=== PATIENT | female | born 1950 | race Caucasian/White ===

== ENCOUNTER 2016-12-18 14:10 | Observation (INO) | payer OTHER ==
[~2016-12-18] VITALS: Ht 157.5 cm; Wt 81.7 kg
[~2016-12-18 14:10] MED LIST: ASPI81TA28 PO; FURO-85 PO; LISI-789 PO; LORA-741 PO; NTRSL3 UT
--- NOTE | 2016-12-18 14:53 | DIAGNOSTIC IMAGING REPORT ---
CHEST ONE VIEW PORTABLE CLINICAL HISTORY: Atypical chest pain COMPARISON STUDY: 04/25/2015 FINDINGS: The heart is mildly enlarged. There is a left subclavian pacer/defibrillator present. There is no failure. There is no focal pulmonary consolidation. There are no pleural effusions.[ IMPRESSION: Stable mild cardiomegaly. No acute findings. Electronically signed by: Doc Sams M.D. 12/18/2016 2:51 PM Dictated Date/Time: 12/18/2016 2:51 PM
[2016-12-18 15:11] LABS: BASO % 0.4 %; BASO ABS # 0.04 K/uL (0-0.2); COMPLETE YES; EOS % 0.8 %; HEMATOCRIT 39.7 % (37-47); IG% 0.3 %; LYMPH % 17.7 %; LYMPH ABS # 1.92 K/uL (1.2-3.4); MEAN CORPUSCULAR HEMOGLOBIN 29.8 pg (25-34); MEAN CORPUSCULAR HGB CONC 33.5 g/dl (32-36); MONO % 6.2 %; NEUT % 74.6 %; PLATELET COUNT 157 K/uL (130-400); RED BLOOD COUNT 4.46 M/uL (4.2-5.4); WHITE BLOOD COUNT 10.87 K/uL (4.8-10.8)
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
[2016-12-18 15:47] LABS: BLOOD UREA NITROGEN 27 mg/dl (7-18); BUN/CREATININE RATIO 24.6 (10-20); CALCIUM 9.2 mg/dl (8.5-10.1); CARBON DIOXIDE 21 mmol/L (21-32); CHLORIDE 104 mmol/L (98-107); GLUCOSE 196 mg/dl (70-99); SODIUM 134 mmol/L (136-145)
[2016-12-18] MEDS ORDERED: NITROGLYCERIN 0.4 MG SL PER TAB CHARGE SL PRN (16:45)
[2016-12-18] MEDS ORDERED: ACETAMINOPHEN 325 MG TAB PO PRN (16:45)
[2016-12-18] MEDS ORDERED: ONDANSETRON INJ 2 MG/ML 2 ML VIAL IV PRN (16:45)
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
[2016-12-18] MEDS ORDERED: PROMETHAZINE HCL INJ 12.5 MG in SODIUM CHLORIDE 0.9% 50ML 50 ML IV PRN (17:00)
[2016-12-18 17:55] VITALS: BP 138/85; PULSE 65; TEMP 36.3; O2SAT 97; Ht 157.5 cm; Wt 81.7 kg
--- NOTE | 2016-12-18 17:56 | DIAGNOSTIC IMAGING REPORT ---
CT OF THE HEAD WITHOUT CONTRAST CLINICAL HISTORY: History of subarachnoid hemorrhage. COMPARISON STUDY: Head CT July 15, 2014. CT DOSE: 679.75 mGycm TECHNIQUE: Helical axial images of the head were obtained without IV contrast. Automated exposure control was utilized for the study. FINDINGS: No acute intracranial hemorrhage, midline shift or mass effect is present. Ventricular system is unremarkable. Basilar cisterns are patent. There are no extra-axial collections. There are no findings to suggest acute dural sinus thrombosis or acute territorial infarct. There is a prominent perivascular space within left basal ganglia. There is no calvarial fracture. There is mild mucosal thickening of the left maxillary sinus. IMPRESSION: No acute intracranial findings. Electronically signed by: Parveen Villanueva M.D. 12/18/2016 5:54 PM Dictated Date/Time: 12/18/2016 5:52 PM
[2016-12-18] MEDS ORDERED: IV FLUIDS COMPLETED PRN (18:15)
[2016-12-18] MEDS ORDERED: GLUCAGON FOR INJ 1 MG VIAL SQ PRN (18:45)
[2016-12-18] MEDS ORDERED: GLUCOSE 10 TABS/TUBE PO PRN (18:45)
[2016-12-18] MEDS ORDERED: GLUCOSE 40% GEL 15 GM TUBE PO PRN (18:45)
[2016-12-18] MEDS ORDERED: DEXTROSE 50% 50 ML SYR IV PRN (18:45)
[2016-12-18 19:57] VITALS: BP 137/85; PULSE 66; TEMP 36.6; O2SAT 95
[2016-12-18] MEDS: INSULIN ASPART 100 UNITS/ML 3 ML PEN SC SCH (20:40)
[2016-12-18] MEDS: ATORVASTATIN 40 MG TAB PO SCH (20:50)
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
[2016-12-19] VITALS (7 sets, daily range): BP systolic 111–143; BP diastolic 69–91; PULSE 58–76; TEMP 36.4–36.9; O2SAT 93–97
[2016-12-19] MEDS: INSULIN ASPART 100 UNITS/ML 3 ML PEN SC SCH ×4 (07:00→21:00)
[2016-12-19 07:26] LABS: HEMATOCRIT 39.3 % (37-47); MEAN CELL VOLUME 89.5 fL (80-100); MEAN CORPUSCULAR HEMOGLOBIN 28.7 pg (25-34); MEAN CORPUSCULAR HGB CONC 32.1 g/dl (32-36); PLATELET COUNT 263 K/uL (130-400); RED BLOOD COUNT 4.39 M/uL (4.2-5.4); WHITE BLOOD COUNT 6.07 K/uL (4.8-10.8)
[2016-12-19 07:45] LABS: BUN/CREATININE RATIO 27.2 (10-20); CALCIUM 8.8 mg/dl (8.5-10.1)
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
[2016-12-19] MEDS: FUROSEMIDE 20 MG TAB PO SCH (13:07)
[2016-12-19] MEDS: CLOPIDOGREL BISULFATE 75 MG TAB PO SCH (13:07)
[2016-12-19] MEDS: ISOSORBIDE MONONITRATE 30 MG TABCR PO SCH (13:07)
[2016-12-19] MEDS: LOSARTAN POTASSIUM 25 MG TAB PO SCH (13:07)
[2016-12-19] MEDS: ASPIRIN 81 MG ECTAB PO SCH (13:07)
[2016-12-19] MEDS: METOPROLOL SUCC 50MG EXT REL TAB PO SCH (13:08)
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
--- NOTE | 2016-12-19 16:31 | ECHOCARDIOGRAM REPORT ---
*NOTICE TO RECEIVING LIBERTARIAN AGENCY This information is strictly Confidential and protected under [place] law. [place] law prohibits you from making any further disclosure of this information unless further disclosure is expressly permitted by the written consent of the person to whom it pertains or is authorized by law. A general authorization for the release of medical or other information is not sufficient for this purpose. Hospital accepts no responsibility if the information is made available to any other person, INCLUDING THE PATIENT. Interpretation Summary * Name: DEBORAH ZAVALA Study Date: 12/19/2016 01:59 PM BP: 138/85 mmHg * Patient Location: C.2T\S\S240\S\1 HR: 70 * : 1950 (M/d/yyyy) Gender: Female Height: 62 in * Age: 66 yrs Ethnicity: [place] Weight: 185 lb * Ordering Physician: Yenni Wagner * Referring Physician: Self, Referred * Performed By: Mabel Talbert RCS * * Reason For Study: CHEST PAIN * BSA: 1.8 m2 * -- Conclusions -- * The left ventricle is moderately dilated. * There is global thinning of the left ventricular owen. * Left ventricular systolic function is severely reduced. * Ejection Fraction = 20-25%. * The right ventricular systolic function is moderately reduced. * The left atrium is moderately dilated. * The right atrium is moderately dilated. * There is moderate mitral regurgitation. * There is moderate to severe tricuspid regurgitation. * Pulmonary Hypertension is present with the estimated PA pressure being 65mm Hg. Procedure Details * A complete two-dimensional transthoracic echocardiogram was performed (2D, M-mode, Doppler and color flow Doppler). Left Ventricle * The left ventricle is moderately dilated. * There is global thinning of the left ventricular owen. * Ejection Fraction = 20-25%. * Left ventricular systolic function is severely reduced. Right Ventricle * The right ventricle is moderately dilated. * There is a pacemaker lead in the right ventricle. * The right ventricular systolic function is moderately reduced. Atria * The left atrium is moderately dilated. * The right atrium is moderately dilated. * The interatrial septum is intact with no evidence for an atrial septal defect. Mitral Valve * The mitral valve leaflets appear thickened, but open well. * There is moderate mitral regurgitation. Tricuspid Valve * The tricuspid valve is not well visualized, but is grossly normal. * There is moderate to severe tricuspid regurgitation. Aortic Valve * Aortic valve sclerosis mild, without significant aortic valvular stenosis. * The aortic valve is tricuspid. The leaflet thickness if normal. There is no aortic stenosis, and no significant insufficiency. * There is no significant aortic regurgitation. Pulmonic Valve * The pulmonic valve is not well visualized. * There is no significant pulmonary regurgitation. Great Vessels * The aortic root and proximal ascending aorta are normal sized. * Pulmonary Hypertension is present with the estimated PA pressure being 65mm Hg. Pericardium/Pleural * There is no pericardial effusion. MMode 2D Measurements and Calculations IVSd 1.1 cm IVSs 1.5 cm LVIDd 5.6 cm LVIDs 5.0 cm LVPWd 1.2 cm LVPWs 1.1 cm IVS/LVPW 0.93 FS 11.1 % EDV(Teich) 153.9 ml ESV(Teich) 117.3 ml EF(Teich) 23.8 % EDV(cubed) 175.9 ml ESV(cubed) 123.7 ml EF(cubed) 29.7 % % IVS thick 34.5 % % LVPW thick -8.17 % LV mass(C)d 277.2 grams LV mass(C)dI 149.9 grams/m\S\2 LV mass(C)s 271.1 grams LV mass(C)sI 146.6 grams/m\S\2 SV(Teich) 36.6 ml SI(Teich) 19.8 ml/m\S\2 SV(cubed) 52.3 ml SI(cubed) 28.3 ml/m\S\2 Ao root diam 3.5 cm Ao root area 9.9 cm\S\2 ACS 1.5 cm LA dimension 4.5 cm LA/Ao 1.3 LVOT diam 2.1 cm LVOT area 3.3 cm\S\2 LVAd ap4 40.3 cm\S\2 LVLd ap4 8.3 cm EDV(MOD-sp4) 155.3 ml EDV(sp4-el) 165.8 ml LVAs ap4 33.9 cm\S\2 LVLs ap4 7.6 cm ESV(MOD-sp4) 122.8 ml ESV(sp4-el) 128.4 ml EF(MOD-sp4) 20.9 % EF(sp4-el) 22.6 % SV(MOD-sp4) 32.5 ml SI(MOD-sp4) 17.6 ml/m\S\2 SV(sp4-el) 37.4 ml SI(sp4-el) 20.2 ml/m\S\2 Doppler Measurements and Calculations MV E max eliel 119.2 cm/sec MV A max eliel 66.9 cm/sec MV E/A 1.8 MV P1/2t max eliel 108.0 cm/sec MV P1/2t 39.9 msec MVA(P1/2t) 5.5 cm\S\2 MV dec slope 792.8 cm/sec\S\2 MV dec time 0.19 sec Ao V2 max 135.9 cm/sec Ao max PG 7.4 mmHg Ao max PG (full) 6.3 mmHg LEXI(V,A) 1.3 cm\S\2 LEXI(V,D) 1.3 cm\S\2 LV V1 max PG 1.1 mmHg LV V1 max 51.8 cm/sec MR max eliel 430.6 cm/sec MR max PG 74.4 mmHg TR max eliel 369.6 cm/sec
[2016-12-19] MEDS: ATORVASTATIN 40 MG TAB PO SCH (21:05)
[2016-12-20] MEDS ORDERED: NURSING DECISION MEDICATION ORDER SCH (01:00)
[2016-12-20 04:04] VITALS: BP 111/62; PULSE 62; TEMP 36.8; O2SAT 94
[2016-12-20] MEDS: INSULIN ASPART 100 UNITS/ML 3 ML PEN SC SCH ×2 (06:31→11:55)
[2016-12-20 07:21] VITALS: BP 129/84; PULSE 65; TEMP 36.9; O2SAT 97
[2016-12-20] MEDS ORDERED: REGADENOSON 0.4 MG/5 ML SYR ONE (07:55)
[2016-12-20 11:40] VITALS: BP_SYST 115; BP_SYST 117; BP_DIAS 59; BP_DIAS 69; PULSE 59; PULSE 60; TEMP 36.5; O2SAT 97
[2016-12-20 11:41] VITALS: BP_SYST 105; BP_SYST 113; BP_DIAS 57; BP_DIAS 67; PULSE 62; PULSE 87; TEMP 36.9; O2SAT 94
--- NOTE | 2016-12-20 11:41 | MYOCARDIAL PERFUSION SCAN ---
LEXISCAN CARDIOLITE STUDY The patient received 11.2 mci of technetium-99m sestamibi following by resting SPECT study. The patient then received Lexiscan according to protocol. Her baseline EKG revealed a sinus rhythm with ventricular pacing. There was no significant changes with EKG following the Lexiscan infusion. The patient immediately following the Lexiscan bolus received 32.9 mci of intravenous technetium-99m sestamibi following by gated SPECT study. When comparing the rest to stress sestamibi scans the left ventricle was dilated both at rest and post stress. There is severe decreased uptake of the sestamibi in the inferolateral myocardium with moderate decreased perfusion in the inferior myocardium. When comparing the rest to stress sestamibi scans these defects are fixed. There were no reversible defects that would suggest ischemia. Gated analysis reveals global hypokinesis of the left ventricle with an estimated left ventricular ejection fraction 28%. SUMMARY: The patient has a dilated cardiomyopathy with severe LV dysfunction and estimated left ventricular ejection fraction 28%. There is evidence of a previous transmural infarct of the inferolateral myocardium as well as a nontransmural infarct of the inferior myocardium. There is no evidence for active ischemia. These findings are most consistent with the distribution of the left circumflex or right coronary arteries.
[2016-12-20] MEDS: ASPIRIN 81 MG ECTAB PO SCH (11:51)
[2016-12-20] MEDS: CLOPIDOGREL BISULFATE 75 MG TAB PO SCH (11:51)
[2016-12-20] MEDS: ISOSORBIDE MONONITRATE 30 MG TABCR PO SCH (11:51)
[2016-12-20] MEDS: FUROSEMIDE 20 MG TAB PO SCH (11:52)
[2016-12-20] MEDS: LOSARTAN POTASSIUM 25 MG TAB PO SCH (11:52)
[2016-12-20] MEDS: METOPROLOL SUCC 50MG EXT REL TAB PO SCH (11:52)
--- NOTE | 2016-12-20 12:39 | PROGRESS NOTE ---
DATE: 12/20/2016 FOLLOWUP VISIT SUBJECTIVE: The patient is a 66-year-old female with a known ischemic cardiomyopathy. She was admitted with increased dyspnea. This morning she underwent a pharmacologic nuclear stress test that shows no active ischemia. It shows an old infarct of the inferolateral and inferior myocardium with reduced left ventricular systolic function, estimated left ventricular ejection fraction 28%. These are consistent with previous findings. I shared the results with the patient. I believe at this point she may be discharged to outpatient care and followup. No further cardiac testing is indicated. OBJECTIVE: GENERAL: She is alert and oriented, in no acute distress. VITAL SIGNS: Blood pressure is 115/60, pulse is regular at 80 beats per minute, respiratory rate is 16, she is afebrile. HEENT: She is normocephalic. Pupils are equal and reactive to light. Extraocular muscles are intact bilaterally. NECK: The neck veins are flat. Carotids have good upstrokes bilaterally with no bruits. Thyroid is nonpalpable. RESPIRATORY: Breath sounds equal bilaterally and clear to auscultation. CARDIOVASCULAR: Heart has a regular rhythm. Normal S1, S2. There is a systolic murmur at the apex of the heart. No S3, S4. GASTROINTESTINAL: Abdomen is soft, nontender, without organomegaly. EXTREMITIES: Free of edema, digit clubbing, or cyanosis. NEUROLOGIC: Grossly intact. SKIN: Warm to touch. LYMPH NODES: Negative to palpation. IMPRESSION: 1. Ischemic cardiomyopathy with chronic systolic heart failure. 2. Implantable cardioverter defibrillator for primary prevention. 3. Previous intracoronary stent left circumflex artery. RECOMMENDATIONS: At this point as outlined above, the patient can be discharged to outpatient followup and care. We will arrange for her followup with her office.
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
--- NOTE | 2016-12-20 14:07 | Discharge Instructions ---
Discharge Instructions Date of Service Dec 20, 2016. Admission Reason for Admission: Chest Pain Discharge Discharge Diagnosis / Problem: CHEST PAIN Discharge Goals Goal(s): Diagnostic testing, Therapeutic intervention Activity Recommendations Activity Limitations: as noted below (NO HEAVY EXERTION UNTIL RE-EVALUATED BY PRIMARY CARE PHYSICIAN) . Instructions / Follow-Up Instructions / Follow-Up PLEASE CALL PRIMARY CARE PHYSICIAN OR RETURN TO ER IMMEDIATELY IF WITH RECURRENCE OF SYMPTOMS. FOLLOW UP WITH DR. KLEIN ON SATURDAY, DECEMBER 24, 2016 AT 10:45AM. Current Hospital Diet Patient's current hospital diet: AHA Diet (Heart Healthy), Diabetes Type 2 Diet Discharge Diet Recommended Diet: AHA Diet (Heart Healthy), Diabetes Type 2 Diet Procedures Procedures Performed: STRESS TEST Pending Studies Studies pending at discharge: no Medical Emergencies . Who to Call and When: Medical Emergencies: If at any time you feel your situation is an emergency, please call 911 immediately. . Non-Emergent Contact Non-Emergency issues call your: Primary Care Provider Call Non-Emergent contact if: your pain is not controlled, you have any medication questions . Past History Medical & Surgical History: (1) Dyslipidemia (2) HTN (hypertension) (3) CAD (coronary artery disease) (4) Ischemic cardiomyopathy (5) COPD (chronic obstructive pulmonary disease) (6) Presence of combination internal cardiac defibrillator (ICD) and pacemaker (7) DM type 2 (diabetes mellitus, type 2) (8) SAH (subarachnoid hemorrhage) (9) H/O dilation and curettage (10) H/O tubal ligation (11) Hx of appendectomy (12) Hx of tonsillectomy . "Provider Documentation" section prepared by Kishore Rivers. . VTE Core Measure Inpt VTE Proph given/why not?: SCD's
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
[2016-12-20 14:19] VITALS: BP 113/57; PULSE 87; TEMP 36.9; O2SAT 94
[2017-02-21] MEDS ORDERED: LSX20 PO (14:48)
[2017-03-04] MEDS ORDERED: XRL15 PO (15:48)
[2017-03-04] MEDS ORDERED: MAGN1TAB19 PO (16:01)
[2017-03-14] MEDS ORDERED: CLOP1TAB15 PO (06:36)
[2017-03-14] MEDS ORDERED: METO-217 PO (06:45)
[2017-03-14] MEDS ORDERED: GLIP2.5T11 PO (06:45)
[2017-03-14] MEDS ORDERED: ISOS30TA35 PO (11:47)
[2017-03-14] MEDS ORDERED: ATOR-26 PO (13:44)
[2017-03-14] MEDS ORDERED: CZR25 PO (14:57)
[2017-03-14] MEDS ORDERED: ZINC40OI13 TOP (21:26)
[2017-05-03] MEDS ORDERED: CIPR250T5 PO (09:56)
== END 2016-12-20 14:35 | disposition home or self-care (01) ==
LOC: ENRESERVDT → ENRESERVTM → EDBD 14:10 → C.EDB 14:12 → C.2T 16:48
PROVIDERS: ADMIT Internal Medicine; ATTEND Internal Medicine
DX: R07.9 Chest pain, unspecified (principal); I25.10 Atherosclerotic heart disease of native coronary artery without angina pectoris; I25.5 Ischemic cardiomyopathy; E78.5 Hyperlipidemia, unspecified; J44.9 Chronic obstructive pulmonary disease, unspecified; E11.9 Type 2 diabetes mellitus without complications; I10 Essential (primary) hypertension; Z90.49 Acquired absence of other specified parts of digestive tract; Z95.810 Presence of automatic (implantable) cardiac defibrillator; Z79.82 Long term (current) use of aspirin; Z87.440 Personal history of urinary (tract) infections

== ENCOUNTER 2017-01-20 20:58 | Emergency (ER) | payer OTHER ==
[~2017-01-20] VITALS: Ht 157.5 cm; Wt 84.1 kg
[~2017-01-20 20:58] MED LIST changes: -LISI-789 PO; -LORA-741 PO
[2017-01-20 21:00] VITALS: TEMP 36.7; Ht 157.5 cm; Wt 84.1 kg
[2017-01-20 21:46] VITALS: O2SAT 98
[2017-01-20 22:09] LABS: BASO % 0.4 %; BASO ABS # 0.03 K/uL (0-0.2); COMPLETE YES; EOS % 1.1 %; HEMATOCRIT 41.3 % (37-47); IG% 0.1 %; LYMPH % 30.4 %; LYMPH ABS # 2.31 K/uL (1.2-3.4); MEAN CORPUSCULAR HGB CONC 32.2 g/dl (32-36); MONO % 11.2 %; NEUT % 56.8 %; PLATELET COUNT 237 K/uL (130-400); RED BLOOD COUNT 4.59 M/uL (4.2-5.4); WHITE BLOOD COUNT 7.59 K/uL (4.8-10.8)
--- NOTE | 2017-01-20 22:19 | DIAGNOSTIC IMAGING REPORT ---
CHEST 2 VIEWS ROUTINE HISTORY: cough/cp eval for pna COMPARISON: Chest 12/18/2016. FINDINGS: The heart remains enlarged. Stable bilateral hilar prominence. The lungs are clear. Left-sided pacemaker/defibrillator. No pleural effusions. No pneumothorax. IMPRESSION: No significant change compared to the prior study. No acute process. Stable mild cardiomegaly. Electronically signed by: Fabien Hernández M.D. 01/20/2017 10:18 PM Dictated Date/Time: 01/20/2017 10:17 PM
[2017-01-20 22:26] LABS: BUN/CREATININE RATIO 23.7 (10-20); CREATININE 1.6 mg/dl (0.60-1.20); POTASSIUM 4.1 mmol/L (3.5-5.1)
[2017-01-20] MEDS ORDERED: BENZONATATE 100MG CAP PO ONE (22:30)
[2017-01-20 22:31] LABS: CALCIUM 8.4 mg/dl (8.5-10.1)
[2017-01-20] MEDS ORDERED: SODIUM CHLORIDE 0.9% 250ML 250 ML IV STA (22:31)
[2017-01-20] MEDS ORDERED: DOXY100C2 PO (22:48)
[2017-01-20] MEDS ORDERED: BENZ100C84 PO (22:48)
[2017-01-20 22:55] LABS: INR 1.3 (0.9-1.1)
[2017-01-20] MEDS ORDERED: DOXYCYCLINE HYCLATE 100 MG CAP PO ONE (23:00)
[2017-01-20 23:38] VITALS: BP 140/92; PULSE 74; O2SAT 97
--- NOTE | 2017-01-21 00:42 | EMERGENCY ROOM VISIT NOTE ---
History Report prepared by Maribell: Aura Arriaga Under the Supervision of: Dr. Juventino Castro M.D. First contact with patient: 21:06 Chief Complaint: RESPIRATORY PROBLEMS Stated Complaint: COUGHING,BRONCHITIS,HEART CONDITION History of Present Illness The patient is a 66 year old female who presents to the Emergency Room with complaints of worsening chest pain beginning yesterday. The patient describes the pain as an ache and sharp at times. She notes that the pain began yesterday afternoon but has worsened today. The pain does not move in location. She notes that coughing worsens the pain. She denies sputum with the cough. The patient is also experiencing congestion. She has a history of bronchitis and states that her symptoms are similar to previous bronchitis diagnoses. The patient currently has a pace maker. She has a history of heart disease and COPD. The patient states that this chest pain is very different from the chest pain she experienced with her heart attack. She does have a fever. The patient denies wheezing, shortness of breath, or swelling to her lower extremities. Source of History: patient Onset: yesterday Position: chest Quality: ache, sharp Timing: worsening Modifying Factors (Worsening): other (cough) Associated Symptoms: + cough, + fevers, No SOB Note: The patient denies wheezing, sputum or swelling to her lower extremities. Review of Systems See HPI for pertinent positives & negatives. A total of 10 systems reviewed and were otherwise negative. Past Medical & Surgical Medical Problems: (1) CAD (coronary artery disease) (2) COPD (chronic obstructive pulmonary disease) (3) DM type 2 (diabetes mellitus, type 2) (4) Dyslipidemia (5) HTN (hypertension) (6) Ischemic cardiomyopathy (7) Presence of combination internal cardiac defibrillator (ICD) and pacemaker (8) SAH (subarachnoid hemorrhage) Surgical Problems: (1) H/O dilation and curettage (2) H/O tubal ligation (3) Hx of appendectomy (4) Hx of tonsillectomy Family History FH: Alzheimers disease FATHER Social History Smoking Status: Never Smoker Alcohol Use: occasionally Marital Status: single Housing Status: lives alone Occupation Status: retired Current/Historical Medications Scheduled Aspirin (Aspirin Ec), 81 MG PO QAM Atorvastatin (Lipitor), 80 MG PO HS Clopidogrel (Plavix), 75 MG PO QAM Doxycycline Hyclate (Vibramycin), 100 MG PO BID Furosemide (Lasix), 20 MG PO 5XWK Glipizide (Glipizide Er), 2.5 MG PO DAILY Isosorbide Mononitrate Ext Rel (Imdur Ext Rel), 60 MG PO QAM Losartan Potassium (Losartan Potassium), 25 MG PO QAM Metoprolol Succinate (Toprol Xl), 50 MG PO QAM Nitroglycerin (Nitrostat), 0.3 MG UT PRN Scheduled PRN Benzonatate (Tessalon Perles), 100 MG PO Q6 PRN for Cough Allergies Coded Allergies: Sulfamethoxazole (Verified Allergy, Unknown, 12/18/16) Prednisone (Verified Adverse Reaction, Unknown, "makes me weird", 12/18/16) pt Physical Exam Vital Signs Date Time Temp Pulse Resp B/P Pulse Ox O2 Delivery O2 Flow Rate FiO2 01/20/17 23:38 74 16 140/92 97 Room Air 01/20/17 22:32 76 20 135/76 99 Room Air 01/20/17 22:00 76 01/20/17 21:46 98 Room Air 01/20/17 21:16 Room Air 97 01/20/17 21:00 36.7 82 20 136/86 97 Room Air Physical Exam Constitutional: Vital signs reviewed. Eyes: Pupils are equal round reactive to light. Conjunctiva are noninjected. ENT: Pharynx is clear without erythema or exudate. Mucous membranes are moist. Neck supple without meningeal signs. Respiratory: Clear to auscultation bilaterally. Breath sounds are equal bilaterally. Cardiovascular: Regular rate and rhythm. No rubs or gallops. GI: Soft, nondistended and nontender. Bowel sounds are present. Musculoskeletal: Reproducible chest wall tenderness. No peripheral edema. No lower extremity tenderness. Integumentary: No cyanosis. Neurological: The patient is awake and alert. No focal deficits. Psychiatric: Normal affect. Medical Decision & Procedures ER Provider Diagnostic Interpretation: X-ray results as stated below per interpretation by me and the radiologist: CHEST 2 VIEWS ROUTINE HISTORY: cough/cp eval for pna COMPARISON: Chest 12/18/2016. FINDINGS: The heart remains enlarged. Stable bilateral hilar prominence. The lungs are clear. Left-sided pacemaker/defibrillator. No pleural effusions. No pneumothorax. IMPRESSION: No significant change compared to the prior study. No acute process. Stable mild cardiomegaly. Electronically signed by: Fabien Hernández M.D. 01/20/2017 10:18 PM Dictated Date/Time: 01/20/2017 10:17 PM Laboratory Results 01/20/17 21:55 Red Blood Count 4.59, Mean Corpuscular Volume 90.0, Mean Corpuscular Hemoglobin 29.0, Mean Corpuscular Hemoglobin Concent 32.2, Mean Platelet Volume 10.0, Neutrophils (%) (Auto) 56.8, Lymphocytes (%) (Auto) 30.4, Monocytes (%) (Auto) 11.2, Eosinophils (%) (Auto) 1.1, Basophils (%) (Auto) 0.4, Neutrophils # (Auto ) 4.31, Lymphocytes # (Auto) 2.31, Monocytes # (Auto) 0.85, Eosinophils # (Auto ) 0.08, Basophils # (Auto) 0.03 01/20/17 21:55 Test 01/20/17 21:55 01/20/17 22:05 01/20/17 22:37 White Blood Count 7.59 K/uL (4.8-10.8) Red Blood Count 4.59 M/uL (4.2-5.4) Hemoglobin 13.3 g/dL (12.0-16.0) Hematocrit 41.3 % (37-47) Mean Corpuscular Volume 90.0 fL (80-100) Mean Corpuscular Hemoglobin 29.0 pg (25-34) Mean Corpuscular Hemoglobin Concent 32.2 g/dl (32-36) Platelet Count 237 K/uL (130-400) Mean Platelet Volume 10.0 fL (7.4-10.4) Neutrophils (%) (Auto) 56.8 % Lymphocytes (%) (Auto) 30.4 % Monocytes (%) (Auto) 11.2 % Eosinophils (%) (Auto) 1.1 % Basophils (%) (Auto) 0.4 % Neutrophils # (Auto) 4.31 K/uL (1.4-6.5) Lymphocytes # (Auto) 2.31 K/uL (1.2-3.4) Monocytes # (Auto) 0.85 K/uL (0.11-0.59) Eosinophils # (Auto) 0.08 K/uL (0-0.5) Basophils # (Auto) 0.03 K/uL (0-0.2) RDW Standard Deviation 49.9 fL (36.4-46.3) RDW Coefficient of Variation 15.2 % (11.5-14.5) Immature Granulocyte % (Auto) 0.1 % Immature Granulocyte # (Auto) 0.01 K/uL (0.00-0.02) Anion Gap 12.0 mmol/L (3-11) Est Creatinine Clear Calc Drug Dose 34.8 ml/min Estimated GFR () 38.5 Estimated GFR (Non- 33.2 BUN/Creatinine Ratio 23.7 (10-20) Calcium Level 8.4 mg/dl (8.5-10.1) Bedside Troponin I 0.000 ng/ml (0-0.045) Prothrombin Time 14.0 SECONDS (9.0-12.0) Prothromb Time International Ratio 1.3 (0.9-1.1) Activated Partial Thromboplast Time 26.7 SECONDS (21.0-31.0) Partial Thromboplastin Ratio 1.0 Laboratory results as reviewed by me. Medications Administered Medications (Trade) Dose Ordered Sig/[facility] Route Start Time Stop Time Status Last Admin Dose Admin Benzonatate 100 mg 100 mg NOW ONCE PO 01/20/17 22:30 01/20/17 22:31 DC 01/20/17 22:30 100 MG Sodium Chloride (Nss 250ml) 250 ml @ 999 mls/hr Q16M STAT IV 01/20/17 22:31 01/20/17 22:46 DC 01/20/17 22:49 999 MLS/HR Doxycycline Hyclate (Vibramycin Cap) 100 mg ONE ONCE PO 01/20/17 23:00 01/20/17 23:01 DC 01/20/17 23:26 100 MG ECG Indication: chest pain Rate (beats per minute): 76 Rhythm: other (paced rhythm) Findings: no ectopy, other (QRS is 122 ms) ED Course 2110: The patient was evaluated in room A4. A complete history and physical exam was performed. 0: Tessalon Perles Cap 100 mg PO, Sodium Chloride 250 ml @ 999 mls/hr IV. 2246: I discussed the test results with the patient. 2250: Upon reevaluation, the patient appeared to have improvement of her symptoms. I discussed natan's findings with her. She verbalized agreement of the treatment plan. She was discharged home. Medical Decision This is a 66-year-old female who presents with cough and chest discomfort. Differential diagnosis includes bronchitis, pneumonia, pleurisy, pericarditis, acute AR. I did perform a limited focused review of portions of the patient's old chart on the electronic medical record. The patient was hospitalized on December 18 for chest pain. Chemical stress test was done which showed severe LV dysfunction, EF of 28, dilated cardiomyopathy, and no evidence of acute ischemia. Medication Reconciliation: I attest that I have personally reviewed the patient' s current medication list. Blood Pressure Screening: Patient was found to have normal blood pressure on screening and does not require follow-up. I did evaluate the patient as noted above. The patient is presenting with chest discomfort which is reproducible on examination. It is pleuritic in nature and she states that it feels nothing like when she had her cardiac issues. She was mostly concerned about bronchitis. IV access was established. The patient was placed on a continuous director of cardiac cath lab. I did order and personally review the patient's 12-lead EKG and chest x-ray as described above. Her chest x-ray does not demonstrate pneumonia. I did order and review the patient's blood work as noted in the electronic medical record. Troponin is negative. Her creatinine is slightly elevated. She was given normal saline IV. She was given Tessalon Perles for her cough. I did discuss the test results with the patient. At this time I did not see any acute indication for hospitalization. I did recommend close follow up with her doctor. She will be treated with antibiotics given her multiple comorbidities. She was given doxycycline here and discharged with a prescription for doxycycline and Tessalon Perles. Impression Primary Impression: Bronchitis Additional Impressions: Chest wall pain Elevated serum creatinine Scribe Attestation The scribe's documentation has been prepared under my direct and personally reviewed by me in its entirety. I confirm that the note above accurately reflects all work, treatment, procedures, and medical decision making performed by me. Departure Information Dispostion Home / Self-Care Prescriptions Benzonatate (Tessalon Perles) 100 Mg Cap 100 MG PO Q6 Y for Cough, #14 CAP Prov: Juventino Castro M.D. 01/20/17 Doxycycline Hyclate (VIBRAMYCIN) 100 Mg Cap 100 MG PO BID for 10 Days, #20 CAP Prov: Juventino Castro M.D. 01/20/17 Referrals Diamante Howard D.O. (PCP) Forms HOME CARE DOCUMENTATION FORM, IMPORTANT VISIT INFORMATION, WORK / SCHOOL INSTRUCTIONS Patient Instructions ED Bronchitis Abx Tx, ED Chest Pain Atypical Unkn Cause, My [facility] Additional Instructions You have been examined and treated today on an emergency basis only. This is not a substitute for, or an effort to provide, complete comprehensive medical care. It is impossible to recognize and treat all injuries or illnesses in a single emergency department visit. It is therefore important that you follow up closely with your physician. Call as soon as possible for an appointment. Have your doctor repeat your creatinine which was elevated today at 1.6. Return for worsening symptoms or if you develop fever, vomiting, difficulty breathing or any other concerning symptoms. Problem Qualifiers
[2017-02-21] MEDS ORDERED: LSX20 PO (14:48)
[2017-03-04] MEDS ORDERED: XRL15 PO (15:48)
[2017-03-04] MEDS ORDERED: MAGN1TAB19 PO (16:01)
[2017-03-14] MEDS ORDERED: CLOP1TAB15 PO (06:36)
[2017-03-14] MEDS ORDERED: METO-217 PO (06:45)
[2017-03-14] MEDS ORDERED: GLIP2.5T11 PO (06:45)
[2017-03-14] MEDS ORDERED: ISOS30TA35 PO (11:47)
[2017-03-14] MEDS ORDERED: ATOR-26 PO (13:44)
[2017-03-14] MEDS ORDERED: CZR25 PO (14:57)
[2017-03-14] MEDS ORDERED: ZINC40OI13 TOP (21:26)
[2017-03-20] MEDS ORDERED: MGNO400 PO (12:06)
[2017-03-20] MEDS ORDERED: TPRSR25 PO (12:06)
[2017-03-20] MEDS ORDERED: ASPEC81 PO (12:06)
[2017-03-20] MEDS ORDERED: LSX40 PO (12:06)
[2017-03-20] MEDS ORDERED: PANT1TAB48 PO (12:06)
[2017-05-03] MEDS ORDERED: CIPR250T5 PO (09:56)
== END 2017-01-20 23:39 | disposition home or self-care (01) ==
LOC: C.EDB 20:59 → C.EDA 23:39
DX: J40 Bronchitis, not specified as acute or chronic (principal); R07.89 Other chest pain; R79.89 Other specified abnormal findings of blood chemistry; J44.9 Chronic obstructive pulmonary disease, unspecified; I25.5 Ischemic cardiomyopathy; I25.10 Atherosclerotic heart disease of native coronary artery without angina pectoris; E11.9 Type 2 diabetes mellitus without complications; E78.5 Hyperlipidemia, unspecified; I10 Essential (primary) hypertension; I25.2 Old myocardial infarction; Z95.810 Presence of automatic (implantable) cardiac defibrillator; Z98.51 Tubal ligation status; Z90.89 Acquired absence of other organs; Z98.890 Other specified postprocedural states; Z79.02 Long term (current) use of antithrombotics/antiplatelets; Z79.82 Long term (current) use of aspirin; Z79.84 Long term (current) use of oral hypoglycemic drugs; Z79.899 Other long term (current) drug therapy

== ENCOUNTER 2017-02-03 18:08 | Emergency (ER) | payer OTHER ==
[~2017-02-03] VITALS: Ht 157.5 cm; Wt 85.7 kg
[~2017-02-03 18:08] MED LIST changes: +BENZ100C84 PO; +DOXY100C2 PO
[2017-02-03 18:14] VITALS: TEMP 36.7; Ht 157.5 cm; Wt 85.7 kg
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
[2017-02-03 19:49] VITALS: BP 116/90; PULSE 85; O2SAT 97
[2017-02-21] MEDS ORDERED: LSX20 PO (14:48)
[2017-03-04] MEDS ORDERED: XRL15 PO (15:48)
[2017-03-04] MEDS ORDERED: MAGN1TAB19 PO (16:01)
[2017-03-14] MEDS ORDERED: CLOP1TAB15 PO (06:36)
[2017-03-14] MEDS ORDERED: GLIP2.5T11 PO (06:45)
[2017-03-14] MEDS ORDERED: METO-217 PO (06:45)
[2017-03-14] MEDS ORDERED: ISOS30TA35 PO (11:47)
[2017-03-14] MEDS ORDERED: ATOR-26 PO (13:44)
[2017-03-14] MEDS ORDERED: CZR25 PO (14:57)
[2017-03-14] MEDS ORDERED: ZINC40OI13 TOP (21:26)
[2017-03-20] MEDS ORDERED: LSX40 PO (12:06)
[2017-03-20] MEDS ORDERED: MGNO400 PO (12:06)
[2017-03-20] MEDS ORDERED: PANT1TAB48 PO (12:06)
[2017-03-20] MEDS ORDERED: TPRSR25 PO (12:06)
[2017-03-20] MEDS ORDERED: ASPEC81 PO (12:06)
[2017-05-03] MEDS ORDERED: CIPR250T5 PO (09:56)
== END 2017-02-03 19:49 | disposition home or self-care (01) ==
LOC: C.EDB 18:09 → C.EDD 19:49
DX: R60.0 Localized edema (principal); L29.9 Pruritus, unspecified; I25.10 Atherosclerotic heart disease of native coronary artery without angina pectoris; J44.9 Chronic obstructive pulmonary disease, unspecified; E11.9 Type 2 diabetes mellitus without complications; I10 Essential (primary) hypertension; E78.5 Hyperlipidemia, unspecified; I25.5 Ischemic cardiomyopathy; Z87.820 Personal history of traumatic brain injury; Z95.810 Presence of automatic (implantable) cardiac defibrillator; Z98.51 Tubal ligation status; Z90.89 Acquired absence of other organs; Z98.890 Other specified postprocedural states; Z79.02 Long term (current) use of antithrombotics/antiplatelets; Z79.82 Long term (current) use of aspirin; Z79.84 Long term (current) use of oral hypoglycemic drugs; Z79.899 Other long term (current) drug therapy

== ENCOUNTER 2017-02-07 09:33 | Emergency (ER) | payer OTHER ==
[~2017-02-07] VITALS: Ht 157.5 cm; Wt 85.0 kg
[2017-02-07 09:41] VITALS: TEMP 36.5; Ht 157.5 cm; Wt 85.0 kg
[2017-02-07 10:33] VITALS: O2SAT 98
[2017-02-07 11:22] LABS: URINE APPEARANCE CLOUDY (CLEAR); URINE COLOR DK YELLOW; URINE EPITHELIAL CELL AUTO >30 /lpf (0-5); URINE NITRITE NEG (NEG); URINE SPECIFIC GRAVITY 1.024 (1.000-1.030); UROBILINOGEN NEG (NEG)
[2017-02-07 11:42] LABS: MANUAL MICROSCOPIC REQUIRED? NO; REVIEW REQ? NO; URINE BILIRUBIN 1+ (NEG)
--- NOTE | 2017-02-07 12:21 | EMERGENCY ROOM VISIT NOTE ---
History Report prepared by Maribell: Kallie Powell Under the Supervision of: Dr. Keanu Henry M.D. First contact with patient: 10:13 Chief Complaint: SHORTNESS OF BREATH Stated Complaint: SHORT OF BREATH Nursing Triage Summary: pt from home deveolped sob during night, pt was awake and active in the house at that time. denies cough. this am friend checked pox it was 88%, bls put pt on 4l o2 sat then 100% History of Present Illness The patient is a 66 year old female who presents to the Emergency Room with complaints of improved shortness of breath that started last night. The patient came to the ED via ambulance. The shortness of breath is worse with exertion. The patient is also experiencing lightheadedness while walking. She states that the room is not spinning. The lightheadedness does not seem to be associated with specific movements or changes in position. She is also experiencing generalized weakness. The patient denies cough, numbness or tingling in her face , hands, or feet. The patient discussed her symptoms with her friend who told her that she should call 911. The patient states that she is feeling better now. The patient adds that she has not eaten anything since yesterday. The patient did not take her morning medications. Source of History: patient Onset: last night Position: chest Quality: other (shortness of breath) Timing: other (improved) Modifying Factors (Worsening): exertion Associated Symptoms: No cough, No numbness Note: lightheadedness Review of Systems See HPI for pertinent positives & negatives. A total of 10 systems reviewed and were otherwise negative. Past Medical & Surgical Medical Problems: (1) CAD (coronary artery disease) (2) COPD (chronic obstructive pulmonary disease) (3) DM type 2 (diabetes mellitus, type 2) (4) Dyslipidemia (5) HTN (hypertension) (6) Ischemic cardiomyopathy (7) Presence of combination internal cardiac defibrillator (ICD) and pacemaker (8) SAH (subarachnoid hemorrhage) Surgical Problems: (1) H/O dilation and curettage (2) H/O tubal ligation (3) Hx of appendectomy (4) Hx of tonsillectomy Family History FH: Alzheimers disease FATHER Social History Smoking Status: Never Smoker Alcohol Use: occasionally Marital Status: single Housing Status: lives alone Occupation Status: retired Current/Historical Medications Scheduled Aspirin (Aspirin Ec), 81 MG PO QAM Atorvastatin (Lipitor), 80 MG PO HS Clopidogrel (Plavix), 75 MG PO QAM Furosemide (Lasix), 20 MG PO 5XWK Glipizide (Glipizide Er), 2.5 MG PO DAILY Isosorbide Mononitrate Ext Rel (Imdur Ext Rel), 60 MG PO QAM Losartan Potassium (Losartan Potassium), 25 MG PO QAM Metoprolol Succinate (Toprol Xl), 50 MG PO QAM Nitroglycerin (Nitrostat), 0.3 MG UT PRN Allergies Coded Allergies: Sulfamethoxazole (Verified Allergy, Unknown, 02/07/17) Prednisone (Verified Adverse Reaction, Unknown, "makes me weird", 02/07/17) pt Physical Exam Vital Signs Date Time Temp Pulse Resp B/P (MAP) Pulse Ox O2 Delivery O2 Flow Rate FiO2 02/07/17 12:25 76 19 121/69 98 02/07/17 10:48 76 21 02/07/17 10:43 118/72 02/07/17 10:33 98 Room Air 02/07/17 10:18 71 25 94 02/07/17 10:03 71 14 97 02/07/17 09:48 69 21 97 02/07/17 09:47 138/99 02/07/17 09:47 70 22 138/99 98 Room Air 02/07/17 09:45 71 02/07/17 09:41 36.5 75 23 137/100 98 Room Air 02/07/17 09:35 97 Room Air Physical Exam GENERAL: Patient is a healthy-appearing well-nourished female. HEAD: Normocephalic atraumatic EYES: Ocular movements intact pupils equal and react to light OROPHARYNX mucous membranes are moist no exudates present no erythema or edema present NECK: Supple no nuchal rigidity CHEST: Good equal expansion LUNGS: Clear and equal to auscultation CARDIAC: Normal S1 and S2 ABDOMEN: Soft nontender no guarding BACK: No CVA tenderness EXTREMITIES: No pain upon palpation normal muscle strength in all groups no clubbing cyanosis or edema NEURO: Patient is following commands and answering questions appropriately. Alert and oriented x3 Cranial Nerves 2-12 grossly intact Medical Decision & Procedures Laboratory Results Test 02/07/17 10:45 Urine Color DK YELLOW Urine Appearance CLOUDY (CLEAR) Urine pH 5.0 (4.5-7.5) Urine Specific [place] 1.024 (1.000-1.030) Urine Protein 2+ (NEG) Urine Glucose (UA) NEG (NEG) Urine Ketones TRACE (NEG) Urine Occult Blood TRACE (NEG) Urine Nitrite NEG (NEG) Urine Bilirubin 1+ (NEG) Urine Urobilinogen NEG (NEG) Urine Leukocyte Esterase TRACE (NEG) Urine WBC (Auto) 1-5 /hpf (0-5) Urine RBC (Auto) 0-4 /hpf (0-4) Urine Hyaline Casts (Auto) 10-30 /lpf (0-5) Urine Epithelial Cells (Auto) >30 /lpf (0-5) Urine Bacteria (Auto) NEG (NEG) Labs reviewed by ED physician. ECG Indication: SOB/dyspnea Rate (beats per minute): 72 Rhythm: other Findings: no acute ischemic change, paced rhythm, no ectopy ED Course 1016: The medical student evaluated the patient at this time. We discussed his findings and potential treatment plans. 1043: Past medical records reviewed. The patient was evaluated in room A12. A complete history and physical examination was performed. 1150: Upon the medical student's reexamination the patient is doing better. The medical student discussed results and treatment plan with the patient. The patient verbalized agreement and understanding. The patient is ready for discharge. Medical Decision Differential diagnosis: Etiologies such as infections, reactive airway disease, pneumonia, pneumothorax , COPD, CHF, cardiac ischemia, pulmonary embolism, musculoskeletal, gastrointestinal, as well as others were entertained. Medication Reconciliation: I attest that I have personally reviewed the patient' s current medication list Blood pressure Screening: Patient was found to have a slightly elevated blood pressure due to circumstances. I do not believe that the patient requires hypertension monitoring. This is a 66-year-old female who presents emergency department complaining of anxiety. Upon arrival to emergency department the patient has no complaints and her symptoms are largely resolved. The patient is only requesting food upon arrival to emergency department. Therefore she was fed. I do believe that she is well enough to be discharged home for follow-up with her primary care physician. Patient was in agreement with the treatment plan. Impression Primary Impression: Dehydration Scribe Attestation The scribe's documentation has been prepared under my direction and personally reviewed by me in its entirety. I confirm that the note above accurately reflects all work, treatment, procedures, and medical decision making performed by me. Departure Information Dispostion Home / Self-Care Referrals Diamante Howard D.O. (PCP) Forms HOME CARE DOCUMENTATION FORM, IMPORTANT VISIT INFORMATION Patient Instructions My [facility] Additional Instructions Increase fluid intake over the next 48 hours You have been examined and treated today on an emergency basis only. This is not a substitute for, or an effort to provide, complete comprehensive medical care. It is impossible to recognize and treat all injuries or illnesses in a single emergency department visit. It is therefore important that you follow up closely with dr Howard. Call as soon as possible for an appointment. Thank you for your time and consideration. I look forward to speaking with you again soon. Please don't hesitate to call us if you have any questions.
[2017-02-07 12:25] VITALS: BP 121/69; PULSE 76; O2SAT 98
[2017-02-21] MEDS ORDERED: LSX20 PO (14:48)
[2017-03-04] MEDS ORDERED: XRL15 PO (15:48)
[2017-03-04] MEDS ORDERED: MAGN1TAB19 PO (16:01)
[2017-03-14] MEDS ORDERED: CLOP1TAB15 PO (06:36)
[2017-03-14] MEDS ORDERED: GLIP2.5T11 PO (06:45)
[2017-03-14] MEDS ORDERED: METO-217 PO (06:45)
[2017-03-14] MEDS ORDERED: ISOS30TA35 PO (11:47)
[2017-03-14] MEDS ORDERED: ATOR-26 PO (13:44)
[2017-03-14] MEDS ORDERED: CZR25 PO (14:57)
[2017-03-14] MEDS ORDERED: ZINC40OI13 TOP (21:26)
[2017-03-20] MEDS ORDERED: LSX40 PO (12:06)
[2017-03-20] MEDS ORDERED: ASPEC81 PO (12:06)
[2017-03-20] MEDS ORDERED: TPRSR25 PO (12:06)
[2017-03-20] MEDS ORDERED: MGNO400 PO (12:06)
[2017-03-20] MEDS ORDERED: PANT1TAB48 PO (12:06)
[2017-05-03] MEDS ORDERED: CIPR250T5 PO (09:56)
== END 2017-02-07 12:25 | disposition home or self-care (01) ==
LOC: EDBD 09:33 → C.EDA 09:34
DX: E86.0 Dehydration (principal); I25.10 Atherosclerotic heart disease of native coronary artery without angina pectoris; J44.9 Chronic obstructive pulmonary disease, unspecified; E11.9 Type 2 diabetes mellitus without complications; I10 Essential (primary) hypertension; E78.5 Hyperlipidemia, unspecified; I25.5 Ischemic cardiomyopathy; Z95.810 Presence of automatic (implantable) cardiac defibrillator; Z86.79 Personal history of other diseases of the circulatory system; Z79.82 Long term (current) use of aspirin; Z82.0 Family history of epilepsy and other diseases of the nervous system

== ENCOUNTER 2017-02-17 19:56 | Inpatient (IN) | payer OTHER ==
[~2017-02-17] VITALS: Ht 157.5 cm; Wt 85.1 kg
[~2017-02-17 19:56] MED LIST changes: -BENZ100C84 PO; -DOXY100C2 PO
[2017-02-17] MEDS ORDERED: ALBUT/IPRATROP 3MG/0.5MG NEB 3 ML VIAL INH STA (20:24)
[2017-02-17] MEDS ORDERED: TRAZ50TA35 PO (20:47)
[2017-02-17] MEDS ORDERED: CLR10 PO (20:47)
[2017-02-17] MEDS ORDERED: BENZ100C84 PO (20:47)
[2017-02-17] MEDS ORDERED: TRIA0.1C2 TOP (20:50)
[2017-02-17 20:56] LABS: BASO % 0.4 %; BASO ABS # 0.02 K/uL (0-0.2); COMPLETE YES; EOS % 2.6 %; HEMATOCRIT 42.8 % (37-47); IG% 0.2 %; LYMPH % 18.1 %; LYMPH ABS # 0.92 K/uL (1.2-3.4); MEAN CELL VOLUME 86.3 fL (80-100); MEAN CORPUSCULAR HGB CONC 32.5 g/dl (32-36); MEAN PLATELET VOLUME 11.1 fL (7.4-10.4); MONO % 10.8 %; NEUT % 67.9 %; PLATELET COUNT 130 K/uL (130-400); RED BLOOD COUNT 4.96 M/uL (4.2-5.4); WHITE BLOOD COUNT 5.09 K/uL (4.8-10.8)
[2017-02-17 21:10] LABS: INR 1.3 (0.9-1.1); PROTHROMBIN TIME (PATIENT) 13.6 SECONDS (9.0-12.0)
[2017-02-17 21:13] LABS: BUN/CREATININE RATIO 28.2 (10-20); CALCIUM 8.3 mg/dl (8.5-10.1); CREATININE 1.4 mg/dl (0.60-1.20)
--- NOTE | 2017-02-17 21:16 | DIAGNOSTIC IMAGING REPORT ---
CHEST 2 VIEWS ROUTINE CLINICAL HISTORY: sob dyspnea COMPARISON STUDY: 01/20/2017 FINDINGS: Interval development of right basilar effusion and or consolidative process. Left lung remains generally clear. There is minimal interstitial change left base. No significant cardiac enlargement. IMPRESSION: Interval development of right basilar infiltrate and/or effusion. Electronically signed by: Joesph Gonzalez M.D. 02/17/2017 9:15 PM Dictated Date/Time: 02/17/2017 9:15 PM
[2017-02-17 21:19] LABS: ALB/GLOB RATIO 0.9 (0.9-2)
[2017-02-17] MEDS ORDERED: FUROSEMIDE 40 MG/4 ML VIAL IV STA (21:25)
[2017-02-17] MEDS ORDERED: ASPIRIN/ALUM/MAGNES/CAL CARB 325 MG TAB PO STA (21:27)
--- NOTE | 2017-02-17 21:42 | EMERGENCY ROOM VISIT NOTE ---
History Report prepared by Maribell: Jazzy Mckay Under the Supervision of: Dr. Jacquelin Phillip D.O. First contact with patient: 20:04 Chief Complaint: SHORTNESS OF BREATH Stated Complaint: SOB,AMS,SWOLLEN FEET,ITCHY SKIN,TINGLING,PACEMAKER History of Present Illness The patient is a 66 year old female who presents to the Emergency Room with complaints of worsening SOB for the past couple of months. She has a history of COPD. She is having increased difficulty getting up and down the stairs in her home. Over the past couple of weeks, she has also developed swelling in her legs and feet. She has never had leg swelling before. She also has tingling in her legs and feet. The swelling in her legs does not decrease if she elevates them. Her daughter reports that she has been coughing at night. Several nights ago she had 2-3 episodes of vomiting. The patient has been getting cold easily. She denies any changes in bowel movement, urinary symptoms, or cold symptoms. She denies any history of smoking. She takes Lasix, aspirin, and Plavix. She has an inhaler at home that she has not been using. She is not on oxygen at home. She had an OH in 2013. She has a pacemaker defibrillator in place. It was recently checked. The defibrillator has not gone off. She has an appointment with cardiology tomorrow. She denies any medication changes. The patient lives alone. Pt with difficulty recalling recent chronology of events and her meds. Family having to help pt with information. Source of History: patient, family Onset: couple months ago Position: other (global) Quality: other (SOB) Timing: worsening Associated Symptoms: + chills, + cough, + vomiting, No melena, No hematochezia, No diarrhea, No urinary symptoms Note: Pt reports leg swelling and tingling. Pt denies cold symptoms. Review of Systems See HPI for pertinent positives & negatives. A total of 10 systems reviewed and were otherwise negative. Past Medical & Surgical Medical Problems: (1) CAD (coronary artery disease) (2) COPD (chronic obstructive pulmonary disease) (3) DM type 2 (diabetes mellitus, type 2) (4) Dyslipidemia (5) HTN (hypertension) (6) Ischemic cardiomyopathy (7) Presence of combination internal cardiac defibrillator (ICD) and pacemaker (8) SAH (subarachnoid hemorrhage) (9) SOB (shortness of breath) Surgical Problems: (1) H/O dilation and curettage (2) H/O tubal ligation (3) Hx of appendectomy (4) Hx of tonsillectomy Family History FH: Alzheimers disease FATHER Social History Smoking Status: Never Smoker Alcohol Use: occasionally Marital Status: single Housing Status: lives alone Occupation Status: retired Current/Historical Medications Scheduled Aspirin (Aspirin Ec), 81 MG PO QAM Atorvastatin (Lipitor), 80 MG PO HS Clopidogrel (Plavix), 75 MG PO QAM Furosemide (Lasix), 20 MG PO 5XWK Glipizide (Glipizide Er), 2.5 MG PO DAILY Isosorbide Mononitrate Ext Rel (Imdur Ext Rel), 60 MG PO QAM Losartan Potassium (Losartan Potassium), 25 MG PO QAM Metoprolol Succinate (Toprol Xl), 50 MG PO QAM Nitroglycerin (Nitrostat), 0.3 MG UT PRN Triamcinolone Acetonide (Topic (Triderm), 1 APPLN TOP BID Scheduled PRN Albuterol Hfa (Ventolin Hfa), 2 PUFFS INH Q4H PRN for Wheezing Hydroxyzine Hcl (Atarax), 12.5 MG PO Q8H PRN for Itching Allergies Coded Allergies: Sulfamethoxazole (Verified Allergy, Unknown, 02/17/17) Prednisone (Verified Adverse Reaction, Unknown, "makes me weird", 02/17/17) pt Physical Exam Vital Signs Date Time Temp Pulse Resp B/P (MAP) Pulse Ox O2 Delivery O2 Flow Rate FiO2 02/17/17 22:30 78 18 119/84 97 Room Air 02/17/17 21:25 92 20 127/80 99 Room Air 02/17/17 20:11 86 02/17/17 19:58 36.5 86 18 121/83 100 Room Air Physical Exam GENERAL: alert, well appearing, well nourished, no distress, non-toxic, some conversational dyspnea EYE EXAM: normal conjunctiva, PERRL and EOM's grossly intact OROPHARYNX: no exudate, no erythema, lips, buccal mucosa, and tongue normal and mucous membranes are moist NECK: supple, no nuchal rigidity, no adenopathy, non-tender LUNGS: Clear to auscultation. Normal chest wall mechanics HEART: no murmurs, S1 normal and S2 normal ABDOMEN: abdomen soft, non-tender, normo-active bowel sounds, no masses, no rebound or guarding. BACK: Back is symmetrical on inspection and there is no deformity, no midline tenderness, no CVA tenderness. SKIN: no rashes and no bruising UPPER EXTREMITIES: upper extremities are grossly normal. LOWER EXTREMITIES: 2+ lower extremity pitting edema, normal pulses NEURO EXAM: Normal sensorium, cranial nerves II-XII grossly intact, normal speech, no gross weakness of arms, no gross weakness of legs. Medical Decision & Procedures ER Provider Diagnostic Interpretation: Xray results have been interpreted by the radiologist and me. CHEST 2 VIEWS ROUTINE CLINICAL HISTORY: sob dyspnea COMPARISON STUDY: 01/20/2017 FINDINGS: Interval development of right basilar effusion and or consolidative process. Left lung remains generally clear. There is minimal interstitial change left base. No significant cardiac enlargement. IMPRESSION: Interval development of right basilar infiltrate and/or effusion. Electronically signed by: Joesph Gonzalez M.D. 02/17/2017 9:15 PM Dictated Date/Time: 02/17/2017 9:15 PM Laboratory Results Test 02/17/17 20:45 02/17/17 21:55 Immature Granulocyte % (Auto) 0.2 % White Blood Count 5.09 K/uL (4.8-10.8) Red Blood Count 4.96 M/uL (4.2-5.4) Hemoglobin 13.9 g/dL (12.0-16.0) Hematocrit 42.8 % (37-47) Mean Corpuscular Volume 86.3 fL (80-100) Mean Corpuscular Hemoglobin 28.0 pg (25-34) Mean Corpuscular Hemoglobin Concent 32.5 g/dl (32-36) Platelet Count 130 K/uL (130-400) Mean Platelet Volume 11.1 fL (7.4-10.4) Neutrophils (%) (Auto) 67.9 % Lymphocytes (%) (Auto) 18.1 % Monocytes (%) (Auto) 10.8 % Eosinophils (%) (Auto) 2.6 % Basophils (%) (Auto) 0.4 % Neutrophils # (Auto) 3.46 K/uL (1.4-6.5) Lymphocytes # (Auto) 0.92 K/uL (1.2-3.4) Monocytes # (Auto) 0.55 K/uL (0.11-0.59) Eosinophils # (Auto) 0.13 K/uL (0-0.5) Basophils # (Auto) 0.02 K/uL (0-0.2) Immature Granulocyte # (Auto) 0.01 K/uL (0.00-0.02) Prothrombin Time 13.6 SECONDS (9.0-12.0) Prothromb Time International Ratio 1.3 (0.9-1.1) Total Bilirubin 1.2 mg/dl (0.2-1) Aspartate Amino Transf (AST/SGOT) 40 U/L (15-37) Alanine Aminotransferase (ALT/SGPT) 73 U/L (12-78) Alkaline Phosphatase 96 U/L (45-117) Pro-B-Type Natriuretic Peptide 28718 pg/ml (0-900) Total Protein 6.6 gm/dl (6.4-8.2) Albumin 3.1 gm/dl (3.4-5.0) Globulin 3.5 gm/dl (2.5-4.0) Albumin/Globulin Ratio 0.9 (0.9-2) Urine Color YELLOW Urine Appearance CLEAR (CLEAR) Urine pH 5.0 (4.5-7.5) Urine Specific [place] 1.013 (1.000-1.030) Urine Protein NEG (NEG) Urine Glucose (UA) NEG (NEG) Urine Ketones NEG (NEG) Urine Occult Blood NEG (NEG) Urine Nitrite NEG (NEG) Urine Bilirubin NEG (NEG) Urine Urobilinogen NEG (NEG) Urine Leukocyte Esterase TRACE (NEG) Urine WBC (Auto) 1-5 /hpf (0-5) Urine RBC (Auto) 0-4 /hpf (0-4) Urine Hyaline Casts (Auto) 1-5 /lpf (0-5) Urine Epithelial Cells (Auto) >30 /lpf (0-5) Urine Bacteria (Auto) NEG (NEG) Laboratory results per my review. Medications Administered Medications (Trade) Dose Ordered Sig/[place] Route Start Time Stop Time Status Last Admin Dose Admin Albuterol/ Ipratropium (Duoneb) 3 ml NOW STAT INH 02/17/17 20:24 02/17/17 20:26 DC 02/17/17 20:44 3 ML Furosemide (Lasix Inj) 40 mg NOW STAT IV 02/17/17 21:25 02/17/17 21:26 DC 02/17/17 21:43 40 MG Aspirin/Aluminum/ Magnesium/Ca Carb (Ascriptin Tab) 325 mg NOW STAT PO 02/17/17 21:27 02/17/17 21:29 DC 02/17/17 21:43 325 MG ECG Indication: SOB/dyspnea Rate (beats per minute): 81 Rhythm: other (paced) Findings: no acute ischemic change, other (normal axis, prolonged QRS and QTC consistent with pacing) ED Course 2007: The patient was evaluated in room A12B. A complete history and physical exam was performed. 2023: Duoneb 3 ml INH. 2124: Lasix Inj 40 mg IV. 2126: Ascriptin Tab 325 mg PO. 2129: I reviewed the patient's case with Dr. Lebron, [facility]. He will evaluate the patient for further management. 2144: Upon reevaluation, the patient is resting comfortably. I discussed the findings and the treatment plan with the patient. She expresses agreement and understanding. She will be evaluated for further management. I had extensive bedside conversation with the patient's family regarding dementia and her ability to care for herself. They believe the patient might have not been taking her medications for the past month. They think that she might need to be placed in a facility. Medical Decision Differential diagnosis: Etiologies such as infections, reactive airway disease, pneumonia, pneumothorax , COPD, CHF, cardiac ischemia, pulmonary embolism, musculoskeletal, gastrointestinal, as well as others were entertained. Medication Reconciliation: I attest that I have personally reviewed the patient' s current medication list. Blood pressure screening: Patient was found to have normal blood pressure on screening and does not require follow-up. Patient with clinical evidence of congestive heart failure, and likely noncompliant with outpatient medications which included furosemide daily. Patient given IV furosemide 40 mg here after BNP found to be markedly elevated, twice which she has been admitted with previously. Patient with an elevated troponin, likely secondary to the congestive heart failure, doubt primary event or ACS. Patient with no chest pain or shortness of breath or resting in bed, vital signs otherwise stable. Concern for patient's bili to care for herself and management medications. After looking at her medication bottles at bedside most of which do not appear to have been used recently, it appears patient is not able to manage her medications. Additional extensive bedside conversation with the family on the hallway revealed that patient does live alone, and they' re concerned about her blade to care for self after viewing her living quarters. If the patient had not changed her clothes in several days and was unable to bathe herself. Patient states she does not member calling family members in the middle of night complaining about various topics. Family asking for assistance in trying to get patient placed into either facility or to make arrangements for her to potentially live with family. Doubt additional infectious etiology. Likely small effusion instead of infiltrate on the chest x -ray given no fever or leukocytosis. Patient admitted for continued treatment, likely cardiology evaluation, and need for additional days management/social services aide intervention. No evidence of bacteremia/sepsis, doubt additional vascular etiology. Consults Time Called: 2125 Consulting Physician: Dr. Lebron [facility] hospitalist Returned Call: 2129 I reviewed the patient's case with him. He will evaluate the patient for further management. Impression Primary Impression: Congestive heart failure Additional Impressions: Elevated troponin Dyspnea Obesity Noncompliance with medications Scribe Attestation The scribe's documentation has been prepared under my direction and personally reviewed by me in its entirety. I confirm that the note above accurately reflects all work, treatment, procedures, and medical decision making performed by me. Departure Information Dispostion Being Evaluated By Hospitalist Referrals Diamante Howard D.O. (PCP) Patient Instructions My [facility] Problem Qualifiers Primary Impression: Congestive heart failure Congestive heart failure type: combined Congestive heart failure chronicity: acute on chronic Qualified Codes: I50.43 - Acute on chronic combined systolic (congestive) and diastolic (congestive) heart failure Additional Impressions: Dyspnea Dyspnea type: dyspnea on exertion Qualified Codes: R06.09 - Other forms of dyspnea Obesity Obesity type: due to excess calories Obesity severity: morbid Qualified Codes: E66.01 - Morbid (severe) obesity due to excess calories
[2017-02-17 22:06] LABS: URINE APPEARANCE CLEAR (CLEAR); URINE BILIRUBIN NEG (NEG); URINE COLOR YELLOW; URINE EPITHELIAL CELL AUTO >30 /lpf (0-5); URINE NITRITE NEG (NEG); URINE SPECIFIC GRAVITY 1.013 (1.000-1.030); UROBILINOGEN NEG (NEG); ZZUR CULT IF INDIC CLEAN CATCH NO
[2017-02-17 22:11] LABS: MANUAL MICROSCOPIC REQUIRED? NO; REVIEW REQ? NO
[2017-02-17] MEDS ORDERED: NITROGLYCERIN 0.4 MG SL PER TAB CHARGE SL PRN (22:30)
[2017-02-17 23:23] VITALS: BP 129/89; PULSE 81; TEMP 36.5; O2SAT 98; Ht 157.5 cm; Wt 85.1 kg
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
[2017-02-18] VITALS (7 sets, daily range): BP systolic 96–133; BP diastolic 64–87; PULSE 60–79; TEMP 36.2–37; O2SAT 93–98
[2017-02-18] MEDS ORDERED: GLUCOSE 10 TABS/TUBE PO PRN (02:15)
[2017-02-18] MEDS ORDERED: GLUCAGON FOR INJ 1 MG VIAL SQ PRN (02:15)
[2017-02-18] MEDS ORDERED: GLUCOSE 40% GEL 15 GM TUBE PO PRN (02:15)
[2017-02-18] MEDS ORDERED: DEXTROSE 50% 50 ML SYR IV PRN (02:15)
[2017-02-18] MEDS ORDERED: ALBUT/IPRATROP 3MG/0.5MG NEB 3 ML VIAL INH PRN (02:30)
[2017-02-18] MEDS: HEPARIN SOD 5000 UNIT/0.5 ML CARP SQ SCH ×4 (06:14→21:16)
[2017-02-18 06:57] LABS: MEAN CORPUSCULAR HEMOGLOBIN 28.6 pg (25-34); MEAN CORPUSCULAR HGB CONC 32.9 g/dl (32-36); MEAN PLATELET VOLUME 10.6 fL (7.4-10.4); PLATELET COUNT 114 K/uL (130-400); RED BLOOD COUNT 4.83 M/uL (4.2-5.4); WHITE BLOOD COUNT 5.64 K/uL (4.8-10.8)
[2017-02-18] MEDS: INSULIN ASPART 100 UNITS/ML 3 ML PEN SC SCH ×4 (07:00→21:00)
[2017-02-18 07:31] LABS: BLOOD UREA NITROGEN 38 mg/dl (7-18); BUN/CREATININE RATIO 27.3 (10-20); CALCIUM 8.7 mg/dl (8.5-10.1); CARBON DIOXIDE 25 mmol/L (21-32); CHLORIDE 103 mmol/L (98-107); GLUCOSE 92 mg/dl (70-99); POTASSIUM 3.7 mmol/L (3.5-5.1); SODIUM 137 mmol/L (136-145)
[2017-02-18] MEDS: ASPIRIN 81 MG ECTAB PO SCH (09:30)
[2017-02-18] MEDS: ISOSORBIDE MONONITRATE 60 MG TABCR PO SCH (09:30)
[2017-02-18] MEDS: TRIAMCINOLONE ACET 0.1% CR 15 GM TUBE EXT SCH ×2 (09:31→21:14)
[2017-02-18] MEDS: METOPROLOL SUCC 50MG EXT REL TAB PO SCH (09:31)
[2017-02-18] MEDS: CLOPIDOGREL BISULFATE 75 MG TAB PO SCH (09:31)
[2017-02-18] MEDS: NYSTATIN POWDER 15GM BTL EXT SCH ×2 (09:32→21:13)
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
[2017-02-18] MEDS ORDERED: POTASSIUM CHLORIDE 20 MEQ TABCR PO ONE (11:00)
--- NOTE | 2017-02-18 11:31 | DIAGNOSTIC IMAGING REPORT ---
CHEST ONE VIEW PORTABLE CLINICAL HISTORY: f/u pneumonia COMPARISON STUDY: 02/17/2017 FINDINGS: Right lower lobe atelectatic changes similar compared to the prior study. Atelectatic change of the right infrahilar region slightly improved. Left lung remains clear. IMPRESSION: Stable to minimally improved infiltrative and atelectatic change right base. Persistent right lower lobe atelectatic change and or volume loss. Electronically signed by: Joesph Gonzalez M.D. 02/18/2017 11:30 AM Dictated Date/Time: 02/18/2017 11:29 AM
[2017-02-18] MEDS: FUROSEMIDE INJ 40 MG in SYRINGE 0 ML IV SCH (12:28)
--- NOTE | 2017-02-18 14:19 | Progress Note ---
Internal Med Progress Note Date of Service: Feb 18, 2017. Provider Documentation: SUBJECTIVE: Seen and examined at bedside. Reports SOB on exertion. Denies chest pain, wheezing, dizziness, cough Itchiness is improving. No other complaints. OBJECTIVE: Vital Signs-as noted below Physical Exam: General Appearance:Moderately built and nourished, no apparent distress Head: normocephalic, Atraumatic Eyes: normal inspection, EOMI, PERRL Neck: supple, Trachea midline Respiratory/Chest: decreased breath sounds, CTA Cardiovascular: S1, S2, No murmur Abdomen/GI:Soft, Non tender, Bowel sounds present Extremities/Musculoskelatal:normal inspection, + b/l 2+ edema Neurologic/Psych:grossly no focal neurological deficits Skin: normal color, warm, Petechial rash on B/L LE Lab data as noted below. ASSESSMENT & PLAN: ACUTE DECOMPENSATED SYSTOLIC HEART FAILURE Elevated Pro-BNP on admission CXR showed interval development of right basilar infiltrate and/or effusion. continue diuresis per cardiology monitor I/Os, daily weight Monitor electrolytes while on diuretics Appreciate cardiology input Last ECHO: EF:20-25% Pulmonary hypertension Plan to resume losartan when Cr levels better Atypical Chest pain Reproducible Troponin elevation secondary to cardiac strain from CHF Continue aspirin, statin and metoprolol Cardiology following DM II HBA1C was 8.3 on 12/24/16 uncontrolled Hold glipizide for now ISS, Monitor BS Rash/Itchiness ? Likely secondary to bed bugs Patient denies bed bugs. Daughter found some bed bugs per staff Never started the topical steroid prescribed by PCP Will start on triamcinolone Benadryl prn B/L LE numbness/tingling Possible related to diabetic neuropathy Vit B12, folate:Adequate HTN stable Continue current meds monitor Losartan held secondary to elevated Cr levels, also on diuretics CAD s/p Stent Continue aspirin, plavix, BB and statin COPD Stable DVT Px Heparin SQ CODE STATUS FUL CODE Disposition Monitor in Tele Vital Signs: Date Time Temp Pulse Resp B/P (MAP) Pulse Ox O2 Delivery O2 Flow Rate FiO2 02/18/17 12:00 Room Air 02/18/17 12:00 37.0 79 16 114/84 (94) 97 Room Air 02/18/17 08:00 Room Air 02/18/17 07:08 36.6 73 20 133/87 (102) 98 Room Air 02/18/17 04:29 36.4 60 18 96/64 (75) 93 Room Air 02/18/17 04:06 98 Room Air 02/17/17 23:23 36.5 81 18 129/89 98 Room Air 02/17/17 22:30 78 18 119/84 97 Room Air 02/17/17 21:25 92 20 127/80 99 Room Air 02/17/17 20:11 86 02/17/17 19:58 36.5 86 18 121/83 100 Room Air Lab Results: Results Past 24 Hours Test 02/17/17 20:45 02/17/17 21:55 02/18/17 04:44 02/18/17 06:21 Range/Units White Blood Count 5.09 5.64 4.8-10.8 K/uL Red Blood Count 4.96 4.83 4.2-5.4 M/uL Hemoglobin 13.9 13.8 12.0-16.0 g/dL Hematocrit 42.8 42.0 37-47 % Mean Corpuscular Volume 86.3 87.0 80-100 fL Mean Corpuscular Hemoglobin 28.0 28.6 25-34 pg Mean Corpuscular Hemoglobin Concent 32.5 32.9 32-36 g/dl Platelet Count 130 114 130-400 K/uL Mean Platelet Volume 11.1 10.6 7.4-10.4 fL Neutrophils (%) (Auto) 67.9 % Lymphocytes (%) (Auto) 18.1 % Monocytes (%) (Auto) 10.8 % Eosinophils (%) (Auto) 2.6 % Basophils (%) (Auto) 0.4 % Neutrophils # (Auto) 3.46 1.4-6.5 K/uL Lymphocytes # (Auto) 0.92 1.2-3.4 K/uL Monocytes # (Auto) 0.55 0.11-0.59 K/uL Eosinophils # (Auto) 0.13 0-0.5 K/uL Basophils # (Auto) 0.02 0-0.2 K/uL RDW Standard Deviation 49.9 51.1 36.4-46.3 fL RDW Coefficient of Variation 15.9 16.1 11.5-14.5 % Immature Granulocyte % (Auto) 0.2 % Immature Granulocyte # (Auto) 0.01 0.00-0.02 K/uL Prothrombin Time 13.6 9.0-12.0 SECONDS Prothromb Time International Ratio 1.3 0.9-1.1 Sodium Level 135 137 136-145 mmol/L Potassium Level 4.0 3.7 3.5-5.1 mmol/L Chloride Level 102 103 98-107 mmol/L Carbon Dioxide Level 21 25 21-32 mmol/L Anion Gap 12.0 9.0 3-11 mmol/L Blood Urea Nitrogen 40 38 7-18 mg/dl Creatinine 1.40 1.40 0.60-1.20 mg/dl Est Creatinine Clear Calc Drug Dose 40.4 40.2 ml/min Estimated GFR () 45.3 45.3 Estimated GFR (Non- 39.1 39.1 BUN/Creatinine Ratio 28.2 27.3 10-20 Random Glucose 153 92 70-99 mg/dl Calcium Level 8.3 8.7 8.5-10.1 mg/dl Total Bilirubin 1.2 0.2-1 mg/dl Aspartate Amino Transf (AST/SGOT) 40 15-37 U/L Alanine Aminotransferase (ALT/SGPT) 73 12-78 U/L Alkaline Phosphatase 96 45-117 U/L Troponin I 0.064 0.055 0-0.045 ng/ml Pro-B-Type Natriuretic Peptide 14224 0-900 pg/ml Total Protein 6.6 6.4-8.2 gm/dl Albumin 3.1 3.4-5.0 gm/dl Globulin 3.5 2.5-4.0 gm/dl Albumin/Globulin Ratio 0.9 0.9-2 Urine Color YELLOW Urine Appearance CLEAR CLEAR Urine pH 5.0 4.5-7.5 Urine Specific [place] 1.013 1.000-1.030 Urine Protein NEG NEG Urine Glucose (UA) NEG NEG Urine Ketones NEG NEG Urine Occult Blood NEG NEG Urine Nitrite NEG NEG Urine Bilirubin NEG NEG Urine Urobilinogen NEG NEG Urine Leukocyte Esterase TRACE NEG Urine WBC (Auto) 1-5 0-5 /hpf Urine RBC (Auto) 0-4 0-4 /hpf Urine Hyaline Casts (Auto) 1-5 0-5 /lpf Urine Epithelial Cells (Auto) >30 0-5 /lpf Urine Bacteria (Auto) NEG NEG Creatine Kinase MB Ratio 0-3.0 Bedside Glucose 105 70-90 mg/dl Creatine Kinase MB 3.5 0.5-3.6 ng/ml Vitamin B12 Level 1001 211-911 pg/mL Folate 12.40 >5.38 ng/mL Thyroid Stimulating Hormone (TSH) 1.970 0.300-4.500 uIu/ml Test 02/18/17 11:41 02/18/17 11:59 Range/Units Troponin I 0.057 0-0.045 ng/ml Bedside Glucose 134 70-90 mg/dl
[2017-02-18] MEDS ORDERED: POTASSIUM CHLORIDE 10 MEQ TABCR PO SCH (16:00)
[2017-02-18] MEDS: ATORVASTATIN 40 MG TAB PO SCH (21:14)
[2017-02-19 02:59] VITALS: BP 112/78; PULSE 66; TEMP 36.3; O2SAT 96
[2017-02-19] MEDS: HEPARIN SOD 5000 UNIT/0.5 ML CARP SQ SCH ×3 (05:54→21:24)
[2017-02-19 06:40] LABS: BASO % 0.4 %; BASO ABS # 0.02 K/uL (0-0.2); COMPLETE YES; EOS % 4.4 %; LYMPH % 29.5 %; LYMPH ABS # 1.55 K/uL (1.2-3.4); MEAN CELL VOLUME 85.1 fL (80-100); MEAN CORPUSCULAR HEMOGLOBIN 26.5 pg (25-34); MEAN CORPUSCULAR HGB CONC 31.1 g/dl (32-36); MEAN PLATELET VOLUME 10.8 fL (7.4-10.4); NEUT % 53.7 %; PLATELET COUNT 137 K/uL (130-400); RED BLOOD COUNT 5.17 M/uL (4.2-5.4); WHITE BLOOD COUNT 5.25 K/uL (4.8-10.8)
[2017-02-19 07:17] LABS: BUN/CREATININE RATIO 26.7 (10-20); CREATININE 1.5 mg/dl (0.60-1.20)
[2017-02-19] MEDS: ISOSORBIDE MONONITRATE 60 MG TABCR PO SCH (07:52)
[2017-02-19] MEDS: CLOPIDOGREL BISULFATE 75 MG TAB PO SCH (07:52)
[2017-02-19] MEDS: ASPIRIN 81 MG ECTAB PO SCH (07:52)
[2017-02-19] MEDS: METOPROLOL SUCC 50MG EXT REL TAB PO SCH (07:53)
[2017-02-19] MEDS: TRIAMCINOLONE ACET 0.1% CR 15 GM TUBE EXT SCH ×2 (08:03→20:17)
[2017-02-19] MEDS: INSULIN ASPART 100 UNITS/ML 3 ML PEN SC SCH ×4 (08:03→20:15)
[2017-02-19] MEDS: NYSTATIN POWDER 15GM BTL EXT SCH ×2 (08:04→20:18)
[2017-02-19 08:11] VITALS: BP 130/79; PULSE 68; TEMP 36.8; O2SAT 98
[2017-02-19] MEDS: FUROSEMIDE INJ 40 MG in SYRINGE 0 ML IV SCH (09:00)
--- NOTE | 2017-02-19 10:52 | Cardiology Follow-Up ---
Subjective General Date of Service: Feb 19, 2017. Chief Complaint: Shortness of breath Pt evaluation today including: conversation w/ patient, physical exam, chart review, lab review, review of studies, review of inpatient medication list History of Present Illness Patient seen and examined. Less dyspnea. Persistent bilateral lower extremity edema Denies chest pain or palpitations. Intermittent confusion observed by staff Patient notes that her daughter and sister are visiting a personal usp today. Telemetry: Sinus at 80 bpm. Occasional PVC. Occasional atrial paced. Ventricular paced rhythm. Allergies Coded Allergies: Sulfamethoxazole (Verified Allergy, Unknown, 02/17/17) Prednisone (Verified Adverse Reaction, Unknown, "makes me weird", 02/17/17) pt Social History Smoking Status: Never Smoker Hx Tobacco Use In Past Year?: No Hx Alcohol Use - Type And Amou: Yes (OCCASIONALLY) Hx Substance Use - Type And Am: No Problem List Medical Problems: (1) Congestive heart failure Status: Acute (2) Dehydration Status: Acute (3) Dry skin dermatitis Status: Acute (4) Dyspnea Status: Acute (5) Elevated troponin Status: Acute (6) Noncompliance with medications Status: Acute (7) Obesity Status: Acute (8) Peripheral edema Status: Acute Physical Exam Vital Signs Last Vital Signs Documentation Date Time Temp Pulse Resp B/P (MAP) Pulse Ox O2 Delivery O2 Flow Rate FiO2 02/19/17 08:11 36.8 68 24 130/79 (96) 98 Room Air Physical Exam Constitutional: Level of Distress: NAD Ambulation: ambulating normally Psychiatric: Mental Status: active & alert Orientation: to time, to place, to person Memory: recent memory normal, remote memory normal Neck: pertinent finding (Normal JVP) Lungs: Respiratory effort: no dyspnea Auscultation: no wheezing, no rales/crackles, no rhonchi, deminished air movement, decreased breath sounds Cardiovascular: Heart Auscultation: RRR (80 bpm) Abdomen: Bowel Sounds: normal Extremities: edema (1+ edema. Lymphedematous changes) Neurologic: Cranial Nerves: grossly intact Assessment and Plan Assessment and Plan Acute decompensated systolic congestive heart failure signs and symptoms with associated right pleural effusion Continue IV furosemide another day. Supplement potassium orally Follow CXR, BMP, I/O's, and renal function daily Elevated troponin Suspect secondary to myocardial strain from the acute decompensated heart failure. Chest pain. Atypical. Reproducible with palpation. Hypertension Controlled. Follow Continue Toprol XL, losartan, Imdur, ASA, clopidogrel, and atorvastatin. Note: Patient unable to tolerate Entresto Agree with plans for personal usp placement. Cardiology attending: Pt seen and examined, agree with findings and assessment as per Joesph Chu. Diuresing well, will cont lasix IV for now. Reproducible chest pain: nonischemic. For placement. Laboratory Results Last 24 Hours Test 02/18/17 11:41 02/18/17 11:59 02/18/17 16:41 02/18/17 21:11 Troponin I 0.057 ng/ml Bedside Glucose 134 mg/dl 154 mg/dl 130 mg/dl Test 02/18/17 23:25 02/19/17 06:19 02/19/17 06:50 Bedside Glucose 113 mg/dl 118 mg/dl White Blood Count 5.25 K/uL Red Blood Count 5.17 M/uL Hemoglobin 13.7 g/dL Hematocrit 44.0 % Mean Corpuscular Volume 85.1 fL Mean Corpuscular Hemoglobin 26.5 pg Mean Corpuscular Hemoglobin Concent 31.1 g/dl Platelet Count 137 K/uL Mean Platelet Volume 10.8 fL Neutrophils (%) (Auto) 53.7 % Lymphocytes (%) (Auto) 29.5 % Monocytes (%) (Auto) 12.0 % Eosinophils (%) (Auto) 4.4 % Basophils (%) (Auto) 0.4 % Neutrophils # (Auto) 2.82 K/uL Lymphocytes # (Auto) 1.55 K/uL Monocytes # (Auto) 0.63 K/uL Eosinophils # (Auto) 0.23 K/uL Basophils # (Auto) 0.02 K/uL RDW Standard Deviation 49.5 fL RDW Coefficient of Variation 15.9 % Immature Granulocyte % (Auto) 0.0 % Immature Granulocyte # (Auto) 0.00 K/uL Sodium Level 139 mmol/L Potassium Level 4.0 mmol/L Chloride Level 104 mmol/L Carbon Dioxide Level 24 mmol/L Anion Gap 11.0 mmol/L Blood Urea Nitrogen 40 mg/dl Creatinine 1.50 mg/dl Est Creatinine Clear Calc Drug Dose 37.3 ml/min Estimated GFR () 41.6 Estimated GFR (Non- 35.9 BUN/Creatinine Ratio 26.7 Random Glucose 103 mg/dl Pro-B-Type Natriuretic Peptide 6694 pg/ml
[2017-02-19] MEDS ORDERED: POTASSIUM CHLORIDE 20 MEQ TABCR PO ONE (11:00)
--- NOTE | 2017-02-19 11:50 | Progress Note ---
Internal Med Progress Note Date of Service: Feb 19, 2017. Provider Documentation: SUBJECTIVE: The patient was seen and examined Pleasantly confused at times Feels better now OBJECTIVE: Vital Signs-as noted below Exam: General-no distress at rest Eyes-normal ENT-normal Neck-supple Lungs-clear to auscultate bilaterally Heart-Regular,no murmur Abdomen-Benign,no masses,bowel sound present Extremities-Trace edema bilaterally Neuro-AA Pleasantly confused Lab data as noted below. ASSESSMENT & PLAN: ACUTE DECOMPENSATED SYSTOLIC HEART FAILURE Complicated by right pleural effusion Presented with SOB and leg swelling Elevated Pro-BNP on admission CXR showed interval development of right basilar infiltrate and/or effusion. Continue diuresis per cardiology Appreciate cardiology input Last ECHO: EF:20-25% Pulmonary hypertension Plan to resume losartan when Cr levels better Will need a few days Atypical Chest pain Reproducible Troponin elevation secondary to cardiac strain from CHF Doubt any ACS Continue aspirin, statin and metoprolol DM II HBA1C was 8.3 on 12/24/16 uncontrolled Hold glipizide for now ISS, Monitor BS Rash/Itchiness Patient denies bed bugs. Daughter found some bed bugs per staff Never started the topical steroid prescribed by PCP Will start on triamcinolone Benadryl prn Doubt any scabies Clinically better B/L LE numbness/tingling Possible related to diabetic neuropathy Vit B12, folate:Adequate No complaints HTN Continue current meds Losartan held secondary to elevated Cr levels, also on diuretics Remains stable CAD s/p Stent Continue aspirin, plavix, BB and statin No acute issue COPD Stable No SOB and or cough/wheezing DVT Px Heparin SQ CODE STATUS FUL CODE Disposition Likely to go to a personal fdc on discharge Awaited Vital Signs: Date Time Temp Pulse Resp B/P (MAP) Pulse Ox O2 Delivery O2 Flow Rate FiO2 02/19/17 11:28 Room Air 02/19/17 08:11 36.8 68 24 130/79 (96) 98 Room Air 02/19/17 08:00 Room Air 02/19/17 04:00 Room Air 02/19/17 02:59 36.3 66 21 112/78 (89) 96 Room Air 02/19/17 00:00 Room Air 02/18/17 23:16 36.3 72 20 114/83 (93) 98 Room Air 02/18/17 20:00 Room Air 02/18/17 19:36 36.7 77 20 117/70 (86) 96 Room Air 02/18/17 16:00 Room Air 02/18/17 16:00 36.2 77 18 120/84 (96) 96 Room Air 02/18/17 12:00 Room Air 02/18/17 12:00 37.0 79 16 114/84 (94) 97 Room Air Lab Results: Results Past 24 Hours Test 02/18/17 11:41 02/18/17 11:59 02/18/17 16:41 02/18/17 21:11 Range/Units Troponin I 0.057 0-0.045 ng/ml Bedside Glucose 134 154 130 70-90 mg/dl Test 02/18/17 23:25 02/19/17 06:19 02/19/17 06:50 Range/Units Bedside Glucose 113 118 70-90 mg/dl White Blood Count 5.25 4.8-10.8 K/uL Red Blood Count 5.17 4.2-5.4 M/uL Hemoglobin 13.7 12.0-16.0 g/dL Hematocrit 44.0 37-47 % Mean Corpuscular Volume 85.1 80-100 fL Mean Corpuscular Hemoglobin 26.5 25-34 pg Mean Corpuscular Hemoglobin Concent 31.1 32-36 g/dl Platelet Count 137 130-400 K/uL Mean Platelet Volume 10.8 7.4-10.4 fL Neutrophils (%) (Auto) 53.7 % Lymphocytes (%) (Auto) 29.5 % Monocytes (%) (Auto) 12.0 % Eosinophils (%) (Auto) 4.4 % Basophils (%) (Auto) 0.4 % Neutrophils # (Auto) 2.82 1.4-6.5 K/uL Lymphocytes # (Auto) 1.55 1.2-3.4 K/uL Monocytes # (Auto) 0.63 0.11-0.59 K/uL Eosinophils # (Auto) 0.23 0-0.5 K/uL Basophils # (Auto) 0.02 0-0.2 K/uL RDW Standard Deviation 49.5 36.4-46.3 fL RDW Coefficient of Variation 15.9 11.5-14.5 % Immature Granulocyte % (Auto) 0.0 % Immature Granulocyte # (Auto) 0.00 0.00-0.02 K/uL Sodium Level 139 136-145 mmol/L Potassium Level 4.0 3.5-5.1 mmol/L Chloride Level 104 98-107 mmol/L Carbon Dioxide Level 24 21-32 mmol/L Anion Gap 11.0 3-11 mmol/L Blood Urea Nitrogen 40 7-18 mg/dl Creatinine 1.50 0.60-1.20 mg/dl Est Creatinine Clear Calc Drug Dose 37.3 ml/min Estimated GFR () 41.6 Estimated GFR (Non- 35.9 BUN/Creatinine Ratio 26.7 10-20 Random Glucose 103 70-99 mg/dl Pro-B-Type Natriuretic Peptide 6694 0-900 pg/ml
[2017-02-19 12:23] VITALS: BP 126/84; PULSE 79; TEMP 36.6; O2SAT 97
[2017-02-19 13:01] LABS: CALCIUM 8.4 mg/dl (8.5-10.1)
--- NOTE | 2017-02-19 13:22 | DIAGNOSTIC IMAGING REPORT ---
BILATERAL LOWER EXTREMITY VENOUS DOPPLER HISTORY: Bilateral leg pain, edema COMPARISON STUDY: None. FINDINGS: There is normal compressibility, flow, and augmentation within the bilateral lower extremity deep venous systems. The left calf vessels were suboptimally evaluated due to the subcutaneous edema but are likely patent. IMPRESSION: No DVT within the right or left lower extremity. Electronically signed by: Fabien Hernández M.D. 02/19/2017 1:21 PM Dictated Date/Time: 02/19/2017 1:20 PM
[2017-02-19 16:10] VITALS: BP 138/84; PULSE 85; TEMP 37; O2SAT 96
[2017-02-19 20:02] VITALS: BP 143/85; PULSE 90; TEMP 36.8; O2SAT 95
[2017-02-19] MEDS: ATORVASTATIN 40 MG TAB PO SCH (20:17)
[2017-02-19 23:53] VITALS: BP 123/81; PULSE 74; TEMP 36.6; O2SAT 96
[2017-02-20] VITALS (7 sets, daily range): BP systolic 110–136; BP diastolic 73–90; PULSE 69–83; TEMP 36.5–37.1; O2SAT 89–97
[2017-02-20] MEDS: HEPARIN SOD 5000 UNIT/0.5 ML CARP SQ SCH ×3 (05:56→21:24)
[2017-02-20 06:58] LABS: BUN/CREATININE RATIO 32.4 (10-20); CALCIUM 8.7 mg/dl (8.5-10.1); CREATININE 1.4 mg/dl (0.60-1.20); MAGNESIUM 1.9 mg/dl (1.8-2.4); POTASSIUM 4.3 mmol/L (3.5-5.1)
[2017-02-20] MEDS: CLOPIDOGREL BISULFATE 75 MG TAB PO SCH (08:02)
[2017-02-20] MEDS: FUROSEMIDE INJ 40 MG in SYRINGE 0 ML IV SCH (08:02)
[2017-02-20] MEDS: ISOSORBIDE MONONITRATE 60 MG TABCR PO SCH (08:02)
[2017-02-20] MEDS: METOPROLOL SUCC 50MG EXT REL TAB PO SCH (08:02)
[2017-02-20] MEDS: TRIAMCINOLONE ACET 0.1% CR 15 GM TUBE EXT SCH ×2 (08:03→19:50)
[2017-02-20] MEDS: ASPIRIN 81 MG ECTAB PO SCH (08:03)
[2017-02-20] MEDS: NYSTATIN POWDER 15GM BTL EXT SCH ×2 (08:03→19:50)
[2017-02-20] MEDS: INSULIN ASPART 100 UNITS/ML 3 ML PEN SC SCH ×4 (08:07→20:19)
--- NOTE | 2017-02-20 10:58 | Progress Note ---
Internal Med Progress Note Date of Service: Feb 20, 2017. Provider Documentation: SUBJECTIVE: The patient was seen and examined Pleasantly confused at times A little worse today Does not feel right OBJECTIVE: Vital Signs-as noted below Exam: General-no distress at rest Eyes-normal ENT-normal Neck-supple Lungs-clear to auscultate bilaterally Heart-Regular,no murmur Abdomen-Benign,no masses,bowel sound present Extremities-Trace edema bilaterally Maculo-papular rash seems a little better Neuro-AA Pleasantly confused Lab data as noted below. ASSESSMENT & PLAN: ACUTE DECOMPENSATED SYSTOLIC HEART FAILURE Complicated by right pleural effusion Presented with SOB and leg swelling Elevated Pro-BNP on admission CXR showed interval development of right basilar infiltrate and/or effusion. Continue diuresis per cardiology Appreciate cardiology input Last ECHO: EF:20-25% Pulmonary hypertension Plan to resume losartan when Cr levels better Feels a little worse today Continue to diuresis Atypical Chest pain Reproducible Troponin elevation secondary to cardiac strain from CHF Doubt any ACS Continue aspirin, statin and metoprolol NO more pain DM II HBA1C was 8.3 on 12/24/16 uncontrolled Hold glipizide for now ISS, Monitor BS Rash/Itchiness Patient denies bed bugs. Daughter found some bed bugs per staff Never started the topical steroid prescribed by PCP Will start on triamcinolone Benadryl prn Doubt any scabies Clinically better and improving B/L LE numbness/tingling Possible related to diabetic neuropathy Vit B12, folate:Adequate No complaints HTN Continue current meds Losartan held secondary to elevated Cr levels, also on diuretics Remains stable CAD s/p Stent Continue aspirin, plavix, BB and statin No acute issue COPD Stable No SOB and or cough/wheezing DVT Px Heparin SQ CODE STATUS FUL CODE Disposition Likely to go to a personal alf on discharge Transfer to [place] Likely to discharge in a day or two Vital Signs: Date Time Temp Pulse Resp B/P (MAP) Pulse Ox O2 Delivery O2 Flow Rate FiO2 02/20/17 08:00 Room Air 02/20/17 07:52 36.5 69 16 124/84 (97) 97 Room Air 02/20/17 04:38 36.6 77 18 110/73 (85) 95 Room Air 02/20/17 04:00 Room Air 02/20/17 00:01 Room Air 02/19/17 23:53 36.6 74 18 123/81 (95) 96 Room Air 02/19/17 20:02 36.8 90 22 143/85 (104) 95 Room Air 02/19/17 20:00 Room Air 02/19/17 16:10 37.0 85 22 138/84 (102) 96 Room Air 02/19/17 15:13 Room Air 02/19/17 12:23 36.6 79 18 126/84 (98) 97 Room Air 02/19/17 11:28 Room Air Lab Results: Results Past 24 Hours Test 02/19/17 16:24 02/19/17 20:05 02/20/17 05:43 02/20/17 06:58 Range/Units Bedside Glucose 189 160 161 70-90 mg/dl Sodium Level 136 136-145 mmol/L Potassium Level 4.3 3.5-5.1 mmol/L Chloride Level 103 98-107 mmol/L Carbon Dioxide Level 23 21-32 mmol/L Anion Gap 10.0 3-11 mmol/L Blood Urea Nitrogen 45 7-18 mg/dl Creatinine 1.40 0.60-1.20 mg/dl Est Creatinine Clear Calc Drug Dose 40.0 ml/min Estimated GFR () 45.3 Estimated GFR (Non- 39.1 BUN/Creatinine Ratio 32.4 10-20 Random Glucose 181 70-99 mg/dl Calcium Level 8.7 8.5-10.1 mg/dl Phosphorus Level 3.0 2.5-4.9 mg/dl Magnesium Level 1.9 1.8-2.4 mg/dl
--- NOTE | 2017-02-20 11:26 | Cardiology Follow-Up ---
Subjective General Date of Service: Feb 20, 2017. Chief Complaint: Shortness of breath Pt evaluation today including: conversation w/ patient, physical exam, chart review, lab review, review of studies, review of inpatient medication list History of Present Illness Patient seen and examined. Dyspneic with anxiety. Otherwise back to baseline in regards to her dyspnea Continue bilateral lower extremity edema. Denies chest pain or palpitations. Intermittent confusion observed Telemetry: Sinus in the 70's. Occasional PVC. Occasional atrial paced. Ventricular paced rhythm. Allergies Coded Allergies: Sulfamethoxazole (Verified Allergy, Unknown, 02/17/17) Prednisone (Verified Adverse Reaction, Unknown, "makes me weird", 02/17/17) pt Social History Smoking Status: Never Smoker Hx Tobacco Use In Past Year?: No Hx Alcohol Use - Type And Amou: Yes (OCCASIONALLY) Hx Substance Use - Type And Am: No Problem List Medical Problems: (1) Congestive heart failure Status: Acute (2) Dehydration Status: Acute (3) Dry skin dermatitis Status: Acute (4) Dyspnea Status: Acute (5) Elevated troponin Status: Acute (6) Noncompliance with medications Status: Acute (7) Obesity Status: Acute (8) Peripheral edema Status: Acute Physical Exam Vital Signs Last Vital Signs Documentation Date Time Temp Pulse Resp B/P (MAP) Pulse Ox O2 Delivery O2 Flow Rate FiO2 02/20/17 08:00 Room Air 02/20/17 07:52 36.5 69 16 124/84 (97) 97 Physical Exam Constitutional: Level of Distress: NAD Ambulation: ambulating normally Psychiatric: Mental Status: active & alert Orientation: to time, to place, to person Memory: recent memory normal, remote memory normal Neck: pertinent finding (Normal JVP) Lungs: Respiratory effort: no dyspnea Auscultation: no wheezing, no rales/crackles, no rhonchi, deminished air movement, decreased breath sounds Cardiovascular: Heart Auscultation: RRR (80 bpm) Abdomen: Bowel Sounds: normal Extremities: edema (1+ edema. Lymphedematous changes) Neurologic: Cranial Nerves: grossly intact Assessment and Plan Assessment and Plan Acute decompensated systolic congestive heart failure signs and symptoms with associated right pleural effusion Reassess CXR. Transition IV furosemide to oral furosemide in AM of 02/21/2017. Elevated troponin Suspect secondary to myocardial strain from the acute decompensated heart failure. Chest pain. Atypical. Reproducible with palpation. Hypertension Controlled. Follow Continue Toprol XL, losartan, Imdur, ASA, clopidogrel, and atorvastatin. Patient unable to tolerate Entresto Agree with plans for personal skilled nursing placement. Laboratory Results Last 24 Hours Test 02/19/17 16:24 02/19/17 20:05 02/20/17 05:43 02/20/17 06:58 Bedside Glucose 189 mg/dl 160 mg/dl 161 mg/dl Sodium Level 136 mmol/L Potassium Level 4.3 mmol/L Chloride Level 103 mmol/L Carbon Dioxide Level 23 mmol/L Anion Gap 10.0 mmol/L Blood Urea Nitrogen 45 mg/dl Creatinine 1.40 mg/dl Est Creatinine Clear Calc Drug Dose 40.0 ml/min Estimated GFR () 45.3 Estimated GFR (Non- 39.1 BUN/Creatinine Ratio 32.4 Random Glucose 181 mg/dl Calcium Level 8.7 mg/dl Phosphorus Level 3.0 mg/dl Magnesium Level 1.9 mg/dl
--- NOTE | 2017-02-20 13:31 | DIAGNOSTIC IMAGING REPORT ---
TWO VIEW CHEST CLINICAL HISTORY: CHF. FINDINGS: PA and lateral chest radiographs are compared to study dated 02/18/2017. A 3-lead cardiac AICD is unchanged in position and partially obscures the left lower chest. The heart is enlarged and there is atherosclerotic calcification of the thoracic aorta. The pulmonary vasculature is noncongested. There is a moderate right pleural effusion with right basilar consolidation. A trace pleural effusion is seen on the left. There is no pneumothorax. The skeletal structures are osteopenic. Degenerative change is noted throughout the thoracic spine. IMPRESSION: 1. Cardiomegaly and AICD. There is no radiographic evidence of congestive failure. 2. Moderate right pleural effusion with right basilar consolidation. This could represent atelectasis and/or pneumonia. Clinical correlation will be required. 3. A trace pleural effusion is seen on the left. Electronically signed by: Carlos Grullon M.D. 02/20/2017 1:30 PM Dictated Date/Time: 02/20/2017 1:28 PM
[2017-02-20] MEDS: ATORVASTATIN 40 MG TAB PO SCH (19:50)
[2017-02-20] MEDS ORDERED: OLANZAPINE 2.5 MG TAB PO ONE (21:15)
[2017-02-20 22:13] LABS: URINE APPEARANCE CLOUDY (CLEAR); URINE BILIRUBIN NEG (NEG); URINE COLOR DK YELLOW; URINE EPITHELIAL CELL AUTO >30 /lpf (0-5); URINE NITRITE NEG (NEG); URINE SPECIFIC GRAVITY 1.022 (1.000-1.030); UROBILINOGEN NEG (NEG); ZZUR CULT IF INDIC CLEAN CATCH YES
[2017-02-20 22:16] LABS: MANUAL MICROSCOPIC REQUIRED? NO; REVIEW REQ? YES
[2017-02-21] MEDS: HEPARIN SOD 5000 UNIT/0.5 ML CARP SQ SCH ×2 (05:16→14:00)
[2017-02-21] MEDS: INSULIN ASPART 100 UNITS/ML 3 ML PEN SC SCH ×3 (06:30→17:28)
[2017-02-21 06:44] LABS: HEMATOCRIT 42.3 % (37-47); MEAN CORPUSCULAR HEMOGLOBIN 28.3 pg (25-34); MEAN CORPUSCULAR HGB CONC 32.9 g/dl (32-36); MEAN PLATELET VOLUME 11.3 fL (7.4-10.4); PLATELET COUNT 141 K/uL (130-400); RED BLOOD COUNT 4.92 M/uL (4.2-5.4); WHITE BLOOD COUNT 5.18 K/uL (4.8-10.8)
[2017-02-21 07:19] LABS: BUN/CREATININE RATIO 32.1 (10-20); CALCIUM 8.8 mg/dl (8.5-10.1); CREATININE 1.4 mg/dl (0.60-1.20)
[2017-02-21 07:35] VITALS: BP 140/95; PULSE 94; TEMP 36.3; O2SAT 96
[2017-02-21] MEDS ORDERED: FUROSEMIDE 20 MG TAB PO SCH (08:00)
[2017-02-21] MEDS: TRIAMCINOLONE ACET 0.1% CR 15 GM TUBE EXT SCH (08:17)
[2017-02-21] MEDS: NYSTATIN POWDER 15GM BTL EXT SCH (08:17)
[2017-02-21] MEDS: ASPIRIN 81 MG ECTAB PO SCH (08:18)
[2017-02-21] MEDS: ISOSORBIDE MONONITRATE 60 MG TABCR PO SCH (08:18)
[2017-02-21] MEDS: CLOPIDOGREL BISULFATE 75 MG TAB PO SCH (08:18)
[2017-02-21] MEDS: METOPROLOL SUCC 50MG EXT REL TAB PO SCH (08:18)
--- NOTE | 2017-02-21 09:18 | Cardiology Follow-Up ---
Subjective General Date of Service: Feb 21, 2017. Chief Complaint: Shortness of breath Pt evaluation today including: conversation w/ patient, physical exam, chart review, lab review, review of studies, review of inpatient medication list History of Present Illness Patient seen and examined. Nonmonitored bed. No chest pain. No palpitations. Dyspnea back to baseline. Peripheral edema improving. ? [facility]. Allergies Coded Allergies: Sulfamethoxazole (Verified Allergy, Unknown, 02/17/17) Prednisone (Verified Adverse Reaction, Unknown, "makes me weird", 02/17/17) pt Social History Smoking Status: Never Smoker Hx Tobacco Use In Past Year?: No Hx Alcohol Use - Type And Amou: Yes (OCCASIONALLY) Hx Substance Use - Type And Am: No Problem List Medical Problems: (1) Congestive heart failure Status: Acute (2) Dehydration Status: Acute (3) Dry skin dermatitis Status: Acute (4) Dyspnea Status: Acute (5) Elevated troponin Status: Acute (6) Noncompliance with medications Status: Acute (7) Obesity Status: Acute (8) Peripheral edema Status: Acute Physical Exam Vital Signs Last Vital Signs Documentation Date Time Temp Pulse Resp B/P (MAP) Pulse Ox O2 Delivery O2 Flow Rate FiO2 02/21/17 07:35 36.3 94 20 140/95 (110) 96 Room Air Physical Exam Constitutional: Level of Distress: NAD Ambulation: ambulating normally Psychiatric: Mental Status: active & alert Orientation: to time, to place, to person Memory: recent memory normal, remote memory normal Neck: pertinent finding (Normal JVP) Lungs: Respiratory effort: no dyspnea Auscultation: no wheezing, no rales/crackles, no rhonchi, deminished air movement, decreased breath sounds Cardiovascular: Heart Auscultation: RRR (80 bpm) Abdomen: Bowel Sounds: normal Extremities: edema (1+ edema. Lymphedematous changes) Neurologic: Cranial Nerves: grossly intact Assessment and Plan Assessment and Plan Improved evidence of acute decompensated systolic congestive heart failure Elevated troponin. Suspect secondary to myocardial strain from the acute decompensated heart failure. Chest pain. Atypical. Reproducible with palpation. Hypertension. Controlled. Follow Continue current medications as prescribed. Agree with plans for personal jail placement. Please call with any questions or concerns. Cardiology follow-up 2 weeks post discharge; office aware. Cardiology attending: Pt seen and examined, agree with findings and assessment as per Joesph Phan current medications. For placement. Laboratory Results Last 24 Hours Test 02/20/17 11:07 02/20/17 17:17 02/20/17 20:18 02/20/17 21:55 Bedside Glucose 179 mg/dl 175 mg/dl 154 mg/dl Urine Color DK YELLOW Urine Appearance CLOUDY Urine pH 5.0 Urine Specific [place] 1.022 Urine Protein 2+ Urine Glucose (UA) NEG Urine Ketones TRACE Urine Occult Blood TRACE Urine Nitrite NEG Urine Bilirubin NEG Urine Urobilinogen NEG Urine Leukocyte Esterase MODERATE Urine WBC (Auto) >30 /hpf Urine RBC (Auto) 0-4 /hpf Urine Hyaline Casts (Auto) 10-30 /lpf Urine Epithelial Cells (Auto) >30 /lpf Urine Bacteria (Auto) 1+ Test 02/21/17 06:21 02/21/17 07:46 White Blood Count 5.18 K/uL Red Blood Count 4.92 M/uL Hemoglobin 13.9 g/dL Hematocrit 42.3 % Mean Corpuscular Volume 86.0 fL Mean Corpuscular Hemoglobin 28.3 pg Mean Corpuscular Hemoglobin Concent 32.9 g/dl RDW Standard Deviation 50.3 fL RDW Coefficient of Variation 16.2 % Platelet Count 141 K/uL Mean Platelet Volume 11.3 fL Sodium Level 138 mmol/L Potassium Level 4.0 mmol/L Chloride Level 104 mmol/L Carbon Dioxide Level 27 mmol/L Anion Gap 7.0 mmol/L Blood Urea Nitrogen 45 mg/dl Creatinine 1.40 mg/dl Est Creatinine Clear Calc Drug Dose 40.0 ml/min Estimated GFR () 45.3 Estimated GFR (Non- 39.1 BUN/Creatinine Ratio 32.1 Random Glucose 136 mg/dl Calcium Level 8.8 mg/dl Bedside Glucose 123 mg/dl
--- NOTE | 2017-02-21 13:06 | Progress Note ---
Internal Med Progress Note Date of Service: Feb 21, 2017. Provider Documentation: SUBJECTIVE: The patient was seen and examined Pleasantly confused at times Much better today Feels fine ,ambulating and ready to be discharged OBJECTIVE: Vital Signs-as noted below Exam: General-no distress at rest Eyes-normal ENT-normal Neck-supple Lungs-clear to auscultate bilaterally Heart-Regular,no murmur Abdomen-Benign,no masses,bowel sound present Extremities-Trace edema bilaterally Maculo-papular rash seems a little better Neuro-AA Pleasantly confused Lab data as noted below. ASSESSMENT & PLAN: ACUTE DECOMPENSATED SYSTOLIC HEART FAILURE Complicated by right pleural effusion Presented with SOB and leg swelling Elevated Pro-BNP on admission CXR showed interval development of right basilar infiltrate and/or effusion. Continue diuresis per cardiology Appreciate cardiology input Last ECHO: EF:20-25% Pulmonary hypertension Plan to resume losartan when Cr levels better Feels a little worse today Continue to diuresis Tolerating Lasix and creatinine stable Atypical Chest pain Reproducible Troponin elevation secondary to cardiac strain from CHF Doubt any ACS Continue aspirin, statin and metoprolol NO more pain DM II HBA1C was 8.3 on 12/24/16 uncontrolled Hold glipizide for now ISS, Monitor BS Rash/Itchiness Patient denies bed bugs. Daughter found some bed bugs per staff Never started the topical steroid prescribed by PCP Will start on triamcinolone Benadryl prn Doubt any scabies Clinically better and Improved B/L LE numbness/tingling Possible related to diabetic neuropathy Vit B12, folate:Adequate No complaints HTN Continue current meds Losartan held secondary to elevated Cr levels, also on diuretics Remains stable CAD s/p Stent Continue aspirin, plavix, BB and statin No acute issue COPD Stable No SOB and or cough/wheezing DVT Px Heparin SQ CODE STATUS FUL CODE Disposition Likely to go to a personal snf on discharge Transfer to [place] Discussed with the Daughter and sister in detailed Will discharge today Vital Signs: Date Time Temp Pulse Resp B/P (MAP) Pulse Ox O2 Delivery O2 Flow Rate FiO2 02/21/17 08:00 Room Air 02/21/17 07:35 36.3 94 20 140/95 (110) 96 Room Air 02/21/17 00:00 Room Air 02/20/17 21:10 96 Room Air 02/20/17 16:30 Room Air 02/20/17 16:18 37.1 83 18 128/87 (101) 89 Room Air 02/20/17 15:58 36.9 78 16 91 02/20/17 15:30 36.9 78 16 122/86 (98) 91 Room Air Lab Results: Results Past 24 Hours Test 02/20/17 17:17 02/20/17 20:18 02/20/17 21:55 02/21/17 06:21 Range/Units Bedside Glucose 175 154 70-90 mg/dl Urine Color DK YELLOW Urine Appearance CLOUDY CLEAR Urine pH 5.0 4.5-7.5 Urine Specific [place] 1.022 1.000-1.030 Urine Protein 2+ NEG Urine Glucose (UA) NEG NEG Urine Ketones TRACE NEG Urine Occult Blood TRACE NEG Urine Nitrite NEG NEG Urine Bilirubin NEG NEG Urine Urobilinogen NEG NEG Urine Leukocyte Esterase MODERATE NEG Urine WBC (Auto) >30 0-5 /hpf Urine RBC (Auto) 0-4 0-4 /hpf Urine Hyaline Casts (Auto) 10-30 0-5 /lpf Urine Epithelial Cells (Auto) >30 0-5 /lpf Urine Bacteria (Auto) 1+ NEG White Blood Count 5.18 4.8-10.8 K/uL Red Blood Count 4.92 4.2-5.4 M/uL Hemoglobin 13.9 12.0-16.0 g/dL Hematocrit 42.3 37-47 % Mean Corpuscular Volume 86.0 80-100 fL Mean Corpuscular Hemoglobin 28.3 25-34 pg Mean Corpuscular Hemoglobin Concent 32.9 32-36 g/dl RDW Standard Deviation 50.3 36.4-46.3 fL RDW Coefficient of Variation 16.2 11.5-14.5 % Platelet Count 141 130-400 K/uL Mean Platelet Volume 11.3 7.4-10.4 fL Sodium Level 138 136-145 mmol/L Potassium Level 4.0 3.5-5.1 mmol/L Chloride Level 104 98-107 mmol/L Carbon Dioxide Level 27 21-32 mmol/L Anion Gap 7.0 3-11 mmol/L Blood Urea Nitrogen 45 7-18 mg/dl Creatinine 1.40 0.60-1.20 mg/dl Est Creatinine Clear Calc Drug Dose 40.0 ml/min Estimated GFR () 45.3 Estimated GFR (Non- 39.1 BUN/Creatinine Ratio 32.1 10-20 Random Glucose 136 70-99 mg/dl Calcium Level 8.8 8.5-10.1 mg/dl Test 02/21/17 07:46 02/21/17 11:58 Range/Units Bedside Glucose 123 166 70-90 mg/dl Microbiology Results 02/20/17 Urine Culture, Received Pending
[2017-02-21 14:39] VITALS: BP 133/86; PULSE 91; TEMP 36.7; O2SAT 97
[2017-02-21] MEDS ORDERED: LSX20 PO (14:48)
--- NOTE | 2017-02-21 14:52 | Discharge Instructions ---
Discharge Instructions Date of Service Feb 21, 2017. Admission Reason for Admission: SOB Discharge Discharge Diagnosis / Problem: Acute Decompensated Systolic Heart Failure Discharge Goals Goal(s): Prevent Disease Progression Activity Recommendations Activity Limitations: resume your previous activity . Instructions / Follow-Up Instructions / Follow-Up Dr Arpit Howard on 03/01/17 at 10:45 AM,Cardiology will call for appointment Call your Primary Care doctor if any of the following symptoms or problems start or get worse: * Shortness of breath or difficulty breathing * Wake up at night short of breath * Chest pain * Cough * Swelling of your hands, feet, or legs * More fatigued or tired with your normal activity * Palpitations - sudden fast heart beats WEIGHT * Weigh yourself every morning after using the bathroom. * Use the same scale. * Wear the same amount of clothing. * Write your weight down on a chart. * Call your Primary Care doctor if you gain more than 2-3 pounds in 1-2 days. MEDICATIONS * Use this discharge instruction sheet for medication instructions. * Take your medications at the time your doctor ordered. * Do not skip a dose of your medicines. * If you miss a dose of medicine, take it as soon as possible, but DO NOT DOUBLE A DOSE. * Read your medicine information when you get home. * Know all of the side effects of your medicine. If in doubt, ask your pharmacist * Call your Primary Care doctor's office if you have any side effects. * Be sure all of your doctors know what medicine and herbs you take (including cold, flu, and herbal medicine). Take the following with you to your follow-up doctor appointments: * Weight Chart * Medication List * List of questions Do not drink excessive alcohol, beer or wine. Current Hospital Diet Patient's current hospital diet: AHA Diet (Heart Healthy), Diabetes Type 2 Diet Discharge Diet Recommended Diet: AHA Diet (Heart Healthy), Diabetes Type 2 Diet Fluid Restriction: 1500 ml (6 cups) Pending Studies Studies pending at discharge: no Medical Emergencies . Who to Call and When: Call 911 or go to the Emergency Room if: * If at any time you feel your situation is an emergency * You have tightness or pain in your chest that does not go away with rest or Nitroglycerin * You are very short of breath even with rest . Non-Emergent Contact Non-Emergency issues call your: Primary Care Provider . Past History Medical & Surgical History: (1) Chest wall pain (2) Congestive heart failure (3) Dyspnea (4) Elevated troponin (5) SOB (shortness of breath) (6) Dyslipidemia (7) HTN (hypertension) (8) CAD (coronary artery disease) (9) Ischemic cardiomyopathy (10) COPD (chronic obstructive pulmonary disease) (11) Presence of combination internal cardiac defibrillator (ICD) and pacemaker (12) DM type 2 (diabetes mellitus, type 2) (13) SAH (subarachnoid hemorrhage) (14) H/O dilation and curettage (15) H/O tubal ligation (16) Hx of appendectomy (17) Hx of tonsillectomy . "Provider Documentation" section prepared by Gretchen Cardenas. . VTE Core Measure Inpt VTE Proph given/why not?: Unfractionated heparin SQ
[2017-02-21 15:03] VITALS: BP 133/86; PULSE 91; TEMP 36.7; O2SAT 97
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
[2017-03-14] MEDS ORDERED: CLOP1TAB15 PO (06:36)
[2017-03-14] MEDS ORDERED: METO-217 PO (06:45)
[2017-03-14] MEDS ORDERED: GLIP2.5T11 PO (06:45)
[2017-03-14] MEDS ORDERED: ISOS30TA35 PO (11:47)
[2017-03-14] MEDS ORDERED: ATOR-26 PO (13:44)
[2017-03-14] MEDS ORDERED: CZR25 PO (14:57)
[2017-03-14] MEDS ORDERED: ZINC40OI13 TOP (21:26)
[2017-03-20] MEDS ORDERED: PANT1TAB48 PO (12:06)
[2017-03-20] MEDS ORDERED: LSX40 PO (12:06)
[2017-03-20] MEDS ORDERED: ASPEC81 PO (12:06)
[2017-03-20] MEDS ORDERED: TPRSR25 PO (12:06)
[2017-03-20] MEDS ORDERED: MGNO400 PO (12:06)
[2017-05-03] MEDS ORDERED: CIPR250T5 PO (09:56)
== END 2017-02-21 17:30 | disposition home or self-care (01) | DRG 293 ==
LOC: C.EDB 19:57 → C.2T 22:31 → ENRESERV 22:46 → C.2T 02-18 01:13 → ENRESERV 02-20 15:02 → C.4E 02-20 16:06
PROVIDERS: ADMIT Internal Medicine; ATTEND Internal Medicine
DX: I11.0 Hypertensive heart disease with heart failure (principal); I50.23 Acute on chronic systolic (congestive) heart failure; J44.9 Chronic obstructive pulmonary disease, unspecified; E11.9 Type 2 diabetes mellitus without complications; I25.10 Atherosclerotic heart disease of native coronary artery without angina pectoris; Z95.5 Presence of coronary angioplasty implant and graft; F41.9 Anxiety disorder, unspecified; E78.5 Hyperlipidemia, unspecified; E66.9 Obesity, unspecified; Z68.34 Body mass index [BMI] 34.0-34.9, adult; I49.3 Ventricular premature depolarization; I25.5 Ischemic cardiomyopathy; Z95.810 Presence of automatic (implantable) cardiac defibrillator; Z90.49 Acquired absence of other specified parts of digestive tract; Z98.51 Tubal ligation status; Z82.0 Family history of epilepsy and other diseases of the nervous system; Z88.2 Allergy status to sulfonamides; Z88.8 Allergy status to other drugs, medicaments and biological substances; Z98.41 Cataract extraction status, right eye; Z98.42 Cataract extraction status, left eye; Z79.52 Long term (current) use of systemic steroids; Z79.899 Other long term (current) drug therapy; Z79.82 Long term (current) use of aspirin

== ENCOUNTER 2017-03-01 12:35 | Inpatient (IN) | payer OTHER ==
[~2017-03-01] VITALS: Ht 154.9 cm; Wt 82.0 kg
[~2017-03-01 12:35] MED LIST changes: -FURO-85 PO; +LSX20 PO; +TRIA0.1C2 TOP
--- NOTE | 2017-03-01 13:08 | EMERGENCY ROOM VISIT NOTE ---
History Report prepared by Maribell: Aura Arriaga Under the Supervision of: Dr. Mono Isaac M.D. First contact with patient: 12:58 Chief Complaint: EDEMA TO EXTREMITY Stated Complaint: EDEMA, FLUID IN LUNGS-PER PCP History of Present Illness The patient is a 66 year old female who presents to the Emergency Room with complaints of worsening edema to the bilateral lower legs beginning a few days prior to arrival. The patient was seen by her PCP and sent to the ED for evaluation. She has been experiencing swelling to her legs. She also notes a rash on her legs and back. The patient states that the rash is itchy. She has been experiencing mild fevers. She denies chest pain or shortness of breath. 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 A total of 10 systems reviewed and were otherwise negative. Past Medical & Surgical Medical Problems: (1) CAD (coronary artery disease) (2) COPD (chronic obstructive pulmonary disease) (3) DM type 2 (diabetes mellitus, type 2) (4) Dyslipidemia (5) HTN (hypertension) (6) Ischemic cardiomyopathy (7) Leg swelling (8) Presence of combination internal cardiac defibrillator (ICD) and pacemaker (9) SAH (subarachnoid hemorrhage) (10) SOB (shortness of breath) Surgical Problems: (1) H/O dilation and curettage (2) H/O tubal ligation (3) Hx of appendectomy (4) Hx of tonsillectomy Old medical records were reviewed. Nurse's notes were reviewed and I agree with. Family History FH: Alzheimers disease FATHER Social History Smoking Status: Never Smoker Alcohol Use: occasionally Marital Status: single Housing Status: lives alone Occupation Status: retired Current/Historical Medications Scheduled Aspirin (Aspirin Ec), 81 MG PO QAM Atorvastatin (Lipitor), 80 MG PO HS Clopidogrel (Plavix), 75 MG PO QAM Furosemide (Furosemide), 40 MG PO QAM Glipizide (Glipizide Er), 2.5 MG PO DAILY Isosorbide Mononitrate Ext Rel (Imdur Ext Rel), 60 MG PO QAM Losartan Potassium (Losartan Potassium), 25 MG PO QAM Metoprolol Succinate (Toprol Xl), 50 MG PO QAM Nitroglycerin (Nitrostat), 0.3 MG UT PRN Triamcinolone Acetonide (Topic (Triderm), 1 APPLN TOP BID Scheduled PRN Albuterol Hfa (Ventolin Hfa), 2 PUFFS INH Q4H PRN for Wheezing Hydroxyzine Hcl (Atarax), 12.5 MG PO Q8H PRN for Itching Allergies Coded Allergies: Sulfamethoxazole (Verified Allergy, Unknown, 03/01/17) Prednisone (Verified Adverse Reaction, Unknown, "makes me weird", 03/01/17) pt Physical Exam Vital Signs Date Time Temp Pulse Resp B/P (MAP) Pulse Ox O2 Delivery O2 Flow Rate FiO2 03/01/17 14:45 66 16 108/60 97 03/01/17 12:44 36.2 73 20 126/87 95 Room Air Physical Exam General: Well developed well nourished non ill in no acute distress older female , breathing comfortably on room air. Normal speech HEENT: Normal cephalic atraumatic. Pupils are equal round and reactive to light. Extraocular movements are intact. Oropharynx is pink with moist mucous membranes. No swelling of the mouth lips or tongue. Neck: Supple with a midline trachea. No meningeal signs or stiffness, no JVD or bruits. No Stridor. Chest: Diminished breath sounds in right base compared to left. No wheezes or rhonchi. No increased work of breathing. Heart: regular rate and rhythm. Abdomen: Soft nontender, nondistended without rebound guarding or rigidity. Extremities: 2+ pitting edema to lower extremities. Several small red circular spots that are blanchable and non vascular. Spine/Back. Non tender to palpation. No CVA tenderness Skin: Good turgor. Neurologic exam: Cranial nerves two through 12 are intact. Motor and sensation are intact and symmetrical throughout. Medical Decision & Procedures ER Provider Diagnostic Interpretation: X-ray results as stated below per interpretation by me and the radiologist: CHEST ONE VIEW PORTABLE CLINICAL HISTORY: 66 years-old Female presenting with CHEST PAIN. TECHNIQUE: Portable upright AP view of the chest was obtained. COMPARISON: 02/20/2017. FINDINGS: Left-sided implanted cardiac defibrillator with leads to the coronary sinus, right atrium, right ventricular apex. Cardiac silhouette mildly prominent as on prior exam. Persistent right basilar opacity with moderate effusion and basilar consolidation. Left lung and pleural space clear. Osseous structures and upper abdomen normal. IMPRESSION: 1. Persistent moderate right pleural effusion and basilar consolidation. Underlying infection cannot be excluded. Electronically signed by: Alejandro Hernández 03/01/2017 1:30 PM Dictated Date/Time: 03/01/2017 1:25 PM Laboratory Results 03/01/17 13:38 Red Blood Count 4.85, Mean Corpuscular Volume 85.6, Mean Corpuscular Hemoglobin 26.6, Mean Corpuscular Hemoglobin Concent 31.1, Mean Platelet Volume 11.0, Neutrophils (%) (Auto) 62.9, Lymphocytes (%) (Auto) 26.1, Monocytes (%) (Auto) 8.6, Eosinophils (%) (Auto) 1.6, Basophils (%) (Auto) 0.4, Neutrophils # (Auto) 3.50, Lymphocytes # (Auto) 1.45, Monocytes # (Auto) 0.48, Eosinophils # (Auto) 0.09, Basophils # (Auto) 0.02 03/01/17 13:38 Test 03/01/17 13:38 03/01/17 13:39 03/01/17 13:50 White Blood Count 5.56 K/uL (4.8-10.8) Red Blood Count 4.85 M/uL (4.2-5.4) Hemoglobin 12.9 g/dL (12.0-16.0) Hematocrit 41.5 % (37-47) Mean Corpuscular Volume 85.6 fL (80-100) Mean Corpuscular Hemoglobin 26.6 pg (25-34) Mean Corpuscular Hemoglobin Concent 31.1 g/dl (32-36) Platelet Count 186 K/uL (130-400) Mean Platelet Volume 11.0 fL (7.4-10.4) Neutrophils (%) (Auto) 62.9 % Lymphocytes (%) (Auto) 26.1 % Monocytes (%) (Auto) 8.6 % Eosinophils (%) (Auto) 1.6 % Basophils (%) (Auto) 0.4 % Neutrophils # (Auto) 3.50 K/uL (1.4-6.5) Lymphocytes # (Auto) 1.45 K/uL (1.2-3.4) Monocytes # (Auto) 0.48 K/uL (0.11-0.59) Eosinophils # (Auto) 0.09 K/uL (0-0.5) Basophils # (Auto) 0.02 K/uL (0-0.2) RDW Standard Deviation 50.6 fL (36.4-46.3) RDW Coefficient of Variation 16.2 % (11.5-14.5) Immature Granulocyte % (Auto) 0.4 % Immature Granulocyte # (Auto) 0.02 K/uL (0.00-0.02) Anion Gap 8.0 mmol/L (3-11) Est Creatinine Clear Calc Drug Dose 49.6 ml/min Estimated GFR () 60.6 Estimated GFR (Non- 52.3 BUN/Creatinine Ratio 17.5 (10-20) Calcium Level 8.4 mg/dl (8.5-10.1) Total Bilirubin 1.3 mg/dl (0.2-1) Direct Bilirubin 0.5 mg/dl (0-0.2) Aspartate Amino Transf (AST/SGOT) 30 U/L (15-37) Alanine Aminotransferase (ALT/SGPT) 38 U/L (12-78) Alkaline Phosphatase 102 U/L (45-117) Creatine Kinase MB 2.1 ng/ml (0.5-3.6) Troponin I 0.054 ng/ml (0-0.045) Total Protein 6.7 gm/dl (6.4-8.2) Albumin 3.0 gm/dl (3.4-5.0) Lipase 121 U/L (73-393) Procalcitonin < 0.05 ng/ml (0-0.5) Bedside Troponin I 0.030 ng/ml (0-0.045) RI-[id number]-[id number]-Type Natriuretic Peptide 5546 pg/ml (0-900) Laboratory studies as stated above per my review. Medications Administered Medications (Trade) Dose Ordered Sig/Darby Route Start Time Stop Time Status Last Admin Dose Admin Furosemide (Lasix Inj) 40 mg NOW STAT IV 03/01/17 15:29 03/01/17 15:30 DC 03/01/17 15:50 40 MG ECG Indication: other (lower extremity edema) Rate (beats per minute): 70 Rhythm: other (ventricle paced) Findings: no acute ischemic change, no ectopy Change: no significant change (from February 17, 2017) ED Course 1301: Past medical records reviewed. The patient was evaluated in room C1, and a complete history and physical examination were performed. 1528: I reevaluated the patient. A nurse from the [facility] was concerned for her increased lower edema and was sent from her PCP to the ED. 1529: Lasix Inj 40 mg IV. 1531: I spoke with SAMMIE Bai about the patient. She will come evaluate the patient for further management. 154-: Upon reevaluation, the patient is hemodynamically stable. I discussed the results and treatment plan with the patient. She verbalized agreement of the treatment plan. The patient will be evaluated for further management. Medical Decision Differentials include, but are not limited to; CHF, peripheral edema, infection , electrolyte or metabolic abnormalities. Medication Reconciliation: I attest that I have personally reviewed the patient' s current medication list. Blood pressure Screening: Patient was found to have normal blood pressure on screening and does not require follow-up. This patient comes in as described above. She was placed in room C1. She was brought in from the [facility] after having increasing lower extremity edema and dyspnea on exertion. She looks well at present she has had pitting 1-2+ edema bilaterally she was relatively recently admitted here and they increased her Lasix from 20 mg 5 times a week to 40 mg a day. Chest x-ray shows an effusion on the right. Her BMP is elevated. Her EKG does not suggest acute coronary syndrome or arrhythmia. She's had no acute electrolyte or metabolic abnormality. She was given Lasix 40 mg IV. I talked to the nurse at length from her [facility] and she feels that she is taking a downhill decline. Apparently, the patient saw her regular doctor today who sent her to the ER for IV diuresis and further treatment. I do think she needs to stay in the hospital. I have consulted the [facility] hospitalist group to see her. Consults Time Called: 152 Consulting Physician: SAMMIE Bai Returned Call: 1531 I spoke with SAMMIE Bai about the patient. She will come evaluate the patient for further management. Impression Primary Impression: CHF (congestive heart failure) Additional Impression: Peripheral edema Scribe Attestation The scribe's documentation has been prepared under my direction and personally reviewed by me in its entirety. I confirm that the note above accurately reflects all work, treatment, procedures, and medical decision making performed by me. Departure Information Dispostion Being Evaluated By Hospitalist Referrals Diamante Howard D.O. (PCP) Problem Qualifiers
--- NOTE | 2017-03-01 13:31 | DIAGNOSTIC IMAGING REPORT ---
CHEST ONE VIEW PORTABLE CLINICAL HISTORY: 66 years-old Female presenting with CHEST PAIN. TECHNIQUE: Portable upright AP view of the chest was obtained. COMPARISON: 02/20/2017. FINDINGS: Left-sided implanted cardiac defibrillator with leads to the coronary sinus, right atrium, right ventricular apex. Cardiac silhouette mildly prominent as on prior exam. Persistent right basilar opacity with moderate effusion and basilar consolidation. Left lung and pleural space clear. Osseous structures and upper abdomen normal. IMPRESSION: 1. Persistent moderate right pleural effusion and basilar consolidation. Underlying infection cannot be excluded. Electronically signed by: Alejandro Hernández 03/01/2017 1:30 PM Dictated Date/Time: 03/01/2017 1:25 PM
[2017-03-01 14:05] LABS: BASO % 0.4 %; BASO ABS # 0.02 K/uL (0-0.2); COMPLETE YES; EOS % 1.6 %; HEMATOCRIT 41.5 % (37-47); IG% 0.4 %; LYMPH % 26.1 %; LYMPH ABS # 1.45 K/uL (1.2-3.4); MEAN CELL VOLUME 85.6 fL (80-100); MEAN CORPUSCULAR HEMOGLOBIN 26.6 pg (25-34); MEAN CORPUSCULAR HGB CONC 31.1 g/dl (32-36); MONO % 8.6 %; NEUT % 62.9 %; PLATELET COUNT 186 K/uL (130-400); RED BLOOD COUNT 4.85 M/uL (4.2-5.4); WHITE BLOOD COUNT 5.56 K/uL (4.8-10.8)
[2017-03-01 14:10] LABS: POINT OF CARE TROPONIN I 0.03 ng/ml (0-0.045)
[2017-03-01 14:23] LABS: CREATININE 1.1 mg/dl (0.60-1.20)
[2017-03-01 14:24] LABS: BUN/CREATININE RATIO 17.5 (10-20); CALCIUM 8.4 mg/dl (8.5-10.1)
[2017-03-01] MEDS ORDERED: FUROSEMIDE 40 MG/4 ML VIAL IV STA (15:29)
[2017-03-01] MEDS ORDERED: ONDANSETRON INJ 2 MG/ML 2 ML VIAL IV PRN (16:30)
[2017-03-01] MEDS ORDERED: ACETAMINOPHEN 325 MG TAB PO PRN (16:30)
[2017-03-01] MEDS ORDERED: GLUCAGON FOR INJ 1 MG VIAL SQ PRN (16:45)
[2017-03-01] MEDS ORDERED: GLUCOSE 40% GEL 15 GM TUBE PO PRN (16:45)
[2017-03-01] MEDS ORDERED: GLUCOSE 10 TABS/TUBE PO PRN (16:45)
[2017-03-01] MEDS ORDERED: DEXTROSE 50% 50 ML SYR IV PRN (16:45)
[2017-03-01] MEDS ORDERED: ALBUTEROL HFA 8 GM INHALER INH PRN (16:45)
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
[2017-03-01 17:25] VITALS: BP 149/98; PULSE 78; TEMP 36.7; O2SAT 98; Ht 154.9 cm; Wt 82.0 kg
[2017-03-01] MEDS: POTASSIUM CHLORIDE 10 MEQ TABCR PO SCH (18:51)
[2017-03-01] MEDS: INSULIN ASPART 100 UNITS/ML 3 ML PEN SC SCH (21:00)
--- NOTE | 2017-03-01 21:07 | DIAGNOSTIC IMAGING REPORT ---
ULTRASOUND BILATERAL LOWER EXTREMITY VENOUS CLINICAL HISTORY: Lower extremity edema. COMPARISON STUDY: Bilateral lower extremity venous ultrasound dated 02/19/2017. TECHNIQUE: Real-time, grayscale, and color Doppler sonography of the deep veins of the right and left lower extremity was performed from the inguinal crease to the calf. Compression and augmentation were utilized. FINDINGS: Right lower extremity: There is no sonographic evidence of deep venous thrombosis identified in the right lower extremity. The common femoral, superficial femoral, and popliteal veins are patent and normally compressible. The greater saphenous vein and the profunda femoris vein at the junction with the common femoral vein are clear. The visualized calf veins are patent. Subcutaneous soft tissue edema is noted. Left lower extremity: There is nearly occlusive deep venous thrombosis identified in the left popliteal vein. The remaining deep veins of the left lower extremity are patent. The common femoral and superficial femoral veins are patent and normally compressible. The greater saphenous vein and the profunda femoris vein at the junction with the common femoral vein are clear. The visualized calf veins are patent. Subcutaneous soft tissue edema is noted. IMPRESSION: 1. Nearly occlusive deep venous thrombosis is seen in the left popliteal vein. 2. The remaining deep veins of the left lower extremity are clear. 3. There is no sonographic evidence of deep venous thrombosis identified in the right lower extremity. Electronically signed by: Carlos Grullon M.D. 03/01/2017 9:05 PM Dictated Date/Time: 03/01/2017 9:03 PM
[2017-03-01] MEDS: TRIAMCINOLONE ACET 0.1% CR 15 GM TUBE EXT SCH (21:26)
[2017-03-01] MEDS: ATORVASTATIN 40 MG TAB PO SCH (21:26)
[2017-03-01] MEDS: FUROSEMIDE INJ 40 MG in SYRINGE 0 ML IV SCH (21:27)
[2017-03-01] MEDS: HEPARIN SOD 5000 UNIT/0.5 ML CARP SQ SCH (21:29)
--- NOTE | 2017-03-01 23:24 | Progress Note ---
Progress Note Date of Service Mar 01, 2017. Progress Note I was called about the patient's venous doppler results - she has a L popliteal , nearly occlusive DVT. I talked with the patient about starting IV heparin or an anticoagulation; she is adamantly refusing. She is agitated and anxious. She tells me she was feeling well and then took potassium pills and has been anxious since then. She does not want any treatments for her DVT at this time; I explained to her the risks of propagation of DVT and PE and risk of and she still refused. She would like to stay overnight and have doctors re- evaluate in the morning. If still agitated, combative, etc. may need mental health evaluation. She is agreeable to subq heparin injections for now.
[2017-03-02] VITALS (8 sets, daily range): BP systolic 121–145; BP diastolic 62–87; PULSE 75–85; TEMP 36.3–36.8; O2SAT 94–99
[2017-03-02] MEDS: POTASSIUM CHLORIDE 10 MEQ TABCR PO SCH (05:40)
[2017-03-02] MEDS: HEPARIN SOD 5000 UNIT/0.5 ML CARP SQ SCH (05:41)
[2017-03-02 05:51] LABS: BASO % 0.6 %; BASO ABS # 0.03 K/uL (0-0.2); COMPLETE YES; EOS % 2.3 %; HEMATOCRIT 38.9 % (37-47); LYMPH % 27.7 %; LYMPH ABS # 1.32 K/uL (1.2-3.4); MEAN CELL VOLUME 86.3 fL (80-100); MEAN CORPUSCULAR HEMOGLOBIN 27.3 pg (25-34); MEAN CORPUSCULAR HGB CONC 31.6 g/dl (32-36); MONO % 13.7 %; NEUT % 55.7 %; PLATELET COUNT 166 K/uL (130-400); RED BLOOD COUNT 4.51 M/uL (4.2-5.4); WHITE BLOOD COUNT 4.76 K/uL (4.8-10.8)
[2017-03-02 06:18] LABS: BLOOD UREA NITROGEN 21 mg/dl (7-18); BUN/CREATININE RATIO 17.8 (10-20); CALCIUM 8.5 mg/dl (8.5-10.1); CARBON DIOXIDE 32 mmol/L (21-32); CHLORIDE 102 mmol/L (98-107); GLUCOSE 124 mg/dl (70-99); MAGNESIUM 1.4 mg/dl (1.8-2.4); POTASSIUM 3.4 mmol/L (3.5-5.1); SODIUM 140 mmol/L (136-145)
[2017-03-02] MEDS: FUROSEMIDE INJ 40 MG in SYRINGE 0 ML IV SCH ×2 (08:37→20:50)
[2017-03-02] MEDS: ASPIRIN 81 MG ECTAB PO SCH (08:38)
[2017-03-02] MEDS: CLOPIDOGREL BISULFATE 75 MG TAB PO SCH (08:38)
[2017-03-02] MEDS: LOSARTAN POTASSIUM 25 MG TAB PO SCH (08:38)
[2017-03-02] MEDS: METOPROLOL SUCC 50MG EXT REL TAB PO SCH (08:39)
[2017-03-02] MEDS: ISOSORBIDE MONONITRATE 60 MG TABCR PO SCH (08:39)
[2017-03-02] MEDS: TRIAMCINOLONE ACET 0.1% CR 15 GM TUBE EXT SCH ×2 (08:40→20:49)
[2017-03-02] MEDS: INSULIN ASPART 100 UNITS/ML 3 ML PEN SC SCH ×4 (08:42→20:48)
[2017-03-02] MEDS ORDERED: POTASSIUM CHLORIDE 20 MEQ TABCR PO ONE (12:15)
[2017-03-02] MEDS: ENOXAPARIN 80 MG/0.8 ML SYR SQ SCH ×2 (13:11→22:05)
[2017-03-02] MEDS: MAGNESIUM SULFATE 1GM / D5W 1 GM in PREMIXED IN D5W 100 ML IV SCH ×2 (13:11→14:31)
--- NOTE | 2017-03-02 16:45 | Progress Note ---
Medicine Progress Note Date & Time of Visit: Mar 02, 2017 at 16:21. Subjective Pt was seen and examined sitting comfortable with 1 to 1 sitter Pt said that she feels fine her breathing feels better she said that on/off she feels the back of her left calf tender She is on RA, breathing comfortable Denies ay chest pain, palpitation, dizziness and SOB Objective Last 8 Hrs Date Time Temp Pulse Resp B/P (MAP) Pulse Ox O2 Delivery O2 Flow Rate FiO2 03/02/17 15:28 36.5 81 18 121/81 (94) 96 Room Air 03/02/17 15:23 75 96 03/02/17 11:16 36.4 77 18 125/84 (98) 94 Room Air Physical Exam: General- No acute distress Head- atraumatic Eyes- PERRL, EOMI ENT- oropharynx clear Neck- supple, no JVD Lungs- No crackles or rales Heart- regular rhythm; no murmur Abdomen- normal bowel sounds, soft Extremities- +B/L LE edema Neuro- alert, oriented, PERRL, EOMI; no facial palsy; no dysarthria Skin- warm & dry Laboratory Results: Last 24 Hours Test 03/01/17 16:54 03/01/17 19:30 03/01/17 22:54 03/02/17 04:44 Creatine Kinase MB Ratio Bedside Glucose 140 mg/dl Test 03/02/17 05:36 03/02/17 07:50 03/02/17 11:29 White Blood Count 4.76 K/uL Red Blood Count 4.51 M/uL Hemoglobin 12.3 g/dL Hematocrit 38.9 % Mean Corpuscular Volume 86.3 fL Mean Corpuscular Hemoglobin 27.3 pg Mean Corpuscular Hemoglobin Concent 31.6 g/dl Platelet Count 166 K/uL Mean Platelet Volume 11.0 fL Neutrophils (%) (Auto) 55.7 % Lymphocytes (%) (Auto) 27.7 % Monocytes (%) (Auto) 13.7 % Eosinophils (%) (Auto) 2.3 % Basophils (%) (Auto) 0.6 % Neutrophils # (Auto) 2.65 K/uL Lymphocytes # (Auto) 1.32 K/uL Monocytes # (Auto) 0.65 K/uL Eosinophils # (Auto) 0.11 K/uL Basophils # (Auto) 0.03 K/uL RDW Standard Deviation 50.9 fL RDW Coefficient of Variation 16.3 % Immature Granulocyte % (Auto) 0.0 % Immature Granulocyte # (Auto) 0.00 K/uL Sodium Level 140 mmol/L Potassium Level 3.4 mmol/L Chloride Level 102 mmol/L Carbon Dioxide Level 32 mmol/L Anion Gap 6.0 mmol/L Blood Urea Nitrogen 21 mg/dl Creatinine 1.20 mg/dl Est Creatinine Clear Calc Drug Dose 45.5 ml/min Estimated GFR () 54.5 Estimated GFR (Non- 47.1 BUN/Creatinine Ratio 17.8 Random Glucose 124 mg/dl Calcium Level 8.5 mg/dl Magnesium Level 1.4 mg/dl Creatine Kinase MB 1.0 ng/ml Troponin I 0.047 ng/ml Bedside Glucose 132 mg/dl 165 mg/dl Assessment & Plan ACUTE DECOMPENSATED SYSTOLIC HEART FAILURE Chronic right pleural effusion Presented with SOB on exertion and worsening B/L LE swelling. Elevated Pro-BNP on admission CXR showed Persistent moderate right pleural effusion and basilar consolidation Continue lasix 40mg BID I/Os, daily weight Echo on 12/10 showed: * The left ventricle is moderately dilated. * There is global thinning of the left ventricular owen. * Left ventricular systolic function is severely reduced. * Ejection Fraction = 20-25%. * The right ventricular systolic function is moderately reduced. * The left atrium is moderately dilated. * The right atrium is moderately dilated. * There is moderate mitral regurgitation. * There is moderate to severe tricuspid regurgitation. * Pulmonary Hypertension is present with the estimated PA pressure being 65mm Hg. Will repeat cxr in am Troponin trending down Denies any chest pain On statin and BB and aspirin Left LE DVT Doppler u/s showed nearly occlusive deep venous thrombosis is seen in the left popliteal vein. Pt agreed to start on anticoagulant after explained to her about the risks and benefits. Will start lovenox 1mg/kg BID Electrolytes imbalance Mg level 1.4, K3.4 today Replaced Monitor bmp and mg DM II HBA1C was 8.3 on 12/24/16 Hold glipizide for now ISS, Monitor BS Rash/Itchiness ? secondary to bed bugs. Continue triamcinolone Consider to treat for possible scabies if not improvement HTN Continue home meds Monitor CAD s/p Stent Continue aspirin, plavix, BB and statin No acute issue COPD Stable No SOB and or cough/wheezing DVT Px Heparin SQ CODE STATUS FULL CODE Current Inpatient Medications: Current Inpatient Medications Medications (Trade) Dose Ordered Sig/Darby Route Start Time Stop Time Status Last Admin Dose Admin Acetaminophen (Tylenol Tab) 650 mg Q4H PRN PO 03/01/17 16:30 03/31/17 16:29 Ondansetron HCl (Zofran Inj) 4 mg Q6H PRN IV 03/01/17 16:30 03/31/17 16:29 Furosemide 40 mg/ Syringe 4 ml @ 4 mls/min BID IV 03/01/17 21:00 03/31/17 20:59 03/02/17 08:37 4 MLS/MIN Albuterol (Ventolin Hfa Inhaler) 2 puffs Q4H PRN INH 03/01/17 16:45 03/31/17 16:44 Aspirin (Ecotrin Tab) 81 mg QAM PO 03/02/17 09:00 04/01/17 08:59 03/02/17 08:38 81 MG Atorvastatin Calcium (Lipitor Tab) 80 mg HS PO 03/01/17 21:00 03/31/17 20:59 03/01/17 21:26 80 MG Clopidogrel Bisulfate (plAVix TAB) 75 mg QAM PO 03/02/17 09:00 04/01/17 08:59 03/02/17 08:38 75 MG Hydroxyzine HCl (Vistaril Tab) 12.5 mg Q8H PRN PO 03/01/17 16:45 03/31/17 16:44 Isosorbide Mononitrate (Imdur Ext Rel Tab) 60 mg QAM PO 03/02/17 09:00 04/01/17 08:59 03/02/17 08:39 60 MG Losartan Potassium (coZAAR TAB) 25 mg QAM PO 03/02/17 09:00 04/01/17 08:59 03/02/17 08:38 25 MG Metoprolol Succinate (Toprol Xl Tab) 50 mg QAM PO 03/02/17 09:00 04/01/17 08:59 03/02/17 08:39 50 MG Triamcinolone Acetonide (Kenalog 0.1% Cream) 1 appln BID EXT 03/01/17 21:00 03/31/17 20:59 03/02/17 08:40 1 APPLN Insulin Aspart (novoLOG ASPART) SLIDING SCALE If C... ACHS SC 03/01/17 21:00 03/31/17 20:59 03/02/17 13:19 5 UNITS Glucose (Glucose 40% Gel) 15-30 GRAMS 15 GRAMS... UD PRN PO 03/01/17 16:45 03/31/17 16:44 Glucose (Glucose Chew Tab) 4-8 Tablets 4 Tabl... UD PRN PO 03/01/17 16:45 03/31/17 16:44 Dextrose (Dextrose 50% 50ML Syringe) 25-50ML OF 50% DW IV FOR... UD PRN IV 03/01/17 16:45 03/31/17 16:44 Glucagon (Glucagon Inj) 1 mg UD PRN SQ 03/01/17 16:45 03/31/17 16:44 Enoxaparin Sodium (Lovenox Inj) 80 mg Q12 SQ 03/02/17 13:00 04/01/17 12:59 03/02/17 13:11 80 MG
[2017-03-02] MEDS ORDERED: POTASSIUM CHLORIDE 10 MEQ TABCR PO ONE (17:00)
[2017-03-02] MEDS: ATORVASTATIN 40 MG TAB PO SCH (20:50)
[2017-03-03 07:02] LABS: HEMATOCRIT 39.5 % (37-47); MEAN CELL VOLUME 84.9 fL (80-100); MEAN CORPUSCULAR HEMOGLOBIN 26.9 pg (25-34); MEAN CORPUSCULAR HGB CONC 31.6 g/dl (32-36); MEAN PLATELET VOLUME 10.3 fL (7.4-10.4); PLATELET COUNT 185 K/uL (130-400); RED BLOOD COUNT 4.65 M/uL (4.2-5.4)
[2017-03-03 07:03] VITALS: BP 117/80; PULSE 82; TEMP 36.2; O2SAT 95
[2017-03-03 07:29] LABS: BUN/CREATININE RATIO 22.6 (10-20); CALCIUM 8.5 mg/dl (8.5-10.1); CREATININE 1.2 mg/dl (0.60-1.20); MAGNESIUM 1.8 mg/dl (1.8-2.4); POTASSIUM 3.5 mmol/L (3.5-5.1)
[2017-03-03] MEDS: CLOPIDOGREL BISULFATE 75 MG TAB PO SCH (08:35)
[2017-03-03] MEDS: LOSARTAN POTASSIUM 25 MG TAB PO SCH (08:35)
[2017-03-03] MEDS: ISOSORBIDE MONONITRATE 60 MG TABCR PO SCH (08:35)
[2017-03-03] MEDS: ASPIRIN 81 MG ECTAB PO SCH (08:35)
[2017-03-03] MEDS: ENOXAPARIN 80 MG/0.8 ML SYR SQ SCH ×2 (08:36→20:51)
[2017-03-03] MEDS: TRIAMCINOLONE ACET 0.1% CR 15 GM TUBE EXT SCH ×2 (08:36→20:50)
[2017-03-03] MEDS: METOPROLOL SUCC 50MG EXT REL TAB PO SCH (08:36)
[2017-03-03] MEDS: INSULIN ASPART 100 UNITS/ML 3 ML PEN SC SCH ×4 (08:46→20:50)
[2017-03-03] MEDS: FUROSEMIDE INJ 40 MG in SYRINGE 0 ML IV SCH ×2 (11:01→20:50)
[2017-03-03 11:34] VITALS: BP 137/93; PULSE 75; TEMP 36.6; O2SAT 94
[2017-03-03] MEDS: hydrOXYzine HCL 25 MG TAB PO PRN (12:46)
--- NOTE | 2017-03-03 13:31 | Progress Note ---
Medicine Progress Note Date & Time of Visit: Mar 03, 2017 at 13:23. Subjective Pt was seen and examined Sitting in chair with no distress Pt said that she feels much better denies any chest chest pain, palpitation and sob Objective Last 8 Hrs Date Time Temp Pulse Resp B/P (MAP) Pulse Ox O2 Delivery O2 Flow Rate FiO2 03/03/17 12:00 Room Air 03/03/17 11:34 36.6 75 18 137/93 (108) 94 Room Air 03/03/17 07:44 Room Air 03/03/17 07:03 36.2 82 20 117/80 (92) 95 Room Air Physical Exam: General- No acute distress Head- atraumatic Eyes- PERRL, EOMI ENT- oropharynx clear Neck- supple, no JVD Lungs- No crackles or rales Heart- regular rhythm; no murmur Abdomen- normal bowel sounds, soft Extremities- +B/L LE edema Neuro- alert, oriented, PERRL, EOMI; no facial palsy; no dysarthria Skin- warm & dry Laboratory Results: Last 24 Hours Test 03/02/17 16:47 03/02/17 20:24 03/03/17 06:22 03/03/17 07:37 Bedside Glucose 127 mg/dl 204 mg/dl 99 mg/dl White Blood Count 4.70 K/uL Red Blood Count 4.65 M/uL Hemoglobin 12.5 g/dL Hematocrit 39.5 % Mean Corpuscular Volume 84.9 fL Mean Corpuscular Hemoglobin 26.9 pg Mean Corpuscular Hemoglobin Concent 31.6 g/dl RDW Standard Deviation 50.2 fL RDW Coefficient of Variation 16.4 % Platelet Count 185 K/uL Mean Platelet Volume 10.3 fL Sodium Level 139 mmol/L Potassium Level 3.5 mmol/L Chloride Level 100 mmol/L Carbon Dioxide Level 33 mmol/L Anion Gap 6.0 mmol/L Blood Urea Nitrogen 27 mg/dl Creatinine 1.20 mg/dl Est Creatinine Clear Calc Drug Dose 45.6 ml/min Estimated GFR () 54.5 Estimated GFR (Non- 47.1 BUN/Creatinine Ratio 22.6 Random Glucose 108 mg/dl Calcium Level 8.5 mg/dl Magnesium Level 1.8 mg/dl Test 03/03/17 11:54 Bedside Glucose 180 mg/dl Assessment & Plan ACUTE DECOMPENSATED SYSTOLIC HEART FAILURE Chronic right pleural effusion Presented with SOB on exertion and worsening B/L LE swelling. Elevated Pro-BNP on admission CXR showed Persistent moderate right pleural effusion and basilar consolidation Continue lasix 40mg BID I/Os, daily weight Echo on 12/10 showed: * The left ventricle is moderately dilated. * There is global thinning of the left ventricular owen. * Left ventricular systolic function is severely reduced. * Ejection Fraction = 20-25%. * The right ventricular systolic function is moderately reduced. * The left atrium is moderately dilated. * The right atrium is moderately dilated. * There is moderate mitral regurgitation. * There is moderate to severe tricuspid regurgitation. * Pulmonary Hypertension is present with the estimated PA pressure being 65mm Hg. Troponin trending down Denies any chest pain On statin and BB and aspirin Clinically stable check cxr in tomorrow Left LE DVT Doppler u/s showed nearly occlusive deep venous thrombosis is seen in the left popliteal vein. Pt agreed to start on anticoagulant after explained to her about the risks and benefits. On Lovenox 1mg/kg BID Discussed with pt about Coumadin and the new anticoagulant agents Since pt is going to [facility] I think we can do the coumadin Will talk to case manage tomorrow to see if her insurance will cover the new agents center manager side effect discussed with pt about blood thinner such as GI bleed and hematuria Will give 1st dose of Coumadin today Electrolytes imbalance Stable Monitor bmp and mg DM II HBA1C was 8.3 on 12/24/16 Hold glipizide for now ISS, Monitor BS Rash/Itchiness ? secondary to bed bugs. Continue triamcinolone Consider to treat for possible scabies if not improvement HTN Continue home meds Monitor CAD s/p Stent Continue aspirin, plavix, BB and statin No acute issue COPD Stable No SOB and or cough/wheezing DVT Px On Lovenox CODE STATUS FULL CODE Current Inpatient Medications: Current Inpatient Medications Medications (Trade) Dose Ordered Sig/Dar[place] Route Start Time Stop Time Status Last Admin Dose Admin Acetaminophen (Tylenol Tab) 650 mg Q4H PRN PO 03/01/17 16:30 03/31/17 16:29 Ondansetron HCl (Zofran Inj) 4 mg Q6H PRN IV 03/01/17 16:30 03/31/17 16:29 Furosemide 40 mg/ Syringe 4 ml @ 4 mls/min BID IV 03/01/17 21:00 8/6/17 20:59 03/03/17 11:01 4 MLS/MIN Albuterol (Ventolin Hfa Inhaler) 2 puffs Q4H PRN INH 03/01/17 16:45 03/31/17 16:44 Aspirin (Ecotrin Tab) 81 mg QAM PO 03/02/17 09:00 04/01/17 08:59 03/03/17 08:35 81 MG Atorvastatin Calcium (Lipitor Tab) 80 mg HS PO 03/01/17 21:00 03/31/17 20:59 03/02/17 20:50 80 MG Clopidogrel Bisulfate (plAVix TAB) 75 mg QAM PO 03/02/17 09:00 04/01/17 08:59 03/03/17 08:35 75 MG Hydroxyzine HCl (Vistaril Tab) 12.5 mg Q8H PRN PO 03/01/17 16:45 03/31/17 16:44 03/03/17 12:46 12.5 MG Isosorbide Mononitrate (Imdur Ext Rel Tab) 60 mg QAM PO 03/02/17 09:00 04/01/17 08:59 03/03/17 08:35 60 MG Losartan Potassium (coZAAR TAB) 25 mg QAM PO 03/02/17 09:00 04/01/17 08:59 03/03/17 08:35 25 MG Metoprolol Succinate (Toprol Xl Tab) 50 mg QAM PO 03/02/17 09:00 04/01/17 08:59 03/03/17 08:36 50 MG Triamcinolone Acetonide (Kenalog 0.1% Cream) 1 appln BID EXT 03/01/17 21:00 03/31/17 20:59 03/03/17 08:36 1 APPLN Insulin Aspart (novoLOG ASPART) SLIDING SCALE If C... ACHS SC 03/01/17 21:00 03/31/17 20:59 03/03/17 12:49 1 UNITS Glucose (Glucose 40% Gel) 15-30 GRAMS 15 GRAMS... UD PRN PO 03/01/17 16:45 03/31/17 16:44 Glucose (Glucose Chew Tab) 4-8 Tablets 4 Tabl... UD PRN PO 03/01/17 16:45 03/31/17 16:44 Dextrose (Dextrose 50% 50ML Syringe) 25-50ML OF 50% DW IV FOR... UD PRN IV 03/01/17 16:45 03/31/17 16:44 Glucagon (Glucagon Inj) 1 mg UD PRN SQ 03/01/17 16:45 03/31/17 16:44 Enoxaparin Sodium (Lovenox Inj) 80 mg Q12 SQ 03/02/17 13:00 04/01/17 12:59 03/03/17 08:36 80 MG
[2017-03-03 15:34] LABS: INR 1.2 (0.9-1.1); PROTHROMBIN TIME (PATIENT) 13.4 SECONDS (9.0-12.0)
[2017-03-03 15:37] VITALS: BP 133/87; PULSE 74; TEMP 36.2; O2SAT 96
[2017-03-03] MEDS ORDERED: WARFARIN SOD 5 MG TAB PO SCH (16:00)
[2017-03-03 19:23] VITALS: BP 114/68; PULSE 68; TEMP 36.4; O2SAT 95
[2017-03-03] MEDS: ATORVASTATIN 40 MG TAB PO SCH (20:50)
[2017-03-03 23:17] VITALS: BP 125/82; PULSE 74; TEMP 36.5; O2SAT 95
[2017-03-04 04:00] VITALS: BP 123/87; PULSE 77; TEMP 36.2; O2SAT 93
[2017-03-04 06:46] LABS: MEAN CELL VOLUME 84.2 fL (80-100); MEAN CORPUSCULAR HEMOGLOBIN 25.7 pg (25-34); MEAN CORPUSCULAR HGB CONC 30.5 g/dl (32-36); MEAN PLATELET VOLUME 10.2 fL (7.4-10.4); PLATELET COUNT 232 K/uL (130-400); RED BLOOD COUNT 4.99 M/uL (4.2-5.4); WHITE BLOOD COUNT 5.41 K/uL (4.8-10.8)
[2017-03-04 07:07] LABS: INR 1.2 (0.9-1.1); PROTHROMBIN TIME (PATIENT) 12.7 SECONDS (9.0-12.0)
--- NOTE | 2017-03-04 07:18 | DIAGNOSTIC IMAGING REPORT ---
CHEST ONE VIEW PORTABLE HISTORY:66 yearsFemaleF/U COMPARISON: 03/01/2017. TECHNIQUE: Portable upright AP view of the chest. FINDINGS: Cardiac silhouette is again enlarged. Left pectoral implantable cardiac defibrillator is again noted with leads appearing to be intact. Left lung is again clear. There is no pneumothorax. Moderate-sized right basilar opacity is redemonstrated with blunting of the right costophrenic angle, no significant change from comparison. The bones appear to be grossly intact. IMPRESSION: Stable exam with persistent moderate sized right basilar opacity suggesting pleural effusion with atelectasis . Underlying pneumonia is also in the differential. The above report was generated using voice recognition software. It may contain grammatical, syntax or spelling errors. Electronically signed by: Alcon Gleason 03/04/2017 7:17 AM Dictated Date/Time: 03/04/2017 7:14 AM
[2017-03-04 07:20] LABS: BUN/CREATININE RATIO 21.6 (10-20); CALCIUM 8.8 mg/dl (8.5-10.1); CREATININE 1.3 mg/dl (0.60-1.20); MAGNESIUM 1.7 mg/dl (1.8-2.4); POTASSIUM 3.7 mmol/L (3.5-5.1)
[2017-03-04 07:24] VITALS: BP 142/85; PULSE 80; TEMP 36.8; O2SAT 94
[2017-03-04] MEDS: FUROSEMIDE INJ 40 MG in SYRINGE 0 ML IV SCH (07:44)
[2017-03-04] MEDS: TRIAMCINOLONE ACET 0.1% CR 15 GM TUBE EXT SCH (07:45)
[2017-03-04] MEDS: CLOPIDOGREL BISULFATE 75 MG TAB PO SCH (07:45)
[2017-03-04] MEDS: ISOSORBIDE MONONITRATE 60 MG TABCR PO SCH (07:45)
[2017-03-04] MEDS: LOSARTAN POTASSIUM 25 MG TAB PO SCH (07:45)
[2017-03-04] MEDS: METOPROLOL SUCC 50MG EXT REL TAB PO SCH (07:45)
[2017-03-04] MEDS: ASPIRIN 81 MG ECTAB PO SCH (07:45)
[2017-03-04] MEDS: hydrOXYzine HCL 25 MG TAB PO PRN (07:45)
[2017-03-04] MEDS: ENOXAPARIN 80 MG/0.8 ML SYR SQ SCH ×2 (07:46→10:14)
[2017-03-04] MEDS: INSULIN ASPART 100 UNITS/ML 3 ML PEN SC SCH ×3 (07:47→11:52)
[2017-03-04 12:25] VITALS: BP 138/84; PULSE 78; TEMP 36.6; O2SAT 95
[2017-03-04] MEDS ORDERED: ENOXAPARIN 120 MG/0.8 ML SYR SQ ONE (13:30)
[2017-03-04] MEDS ORDERED: RIVAROXABAN TAB 15 MG TAB PO ONE (14:15)
--- NOTE | 2017-03-04 14:43 | Progress Note ---
Medicine Progress Note Date & Time of Visit: Mar 04, 2017 at 14:12. Subjective Pt was seen an examined Sitting in chair very comfortable with no distress Pt said that her breathing is much better She is on RA saturated on 95% on RA Pt gave permission to talk to her Sister (Lani) in [place] and her daughter Pushpa in [place] unable to find the daughter, got her VM I updated her sister about her health Pt refused to take the lovenox for the DVT she said that the injection hurts I talked to her about the benefit by taking the lovenox to prevent further blood clot and PE She still refused to take it. She said that she feels lonely by being in the hospital Denies any chest pain, palpitation, dizziness and SOB Objective Last 8 Hrs Date Time Temp Pulse Resp B/P (MAP) Pulse Ox O2 Delivery O2 Flow Rate FiO2 03/04/17 12:25 36.6 78 18 138/84 (102) 95 Room Air 03/04/17 12:00 Room Air 03/04/17 08:15 Room Air 03/04/17 07:24 36.8 80 16 142/85 (104) 94 Room Air Physical Exam: General- No acute distress Head- atraumatic Eyes- PERRL, EOMI ENT- oropharynx clear Neck- supple, no JVD Lungs-Decrease BS, no wheezing Heart- regular rhythm; no murmur Abdomen- normal bowel sounds, soft Extremities- +B/L LE edema Neuro- alert, oriented, PERRL, EOMI; no facial palsy; no dysarthria Skin- warm & dry Laboratory Results: Last 24 Hours Test 03/03/17 15:14 03/03/17 16:47 03/03/17 20:06 03/04/17 06:21 Prothrombin Time 13.4 SECONDS 12.7 SECONDS Prothromb Time International Ratio 1.2 1.2 Bedside Glucose 168 mg/dl 169 mg/dl White Blood Count 5.41 K/uL Red Blood Count 4.99 M/uL Hemoglobin 12.8 g/dL Hematocrit 42.0 % Mean Corpuscular Volume 84.2 fL Mean Corpuscular Hemoglobin 25.7 pg Mean Corpuscular Hemoglobin Concent 30.5 g/dl RDW Standard Deviation 49.1 fL RDW Coefficient of Variation 16.3 % Platelet Count 232 K/uL Mean Platelet Volume 10.2 fL Sodium Level 137 mmol/L Potassium Level 3.7 mmol/L Chloride Level 99 mmol/L Carbon Dioxide Level 31 mmol/L Anion Gap 7.0 mmol/L Blood Urea Nitrogen 28 mg/dl Creatinine 1.30 mg/dl Est Creatinine Clear Calc Drug Dose 41.3 ml/min Estimated GFR () 49.5 Estimated GFR (Non- 42.7 BUN/Creatinine Ratio 21.6 Random Glucose 146 mg/dl Calcium Level 8.8 mg/dl Magnesium Level 1.7 mg/dl Test 03/04/17 07:45 03/04/17 11:29 Bedside Glucose 128 mg/dl 183 mg/dl Assessment & Plan ACUTE DECOMPENSATED SYSTOLIC HEART FAILURE Chronic right pleural effusion Presented with SOB on exertion and worsening B/L LE swelling. Elevated Pro-BNP on admission CXR showed Persistent moderate right pleural effusion and basilar consolidation Repeat CXR today persistent moderate sized right basilar opacity suggesting pleural effusion with atelectasis . Has been getting IV lasix 40 BID, creatine slightly increased to 1.3 Will change to PO lasix I/Os, daily weight Echo on 12/10 showed: * The left ventricle is moderately dilated. * There is global thinning of the left ventricular owen. * Left ventricular systolic function is severely reduced. * Ejection Fraction = 20-25%. * The right ventricular systolic function is moderately reduced. * The left atrium is moderately dilated. * The right atrium is moderately dilated. * There is moderate mitral regurgitation. * There is moderate to severe tricuspid regurgitation. * Pulmonary Hypertension is present with the estimated PA pressure being 65mm Hg. Troponin trending down Denies any chest pain On statin and BB and aspirin Clinically stable Left LE DVT Doppler u/s showed nearly occlusive deep venous thrombosis is seen in the left popliteal vein. Pt agreed to start on anticoagulant after explained to her about the risks and benefits. On Lovenox 1mg/kg BID Discussed with pt about Coumadin and the new anticoagulant agents Since pt is going to [facility] I think we can do the coumadin Will talk to case manage tomorrow to see if her insurance will cover the new agents software development project manager side effect discussed with pt about blood thinner such as GI bleed and hematuria Will give 1st dose of Coumadin today 03/04 Pt refused the Lovenox subQ today because it hurts Discussed with her about the benefit being on Coumadin to prevent further blot clot/PE and stroke She continues to refuse the Lovenox In that case I made immigration case manager to check how much it would cost for Eliquis or Xarelto [place] was very reasonable, about $4 for eliquis and $14 for xarelto I picked xarelto because her creatine clearance is above 30. The reason I did not do the Eliquis was because the fluctuation on creatine that sometimes increase to 1.5 Discussed the risks of anticoagulants with patient and sister, such as GI bleed , hematuria and abnormal bleeding. Pt and sister understood the risks and benefits Will monitor BMP Electrolytes imbalance Mg replaced Monitor bmp and mg DM II HBA1C was 8.3 on 12/24/16 Hold glipizide for now ISS, Monitor BS Rash/Itchiness ? secondary to bed bugs. Continue triamcinolone Consider to treat for possible scabies if not improvement HTN Continue home meds Monitor CAD s/p Stent Continue aspirin, plavix, BB and statin No acute issue COPD Stable No SOB and or cough/wheezing DVT Px D/C Lovenox Start on Xarelto CODE STATUS FULL CODE Disposition Follow up appt with Dr. Diamante Howard on March 08 @ 10:45 AM Current Inpatient Medications: Current Inpatient Medications Medications (Trade) Dose Ordered Sig/Darby Route Start Time Stop Time Status Last Admin Dose Admin Acetaminophen (Tylenol Tab) 650 mg Q4H PRN PO 03/01/17 16:30 03/31/17 16:29 Ondansetron HCl (Zofran Inj) 4 mg Q6H PRN IV 03/01/17 16:30 03/31/17 16:29 Furosemide 40 mg/ Syringe 4 ml @ 4 mls/min BID IV 03/01/17 21:00 03/31/17 20:59 Future Hold 03/04/17 07:44 4 MLS/MIN Albuterol (Ventolin Hfa Inhaler) 2 puffs Q4H PRN INH 03/01/17 16:45 03/31/17 16:44 Aspirin (Ecotrin Tab) 81 mg QAM PO 03/02/17 09:00 04/01/17 08:59 03/04/17 07:45 81 MG Atorvastatin Calcium (Lipitor Tab) 80 mg HS PO 03/01/17 21:00 03/31/17 20:59 03/03/17 20:50 80 MG Clopidogrel Bisulfate (plAVix TAB) 75 mg QAM PO 03/02/17 09:00 04/01/17 08:59 03/04/17 07:45 75 MG Hydroxyzine HCl (Vistaril Tab) 12.5 mg Q8H PRN PO 03/01/17 16:45 03/31/17 16:44 03/04/17 07:45 12.5 MG Isosorbide Mononitrate (Imdur Ext Rel Tab) 60 mg QAM PO 03/02/17 09:00 04/01/17 08:59 03/04/17 07:45 60 MG Losartan Potassium (coZAAR TAB) 25 mg QAM PO 03/02/17 09:00 04/01/17 08:59 03/04/17 07:45 25 MG Metoprolol Succinate (Toprol Xl Tab) 50 mg QAM PO 03/02/17 09:00 04/01/17 08:59 03/04/17 07:45 50 MG Triamcinolone Acetonide (Kenalog 0.1% Cream) 1 appln BID EXT 03/01/17 21:00 03/31/17 20:59 03/04/17 07:45 1 APPLN Insulin Aspart (novoLOG ASPART) SLIDING SCALE If C... ACHS SC 03/01/17 21:00 03/31/17 20:59 03/03/17 17:14 4 UNITS Glucose (Glucose 40% Gel) 15-30 GRAMS 15 GRAMS... UD PRN PO 03/01/17 16:45 03/31/17 16:44 Glucose (Glucose Chew Tab) 4-8 Tablets 4 Tabl... UD PRN PO 03/01/17 16:45 03/31/17 16:44 Dextrose (Dextrose 50% 50ML Syringe) 25-50ML OF 50% DW IV FOR... UD PRN IV 03/01/17 16:45 03/31/17 16:44 Glucagon (Glucagon Inj) 1 mg UD PRN SQ 03/01/17 16:45 03/31/17 16:44 Rivaroxaban (Xarelto Tab) 15 mg BIDM PO 03/04/17 17:00 04/03/17 16:59 Rivaroxaban (Xarelto Tab) 15 mg 1415 ONCE PO 03/04/17 14:15 03/04/17 14:16
[2017-03-04 15:40] VITALS: BP 122/73; PULSE 81; TEMP 36.3; O2SAT 95
[2017-03-04] MEDS ORDERED: XRL15 PO (15:48)
--- NOTE | 2017-03-04 15:59 | Discharge Instructions ---
Discharge Instructions Date of Service Mar 04, 2017. Admission Reason for Admission: Leg Swelling Discharge Discharge Diagnosis / Problem: Left LE ACUTE DVT, ACUTE DECOMPENSATED SYSTOLIC HEART FAILURE, LOW MG Discharge Goals Goal(s): Decrease discomfort, Improve function, Improve disease control Activity Recommendations Activity Limitations: resume your previous activity ( TOLERATED) . Instructions / Follow-Up Instructions / Follow-Up Follow up with your physician Dr. Howard on March 08 @ 10:45 AM Schedule a follow up appointment to see your cardiology Check BMP and magnesium within 1 week Continue lasix daily Follow a low salt diet Follow a healthy diabetes diet by limiting concentrated sugar intake Fall precaution Medication Instructions: XARELTO Your condition is typically treated with an anticoagulant. Anticoagulants will thin your blood to help prevent new clots. * You should take her medication exactly as directed. * Never skip a dose. * Never take a double dose. If you miss a dose, take it as soon as you remember. Call your Primary Care doctor if you experience any of the following: * Swelling or Pain in your leg * Sudden, continuous pain deep in a muscle * Pain that worsens when you are active or when you stand still for a long time * Chest Pain * Sudden Shortness of Breath * Rapid or pounding heart beat * Fainting * Dizziness * Cough with blood or bloody sputum * Sweating more than normal * Bruises * Heavy or uncontrolled bleeding * Blood in your urine, stool or vomit * Black or tarry stools Caring for Your Self at Home: * Avoid sitting, standing or lying down for long periods without moving your legs and feet * When traveling by car, stop to get out and move around at least once every 3 hours * On long airplane, train or bus rides, get up and move around when possible * If you can't get up, wiggle your toes and tighten your calves to keep your blood moving Follow Up: It is important for you to keep your follow up appointments with your medical provider. Current Hospital Diet Patient's current hospital diet: AHA Diet (Heart Healthy), Diabetes Type 2 Diet Discharge Diet Recommended Diet: AHA Diet (Heart Healthy), Low Sodium Diet (2gm Na), Diabetes Type 2 Diet Pending Studies Studies pending at discharge: no Medical Emergencies . Who to Call and When: Medical Emergencies: If at any time you feel your situation is an emergency, please call 911 immediately. . Non-Emergent Contact Non-Emergency issues call your: Primary Care Provider Call Non-Emergent contact if: you have any medication questions . . "Provider Documentation" section prepared by Bruce Lebron. . VTE Core Measure Inpt VTE Proph given/why not?: Enoxaparin (Lovenox)SQ, Other Anticoagulation
[2017-03-04] MEDS ORDERED: MAGN1TAB19 PO (16:01)
[2017-03-04] MEDS ORDERED: MAGNESIUM OXIDE 400 MG TAB PO ONE (16:30)
[2017-03-04] MEDS ORDERED: RIVAROXABAN TAB 15 MG TAB PO SCH (17:00)
[2017-03-05] MEDS ORDERED: ENOXAPARIN 120 MG/0.8 ML SYR SQ SCH (09:00)
--- NOTE | 2017-03-06 00:40 | Discharge Summary ---
Discharge Summary Date of Service Mar 06, 2017. Discharge Summary Admission Date: Mar 01, 2017 at 16:30 Discharge Date: Mar 04, 2017 Discharge Disposition: Personal care Principal Diagnosis: Acute LLE DVT Secondary Diagnoses/Problems: ACUTE DECOMPENSATED SYSTOLIC HEART FAILURE LOW MG DM HTN Electrolytes imbalance Procedures: ULTRASOUND BILATERAL LOWER EXTREMITY VENOUS CLINICAL HISTORY: Lower extremity edema. COMPARISON STUDY: Bilateral lower extremity venous ultrasound dated 02/19/2017. TECHNIQUE: Real-time, grayscale, and color Doppler sonography of the deep veins of the right and left lower extremity was performed from the inguinal crease to the calf. Compression and augmentation were utilized. FINDINGS: Right lower extremity: There is no sonographic evidence of deep venous thrombosis identified in the right lower extremity. The common femoral, superficial femoral, and popliteal veins are patent and normally compressible. The greater saphenous vein and the profunda femoris vein at the junction with the common femoral vein are clear. The visualized calf veins are patent. Subcutaneous soft tissue edema is noted. Left lower extremity: There is nearly occlusive deep venous thrombosis identified in the left popliteal vein. The remaining deep veins of the left lower extremity are patent. The common femoral and superficial femoral veins are patent and normally compressible. The greater saphenous vein and the profunda femoris vein at the junction with the common femoral vein are clear. The visualized calf veins are patent. Subcutaneous soft tissue edema is noted. IMPRESSION: 1. Nearly occlusive deep venous thrombosis is seen in the left popliteal vein. 2. The remaining deep veins of the left lower extremity are clear. 3. There is no sonographic evidence of deep venous thrombosis identified in the right lower extremity. Electronically signed by: Carlos Grullon M.D. 03/01/2017 9:05 PM Medication Reconciliation New Medications: Magnesium Oxide (Mg Supplement (Magnesium Oxide) 400 Mg Tab 400 MG PO BID for 7 Days, #14 TAB Rivaroxaban (Xarelto) 15 Mg Tab 15 MG PO BIDM for 21 Days, TAB Continued Medications: Albuterol Hfa (Ventolin Hfa) 200 Puffs/09899 Mcg Aers 2 PUFFS INH Q4H PRN for Wheezing, #1 INHALER Aspirin (Aspirin Ec) 81 Mg Tab 81 MG PO QAM Atorvastatin (Lipitor) 80 Mg Tab 80 MG PO HS, TAB Clopidogrel (Plavix) 75 Mg Tab 75 MG PO QAM, TAB Furosemide (Furosemide) 20 Mg Tab 40 MG PO QAM for 30 Days, #30 TAB Glipizide (Glipizide Er) 2.5 Mg Tab 2.5 MG PO DAILY TAKE 30 MINUTES BEFORE A MEAL Hydroxyzine Hcl (Atarax) 25 Mg Tab 12.5 MG PO Q8H PRN for Itching, TAB Isosorbide Mononitrate Ext Rel (Imdur Ext Rel) 30 Mg Tabcr 60 MG PO QAM, TAB Losartan Potassium (Losartan Potassium) 25 Mg Tab 25 MG PO QAM, #34 Metoprolol Succinate (Toprol Xl) 50 Mg Tabcr 50 MG PO QAM, TAB Nitroglycerin (Nitrostat) 0.3 Mg Tab 0.3 MG UT PRN, BTL Triamcinolone Acetonide (Topic (Triderm) 0.1 % Cre 1 APPLN TOP BID Admission Information HPI (per Admitting provider): Patient is a 66 yr old female with PMH of HTN, COPD, DM type2, Systolic heart failure, CAD s/p stent presents who was recently discharged after being treated for CHF exacerbation and R pleural effusion presents with history of worsening bilateral leg swelling since 1 week duration. Patient is a poor historian. Her lasix was increased to 40mg daily per records. She reports having SOB on exertion and itching on her back. She developed a rash prior to last admission and was thought o be secondary to bed bugs and was treated with keflex and topical steroid prior to last admission. She reports having some itchiness on back but not on legs. Also reports dry intermittent cough. She denies any weight gain, SOB at rest, chest pain, palpitations, nausea, vomiting, dizziness , ever, chills, orthopnea, leg pain. She is unsure about how much lasix she is taking and likely has poor insight of her condition. Currently saturating well on Room air. Physical Exam (per Admitting): General Appearance: WD/WN, no apparent distress Head: normocephalic, atraumatic Eyes: normal inspection, PERRL, EOMI ENT: normal ENT inspection, hearing grossly normal Neck: supple, trachea midline Respiratory/Chest: chest non-tender, lungs clear, no accessory muscle use, + pertinent finding (Decreased BS on R base) Cardiovascular: regular rate, rhythm, no murmur, + pertinent finding (2+ b/ l edema) Abdomen/GI: normal bowel sounds, non tender, soft Back: normal inspection Extremities/Musculoskelatal: normal inspection, + pedal edema, + pertinent finding (B/L excoriations on B/L LE) Neurologic/Psych: stick roller II-XII nml as tested, no motor/sensory deficits, alert , normal mood/affect, oriented x 3 Skin: normal color, + pertinent finding (Excoriations on B/L LE ) Hospital Course ACUTE DECOMPENSATED SYSTOLIC HEART FAILURE Chronic right pleural effusion Presented with SOB on exertion and worsening B/L LE swelling. Elevated Pro-BNP on admission CXR showed Persistent moderate right pleural effusion and basilar consolidation Repeat CXR today persistent moderate sized right basilar opacity suggesting pleural effusion with atelectasis . Has been getting IV lasix 40 BID, creatine slightly increased to 1.3 Will change to PO lasix I/Os, daily weight Echo on 12/10 showed: * The left ventricle is moderately dilated. * There is global thinning of the left ventricular owen. * Left ventricular systolic function is severely reduced. * Ejection Fraction = 20-25%. * The right ventricular systolic function is moderately reduced. * The left atrium is moderately dilated. * The right atrium is moderately dilated. * There is moderate mitral regurgitation. * There is moderate to severe tricuspid regurgitation. * Pulmonary Hypertension is present with the estimated PA pressure being 65mm Hg. Troponin trending down Denies any chest pain On statin and BB and aspirin Clinically stable Left LE DVT Doppler u/s showed nearly occlusive deep venous thrombosis is seen in the left popliteal vein. Pt agreed to start on anticoagulant after explained to her about the risks and benefits. On Lovenox 1mg/kg BID Discussed with pt about Coumadin and the new anticoagulant agents Since pt is going to [facility] I think we can do the coumadin Will talk to case manage tomorrow to see if her insurance will cover the new agents eligibility manager side effect discussed with pt about blood thinner such as GI bleed and hematuria Will give 1st dose of Coumadin today 03/04 Pt refused the Lovenox subQ today because it hurts Discussed with her about the benefit being on Coumadin to prevent further blot clot/PE and stroke She continues to refuse the Lovenox In that case I made caser up to check how much it would cost for Eliquis or Xarelto [place] was very reasonable, about $4 for eliquis and $14 for xarelto I picked xarelto because her creatine clearance is above 30. The reason I did not do the Eliquis was because the fluctuation on creatine that sometimes increase to 1.5 Discussed the risks of anticoagulants with patient and sister, such as GI bleed , hematuria and abnormal bleeding. Pt and sister understood the risks and benefits Will monitor BMP Electrolytes imbalance Mg replaced Monitor bmp and mg DM II HBA1C was 8.3 on 12/24/16 Hold glipizide for now ISS, Monitor BS Rash/Itchiness ? secondary to bed bugs. Continue triamcinolone Consider to treat for possible scabies if not improvement HTN Continue home meds Monitor CAD s/p Stent Continue aspirin, plavix, BB and statin No acute issue COPD Stable No SOB and or cough/wheezing DVT Px D/C Lovenox Start on Xarelto CODE STATUS FULL CODE Disposition Follow up appt with Dr. Diamante Howard on March 08 @ 10:45 AM Total time spent on discharge = 40 minutes This includes examination of the patient, discharge planning, medication reconciliation, and communication with other providers. Discharge Instructions DI: Medical v4 Discharge Instructions Date of Service Mar 04, 2017. Admission Reason for Admission: Leg Swelling Discharge Discharge Diagnosis / Problem: Left LE ACUTE DVT, ACUTE DECOMPENSATED SYSTOLIC HEART FAILURE, LOW MG Discharge Goals Goal(s): Decrease discomfort, Improve function, Improve disease control Activity Recommendations Activity Limitations: resume your previous activity ( TOLERATED) . Instructions / Follow-Up Instructions / Follow-Up Follow up with your physician Dr. Howard on March 08 @ 10:45 AM Schedule a follow up appointment to see your cardiology Check BMP and magnesium within 1 week Continue lasix daily Follow a low salt diet Follow a healthy diabetes diet by limiting concentrated sugar intake Fall precaution Medication Instructions: XARELTO Your condition is typically treated with an anticoagulant. Anticoagulants will thin your blood to help prevent new clots. * You should take her medication exactly as directed. * Never skip a dose. * Never take a double dose. If you miss a dose, take it as soon as you remember. Call your Primary Care doctor if you experience any of the following: * Swelling or Pain in your leg * Sudden, continuous pain deep in a muscle * Pain that worsens when you are active or when you stand still for a long time * Chest Pain * Sudden Shortness of Breath * Rapid or pounding heart beat * Fainting * Dizziness * Cough with blood or bloody sputum * Sweating more than normal * Bruises * Heavy or uncontrolled bleeding * Blood in your urine, stool or vomit * Black or tarry stools Caring for Your Self at Home: * Avoid sitting, standing or lying down for long periods without moving your legs and feet * When traveling by car, stop to get out and move around at least once every 3 hours * On long airplane, train or bus rides, get up and move around when possible * If you can't get up, wiggle your toes and tighten your calves to keep your blood moving Follow Up: It is important for you to keep your follow up appointments with your medical provider. Current Hospital Diet Patient's current hospital diet: AHA Diet (Heart Healthy), Diabetes Type 2 Diet Discharge Diet Recommended Diet: AHA Diet (Heart Healthy), Low Sodium Diet (2gm Na), Diabetes Type 2 Diet Pending Studies Studies pending at discharge: no Medical Emergencies . Who to Call and When: Medical Emergencies: If at any time you feel your situation is an emergency, please call 911 immediately. . Non-Emergent Contact Non-Emergency issues call your: Primary Care Provider Call Non-Emergent contact if: you have any medication questions . . "Provider Documentation" section prepared by Bruce Lebron. . VTE Core Measure Inpt VTE Proph given/why not?: Enoxaparin (Lovenox)SQ, Other Anticoagulation Additional Copies To Diamante Howard D.O.
[2017-03-14] MEDS ORDERED: CLOP1TAB15 PO (06:36)
[2017-03-14] MEDS ORDERED: GLIP2.5T11 PO (06:45)
[2017-03-14] MEDS ORDERED: METO-217 PO (06:45)
[2017-03-14] MEDS ORDERED: ISOS30TA35 PO (11:47)
[2017-03-14] MEDS ORDERED: ATOR-26 PO (13:44)
[2017-03-14] MEDS ORDERED: CZR25 PO (14:57)
[2017-03-20] MEDS ORDERED: TPRSR25 PO (12:06)
[2017-03-20] MEDS ORDERED: ASPEC81 PO (12:06)
[2017-03-20] MEDS ORDERED: MGNO400 PO (12:06)
[2017-03-20] MEDS ORDERED: PANT1TAB48 PO (12:06)
[2017-03-20] MEDS ORDERED: LSX40 PO (12:06)
[2017-05-03] MEDS ORDERED: CPR250 PO (09:56)
== END 2017-03-04 16:15 | disposition home or self-care (01) | DRG 299 ==
LOC: C.EDB 12:37 → C.MED 16:30 → ENRESERV 17:01
PROVIDERS: ADMIT Internal Medicine; ATTEND Internal Medicine
DX: I82.432 Acute embolism and thrombosis of left popliteal vein (principal); I50.21 Acute systolic (congestive) heart failure; E83.42 Hypomagnesemia; E87.6 Hypokalemia; T50.1X5A Adverse effect of loop [high-ceiling] diuretics, initial encounter; R21 Rash and other nonspecific skin eruption; L29.9 Pruritus, unspecified; S80.869A Insect bite (nonvenomous), unspecified lower leg, initial encounter; W57.XXXA Bitten or stung by nonvenomous insect and other nonvenomous arthropods, initial encounter; I11.0 Hypertensive heart disease with heart failure; E11.9 Type 2 diabetes mellitus without complications; I25.10 Atherosclerotic heart disease of native coronary artery without angina pectoris; J44.9 Chronic obstructive pulmonary disease, unspecified; Z53.29 Procedure and treatment not carried out because of patient's decision for other reasons; Z95.5 Presence of coronary angioplasty implant and graft; Z95.0 Presence of cardiac pacemaker; Z79.02 Long term (current) use of antithrombotics/antiplatelets; Z79.82 Long term (current) use of aspirin; Z79.84 Long term (current) use of oral hypoglycemic drugs; Z79.899 Other long term (current) drug therapy

== ENCOUNTER 2017-03-14 19:10 | Inpatient (IN) | payer OTHER ==
[~2017-03-14] VITALS: Ht 154.9 cm; Wt 77.1 kg
[~2017-03-14 19:10] MED LIST changes: +ATOR-26 PO; +CLOP1TAB15 PO; +CZR25 PO; +GLIP2.5T11 PO; +ISOS30TA35 PO; +METO-217 PO; +XRL15 PO
[2017-03-14 20:20] LABS: URINE APPEARANCE CLOUDY (CLEAR); URINE BILIRUBIN NEG (NEG); URINE COLOR YELLOW; URINE EPITHELIAL CELL AUTO >30 /lpf (0-5); URINE NITRITE NEG (NEG); URINE SPECIFIC GRAVITY 1.019 (1.000-1.030); UROBILINOGEN NEG (NEG)
--- NOTE | 2017-03-14 20:25 | DIAGNOSTIC IMAGING REPORT ---
CHEST ONE VIEW PORTABLE CLINICAL HISTORY: GI bleed. COMPARISON STUDY: Chest radiograph March 04, 2017. FINDINGS: A left subclavian biventricular pacer/AICD is in place. There is no pneumothorax or left pleural effusion. A moderate right pleural effusion has slightly increased since prior exam. There is associated right basilar opacity. There is no evidence of pulmonary edema. IMPRESSION: Slight increase in size of a moderate right pleural effusion with extensive right basilar opacity which could reflect atelectasis or pneumonia. Radiographic follow-up to ensure resolution is recommended. Electronically signed by: Parveen Villanueva M.D. 03/14/2017 8:23 PM Dictated Date/Time: 03/14/2017 8:21 PM
[2017-03-14 20:32] LABS: MANUAL MICROSCOPIC REQUIRED? NO; REVIEW REQ? YES
[2017-03-14 20:38] LABS: BASO % 0.2 %; BASO ABS # 0.01 K/uL (0-0.2); COMPLETE YES; EOS % 0.5 %; HEMATOCRIT 36.9 % (37-47); INR 2.1 (0.9-1.1); LYMPH % 27.9 %; MEAN CELL VOLUME 83.1 fL (80-100); MEAN CORPUSCULAR HEMOGLOBIN 27.5 pg (25-34); MEAN CORPUSCULAR HGB CONC 33.1 g/dl (32-36); MEAN PLATELET VOLUME 10.4 fL (7.4-10.4); MONO % 12.2 %; NEUT % 59.2 %; PARTIAL THROMBOPLASTIN RATIO 1.5; PLATELET COUNT 249 K/uL (130-400); PROTHROMBIN TIME (PATIENT) 23.1 SECONDS (9.0-12.0); RED BLOOD COUNT 4.44 M/uL (4.2-5.4); WHITE BLOOD COUNT 5.73 K/uL (4.8-10.8)
[2017-03-14 20:47] LABS: URINE PATH CASTS 0-3 GRANULAR CASTS /lpf (0)
[2017-03-14] MEDS ORDERED: HYDR-3124 PO (20:47)
[2017-03-14] MEDS ORDERED: VNTHFA/IN INH (20:50)
[2017-03-14 21:06] LABS: POTASSIUM 3.6 mmol/L (3.5-5.1)
[2017-03-14 21:11] LABS: BUN/CREATININE RATIO 21.5 (10-20); CALCIUM 8.8 mg/dl (8.5-10.1); CREATININE 1.3 mg/dl (0.60-1.20)
[2017-03-14] MEDS ORDERED: NYST100033 TOP (21:26)
[2017-03-14] MEDS ORDERED: NTRGSL/4 UT (21:26)
[2017-03-14] MEDS ORDERED: SERT1TAB88 PO (21:26)
[2017-03-14] MEDS ORDERED: RIVA1.5T PO (21:26)
[2017-03-14] MEDS ORDERED: LSX40 PO (21:26)
[2017-03-14] MEDS ORDERED: HYDRCRE28 TOP (21:26)
[2017-03-14] MEDS ORDERED: ZINC40OI11 TOP (21:26)
[2017-03-14] MEDS ORDERED: ACET325T96 PO (21:26)
[2017-03-14] MEDS ORDERED: TRMCR130WC TOP (21:26)
[2017-03-14] MEDS ORDERED: ALUMINUM/MAGNESIUM/SIMETH (MAALOX MAX) 30 ML UDC PO PRN (22:15)
[2017-03-14] MEDS ORDERED: NITROGLYCERIN 0.4 MG SL PER TAB CHARGE UT SCH (22:15)
[2017-03-14] MEDS ORDERED: MAGNESIUM HYDROXIDE SUSP 30 ML UDC PO PRN (22:15)
[2017-03-14] MEDS ORDERED: ACETAMINOPHEN 325 MG TAB PO PRN ×2 (22:15)
[2017-03-14] MEDS ORDERED: ALBUTEROL HFA 8 GM INHALER INH PRN (22:15)
[2017-03-14] MEDS ORDERED: hydrOXYzine HCL 25 MG TAB PO PRN (22:15)
[2017-03-14] MEDS ORDERED: ONDANSETRON INJ 2 MG/ML 2 ML VIAL IV PRN (22:15)
[2017-03-14] MEDS ORDERED: NYSTATIN POWDER 15GM BTL EXT PRN (22:15)
[2017-03-14] MEDS ORDERED: PHYTONADIONE 5 MG TAB PO STA (22:44)
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
--- NOTE | 2017-03-14 23:07 | DIAGNOSTIC IMAGING REPORT ---
BILATERAL CHEST ULTRASOUND TO EVALUATE PLEURAL EFFUSIONS CLINICAL HISTORY: Pleural effusion. COMPARISON STUDY: Chest radiograph March 14, 2017. FINDINGS: Sonography of the left hemithorax revealed no left pleural effusion. Note was made of a large right pleural effusion with estimated volume of 1307 cc. A suitable window for thoracentesis could not be identified given underlying lung. IMPRESSION: Large right pleural effusion with estimated volume of 1307 cc. A chest wall waldemar was not placed given insufficient window due to underlying lung. Electronically signed by: Parveen Villanueva M.D. 03/14/2017 11:05 PM Dictated Date/Time: 03/14/2017 11:04 PM
[2017-03-14 23:45] VITALS: BP 121/83; PULSE 69; TEMP 36.4; O2SAT 95; Ht 154.9 cm; Wt 77.1 kg
[2017-03-15] MEDS ORDERED: PANTOprazole INJ 40 MG in SYRINGE 0 ML IV ONE (01:00)
[2017-03-15] MEDS ORDERED: FUROSEMIDE INJ 40 MG in SYRINGE 0 ML IV ONE (01:00)
--- NOTE | 2017-03-15 01:13 | EMERGENCY ROOM VISIT NOTE ---
History Report prepared by Maribell: Farideh Emmanuel Under the Supervision of: Dr. Juventino Castro M.D. First contact with patient: 19:29 Chief Complaint: ABNORMAL LABS Stated Complaint: BLOOD IN STOOL, ELEVATED LEVELS History of Present Illness The patient is a 66 year old female who presents to the Emergency Room with complaints of an episode of abnormal labs from yesterday. The patient's daughter states that she lives at [facility] and that a nurse had found that she had bright, red blood in her stool. The daughter notes that the nurse said she had something elevated in her labs, but didn't know what it was. The patient complains of feeling weak. She reports that the weakness has been going on for a while. She states that she did notice blood near the end of her stool, but denies it being a lot. The patient complains of intermittent diarrhea and headaches, but denies having these symptoms today. She also notes a rash on her legs that is already being treated for. The daughter notes that her mother sounded wheezy today. The patient denies shortness of breath, lightheadedness, chest pain, urinary symptoms, nausea, and melena. Source of History: patient, family Onset: yesterday Position: other (global) Quality: other (global) Timing: other (episode) Associated Symptoms: + headache, + hematochezia, + diarrhea, + weakness, + rash, No chest pain, No SOB, No nausea, No melena, No urinary symptoms Note: The daughter states that the patient sounded wheezy today. The patient denies lightheadedness. Review of Systems See HPI for pertinent positives & negatives. A total of 10 systems reviewed and were otherwise negative. Past Medical & Surgical Medical Problems: (1) CAD (coronary artery disease) (2) COPD (chronic obstructive pulmonary disease) (3) DM type 2 (diabetes mellitus, type 2) (4) Dyslipidemia (5) GI bleed (6) HTN (hypertension) (7) Ischemic cardiomyopathy (8) Leg swelling (9) Presence of combination internal cardiac defibrillator (ICD) and pacemaker (10) SAH (subarachnoid hemorrhage) (11) SOB (shortness of breath) Surgical Problems: (1) H/O dilation and curettage (2) H/O tubal ligation (3) Hx of appendectomy (4) Hx of tonsillectomy Family History FH: Alzheimers disease FATHER Social History Smoking Status: Never Smoker Alcohol Use: occasionally Drug Use: none Marital Status: single Housing Status: custodial Occupation Status: retired Current/Historical Medications Scheduled Atorvastatin (Lipitor), 80 MG PO HS Clopidogrel (Plavix), 75 MG PO QAM Furosemide (Furosemide), 40 MG PO DAILY Glipizide (Glipizide Er), 2.5 MG PO DAILY Hydrocortisone (Rectal) (Proctozone-Hc), 1 APPLN TOP BID Isosorbide Mononitrate Ext Rel (Imdur Ext Rel), 60 MG PO QAM Losartan Potassium (Losartan Potassium), 25 MG PO QAM Metoprolol Succinate (Toprol Xl), 50 MG PO QAM Nitroglycerin (Nitrostat), 0.4 MG UT PRN Rivaroxaban (Xarelto), 15 MG PO BID Sertraline HCl (Sertraline HCl), 25 MG PO DAILY Triamcinolone Acet (Aristocort 0.1%), 1 APPLN TOP BID Zinc Oxide (Topical) (Desitin), 1 APPLN TOP BID Scheduled PRN Acetaminophen Tab (Tylenol), 325 MG PO Q4 PRN for Pain or Fever Albuterol Hfa (Ventolin Hfa), 2 PUFFS INH Q4H PRN for Wheezing Hydroxyzine Hcl (Atarax), 12.5 MG PO Q8H PRN for Itching Nystatin (Topical) (Nystatin), 1 APPLN TOP BID PRN for IRRITATION Allergies Coded Allergies: Sulfamethoxazole (Verified Allergy, Unknown, 03/01/17) Prednisone (Verified Adverse Reaction, Unknown, "makes me weird", 03/01/17) pt Physical Exam Vital Signs Date Time Temp Pulse Resp B/P (MAP) Pulse Ox O2 Delivery O2 Flow Rate FiO2 03/14/17 20:53 72 20 131/85 94 Room Air 03/14/17 20:26 77 03/14/17 19:15 36.8 81 18 123/79 96 Room Air Physical Exam Constitutional: Vital signs reviewed. Eyes: Pupils are equal round reactive to light. Conjunctiva are noninjected. ENT: Pharynx is clear without erythema or exudate. Mucous membranes are moist. Neck supple without meningeal signs. Respiratory: Clear to auscultation bilaterally. Breath sounds are equal bilaterally. Cardiovascular: Regular rate and rhythm. No rubs or gallops. GI: Soft, nondistended and nontender. Bowel sounds are present. Musculoskeletal: No lower extremity tenderness. Bilateral lower extremity edema. Integumentary: No cyanosis. Neurological: The patient is awake and alert. No focal deficits. Psychiatric: Normal affect. Medical Decision & Procedures ER Provider Diagnostic Interpretation: Radiology results as stated below per my review and the radiologist's interpretation: CHEST ONE VIEW PORTABLE CLINICAL HISTORY: GI bleed. COMPARISON STUDY: Chest radiograph March 04, 2017. FINDINGS: A left subclavian biventricular pacer/AICD is in place. There is no pneumothorax or left pleural effusion. A moderate right pleural effusion has slightly increased since prior exam. There is associated right basilar opacity. There is no evidence of pulmonary edema. IMPRESSION: Slight increase in size of a moderate right pleural effusion with extensive right basilar opacity which could reflect atelectasis or pneumonia. Radiographic follow-up to ensure resolution is recommended. Electronically signed by: Parveen Villanueva M.D. 03/14/2017 8:23 PM Dictated Date/Time: 03/14/2017 8:21 PM Laboratory Results 03/14/17 20:01 Red Blood Count 4.44, Mean Corpuscular Volume 83.1, Mean Corpuscular Hemoglobin 27.5, Mean Corpuscular Hemoglobin Concent 33.1, Mean Platelet Volume 10.4, Neutrophils (%) (Auto) 59.2, Lymphocytes (%) (Auto) 27.9, Monocytes (%) (Auto) 12.2, Eosinophils (%) (Auto) 0.5, Basophils (%) (Auto) 0.2, Neutrophils # (Auto ) 3.39, Lymphocytes # (Auto) 1.60, Monocytes # (Auto) 0.70, Eosinophils # (Auto ) 0.03, Basophils # (Auto) 0.01 03/14/17 20:01 Test 03/14/17 20:00 03/14/17 20:01 Urine Color YELLOW Urine Appearance CLOUDY (CLEAR) Urine pH 5.0 (4.5-7.5) Urine Specific [place] 1.019 (1.000-1.030) Urine Protein 1+ (NEG) Urine Glucose (UA) NEG (NEG) Urine Ketones NEG (NEG) Urine Occult Blood TRACE (NEG) Urine Nitrite NEG (NEG) Urine Bilirubin NEG (NEG) Urine Urobilinogen NEG (NEG) Urine Leukocyte Esterase SMALL (NEG) Urine WBC (Auto) 10-30 /hpf (0-5) Urine RBC (Auto) 0-4 /hpf (0-4) Urine Hyaline Casts (Auto) 5-10 /lpf (0-5) Urine Epithelial Cells (Auto) >30 /lpf (0-5) Urine Bacteria (Auto) NEG (NEG) Urine Renal Epithelial Cells 0-5 /lpf (0-5) Urine Pathogenic Casts 0-3 GRANULAR CASTS /lpf (0) White Blood Count 5.73 K/uL (4.8-10.8) Red Blood Count 4.44 M/uL (4.2-5.4) Hemoglobin 12.2 g/dL (12.0-16.0) Hematocrit 36.9 % (37-47) Mean Corpuscular Volume 83.1 fL (80-100) Mean Corpuscular Hemoglobin 27.5 pg (25-34) Mean Corpuscular Hemoglobin Concent 33.1 g/dl (32-36) Platelet Count 249 K/uL (130-400) Mean Platelet Volume 10.4 fL (7.4-10.4) Neutrophils (%) (Auto) 59.2 % Lymphocytes (%) (Auto) 27.9 % Monocytes (%) (Auto) 12.2 % Eosinophils (%) (Auto) 0.5 % Basophils (%) (Auto) 0.2 % Neutrophils # (Auto) 3.39 K/uL (1.4-6.5) Lymphocytes # (Auto) 1.60 K/uL (1.2-3.4) Monocytes # (Auto) 0.70 K/uL (0.11-0.59) Eosinophils # (Auto) 0.03 K/uL (0-0.5) Basophils # (Auto) 0.01 K/uL (0-0.2) RDW Standard Deviation 49.3 fL (36.4-46.3) RDW Coefficient of Variation 16.5 % (11.5-14.5) Immature Granulocyte % (Auto) 0.0 % Immature Granulocyte # (Auto) 0.00 K/uL (0.00-0.02) Prothrombin Time 23.1 SECONDS (9.0-12.0) Prothromb Time International Ratio 2.1 (0.9-1.1) Activated Partial Thromboplast Time 38.3 SECONDS (21.0-31.0) Partial Thromboplastin Ratio 1.5 Anion Gap 9.0 mmol/L (3-11) Est Creatinine Clear Calc Drug Dose 42.0 ml/min Estimated GFR () 49.5 Estimated GFR (Non- 42.7 BUN/Creatinine Ratio 21.5 (10-20) Calcium Level 8.8 mg/dl (8.5-10.1) Total Bilirubin 1.3 mg/dl (0.2-1) Direct Bilirubin 0.7 mg/dl (0-0.2) Aspartate Amino Transf (AST/SGOT) 27 U/L (15-37) Alanine Aminotransferase (ALT/SGPT) 27 U/L (12-78) Alkaline Phosphatase 106 U/L (45-117) Troponin I 0.027 ng/ml (0-0.045) Total Protein 6.9 gm/dl (6.4-8.2) Albumin 3.2 gm/dl (3.4-5.0) Lipase 172 U/L (73-393) Laboratory results as reviewed by me. ECG Indication: chest pain Rate (beats per minute): 70 Rhythm: other (atrial sensed ventricular paced rhythm) Findings: no acute ischemic change, no ectopy ED Course 1930: The patient was evaluated in room B6. A complete history and physical exam was performed. 1945: I have the labs that were taken yesterday. They show that the PT was 55 with an INR of 6.6. On March 10 her Hemoglobin of 12. 2124: I reevaluated the patient and discussed the test results with her. She notes that she is expericning chest pressure similar to that of her previous cardiac event. 2128: I spoke with Dr. Villanueva We discussed the patient and test results. The patient will be further evaluated by Dr. Villanueva. Medical Decision This is a 66-year-old female who presents with abnormal labs and rectal bleeding. Differential diagnosis includes medication side effect, GI bleed, anemia, metabolic derangement, DVT. I did perform a limited focused review of portions of the patient's old chart on the electronic medical record. The patient was admitted March 06 for a left lower extremity DVT and CHF. Medication Reconciliation: I attest that I have personally reviewed the patient' s current medication list. Blood Pressure Screening: Patient was found to have normal blood pressure on screening and does not require follow-up. I did evaluate the patient as noted above. The patient is presenting with a GI bleed. She is on Xarelto. I did obtain labs from the [facility] system and she did have an elevated INR and PTT drawn yesterday. She is not on Coumadin. While in the emergency department she stated she developed some chest discomfort similar to when she had her heart problems. It was transient and went away. She then recollected that she had a little bit in the car ride coming here. IV access was established. The patient was placed on a continuous athletic monitor. I did order and personally review the patient's 12-lead EKG and chest x-ray as described above. I did order and review the patient's blood work as noted in the electronic medical record. She is not anemic. Troponin is negative. I did discuss the test results with the patient. While she does have a DVT I did feel pulmonary embolism was unlikely given she is on Xarelto and has been compliant with his medication. I did recommend hospitalization for further workup and repeat cardiac enzymes. I did discuss case with the hospitalist and egg caser. Consults Time Called: 2124 Consulting Physician: Dr. Villanueva Returned Call: [address] Villanueva We discussed the patient and test results. The patient will be further evaluated by Dr. Villanueva. Impression Primary Impression: Acute GI bleeding Additional Impressions: Acute chest pain Pleural effusion on right Scribe Attestation The scribe's documentation has been prepared under my direct and personally reviewed by me in its entirety. I confirm that the note above accurately reflects all work, treatment, procedures, and medical decision making performed by me. Departure Information Dispostion Being Evaluated By Hospitalist Referrals No Doctor, Assigned (PCP) Patient Instructions My [facility] Problem Qualifiers
[2017-03-15] MEDS: CEFTRIAXONE SOD INJ 1 GM in DEXTROSE 5% ADD-VANTAGE 50ML 50 ML IV SCH (01:33)
[2017-03-15 03:43] VITALS: BP 121/80; PULSE 76; TEMP 36.7; O2SAT 97
--- NOTE | 2017-03-15 06:47 | DIAGNOSTIC IMAGING REPORT ---
(LIVER) ABDOMEN LIMITED CLINICAL HISTORY: elevated inr pain. Nausea. TECHNIQUE: Ultrasound COMPARISON STUDY: 02/25/2013 FINDINGS: Contracted gallbladder similar to that of the prior study. This creates thickening of the gallbladder wall 5 mm which is similar as compared to the prior study. No shadowing gallstones. Common bile duct 6 mm. Fatty infiltration of liver. Pancreas is poorly seen due to overlying bowel content. Several right renal cysts/complex cyst.. No evidence for right renal hydronephrosis. Right pleural effusion. IMPRESSION: 1. Right pleural effusion. 2. Chronically contracted gallbladder with at least moderate wall thickening. 3. Normal caliber bile ducts. 4. Several right renal cysts/complex cyst. 5. Fatty infiltration of liver The above report was generated using voice recognition software. It may contain grammatical, syntax or spelling errors. Electronically signed by: Joesph Gonzalez M.D. 03/15/2017 6:46 AM Dictated Date/Time: 03/15/2017 6:42 AM
--- NOTE | 2017-03-15 06:53 | Gastrointestinal Consultation ---
Gastrointestinal Consultation Date of Consultation: Mar 15, 2017 Attending Physician: Dr. Villanueva Consulting Physician: Dr. Spears Reason for Consultation: GI bleed History of Present Illness Patient is a 66 year old female patient of Dr. Diamante Howard. She usually lives in her own home but has recently been at [facility] temporarily. She carries a hx of COPD, DM-2, systolic heart failure, CAD and recent DVT on Plavix and Xarelto)(per admission med list). She was transferred to [facility] yesterday because of small amts of blood in her stools x 2 days. On arrival, Hb 12.2, BUN 28, Cr 1.3. Also, though not on coumadin, her INR is elevated at 2.1 and her total and direct bili are minimally elevated though other LFTs remain normal. Liver US was completed with fatty liver, normal bile ducts, contracted gallbladder. She has not had any further BMs since arrival and no nausea/vomiting. It does not appear that she has ever had prior endoscopy and pt does not recall a prior endoscopy. She does not recall having hemorrhoids and doesn't recall ever having rectal bleeding previously. She is seen and examined while she is sitting up in bed. She is awake, alert, oriented. She denies any recent nausea, vomiting, diarrhea or abdominal pain. Past Medical/Surgical History Medical Problems: (1) Acute chest pain Status: Acute (2) Acute GI bleeding Status: Acute (3) CHF (congestive heart failure) Status: Acute (4) Congestive heart failure Status: Acute (5) Dehydration Status: Acute (6) Dry skin dermatitis Status: Acute (7) Dyspnea Status: Acute (8) Elevated troponin Status: Acute (9) Noncompliance with medications Status: Acute (10) Obesity Status: Acute (11) Peripheral edema Status: Acute (12) Peripheral edema Status: Acute (13) Pleural effusion on right Status: Acute Past Medical History: 1. HTN 2. COPD 3. DM-2 4. Hyperlipidemia 5. Ischemic Cardiomyopathy EF 20 - 25%; moderate to severe tricuspid regurg 6. Subarachnoid hemorrhage Past Surgical History: 1. Implanted pacer/defibrilator 2. D&C, tubal ligation 3. Appendectomy 4. Tonsilectomy Family History FH: Alzheimers disease FATHER Social History Smoking Status: Never Smoker Alcohol Use: occasionally Drug Use: none Marital Status: single Housing Status: residential Occupation Status: retired Allergies Coded Allergies: Sulfamethoxazole (Verified Allergy, Unknown, 03/01/17) Prednisone (Verified Adverse Reaction, Unknown, "makes me weird", 03/01/17) pt Current Medications Home Meds and Scripts Medications Dose Route/Sig Max Daily Dose Days Date Category Dose Instructions Aristocort 0.1% (Triamcinolone Acet) 90 Appln/30 Gm Cr 1 Appln TOP BID 03/14/17 Reported Sertraline HCl 25 Mg Tab 25 Mg PO DAILY 03/14/17 Reported Proctozone-Hc (Hydrocortisone (Rectal)) 2.5 % Cre 1 Appln TOP BID 03/14/17 Reported Nystatin (Nystatin (Topical)) 100,000 Unit/Gm Pow 1 Appln TOP BID PRN 03/14/17 Reported Desitin (Zinc Oxide (Topical)) 40 % Oin 1 Appln TOP BID 03/14/17 Reported Nitrostat (Nitroglycerin) 0.4 Mg Tab 0.4 Mg UT PRN 03/14/17 Reported Xarelto (Rivaroxaban) 15 Mg Tab 15 Mg PO BID 03/14/17 Reported Furosemide 40 Mg Tab 40 Mg PO DAILY 03/14/17 Reported Tylenol (Acetaminophen) 325 Mg Tab 325 Mg PO Q4 PRN 03/14/17 Reported Ventolin Hfa (Albuterol) 200 Puffs/[id number] Mcg Aers 2 Puffs INH Q4H PRN 02/17/17 Reported Atarax (Hydroxyzine Hcl) 25 Mg Tab 12.5 Mg PO Q8H PRN 02/17/17 Reported Losartan Potassium 25 Mg Tab 25 Mg PO QAM 12/18/16 Reported Lipitor (Atorvastatin Calcium) 80 Mg Tab 80 Mg PO HS 04/03/15 Reported Glipizide Er (Glipizide) 2.5 Mg Tab 2.5 Mg PO DAILY 06/09/14 Reported TAKE 30 MINUTES BEFORE A MEAL Toprol Xl (Metoprolol Succinate) 50 Mg Tabcr 50 Mg PO QAM 06/09/14 Reported Imdur Ext Rel (Isosorbide Mononitrate) 30 Mg Tabcr 60 Mg PO QAM 03/13/13 Reported Plavix (Clopidogrel Bisulfate) 75 Mg Tab 75 Mg PO QAM 02/11/13 Reported Review of Systems Constitutional: No fever, No chills, No sweats, No weight loss, No weakness Eyes: No eye pain, No redness ENT: No sore throat, No trouble swallowing, No pain on swallowing Respiratory: No cough, No wheezing, No shortness of breath, No dyspnea on exertion Cardiac: + edema (left leg), No chest pain, No palpitations Abdomen: + see HPI Neuro: No memory loss, No weakness, No numbness/tingling, No vertigo, No balance problems Psych: No depression symptoms, No anxiety, No insomnia Heme: No abnormal bleeding/bruising, No night sweats Endo: No excessive thirst, No excessive urination Skin: No rash, No itch, No new/changing skin lesions, No jaundice Physical Exam Date Time Temp Pulse Resp B/P (MAP) Pulse Ox O2 Delivery O2 Flow Rate FiO2 03/15/17 04:00 Room Air 03/15/17 03:43 36.7 76 19 121/80 (94) 97 Room Air 03/15/17 00:16 36.8 72 20 131/85 94 03/15/17 00:00 Room Air 03/14/17 23:45 36.4 69 18 121/83 95 Room Air 03/14/17 20:53 72 20 131/85 94 Room Air 03/14/17 20:26 77 03/14/17 19:15 36.8 81 18 123/79 96 Room Air General Appearance: no apparent distress Eyes: normal inspection, EOMI Neck: supple, no adenopathy, thyroid normal Respiratory/Chest: chest non-tender, lungs clear, normal breath sounds, no accessory muscle use Cardiovascular: regular rate, rhythm, no JVD, no murmur Abdomen: normal bowel sounds, non tender, soft, no organomegaly Extremities: normal inspection, normal capillary refill, + swelling (mild, left ankle larger than right) Neurologic/Psych: alert, normal mood/affect, oriented x 3 Skin: normal color, no jaundice, warm/dry, no rash Laboratory Results Last 24 Hours Test 03/14/17 20:00 03/14/17 20:01 03/15/17 04:44 Urine Color YELLOW Urine Appearance CLOUDY Urine pH 5.0 Urine Specific [place] 1.019 Urine Protein 1+ Urine Glucose (UA) NEG Urine Ketones NEG Urine Occult Blood TRACE Urine Nitrite NEG Urine Bilirubin NEG Urine Urobilinogen NEG Urine Leukocyte Esterase SMALL Urine WBC (Auto) 10-30 /hpf Urine RBC (Auto) 0-4 /hpf Urine Hyaline Casts (Auto) 5-10 /lpf Urine Epithelial Cells (Auto) >30 /lpf Urine Bacteria (Auto) NEG Urine Renal Epithelial Cells 0-5 /lpf Urine Pathogenic Casts 0-3 GRANULAR CASTS /lpf White Blood Count 5.73 K/uL Red Blood Count 4.44 M/uL Hemoglobin 12.2 g/dL Hematocrit 36.9 % Mean Corpuscular Volume 83.1 fL Mean Corpuscular Hemoglobin 27.5 pg Mean Corpuscular Hemoglobin Concent 33.1 g/dl Platelet Count 249 K/uL Mean Platelet Volume 10.4 fL Neutrophils (%) (Auto) 59.2 % Lymphocytes (%) (Auto) 27.9 % Monocytes (%) (Auto) 12.2 % Eosinophils (%) (Auto) 0.5 % Basophils (%) (Auto) 0.2 % Neutrophils # (Auto) 3.39 K/uL Lymphocytes # (Auto) 1.60 K/uL Monocytes # (Auto) 0.70 K/uL Eosinophils # (Auto) 0.03 K/uL Basophils # (Auto) 0.01 K/uL RDW Standard Deviation 49.3 fL RDW Coefficient of Variation 16.5 % Immature Granulocyte % (Auto) 0.0 % Immature Granulocyte # (Auto) 0.00 K/uL Prothrombin Time 23.1 SECONDS Prothromb Time International Ratio 2.1 Activated Partial Thromboplast Time 38.3 SECONDS Partial Thromboplastin Ratio 1.5 Sodium Level 134 mmol/L Potassium Level 3.6 mmol/L Chloride Level 99 mmol/L Carbon Dioxide Level 26 mmol/L Anion Gap 9.0 mmol/L Blood Urea Nitrogen 28 mg/dl Creatinine 1.30 mg/dl Est Creatinine Clear Calc Drug Dose 42.0 ml/min Estimated GFR () 49.5 Estimated GFR (Non- 42.7 BUN/Creatinine Ratio 21.5 Random Glucose 174 mg/dl Calcium Level 8.8 mg/dl Total Bilirubin 1.3 mg/dl Direct Bilirubin 0.7 mg/dl Aspartate Amino Transf (AST/SGOT) 27 U/L Alanine Aminotransferase (ALT/SGPT) 27 U/L Alkaline Phosphatase 106 U/L Troponin I 0.027 ng/ml Total Protein 6.9 gm/dl Albumin 3.2 gm/dl Lipase 172 U/L RUQ ultrasound: IMPRESSION: 1. Right pleural effusion. 2. Chronically contracted gallbladder with at least moderate wall thickening. 3. Normal caliber bile ducts. 4. Several right renal cysts/complex cyst. 5. Fatty infiltration of liver Impression Patient is a 66 year old female with a small amt of blood in stools in the setting of anticoagulation (Xarelto) and Plavix. Due to lack of anemia, and comorbidities (EF 20 - 25%, recent DVT), would avoid endoscopy if possible. Plan She has not had a hemodynamically significant amt of blood loss and the presence of CAD with EF 20 - 25% causes her to be a high risk for sedation, so would defer endoscopy at this time. Would avoid NSAIDs if at all possible. Would re-evaluate need for Plavix with the Xarelto (if OP med list is correct). GI will watch peripherally. I have personally seen the patient with SAMMIE Alvarado. Her note reflects my exam and findings. I agree with her impression and plan. No indication for in patient endoscopy at this point. She needs an out patient screening colonoscopy. Deny Spears M.D.
[2017-03-15] MEDS: INSULIN ASPART 100 UNITS/ML 3 ML PEN SC SCH ×4 (07:00→21:10)
[2017-03-15 07:18] VITALS: BP 113/76; PULSE 67; TEMP 36.7; O2SAT 96
[2017-03-15 08:16] LABS: BASO % 0.3 %; BASO ABS # 0.02 K/uL (0-0.2); COMPLETE YES; EOS % 0.9 %; HEMATOCRIT 40.5 % (37-47); HEMATOCRIT 40.6 % (37-47); IG% 0.2 %; LYMPH % 34.2 %; LYMPH ABS # 1.99 K/uL (1.2-3.4); MEAN CELL VOLUME 84.4 fL (80-100); MEAN PLATELET VOLUME 11.2 fL (7.4-10.4); MONO % 12.7 %; NEUT % 51.7 %; PLATELET COUNT 235 K/uL (130-400); RED BLOOD COUNT 4.81 M/uL (4.2-5.4); WHITE BLOOD COUNT 5.82 K/uL (4.8-10.8)
[2017-03-15 08:23] LABS: INR 1.8 (0.9-1.1); PROTHROMBIN TIME (PATIENT) 19.5 SECONDS (9.0-12.0)
[2017-03-15 08:46] LABS: CREATININE 1.2 mg/dl (0.60-1.20); MAGNESIUM 1.9 mg/dl (1.8-2.4)
[2017-03-15] MEDS: LOSARTAN POTASSIUM 25 MG TAB PO SCH (08:46)
[2017-03-15] MEDS: METOPROLOL SUCC 50MG EXT REL TAB PO SCH (08:46)
[2017-03-15] MEDS: SERTRALINE HCL 50 MG TAB PO SCH (08:46)
[2017-03-15] MEDS: ISOSORBIDE MONONITRATE 60 MG TABCR PO SCH (08:47)
[2017-03-15] MEDS: PANTOprazole INJ 40 MG in SYRINGE 0 ML IV SCH ×2 (08:48→21:06)
[2017-03-15] MEDS: TRIAMCINOLONE ACET 0.1% CR 15 GM TUBE EXT SCH ×2 (08:48→21:00)
[2017-03-15] MEDS: HYDROCORTISONE HC 2.5% CRM 30GM TUBE EXT SCH ×2 (08:49→21:00)
[2017-03-15] MEDS ORDERED: FUROSEMIDE INJ 40 MG in SYRINGE 0 ML IV SCH (09:00)
[2017-03-15] MEDS ORDERED: CLOPIDOGREL BISULFATE 75 MG TAB PO SCH (09:00)
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
[2017-03-15 11:29] VITALS: BP 109/71; PULSE 68; TEMP 36.5; O2SAT 95
[2017-03-15 12:52] LABS: HEMATOCRIT 39.1 % (37-47)
[2017-03-15] MEDS ORDERED: NURSING VERBAL MED ORDER ONE ×2 (13:15)
[2017-03-15] MEDS ORDERED: PROMETHAZINE HCL INJ 25 MG in SODIUM CHLORIDE 0.9% 50ML 50 ML IV PRN (13:30)
[2017-03-15] MEDS: FUROSEMIDE INJ 40 MG in SYRINGE 0 ML IV SCH (13:40)
[2017-03-15 14:55] VITALS: BP 125/78; PULSE 72; TEMP 36.6; O2SAT 98
--- NOTE | 2017-03-15 14:59 | Progress Note ---
Medicine Progress Note Date & Time of Visit: Mar 15, 2017 at 13:51. Subjective Pt was seen and examined Lying in bed comfortable with no distress Pt said that she feels fine she did not remember if she had any blood in her stools Denies any chest pain, palpitation, dizziness and SOB Objective Last 8 Hrs Date Time Temp Pulse Resp B/P (MAP) Pulse Ox O2 Delivery O2 Flow Rate FiO2 03/15/17 12:00 Room Air 03/15/17 11:29 36.5 68 18 109/71 (84) 95 Room Air 03/15/17 11:20 Room Air 03/15/17 07:18 36.7 67 18 113/76 (88) 96 Room Air Physical Exam: General- No acute distress Head- atraumatic Eyes- PERRL, EOMI ENT- oropharynx clear Neck- supple, no carotid bruit Lungs- decrease breath sound at left lung base Heart- regular rhythm; no murmur Abdomen- normal bowel sounds, soft Extremities- +edema, no calf tenderness Neuro- alert, oriented x 3; PERRL, EOMI Skin- warm & dry Laboratory Results: Last 24 Hours Test 03/14/17 20:00 03/14/17 20:01 03/15/17 06:27 03/15/17 07:58 Urine Color YELLOW Urine Appearance CLOUDY Urine pH 5.0 Urine Specific [place] 1.019 Urine Protein 1+ Urine Glucose (UA) NEG Urine Ketones NEG Urine Occult Blood TRACE Urine Nitrite NEG Urine Bilirubin NEG Urine Urobilinogen NEG Urine Leukocyte Esterase SMALL Urine WBC (Auto) 10-30 /hpf Urine RBC (Auto) 0-4 /hpf Urine Hyaline Casts (Auto) 5-10 /lpf Urine Epithelial Cells (Auto) >30 /lpf Urine Bacteria (Auto) NEG Urine Renal Epithelial Cells 0-5 /lpf Urine Pathogenic Casts 0-3 GRANULAR CASTS /lpf White Blood Count 5.73 K/uL 5.82 K/uL Red Blood Count 4.44 M/uL 4.81 M/uL Hemoglobin 12.2 g/dL 13.0 g/dL Hematocrit 36.9 % 40.6 % Mean Corpuscular Volume 83.1 fL 84.4 fL Mean Corpuscular Hemoglobin 27.5 pg 27.0 pg Mean Corpuscular Hemoglobin Concent 33.1 g/dl 32.0 g/dl Platelet Count 249 K/uL 235 K/uL Mean Platelet Volume 10.4 fL 11.2 fL Neutrophils (%) (Auto) 59.2 % 51.7 % Lymphocytes (%) (Auto) 27.9 % 34.2 % Monocytes (%) (Auto) 12.2 % 12.7 % Eosinophils (%) (Auto) 0.5 % 0.9 % Basophils (%) (Auto) 0.2 % 0.3 % Neutrophils # (Auto) 3.39 K/uL 3.01 K/uL Lymphocytes # (Auto) 1.60 K/uL 1.99 K/uL Monocytes # (Auto) 0.70 K/uL 0.74 K/uL Eosinophils # (Auto) 0.03 K/uL 0.05 K/uL Basophils # (Auto) 0.01 K/uL 0.02 K/uL RDW Standard Deviation 49.3 fL 51.4 fL RDW Coefficient of Variation 16.5 % 16.7 % Immature Granulocyte % (Auto) 0.0 % 0.2 % Immature Granulocyte # (Auto) 0.00 K/uL 0.01 K/uL Prothrombin Time 23.1 SECONDS 19.5 SECONDS Prothromb Time International Ratio 2.1 1.8 Activated Partial Thromboplast Time 38.3 SECONDS Partial Thromboplastin Ratio 1.5 Sodium Level 134 mmol/L 135 mmol/L Potassium Level 3.6 mmol/L 4.0 mmol/L Chloride Level 99 mmol/L 101 mmol/L Carbon Dioxide Level 26 mmol/L 26 mmol/L Anion Gap 9.0 mmol/L 8.0 mmol/L Blood Urea Nitrogen 28 mg/dl 25 mg/dl Creatinine 1.30 mg/dl 1.20 mg/dl Est Creatinine Clear Calc Drug Dose 42.0 ml/min 45.3 ml/min Estimated GFR () 49.5 54.5 Estimated GFR (Non- 42.7 47.1 BUN/Creatinine Ratio 21.5 21.0 Random Glucose 174 mg/dl 121 mg/dl Calcium Level 8.8 mg/dl 9.0 mg/dl Total Bilirubin 1.3 mg/dl Direct Bilirubin 0.7 mg/dl Aspartate Amino Transf (AST/SGOT) 27 U/L Alanine Aminotransferase (ALT/SGPT) 27 U/L Alkaline Phosphatase 106 U/L Troponin I 0.027 ng/ml Total Protein 6.9 gm/dl Albumin 3.2 gm/dl Lipase 172 U/L Bedside Glucose 108 mg/dl Magnesium Level 1.9 mg/dl Test 03/15/17 11:02 03/15/17 12:17 Bedside Glucose 172 mg/dl Hemoglobin 12.7 g/dL Hematocrit 39.1 % Date/Time Source Procedure Growth Status 03/15/17 09:45 Urine , Clean Catch Urine Culture Pending Received Assessment & Plan GI bleed? Staff noticed small amounts of blood in her stools. present with hgb 12.2 on admission INR was 2.1 on admission Most recent hgb was 12.7 No sign of active bleeding change protonix to PO Continue monitor cbc hemodynamics stable INR 1.8 today, received vit k yesterday discontinue plavix U/S of liver showed Right pleural effusion.Chronically contracted gallbladder with at least moderate wall thickening. Fatty liver infiltration GI consulted and no indication for inpatient EGD due to poor candidate for sedation GI will plan colonoscopy as an outpatient If bleeding continues, consider IVC filter placement Acute on chronic systolic CHF Recent 2D echo with EF 20-25% On Lasix 40mg IV cardiology on board Right Pleural Effusion CXR showed slight increase in size of a moderate right pleural effusion Chest U/S showed large right pleural effusion with estimated volume of 1307 cc Pulmonary on board Plan to get thoracentesis done in am Did not received Xarelto today Hold Xarelto in am (Can be resumed later after the thoracentesis) Doubt pneumonia on CXR No sign of infection, WBC wnl, afebrile Repeat CXR after thoracentesis done will d/c abx for now DVT Recently diagnosed in the last admission Xarelto has been held due to GI bleed? No active episode of GI bleed since admitted Resume Xarelto after thoracentesis once bleeding stable Plavix is discontinued DM II HBA1C was 8.3 on 12/24/16 Holding glipizide for now ISS, Monitor BS HTN Continue home meds Monitor CAD s/p Stent Continue aspirin, statin and BB Plavix discontinued Asymptomatic COPD Stable No SOB and or cough/wheezing DVT Px scds Will Resume Xarelto after thoracentesis Disposition Schedule for thoracentesis tomorrow social service for d/c planning Consultants: Cardio Pulmonary GI Current Inpatient Medications: Current Inpatient Medications Medications (Trade) Dose Ordered Sig/[place] Route Start Time Stop Time Status Last Admin Dose Admin Acetaminophen (Tylenol Tab) 650 mg Q4H PRN PO 03/14/17 22:15 04/13/17 22:14 Al Hydrox/Mg Hydrox/Simethicone (Maalox Max Susp) 15 ml Q4H PRN PO 03/14/17 22:15 04/13/17 22:14 Magnesium Hydroxide (Milk Of Magnesia Susp) 30 ml Q12H PRN PO 03/14/17 22:15 04/13/17 22:14 Ondansetron HCl (Zofran Inj) 4 mg Q6H PRN IV 03/14/17 22:15 04/13/17 22:14 Albuterol (Ventolin Hfa Inhaler) 2 puffs Q4H PRN INH 03/14/17 22:15 04/13/17 22:14 Atorvastatin Calcium (Lipitor Tab) 80 mg HS PO 03/15/17 21:00 04/14/17 20:59 Hydrocortisone (Proctozone Hc 2.5% Crm) 1 appln BID EXT 03/15/17 09:00 04/14/17 08:59 03/15/17 08:49 1 APPLN Hydroxyzine HCl (Vistaril Tab) 12.5 mg Q8H PRN PO 03/14/17 22:15 04/13/17 22:14 Isosorbide Mononitrate (Imdur Ext Rel Tab) 60 mg QAM PO 03/15/17 09:00 04/14/17 08:59 03/15/17 08:47 60 MG Losartan Potassium (coZAAR TAB) 25 mg QAM PO 03/15/17 09:00 04/14/17 08:59 03/15/17 08:46 25 MG Metoprolol Succinate (Toprol Xl Tab) 50 mg QAM PO 03/15/17 09:00 04/14/17 08:59 03/15/17 08:46 50 MG Nitroglycerin (Nitrostat Tab) 0.4 mg PRN UT 03/14/17 22:15 04/13/17 22:14 Nystatin (Mycostatin Powder) 1 appln BID PRN EXT 03/14/17 22:15 04/13/17 22:14 Triamcinolone Acetonide (Kenalog 0.1% Cream) 1 appln BID EXT 03/15/17 09:00 04/14/17 08:59 03/15/17 08:48 1 APPLN Sertraline HCl (Zoloft Tab) 25 mg DAILY PO 03/15/17 09:00 04/14/17 08:59 03/15/17 08:46 25 MG Miscellaneous Information (Order Awaiting Action) 1 ea QS N/A 03/15/17 08:00 04/14/17 07:59 Insulin Aspart (novoLOG ASPART) SLIDING SCALE G... ACHS SC 03/15/17 07:00 04/14/17 06:59 03/15/17 12:31 1 UNITS Ceftriaxone Sodium 1 gm/ Dextrose 50 ml @ 100 mls/hr Q24H IV 03/15/17 02:00 03/25/17 01:59 03/15/17 01:33 100 MLS/HR Pantoprazole Sodium 40 mg/ Syringe 10 ml @ 5 mls/min Q12H IV 03/15/17 09:00 04/14/17 08:59 03/15/17 08:48 5 MLS/MIN Aspirin (Ecotrin Tab) 81 mg QAM PO 03/16/17 09:00 04/15/17 08:59 Furosemide 40 mg/ Syringe 4 ml @ 4 mls/min BID@0600,1400 IV 03/15/17 14:00 04/14/17 13:59 03/15/17 13:40 4 MLS/MIN
--- NOTE | 2017-03-15 16:14 | Surgery Consultation ---
Consultation Date of Service Mar 15, 2017. Chief Complaint Recent DVT with possible GI bleeding History of Present Illness The patient is a 66 year old female with PMH of HTN, COPD, DM type2, Systolic heart failure, CAD s/p stent. She had a recent DVT. She was admitted at this time with a questionable GI bleed. She can not tell me anything about the GI bleed. She says she knows nothing about it. Vitals Vital Signs Past 12 Hours Date Time Temp Pulse Resp B/P (MAP) Pulse Ox O2 Delivery O2 Flow Rate FiO2 03/15/17 14:55 36.6 72 18 125/78 (94) 98 Room Air 03/15/17 12:00 Room Air 03/15/17 11:29 36.5 68 18 109/71 (84) 95 Room Air 03/15/17 11:20 Room Air 03/15/17 07:18 36.7 67 18 113/76 (88) 96 Room Air Allergies Coded Allergies: Sulfamethoxazole (Verified Allergy, Unknown, 03/01/17) Prednisone (Verified Adverse Reaction, Unknown, "makes me weird", 03/01/17) pt Home Medications Scheduled Atorvastatin (Lipitor), 80 MG PO HS Clopidogrel (Plavix), 75 MG PO QAM Furosemide (Furosemide), 40 MG PO DAILY Glipizide (Glipizide Er), 2.5 MG PO DAILY Hydrocortisone (Rectal) (Proctozone-Hc), 1 APPLN TOP BID Isosorbide Mononitrate Ext Rel (Imdur Ext Rel), 60 MG PO QAM Losartan Potassium (Losartan Potassium), 25 MG PO QAM Metoprolol Succinate (Toprol Xl), 50 MG PO QAM Nitroglycerin (Nitrostat), 0.4 MG UT PRN Rivaroxaban (Xarelto), 15 MG PO BID Sertraline HCl (Sertraline HCl), 25 MG PO DAILY Triamcinolone Acet (Aristocort 0.1%), 1 APPLN TOP BID Zinc Oxide (Topical) (Desitin), 1 APPLN TOP BID Scheduled PRN Acetaminophen Tab (Tylenol), 325 MG PO Q4 PRN for Pain or Fever Albuterol Hfa (Ventolin Hfa), 2 PUFFS INH Q4H PRN for Wheezing Hydroxyzine Hcl (Atarax), 12.5 MG PO Q8H PRN for Itching Nystatin (Topical) (Nystatin), 1 APPLN TOP BID PRN for IRRITATION Problem List Medical Problems: (1) CAD (coronary artery disease) (2) COPD (chronic obstructive pulmonary disease) (3) DM type 2 (diabetes mellitus, type 2) (4) Dyslipidemia (5) GI bleed (6) HTN (hypertension) (7) Ischemic cardiomyopathy (8) Leg swelling (9) Presence of combination internal cardiac defibrillator (ICD) and pacemaker (10) SAH (subarachnoid hemorrhage) (11) SOB (shortness of breath) Surgical Problems: (1) H/O dilation and curettage (2) H/O tubal ligation (3) Hx of appendectomy (4) Hx of tonsillectomy Surgical / Medical History Hx Cardiac Surgery: Yes (HEART CATH) Hx Abdominal Surgery: Yes (APPENDECTOMY) Hx Cancer Surgery: No Hx Thoracic Surgery: No Hx Orthopedic: No Hx Urinary Tract Surgery: No HX Other Surgery: No Family History FH: Alzheimers disease FATHER Social History Smoking Status: Never Smoker Hx Tobacco Use In Past Year?: No Hx Alcohol Use - Type & Amnt: Yes (OCCASIONALLY) Hx Substance Use -Type & Amnt: No Review of Systems Constitutional: No chills, No diaphoresis, No fever, No malaise, No weakness, No weight gain, No weight loss, No sweats, No fatigue, No problem reported Respiratory: No cough, No cyanosis, No BHARDWAJ, No hemoptysis, No orthopnea, No PND , No short of breath, No sputum production, No stridor, No wheezing, No dyspnea , No problem reported Cardiovascular: No chest pain, No chest tightness, No chest pressure, No palpitations, No syncope, No diaphoresis, No edema, No intermittent claudication , No orthopnea, No cyanosis, No mumur, No lightheadedness, No paroxysmal nocturnal dyspnea, No problem reported Gastrointestinal: No abdominal pain, No constipation, No diarrhea, No nausea, No vomiting, No anorexia, No appetite changes, No belching, No flatulence, No food intolerance, No hematemesis, No hemorrhoids, No hematochezia, No stool changes, No heartburn, No indigestion, No dysphagia, No rectal bleeding, No problem reported Psychiatric: No anxiety, No alcohol abuse, No auditory hallucinations, No depression, No drug abuse, No homicidal ideation, No mood changes, No suicidal ideation, No visual hallucinations, No problem reported Physical Exam Constitutional: General Apperance: overweight Level of Distress: NAD Ambulation: ambulating normally Psychiatric: Mental Status: active & alert, normal mood, normal affect Head: normocephalic Lungs: Auscultation: decreased breath sounds Cardiovascular: Heart Auscultation: RRR Abdomen: Inspection & Palpation: soft Musculoskeletal: normal Extremities: Upper Right: no cyanosis, no edema, no varicosities, no palpable cord, no clubbing, no ulcers, no mottling Upper Left: no cyanosis, no edema, no palpable cord, no clubbing, no ulcers , no mottling Lower Right: no cyanosis, no varicosities, no palpable cord, no clubbing, no ulcers, no mottling, edema Lower Left: no cyanosis, no varicosities, no palpable cord, no clubbing, no ulcers, no mottling, edema Assessment and Plan Imp: Recent DVT Possible GI bleeding Plan: The patient has not had a BM since admission and no blood from her rectum. Her Hgb has been stable since admission. At this point she is not a candidate for an IVC filter. Would start her back on anticoagulation if OK with GI and follow her for any bleeding.\\ Thank you very much for letting me participate in the care of this patient.
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
[2017-03-15 20:04] VITALS: BP 128/66; PULSE 60; TEMP 37; O2SAT 98
[2017-03-15] MEDS: ATORVASTATIN 40 MG TAB PO SCH (21:06)
[2017-03-15 23:50] VITALS: BP 124/83; PULSE 68; TEMP 37; O2SAT 94
[2017-03-16] MEDS: CEFTRIAXONE SOD INJ 1 GM in DEXTROSE 5% ADD-VANTAGE 50ML 50 ML IV SCH (01:32)
[2017-03-16 03:14] VITALS: BP 116/77; PULSE 79; TEMP 36.8; O2SAT 95
[2017-03-16] MEDS: FUROSEMIDE INJ 40 MG in SYRINGE 0 ML IV SCH ×2 (05:46→14:24)
[2017-03-16 05:50] LABS: BASO % 0.2 %; BASO ABS # 0.01 K/uL (0-0.2); COMPLETE YES; EOS % 1.3 %; HEMATOCRIT 36.3 % (37-47); IG% 0.2 %; LYMPH % 27.1 %; LYMPH ABS # 1.29 K/uL (1.2-3.4); MEAN CELL VOLUME 83.1 fL (80-100); MEAN CORPUSCULAR HEMOGLOBIN 26.3 pg (25-34); MEAN CORPUSCULAR HGB CONC 31.7 g/dl (32-36); MONO % 12.6 %; NEUT % 58.6 %; PLATELET COUNT 218 K/uL (130-400); RED BLOOD COUNT 4.37 M/uL (4.2-5.4); WHITE BLOOD COUNT 4.76 K/uL (4.8-10.8)
[2017-03-16 06:19] LABS: BUN/CREATININE RATIO 19.6 (10-20); CALCIUM 8.4 mg/dl (8.5-10.1); CREATININE 1.3 mg/dl (0.60-1.20); MAGNESIUM 1.7 mg/dl (1.8-2.4); POTASSIUM 3.5 mmol/L (3.5-5.1)
[2017-03-16 06:28] LABS: INR 1.5 (0.9-1.1); PROTHROMBIN TIME (PATIENT) 16.4 SECONDS (9.0-12.0)
[2017-03-16] MEDS: INSULIN ASPART 100 UNITS/ML 3 ML PEN SC SCH ×4 (07:00→20:18)
[2017-03-16 07:32] VITALS: BP 106/69; PULSE 66; TEMP 36.9; O2SAT 94
[2017-03-16] MEDS: LOSARTAN POTASSIUM 25 MG TAB PO SCH (08:35)
[2017-03-16] MEDS: ATORVASTATIN 40 MG TAB PO SCH (08:35)
[2017-03-16] MEDS: SERTRALINE HCL 50 MG TAB PO SCH (08:36)
[2017-03-16] MEDS: METOPROLOL SUCC 50MG EXT REL TAB PO SCH (08:36)
[2017-03-16] MEDS: ASPIRIN 81 MG ECTAB PO SCH (08:36)
[2017-03-16] MEDS: ISOSORBIDE MONONITRATE 60 MG TABCR PO SCH (08:36)
[2017-03-16] MEDS: TRIAMCINOLONE ACET 0.1% CR 15 GM TUBE EXT SCH ×2 (08:37→20:06)
[2017-03-16] MEDS: PANTOprazole INJ 40 MG in SYRINGE 0 ML IV SCH ×2 (08:37→20:13)
[2017-03-16] MEDS: HYDROCORTISONE HC 2.5% CRM 30GM TUBE EXT SCH ×2 (08:38→20:06)
--- NOTE | 2017-03-16 11:07 | Pulmonology Progress Note ---
Pulmonary Progress Note Date of Service Mar 16, 2017. Attending Subjective Patient seen and examined. She states that she did not sleep well overnight. She denies any fever, chills, chest pain, cough or shortness of breath at rest. Objective VS this morning T 36.9, BP 106/69-116/77, P 66-79, RR 18-21, SaO2 94-95% on RA. currently 1100 ml cumulative since admission. General Appearance: NO APPARENT DISTRESS (laying flat on bed without any dyspnea) Head: ATRAUMATIC Eyes: PERRLA, NO DISCHARGE, EOMI, SCLERAE NORMAL ENT: NORMAL NASAL EXAM, NORMAL MOUTH EXAM, NORMAL THROAT EXAM Neck: NORMAL RANGE OF MOTION, NO TENDERNESS, TRACHEA MIDLINE, SUPPLE (Decrease breath sound on the left, Good air entry on the left. No wheezes no ) Respiratory: NO RESPIRATORY DISTRESS (Good air entry on the left, Decreased breath sounds on the right base.), NO TENDERNESS, rhonchi, other Cardiovasular: REGULAR RATE/RHYTHM, NORMAL S1S2, NORMAL PERIPHERAL PULSES Abdomen: NON TENDER, NORMAL BOWEL SOUNDS, NO REBOUND, NO MASSES Genitourinary - Female: EXTERNAL GENITALIA NORMAL Back: NORMAL INSPECTION Upper Extremities: NO EDEMA Edema: Bilateral LE (2+) Pulses: dorsalis pedis (R) (2+), dorsalis pedis (L) (2+) Neuro: ALERT, ORIENTED x 3, NORMAL MOTOR EXAM, NORMAL SENSATION, NORMAL SPEECH Psychiatric: NORMAL AFFECT, NO SUICIDAL IDEATION, CONTRACTS FOR SAFETY Labs reviewed INR 1.5 today. Liver US - 03/14/2017 1. Right pleural effusion. 2. Chronically contracted gallbladder with at least moderate wall thickening. 3. Normal caliber bile ducts. 4. Several right renal cysts/complex cyst. 5. Fatty infiltration of liver Chest Xray: 03/14/2017 IMPRESSION: Slight increase in size of a moderate right pleural effusion with extensive right basilar opacity which could reflect atelectasis or pneumonia. Radiographic follow-up to ensure resolution is recommended. Chest US: 03/14/2017 IMPRESSION: Large right pleural effusion with estimated volume of 1307 cc. A chest wall waldemar was not placed given insufficient window due to underlying lung. 03/01/2017 IMPRESSION: 1. Nearly occlusive deep venous thrombosis is seen in the left popliteal vein. 2. The remaining deep veins of the left lower extremity are clear. 3. There is no sonographic evidence of deep venous thrombosis identified in the right lower extremity. TTE 2016 The left ventricle is moderately dilated. There is global thinning of the left ventricular owen. Left ventricular systolic function is severely reduced. Ejection Fraction = 20-25%. The right ventricular systolic function is moderately reduced. The left atrium is moderately dilated. The right atrium is moderately dilated. There is moderate mitral regurgitation. There is moderate to severe tricuspid regurgitation. Pulmonary Hypertension is present with the estimated PA pressure being 65mm Hg Assessment & Plan Right Pleural effusion Systolic CHF Pulmonary Hypertension DVT Patient has increasing right pleural effusion. She is well known the cardiology service and seen often for CHF exacerbations. On her most recent admission she was found to have a left lower extremity DVT and started on Xarelto. She was already on dual antiplatelet therapy since 2012 after her initial PCI and stent. She now presents with GI bleed. She has elevated INR which may be secondary to hepatic congestion. She does have moderately elevated pulmonary pressures seen on most recent echo. This is most likely secondary from her underlying cardiac disease (Type II). Patient's INR is 1.5 today. Will proceed with ultrasound guided thoracentesis for evaluation of pleural fluid. Data Medications: Current Inpatient Medications Medications (Trade) Dose Ordered Sig/Darby Route Start Time Stop Time Status Last Admin Dose Admin Acetaminophen (Tylenol Tab) 650 mg Q4H PRN PO 03/14/17 22:15 04/13/17 22:14 Al Hydrox/Mg Hydrox/Simethicone (Maalox Max Susp) 15 ml Q4H PRN PO 03/14/17 22:15 04/13/17 22:14 Magnesium Hydroxide (Milk Of Magnesia Susp) 30 ml Q12H PRN PO 03/14/17 22:15 04/13/17 22:14 Ondansetron HCl (Zofran Inj) 4 mg Q6H PRN IV 03/14/17 22:15 04/13/17 22:14 Albuterol (Ventolin Hfa Inhaler) 2 puffs Q4H PRN INH 03/14/17 22:15 04/13/17 22:14 Atorvastatin Calcium (Lipitor Tab) 80 mg HS PO 03/15/17 21:00 04/14/17 20:59 03/16/17 08:35 80 MG Hydrocortisone (Proctozone Hc 2.5% Crm) 1 appln BID EXT 03/15/17 09:00 04/14/17 08:59 03/15/17 08:49 1 APPLN Hydroxyzine HCl (Vistaril Tab) 12.5 mg Q8H PRN PO 03/14/17 22:15 04/13/17 22:14 Isosorbide Mononitrate (Imdur Ext Rel Tab) 60 mg QAM PO 03/15/17 09:00 04/14/17 08:59 03/16/17 08:36 60 MG Losartan Potassium (coZAAR TAB) 25 mg QAM PO 03/15/17 09:00 04/14/17 08:59 03/16/17 08:35 25 MG Metoprolol Succinate (Toprol Xl Tab) 50 mg QAM PO 03/15/17 09:00 04/14/17 08:59 03/16/17 08:36 50 MG Nitroglycerin (Nitrostat Tab) 0.4 mg PRN UT 03/14/17 22:15 04/13/17 22:14 Nystatin (Mycostatin Powder) 1 appln BID PRN EXT 03/14/17 22:15 04/13/17 22:14 Triamcinolone Acetonide (Kenalog 0.1% Cream) 1 appln BID EXT 03/15/17 09:00 04/14/17 08:59 03/15/17 08:48 1 APPLN Sertraline HCl (Zoloft Tab) 25 mg DAILY PO 03/15/17 09:00 04/14/17 08:59 03/16/17 08:36 25 MG Miscellaneous Information (Order Awaiting Action) 1 ea QS N/A 03/15/17 08:00 04/14/17 07:59 Insulin Aspart (novoLOG ASPART) SLIDING SCALE G... ACHS SC 03/15/17 07:00 04/14/17 06:59 03/15/17 21:10 1 UNITS Ceftriaxone Sodium 1 gm/ Dextrose 50 ml @ 100 mls/hr Q24H IV 03/15/17 02:00 03/25/17 01:59 03/16/17 01:32 100 MLS/HR Pantoprazole Sodium 40 mg/ Syringe 10 ml @ 5 mls/min Q12H IV 03/15/17 09:00 04/14/17 08:59 03/16/17 08:37 5 MLS/MIN Aspirin (Ecotrin Tab) 81 mg QAM PO 03/16/17 09:00 04/15/17 08:59 03/16/17 08:36 81 MG Furosemide 40 mg/ Syringe 4 ml @ 4 mls/min BID@0600,1400 IV 03/15/17 14:00 04/14/17 13:59 03/16/17 05:46 4 MLS/MIN Vital Signs: Date Time Temp Pulse Resp B/P (MAP) Pulse Ox O2 Delivery O2 Flow Rate FiO2 03/16/17 08:00 Room Air 03/16/17 07:32 36.9 66 18 106/69 (81) 94 03/16/17 03:53 Room Air 03/16/17 03:14 36.8 79 21 116/77 (90) 95 Room Air 03/15/17 23:50 37.0 68 22 124/83 (97) 94 Room Air 03/15/17 23:20 Room Air 03/15/17 20:04 37.0 60 18 128/66 (86) 98 03/15/17 20:00 Room Air 03/15/17 16:00 Room Air 03/15/17 14:55 36.6 72 18 125/78 (94) 98 Room Air 03/15/17 12:00 Room Air 03/15/17 11:29 36.5 68 18 109/71 (84) 95 Room Air 03/15/17 11:20 Room Air Laboratory Results: Last 24 Hours Test 03/15/17 12:17 03/15/17 16:10 03/15/17 20:15 03/16/17 05:31 Hemoglobin 12.7 g/dL 11.5 g/dL Hematocrit 39.1 % 36.3 % Bedside Glucose 167 mg/dl 179 mg/dl White Blood Count 4.76 K/uL Red Blood Count 4.37 M/uL Mean Corpuscular Volume 83.1 fL Mean Corpuscular Hemoglobin 26.3 pg Mean Corpuscular Hemoglobin Concent 31.7 g/dl Platelet Count 218 K/uL Mean Platelet Volume 10.0 fL Neutrophils (%) (Auto) 58.6 % Lymphocytes (%) (Auto) 27.1 % Monocytes (%) (Auto) 12.6 % Eosinophils (%) (Auto) 1.3 % Basophils (%) (Auto) 0.2 % Neutrophils # (Auto) 2.79 K/uL Lymphocytes # (Auto) 1.29 K/uL Monocytes # (Auto) 0.60 K/uL Eosinophils # (Auto) 0.06 K/uL Basophils # (Auto) 0.01 K/uL RDW Standard Deviation 49.3 fL RDW Coefficient of Variation 16.4 % Immature Granulocyte % (Auto) 0.2 % Immature Granulocyte # (Auto) 0.01 K/uL Prothrombin Time 16.4 SECONDS Prothromb Time International Ratio 1.5 Sodium Level 139 mmol/L Potassium Level 3.5 mmol/L Chloride Level 102 mmol/L Carbon Dioxide Level 30 mmol/L Anion Gap 7.0 mmol/L Blood Urea Nitrogen 25 mg/dl Creatinine 1.30 mg/dl Est Creatinine Clear Calc Drug Dose 41.8 ml/min Estimated GFR () 49.5 Estimated GFR (Non- 42.7 BUN/Creatinine Ratio 19.6 Random Glucose 152 mg/dl Calcium Level 8.4 mg/dl Magnesium Level 1.7 mg/dl Test 03/16/17 06:41 Bedside Glucose 144 mg/dl
[2017-03-16 11:45] VITALS: BP 110/56; PULSE 74; TEMP 36.8; O2SAT 95
--- NOTE | 2017-03-16 12:22 | Procedure Note ---
Procedure Note Date of Service Mar 16, 2017. Procedure Note Procedures: Right sided Thoracentesis Consent: obtained via the patient and placed into the chart Pre-Procedural Dx: Right-sided pleural effusion Post-Procedural Dx: Right-sided pleural effusion Analgesia: 8cc of 1% Liquid Lidocaine Procedure: The patient was placed in an upright position and thoracic US was used to select a spot for the procedure. A spot along the right posterior axillary line was marked in the 7th intercostal space. The patient was then draped and prepped in a sterile fashion. A modified Seldinger technique was then used for catheter placement. Flowing this approximately 850 cc of straw-colored pleural fluid was removed. The patient was then cleaned and placed at a 60 degree angle in the bed were the US was used to evaluate for possible pneumothorax. Post thoracentesis ultrasound showed lung sliding. There was no signs of pneumothorax. EBL: None Complications: None Postprocedure chest x-ray was ordered.
[2017-03-16 12:53] LABS: PLEURAL FLUID GLUCOSE 173 mg/dl
--- NOTE | 2017-03-16 12:57 | DIAGNOSTIC IMAGING REPORT ---
CHEST ONE VIEW PORTABLE CLINICAL HISTORY: S/P Thoracentesis COMPARISON STUDY: Chest radiograph March 14, 2017. FINDINGS: There is no pneumothorax status post right thoracentesis. The right pleural effusion has significantly decreased in size. There is a small residual right pleural effusion. Right lower lung aeration is improved. Cardiomegaly is noted. There is no evidence of pulmonary edema. A left subclavian biventricular pacer/AICD is in place. IMPRESSION: 1. No pneumothorax following right thoracentesis. 2. Significant decrease in size of the right pleural effusion with improved right lower lung aeration. Electronically signed by: Parveen Villanueva M.D. 03/16/2017 12:55 PM Dictated Date/Time: 03/16/2017 12:54 PM
[2017-03-16 13:04] LABS: PLEURAL FLUID TOTAL PROTEIN 2.4 g/dl
[2017-03-16 13:25] LABS: PLEURAL FLUID APPEARANCE CLEAR; PLEURAL FLUID COLOR YELLOW; PLEURAL FLUID MONONUC RELAT 90.7 %; PLEURAL FLUID POLYNUC 9.3 %; PLEURAL FLUID SOURCE RIGHT LUNG; PLEURAL FLUID WBC (A) 121 /uL
[2017-03-16] MEDS ORDERED: POTASSIUM CHLORIDE 20 MEQ TABCR PO ONE (14:30)
[2017-03-16] MEDS ORDERED: MAGNESIUM OXIDE 400 MG TAB PO ONE (14:30)
[2017-03-16 16:00] VITALS: BP 132/78; PULSE 62; TEMP 36.8; O2SAT 94
--- NOTE | 2017-03-16 16:59 | Progress Note ---
Internal Med Progress Note Date of Service: Mar 16, 2017. Provider Documentation: SUBJECTIVE: resting comfortably afebrile denies sob no more blood in stools no chest pain no complaints OBJECTIVE: Vital Signs-as noted below Exam: General-alert and oriented. Not in distress ENT-normal hearing Neck-no neck masses Lungs-cta b/l no wheezing or crackles Heart-s1 and s2 heard, regular rate and rhythm, no murmurs Abdomen-soft bowel sounds present non tender no distension Extremities-no edema no erythema Neuro-alert and oriented moves extremities Lab data as noted below. ASSESSMENT & PLAN: GI bleed? Staff noticed small amounts of blood in her stools. present with hgb 12.2 on admission INR was 2.1 on admission U/S of liver showed Right pleural effusion.Chronically contracted gallbladder with at least moderate wall thickening. Fatty liver infiltration GI consulted and no indication for inpatient EGD due to poor candidate for sedation GI planning for colonoscopy as an outpatient If bleeding continues, consider IVC filter placement currently;y stable Acute on chronic systolic CHF Recent 2D echo with EF 20-25% On Lasix 40mg IV BID cardiology on board continue same for now Right Pleural Effusion CXR showed slight increase in size of a moderate right pleural effusion Chest U/S showed large right pleural effusion with estimated volume of 1307 cc Pulmonary on board s/p thoracocentesis today with 850ml out DVT Recently diagnosed in the last admission Xarelto has been held due to GI bleed? No active episode of GI bleed since admitted Plavix is discontinued Xarelto to restart in am DM II HBA1C was 8.3 on 12/24/16 Holding glipizide for now ISS, Monitor BS HTN Continue home meds Monitor CAD s/p Stent On aspirin, statin and BB Plavix discontinued stable COPD Stable No SOB and or cough/wheezing DVT Px scds DISPOSITION to be determined Vital Signs: Date Time Temp Pulse Resp B/P (MAP) Pulse Ox O2 Delivery O2 Flow Rate FiO2 03/16/17 16:00 36.8 62 22 132/78 (96) 94 Room Air 03/16/17 16:00 Room Air 03/16/17 12:00 Room Air 03/16/17 11:45 36.8 74 18 110/56 (74) 95 03/16/17 08:00 Room Air 03/16/17 07:32 36.9 66 18 106/69 (81) 94 03/16/17 03:53 Room Air 03/16/17 03:14 36.8 79 21 116/77 (90) 95 Room Air 03/15/17 23:50 37.0 68 22 124/83 (97) 94 Room Air 03/15/17 23:20 Room Air 03/15/17 20:04 37.0 60 18 128/66 (86) 98 03/15/17 20:00 Room Air Lab Results: Results Past 24 Hours Test 03/15/17 20:15 03/16/17 05:31 03/16/17 06:41 03/16/17 11:27 Range/Units Bedside Glucose 179 144 174 70-90 mg/dl White Blood Count 4.76 4.8-10.8 K/uL Red Blood Count 4.37 4.2-5.4 M/uL Hemoglobin 11.5 12.0-16.0 g/dL Hematocrit 36.3 37-47 % Mean Corpuscular Volume 83.1 80-100 fL Mean Corpuscular Hemoglobin 26.3 25-34 pg Mean Corpuscular Hemoglobin Concent 31.7 32-36 g/dl Platelet Count 218 130-400 K/uL Mean Platelet Volume 10.0 7.4-10.4 fL Neutrophils (%) (Auto) 58.6 % Lymphocytes (%) (Auto) 27.1 % Monocytes (%) (Auto) 12.6 % Eosinophils (%) (Auto) 1.3 % Basophils (%) (Auto) 0.2 % Neutrophils # (Auto) 2.79 1.4-6.5 K/uL Lymphocytes # (Auto) 1.29 1.2-3.4 K/uL Monocytes # (Auto) 0.60 0.11-0.59 K/uL Eosinophils # (Auto) 0.06 0-0.5 K/uL Basophils # (Auto) 0.01 0-0.2 K/uL RDW Standard Deviation 49.3 36.4-46.3 fL RDW Coefficient of Variation 16.4 11.5-14.5 % Immature Granulocyte % (Auto) 0.2 % Immature Granulocyte # (Auto) 0.01 0.00-0.02 K/uL Prothrombin Time 16.4 9.0-12.0 SECONDS Prothromb Time International Ratio 1.5 0.9-1.1 Sodium Level 139 136-145 mmol/L Potassium Level 3.5 3.5-5.1 mmol/L Chloride Level 102 98-107 mmol/L Carbon Dioxide Level 30 21-32 mmol/L Anion Gap 7.0 3-11 mmol/L Blood Urea Nitrogen 25 7-18 mg/dl Creatinine 1.30 0.60-1.20 mg/dl Est Creatinine Clear Calc Drug Dose 41.8 ml/min Estimated GFR () 49.5 Estimated GFR (Non- 42.7 BUN/Creatinine Ratio 19.6 10-20 Random Glucose 152 70-99 mg/dl Calcium Level 8.4 8.5-10.1 mg/dl Magnesium Level 1.7 1.8-2.4 mg/dl Test 03/16/17 12:00 03/16/17 13:02 03/16/17 16:07 Range/Units Pleural Fluid Source RIGHT LUNG Pleural Fluid Color YELLOW Pleural Fluid Appearance CLEAR Pleural Fluid WBC 121 /uL Pleural Fluid RBC < 3000 /uL Pleural Fluid pH 7.50 7.3-7.4 Pleural Fluid Polynuclear WBCs % 9.3 % Pleural Fluid Mononuclear WBCs % 90.7 % Pleural Fluid Total Protein 2.4 g/dl Pleural Fluid LDH 108 IU Pleural Fluid Glucose 173 mg/dl Pleural Fluid Amylase 9 U/L Total Bilirubin 1.2 0.2-1 mg/dl Lactate Dehydrogenase 304 84-246 U/L Total Protein 6.5 6.4-8.2 gm/dl Albumin 3.0 3.4-5.0 gm/dl Bedside Glucose 149 70-90 mg/dl Microbiology Results 03/16/17 Acid Fast Stain, Received Pending 03/16/17 Mycobacterial Culture, Received Pending 03/16/17 Gram Stain - Final, Resulted 03/16/17 Bacterial Culture, Resulted Pending
[2017-03-16 19:29] VITALS: BP 135/84; PULSE 67; TEMP 36.2; O2SAT 93
[2017-03-16 23:59] VITALS: BP 112/74; PULSE 78; TEMP 36.3; O2SAT 93
[2017-03-17] MEDS: CEFTRIAXONE SOD INJ 1 GM in DEXTROSE 5% ADD-VANTAGE 50ML 50 ML IV SCH (01:52)
[2017-03-17 04:00] VITALS: BP 116/77; PULSE 68; TEMP 36.7; O2SAT 94
[2017-03-17] MEDS: FUROSEMIDE INJ 40 MG in SYRINGE 0 ML IV SCH ×2 (05:57→14:12)
[2017-03-17 05:58] LABS: BASO % 0.2 %; BASO ABS # 0.01 K/uL (0-0.2); COMPLETE YES; EOS % 1.1 %; HEMATOCRIT 40.6 % (37-47); IG% 0.4 %; LYMPH % 29.1 %; LYMPH ABS # 1.66 K/uL (1.2-3.4); MEAN CELL VOLUME 84.6 fL (80-100); MEAN CORPUSCULAR HGB CONC 30.8 g/dl (32-36); MEAN PLATELET VOLUME 10.9 fL (7.4-10.4); MONO % 11.8 %; NEUT % 57.4 %; PLATELET COUNT 235 K/uL (130-400)
[2017-03-17 06:26] LABS: BUN/CREATININE RATIO 19.2 (10-20); CALCIUM 8.7 mg/dl (8.5-10.1); CREATININE 1.3 mg/dl (0.60-1.20); MAGNESIUM 1.7 mg/dl (1.8-2.4)
[2017-03-17] MEDS: INSULIN ASPART 100 UNITS/ML 3 ML PEN SC SCH ×4 (07:00→21:09)
[2017-03-17 07:24] VITALS: BP 130/87; PULSE 73; TEMP 36.3; O2SAT 96
[2017-03-17] MEDS: TRIAMCINOLONE ACET 0.1% CR 15 GM TUBE EXT SCH ×2 (08:09→21:00)
[2017-03-17] MEDS: HYDROCORTISONE HC 2.5% CRM 30GM TUBE EXT SCH ×2 (08:10→20:01)
[2017-03-17] MEDS: MAGNESIUM OXIDE 400 MG TAB PO SCH (08:12)
[2017-03-17] MEDS: ASPIRIN 81 MG ECTAB PO SCH (08:12)
[2017-03-17] MEDS: LOSARTAN POTASSIUM 25 MG TAB PO SCH (08:14)
[2017-03-17] MEDS: METOPROLOL SUCC 50MG EXT REL TAB PO SCH (08:14)
[2017-03-17] MEDS: ISOSORBIDE MONONITRATE 60 MG TABCR PO SCH (08:14)
[2017-03-17] MEDS: SERTRALINE HCL 50 MG TAB PO SCH (08:15)
[2017-03-17] MEDS: PANTOprazole INJ 40 MG in SYRINGE 0 ML IV SCH ×2 (08:16→21:08)
[2017-03-17] MEDS ORDERED: RIVAROXABAN TAB 15 MG TAB PO STA (09:19)
--- NOTE | 2017-03-17 10:27 | PROGRESS NOTE ---
DATE: 03/16/2017 CARDIOLOGY CONSULTATION FOLLOWUP NOTE The patient seen and examined. Chart, medications, telemetry reviewed. SUBJECTIVE: The patient is seen after return from thoracentesis with 850 mL removed from right pleural effusion. The patient feels improved almost immediately. Notes no chest pains or discomfort. Notes breathing has been easier since admission and overall diuresis. OBJECTIVE: VITAL SIGNS: Heart rate is 74, blood pressure is 110/56, O2 saturations are 94% on room air. NECK: Thin. There is no jugular venous distention. LUNGS: Reveal mildly diminished breath sounds at the right base, minimal crackles on the left. CARDIOVASCULAR: Regular. There is no S3 gallop. ABDOMEN: Soft, nontender. EXTREMITIES: Without cyanosis or clubbing. There is a 2+ lower extremity edema. LABORATORY DATA: Hemoglobin is 11.5, white cell count is 4.7, and platelet count is 218. Sodium is 139, potassium is 3.5, chloride is 102, bicarbonate is 30, BUN is 25, creatinine is 1.3, and magnesium level is 1.7. IMAGING DATA: Chest x-ray post-thoracentesis demonstrates improved aeration at the right base. IMPRESSION: A 66-year-old female with complex history of chronic systolic heart failure with acute decompensation manifesting this lower extremity edema and right pleural effusion, now status post right thoracentesis. PLAN: Continue IV diuretics with IV furosemide. Will supplement potassium and magnesium, continuing prehospitalization medications other than discontinuation of clopidogrel, Xarelto held due to concerns regarding possible GI bleed initially. Would consider restarting. Will follow patient in the hospital. [place]
--- NOTE | 2017-03-17 10:43 | Pulmonology Progress Note ---
Pulmonary Progress Note Date of Service Mar 17, 2017. Attending Subjective Patient seen and examined this morning. She is feeling much better since having thoracentesis. She denies any shortness of breath, chest pain or cough. Her dyspnea on exertion has also resolved. Objective VS this morning T 36.9, BP 116/77-130/87, P 68-73, RR 16-18, SaO2 94-96% on RA. General Appearance: NO APPARENT DISTRESS (laying flat on bed without any dyspnea) Head: ATRAUMATIC Eyes: PERRLA, NO DISCHARGE, EOMI, SCLERAE NORMAL ENT: NORMAL NASAL EXAM, NORMAL MOUTH EXAM, NORMAL THROAT EXAM Neck: NORMAL RANGE OF MOTION, NO TENDERNESS, TRACHEA MIDLINE, SUPPLE Respiratory: NO RESPIRATORY DISTRESS (Good air entry b/l .), NO TENDERNESS, rhonchi, other Cardiovasular: REGULAR RATE/RHYTHM, NORMAL S1S2, NORMAL PERIPHERAL PULSES Abdomen: NON TENDER, NORMAL BOWEL SOUNDS, NO REBOUND, NO MASSES Genitourinary - Female: EXTERNAL GENITALIA NORMAL Back: NORMAL INSPECTION Upper Extremities: NO EDEMA Edema: Bilateral LE (2+) Pulses: dorsalis pedis (R) (2+), dorsalis pedis (L) (2+) Neuro: ALERT, ORIENTED x 3, NORMAL MOTOR EXAM, NORMAL SENSATION, NORMAL SPEECH Psychiatric: NORMAL AFFECT, NO SUICIDAL IDEATION, CONTRACTS FOR SAFETY FINDINGS: There is no pneumothorax status post right thoracentesis. The right pleural effusion has significantly decreased in size. There is a small residual right pleural effusion. Right lower lung aeration is improved. Cardiomegaly is noted. There is no evidence of pulmonary edema. A left subclavian biventricular pacer/AICD is in place. IMPRESSION: 1. No pneumothorax following right thoracentesis. 2. Significant decrease in size of the right pleural effusion with improved right lower lung aeration. Liver US - 03/14/2017 1. Right pleural effusion. 2. Chronically contracted gallbladder with at least moderate wall thickening. 3. Normal caliber bile ducts. 4. Several right renal cysts/complex cyst. 5. Fatty infiltration of liver Chest Xray: 03/14/2017 IMPRESSION: Slight increase in size of a moderate right pleural effusion with extensive right basilar opacity which could reflect atelectasis or pneumonia. Radiographic follow-up to ensure resolution is recommended. Chest US: 03/14/2017 IMPRESSION: Large right pleural effusion with estimated volume of 1307 cc. A chest wall waldemar was not placed given insufficient window due to underlying lung. 03/01/2017 IMPRESSION: 1. Nearly occlusive deep venous thrombosis is seen in the left popliteal vein. 2. The remaining deep veins of the left lower extremity are clear. 3. There is no sonographic evidence of deep venous thrombosis identified in the right lower extremity. TTE 2016 The left ventricle is moderately dilated. There is global thinning of the left ventricular owen. Left ventricular systolic function is severely reduced. Ejection Fraction = 20-25%. The right ventricular systolic function is moderately reduced. The left atrium is moderately dilated. The right atrium is moderately dilated. There is moderate mitral regurgitation. There is moderate to severe tricuspid regurgitation. Pulmonary Hypertension is present with the estimated PA pressure being 65mm Hg Assessment & Plan Right Pleural effusion Systolic CHF DVT Elevated estimated PAP Patient is s/p thoracentesis on 03/16/2017 with removal of about 850cc of fluid. Pleural fluid show an transudative fluid, lymphocytic predominate fluid. This most likely is from her underlying CHF. However, would await official results of cytology and cultures which are still pending. From a pulmonary standpoint she is doing well. Her results can be followed up as an outpatient. Continue with Xarelto for DVT treatment. I appreciate the consult. Will sign off at this time. Please reconsult if you have any other questions or concerns. Data Medications: Current Inpatient Medications Medications (Trade) Dose Ordered Sig/Darby Route Start Time Stop Time Status Last Admin Dose Admin Acetaminophen (Tylenol Tab) 650 mg Q4H PRN PO 03/14/17 22:15 04/13/17 22:14 Al Hydrox/Mg Hydrox/Simethicone (Maalox Max Susp) 15 ml Q4H PRN PO 03/14/17 22:15 04/13/17 22:14 Magnesium Hydroxide (Milk Of Magnesia Susp) 30 ml Q12H PRN PO 03/14/17 22:15 04/13/17 22:14 Ondansetron HCl (Zofran Inj) 4 mg Q6H PRN IV 03/14/17 22:15 04/13/17 22:14 Albuterol (Ventolin Hfa Inhaler) 2 puffs Q4H PRN INH 03/14/17 22:15 04/13/17 22:14 Atorvastatin Calcium (Lipitor Tab) 80 mg HS PO 03/15/17 21:00 04/14/17 20:59 03/16/17 08:35 80 MG Hydrocortisone (Proctozone Hc 2.5% Crm) 1 appln BID EXT 03/15/17 09:00 04/14/17 08:59 03/15/17 08:49 1 APPLN Hydroxyzine HCl (Vistaril Tab) 12.5 mg Q8H PRN PO 03/14/17 22:15 04/13/17 22:14 Isosorbide Mononitrate (Imdur Ext Rel Tab) 60 mg QAM PO 03/15/17 09:00 04/14/17 08:59 03/17/17 08:14 60 MG Losartan Potassium (coZAAR TAB) 25 mg QAM PO 03/15/17 09:00 04/14/17 08:59 03/17/17 08:14 25 MG Metoprolol Succinate (Toprol Xl Tab) 50 mg QAM PO 03/15/17 09:00 04/14/17 08:59 03/17/17 08:14 50 MG Nitroglycerin (Nitrostat Tab) 0.4 mg PRN UT 03/14/17 22:15 04/13/17 22:14 Nystatin (Mycostatin Powder) 1 appln BID PRN EXT 03/14/17 22:15 04/13/17 22:14 Triamcinolone Acetonide (Kenalog 0.1% Cream) 1 appln BID EXT 03/15/17 09:00 04/14/17 08:59 03/15/17 08:48 1 APPLN Sertraline HCl (Zoloft Tab) 25 mg DAILY PO 03/15/17 09:00 04/14/17 08:59 03/17/17 08:15 25 MG Miscellaneous Information (Order Awaiting Action) 1 ea QS N/A 03/15/17 08:00 04/14/17 07:59 Insulin Aspart (novoLOG ASPART) SLIDING SCALE G... ACHS SC 03/15/17 07:00 04/14/17 06:59 03/16/17 20:18 1 UNITS Ceftriaxone Sodium 1 gm/ Dextrose 50 ml @ 100 mls/hr Q24H IV 03/15/17 02:00 03/25/17 01:59 03/17/17 01:52 100 MLS/HR Pantoprazole Sodium 40 mg/ Syringe 10 ml @ 5 mls/min Q12H IV 03/15/17 09:00 04/14/17 08:59 03/17/17 08:16 5 MLS/MIN Aspirin (Ecotrin Tab) 81 mg QAM PO 03/16/17 09:00 04/15/17 08:59 03/17/17 08:12 81 MG Furosemide 40 mg/ Syringe 4 ml @ 4 mls/min BID@0600,1400 IV 03/15/17 14:00 04/14/17 13:59 03/17/17 05:57 4 MLS/MIN Magnesium Oxide (Mag-Ox Tab) 400 mg QAM PO 03/17/17 09:00 04/16/17 08:59 03/17/17 08:12 400 MG Rivaroxaban (Xarelto Tab) 15 mg BID PO 03/17/17 21:00 04/16/17 20:59 Vital Signs: Date Time Temp Pulse Resp B/P (MAP) Pulse Ox O2 Delivery O2 Flow Rate FiO2 03/17/17 08:00 Room Air 03/17/17 07:24 36.3 73 18 130/87 (101) 96 Room Air 03/17/17 04:00 36.7 68 16 116/77 (90) 94 Room Air 03/17/17 04:00 Room Air 03/16/17 23:59 Room Air 03/16/17 23:59 36.3 78 20 112/74 (87) 93 Room Air 03/16/17 20:00 Room Air 03/16/17 19:29 36.2 67 22 135/84 (101) 93 Room Air 03/16/17 16:00 36.8 62 22 132/78 (96) 94 Room Air 03/16/17 16:00 Room Air 03/16/17 12:00 Room Air 03/16/17 11:45 36.8 74 18 110/56 (74) 95 Laboratory Results: Last 24 Hours Test 03/16/17 11:27 03/16/17 12:00 03/16/17 13:02 03/16/17 16:07 Bedside Glucose 174 mg/dl 149 mg/dl Pleural Fluid Source RIGHT LUNG Pleural Fluid Color YELLOW Pleural Fluid Appearance CLEAR Pleural Fluid WBC 121 /uL Pleural Fluid RBC < 3000 /uL Pleural Fluid pH 7.50 Pleural Fluid Polynuclear WBCs % 9.3 % Pleural Fluid Mononuclear WBCs % 90.7 % Pleural Fluid Total Protein 2.4 g/dl Pleural Fluid LDH 108 IU Pleural Fluid Glucose 173 mg/dl Pleural Fluid Amylase 9 U/L Total Bilirubin 1.2 mg/dl Lactate Dehydrogenase 304 U/L Total Protein 6.5 gm/dl Albumin 3.0 gm/dl Test 03/16/17 20:04 03/17/17 05:43 03/17/17 06:37 Bedside Glucose 169 mg/dl 135 mg/dl White Blood Count 5.70 K/uL Red Blood Count 4.80 M/uL Hemoglobin 12.5 g/dL Hematocrit 40.6 % Mean Corpuscular Volume 84.6 fL Mean Corpuscular Hemoglobin 26.0 pg Mean Corpuscular Hemoglobin Concent 30.8 g/dl Platelet Count 235 K/uL Mean Platelet Volume 10.9 fL Neutrophils (%) (Auto) 57.4 % Lymphocytes (%) (Auto) 29.1 % Monocytes (%) (Auto) 11.8 % Eosinophils (%) (Auto) 1.1 % Basophils (%) (Auto) 0.2 % Neutrophils # (Auto) 3.28 K/uL Lymphocytes # (Auto) 1.66 K/uL Monocytes # (Auto) 0.67 K/uL Eosinophils # (Auto) 0.06 K/uL Basophils # (Auto) 0.01 K/uL RDW Standard Deviation 51.3 fL RDW Coefficient of Variation 16.7 % Immature Granulocyte % (Auto) 0.4 % Immature Granulocyte # (Auto) 0.02 K/uL Sodium Level 138 mmol/L Potassium Level 4.0 mmol/L Chloride Level 101 mmol/L Carbon Dioxide Level 30 mmol/L Anion Gap 7.0 mmol/L Blood Urea Nitrogen 25 mg/dl Creatinine 1.30 mg/dl Est Creatinine Clear Calc Drug Dose 41.8 ml/min Estimated GFR () 49.5 Estimated GFR (Non- 42.7 BUN/Creatinine Ratio 19.2 Random Glucose 148 mg/dl Calcium Level 8.7 mg/dl Magnesium Level 1.7 mg/dl
--- NOTE | 2017-03-17 11:48 | PROGRESS NOTE ---
DATE: 03/17/2017 DATE: 03/17/2017. The patient seen and examined. Chart, medications, telemetry reviewed. SUBJECTIVE: The patient feels substantially improved once again today. Notes no dizziness or lightheadedness. Notes not tachypalpitations. Still has mild peripheral edema. Breathing is much easier than has been recent past per patient. OBJECTIVE: VITAL SIGNS: Heart rate is 73. Blood pressure is 130/87. I's and O's are notable for diuresis yesterday. Weight is down approximately 3 kilograms. I's and O's are loosely measured today. NECK: Thin. There is no jugular venous distention. LUNGS: Reveal diminished breath sounds at the right base but probably improved respiratory status. Clear air dougherty at the apices. CARDIOVASCULAR EXAMINATION: Regular, pacer site is without tenderness. ABDOMEN: Soft, nontender. EXTREMITIES: Reveal 1-2+ persistent lower extremity edema. LABORATORY DATA: White cell count is 5.7, hemoglobin 12.5. Sodium is 138, potassium is 4.0, chloride is 101, bicarbonate 30, BUN is 25, creatinine is 1.3 and stable. IMPRESSION: A 66-year-old female with issues as follows: 1. Acute on chronic decompensated systolic heart failure with right pleural effusion. 2. Improving clinical status, status post thoracentesis. 3. Concerns regarding possible gastrointestinal bleeding with stable hemoglobins and no overt change with planned continuing aspirin and Xarelto restarted today. RECOMMENDATIONS: Will continue IV furosemide an additional 24 hours. Reassess electrolytes and renal function in a.m. Continue other appropriate medical therapies which include Toprol-XL and losartan. Will follow patient in the hospital.
[2017-03-17 11:54] VITALS: BP 120/81; PULSE 70; TEMP 36.9; O2SAT 92
[2017-03-17 15:49] VITALS: BP 126/85; PULSE 78; TEMP 36.7; O2SAT 93
--- NOTE | 2017-03-17 16:08 | Progress Note ---
Internal Med Progress Note Date of Service: Mar 17, 2017. Provider Documentation: SUBJECTIVE: resting comfortably s/p thoracocentesis yesterday feeling better denies sob 'no chest pain' eating ok OBJECTIVE: Vital Signs-as noted below Exam: General-alert and oriented. Not in distress ENT-normal hearing Neck-no neck masses Lungs-cta b/l no wheezing or crackles Heart-s1 and s2 heard, regular rate and rhythm, no murmurs Abdomen-soft bowel sounds present non tender no distension Extremities-no edema no erythema Neuro-alert and oriented moves extremities Lab data as noted below. ASSESSMENT & PLAN: GI bleed? Staff noticed small amounts of blood in her stools. present with hgb 12.2 on admission INR was 2.1 on admission U/S of liver showed Right pleural effusion.Chronically contracted gallbladder with at least moderate wall thickening. Fatty liver infiltration GI consulted and no indication for inpatient EGD due to poor candidate for sedation GI planning for colonoscopy as an outpatient If bleeding continues, consider IVC filter placement no more bleeding hb stable Acute on chronic systolic CHF Recent 2D echo with EF 20-25% On Lasix 40mg IV BID cardiology on board continue same for now diuretics as per cardiology Right Pleural Effusion CXR showed slight increase in size of a moderate right pleural effusion Chest U/S showed large right pleural effusion with estimated volume of 1307 cc Pulmonary on board s/p thoracocentesis yesterday with 850ml out- to f/u cytology DVT Recently diagnosed in the last admission Xarelto has been held due to GI bleed? No active episode of GI bleed since admitted Plavix is discontinued Xarelto is restarted today DM II HBA1C was 8.3 on 12/24/16 Holding glipizide for now ISS, Monitor BS HTN Continue home meds Monitor CAD s/p Stent On aspirin, statin and BB Plavix discontinued stable COPD Stable No SOB and or cough/wheezing DVT Px scds DISPOSITION pt/ot to be determined Vital Signs: Date Time Temp Pulse Resp B/P (MAP) Pulse Ox O2 Delivery O2 Flow Rate FiO2 03/17/17 12:00 Room Air 03/17/17 11:54 36.9 70 17 120/81 (94) 92 Room Air 03/17/17 08:00 Room Air 03/17/17 07:24 36.3 73 18 130/87 (101) 96 Room Air 03/17/17 04:00 36.7 68 16 116/77 (90) 94 Room Air 03/17/17 04:00 Room Air 03/16/17 23:59 Room Air 03/16/17 23:59 36.3 78 20 112/74 (87) 93 Room Air 03/16/17 20:00 Room Air 03/16/17 19:29 36.2 67 22 135/84 (101) 93 Room Air 03/16/17 16:00 36.8 62 22 132/78 (96) 94 Room Air 03/16/17 16:00 Room Air Lab Results: Results Past 24 Hours Test 03/16/17 16:07 03/16/17 20:04 03/17/17 05:43 03/17/17 06:37 Range/Units Bedside Glucose 149 169 135 70-90 mg/dl White Blood Count 5.70 4.8-10.8 K/uL Red Blood Count 4.80 4.2-5.4 M/uL Hemoglobin 12.5 12.0-16.0 g/dL Hematocrit 40.6 37-47 % Mean Corpuscular Volume 84.6 80-100 fL Mean Corpuscular Hemoglobin 26.0 25-34 pg Mean Corpuscular Hemoglobin Concent 30.8 32-36 g/dl Platelet Count 235 130-400 K/uL Mean Platelet Volume 10.9 7.4-10.4 fL Neutrophils (%) (Auto) 57.4 % Lymphocytes (%) (Auto) 29.1 % Monocytes (%) (Auto) 11.8 % Eosinophils (%) (Auto) 1.1 % Basophils (%) (Auto) 0.2 % Neutrophils # (Auto) 3.28 1.4-6.5 K/uL Lymphocytes # (Auto) 1.66 1.2-3.4 K/uL Monocytes # (Auto) 0.67 0.11-0.59 K/uL Eosinophils # (Auto) 0.06 0-0.5 K/uL Basophils # (Auto) 0.01 0-0.2 K/uL RDW Standard Deviation 51.3 36.4-46.3 fL RDW Coefficient of Variation 16.7 11.5-14.5 % Immature Granulocyte % (Auto) 0.4 % Immature Granulocyte # (Auto) 0.02 0.00-0.02 K/uL Sodium Level 138 136-145 mmol/L Potassium Level 4.0 3.5-5.1 mmol/L Chloride Level 101 98-107 mmol/L Carbon Dioxide Level 30 21-32 mmol/L Anion Gap 7.0 3-11 mmol/L Blood Urea Nitrogen 25 7-18 mg/dl Creatinine 1.30 0.60-1.20 mg/dl Est Creatinine Clear Calc Drug Dose 41.8 ml/min Estimated GFR () 49.5 Estimated GFR (Non- 42.7 BUN/Creatinine Ratio 19.2 10-20 Random Glucose 148 70-99 mg/dl Calcium Level 8.7 8.5-10.1 mg/dl Magnesium Level 1.7 1.8-2.4 mg/dl Test 03/17/17 11:21 Range/Units Bedside Glucose 221 70-90 mg/dl
[2017-03-17 20:08] VITALS: BP 125/82; PULSE 71; TEMP 37.1; O2SAT 94
[2017-03-17] MEDS: RIVAROXABAN TAB 15 MG TAB PO SCH (21:08)
[2017-03-17] MEDS: ATORVASTATIN 40 MG TAB PO SCH (21:08)
[2017-03-17 22:46] VITALS: BP 118/81; PULSE 69; TEMP 36.7; O2SAT 95
[2017-03-18] MEDS: CEFTRIAXONE SOD INJ 1 GM in DEXTROSE 5% ADD-VANTAGE 50ML 50 ML IV SCH (02:11)
[2017-03-18 03:16] VITALS: BP 123/85; PULSE 61; TEMP 36.6; O2SAT 94
[2017-03-18] MEDS: FUROSEMIDE INJ 40 MG in SYRINGE 0 ML IV SCH ×2 (06:26→13:36)
[2017-03-18 06:56] VITALS: BP 125/80; PULSE 75; TEMP 36.6; O2SAT 94
[2017-03-18] MEDS: ISOSORBIDE MONONITRATE 60 MG TABCR PO SCH (07:48)
[2017-03-18] MEDS: ASPIRIN 81 MG ECTAB PO SCH (07:49)
[2017-03-18] MEDS: PANTOprazole INJ 40 MG in SYRINGE 0 ML IV SCH ×2 (07:49→21:01)
[2017-03-18] MEDS: LOSARTAN POTASSIUM 25 MG TAB PO SCH (07:49)
[2017-03-18] MEDS: METOPROLOL SUCC 50MG EXT REL TAB PO SCH (07:50)
[2017-03-18] MEDS: RIVAROXABAN TAB 15 MG TAB PO SCH ×2 (07:50→21:02)
[2017-03-18] MEDS: MAGNESIUM OXIDE 400 MG TAB PO SCH (07:50)
[2017-03-18] MEDS: SERTRALINE HCL 50 MG TAB PO SCH (07:50)
[2017-03-18] MEDS: TRIAMCINOLONE ACET 0.1% CR 15 GM TUBE EXT SCH ×2 (07:52→20:59)
[2017-03-18] MEDS: INSULIN ASPART 100 UNITS/ML 3 ML PEN SC SCH ×4 (07:54→21:00)
[2017-03-18] MEDS: HYDROCORTISONE HC 2.5% CRM 30GM TUBE EXT SCH ×2 (07:54→21:00)
[2017-03-18 08:00] LABS: BASO % 0.3 %; BASO ABS # 0.02 K/uL (0-0.2); COMPLETE YES; EOS % 1.4 %; HEMATOCRIT 40.2 % (37-47); IG% 0.2 %; LYMPH % 26.9 %; LYMPH ABS # 1.74 K/uL (1.2-3.4); MEAN CORPUSCULAR HEMOGLOBIN 27.5 pg (25-34); MEAN CORPUSCULAR HGB CONC 32.3 g/dl (32-36); MEAN PLATELET VOLUME 11.1 fL (7.4-10.4); MONO % 10.1 %; NEUT % 61.1 %; PLATELET COUNT 242 K/uL (130-400); RED BLOOD COUNT 4.73 M/uL (4.2-5.4); WHITE BLOOD COUNT 6.46 K/uL (4.8-10.8)
[2017-03-18 08:31] LABS: BUN/CREATININE RATIO 17.6 (10-20); CALCIUM 9.2 mg/dl (8.5-10.1); CREATININE 1.3 mg/dl (0.60-1.20)
[2017-03-18 10:05] VITALS: BP 128/85; PULSE 75; O2SAT 94
--- NOTE | 2017-03-18 10:11 | Cardiology Follow-Up ---
Subjective General Date of Service: Mar 18, 2017. Chief Complaint: Edema Pt evaluation today including: conversation w/ patient, physical exam, chart review, lab review, review of studies, review of inpatient medication list History of Present Illness Patient seen and examined. Feels better. Improved dyspnea and peripheral edema Denies chest pain, cough, palpitations, orthopnea, PND, dizziness, lightheadedness, near syncope, fevers, chills, or dysuria. Telemetry: Predominately atrial sensed ventricular paced. Intermittent atrial pacing. Short runs of VPC's. Allergies Coded Allergies: Sulfamethoxazole (Verified Allergy, Unknown, 03/01/17) Prednisone (Verified Adverse Reaction, Unknown, "makes me weird", 03/01/17) pt Social History Smoking Status: Never Smoker Hx Tobacco Use In Past Year?: No Hx Alcohol Use - Type And Amou: Yes (OCCASIONALLY) Hx Substance Use - Type And Am: No Problem List Medical Problems: (1) Acute chest pain Status: Acute (2) Acute GI bleeding Status: Acute (3) CHF (congestive heart failure) Status: Acute (4) Congestive heart failure Status: Acute (5) Dehydration Status: Acute (6) Dry skin dermatitis Status: Acute (7) Dyspnea Status: Acute (8) Elevated troponin Status: Acute (9) Noncompliance with medications Status: Acute (10) Obesity Status: Acute (11) Peripheral edema Status: Acute (12) Peripheral edema Status: Acute (13) Pleural effusion on right Status: Acute Physical Exam Vital Signs Last Vital Signs Documentation Date Time Temp Pulse Resp B/P (MAP) Pulse Ox O2 Delivery O2 Flow Rate FiO2 03/18/17 08:00 Room Air 03/18/17 06:56 36.6 75 17 125/80 (95) 94 Physical Exam Constitutional: General Apperance: overweight Level of Distress: NAD Ambulation: ambulating normally Psychiatric: Mental Status: active & alert, abnormal affect Orientation: to place, to person, not oriented to time Memory: recent memory normal, remote memory normal Head: normocephalic Neck: pertinent finding (No overt JVD) Lungs: Respiratory effort: no dyspnea Auscultation: no wheezing, no rhonchi, decreased breath sounds (at the right base. ), rales/crackles on the right Cardiovascular: Heart Auscultation: RRR, normal S1, normal S2, II/ TANVIR Peripheral Pulses: Dorsalis Pedis Pulse: normal on the left, normal on the right Abdomen: Bowel Sounds: normal Inspection & Palpation: soft Extremities: no cyanosis, no clubbing, edema Neurologic: Cranial Nerves: grossly intact Assessment and Plan Assessment and Plan Complex 66 year old female with acute on chronic decompensated systolic heart failure with associated pleural effusion status post right thoracentesis. Volume status this morning appears normovolemic to minimally hypervolemic. Will continue IV furosemide today, changing to oral furosemide in the AM of 03/19. Clopidogrel discontinued this admission with no plans to resume. She should remain on ASA, Losartan, statin, and Toprol XL with beta-shira dose to be increased as BP allows given observed ectopy. Note: Xarelto prescribed for the left lower extremity deep venous thrombosis observed on 03/01/2017 (CrCl 52.82 mL/ min (66 y/od F/Cr 1.3/Wt 78.6 kg)). Increase activity as tolerated. Patient seen and examined. Feels improved but with residual lower extremity edema. Plan as above add compression stockings Jesús Ojeda MD Laboratory Results Last 24 Hours Test 03/17/17 11:21 03/17/17 16:22 03/17/17 20:22 03/18/17 06:30 Bedside Glucose 221 mg/dl 264 mg/dl 205 mg/dl 124 mg/dl Test 03/18/17 07:44 White Blood Count 6.46 K/uL Red Blood Count 4.73 M/uL Hemoglobin 13.0 g/dL Hematocrit 40.2 % Mean Corpuscular Volume 85.0 fL Mean Corpuscular Hemoglobin 27.5 pg Mean Corpuscular Hemoglobin Concent 32.3 g/dl Platelet Count 242 K/uL Mean Platelet Volume 11.1 fL Neutrophils (%) (Auto) 61.1 % Lymphocytes (%) (Auto) 26.9 % Monocytes (%) (Auto) 10.1 % Eosinophils (%) (Auto) 1.4 % Basophils (%) (Auto) 0.3 % Neutrophils # (Auto) 3.95 K/uL Lymphocytes # (Auto) 1.74 K/uL Monocytes # (Auto) 0.65 K/uL Eosinophils # (Auto) 0.09 K/uL Basophils # (Auto) 0.02 K/uL RDW Standard Deviation 51.5 fL RDW Coefficient of Variation 16.6 % Immature Granulocyte % (Auto) 0.2 % Immature Granulocyte # (Auto) 0.01 K/uL Nucleated RBC Absolute Count (auto) 0.05 K/uL Nucleated Red Blood Cells % 0.8 % Sodium Level 138 mmol/L Potassium Level 4.0 mmol/L Chloride Level 99 mmol/L Carbon Dioxide Level 33 mmol/L Anion Gap 6.0 mmol/L Blood Urea Nitrogen 23 mg/dl Creatinine 1.30 mg/dl Est Creatinine Clear Calc Drug Dose 40.4 ml/min Estimated GFR () 49.5 Estimated GFR (Non- 42.7 BUN/Creatinine Ratio 17.6 Random Glucose 141 mg/dl Calcium Level 9.2 mg/dl
[2017-03-18 10:28] VITALS: BP 121/78; PULSE 73; TEMP 37; O2SAT 98
--- NOTE | 2017-03-18 12:33 | Clinical Documentation Query ---
CLINICAL DOCUMENTATION QUERY 66-y/o female who presents with reports of bloody stools. In your clinical opinion is this patient being managed for: ( ) Xarelto induced GI bleed treated with Vitamin K and DC of anticoagualtion. (X ) Other explanation of clinical findings (Please Explain) Possible GI bleed in the setting of Anticoagulation with Xarelto ( ) Unable to determine (Please Define) ( ) Need to Discuss ( ) Not Agree The medical record reflects the following clinical findings, treatment, and risk factors. Clinical Indicators: Melena, GI bleed, Anemia (Hgb 1.5/Hct 36.3) Treatment: Xarelto DCed, serial INR's, Vitamin K, Plavix DCed, Vascular consult for IVC filter Risk Factors: Age, Xarelto therapy Please clarify and document your clinical opinion in the progress notes and discharge summary. Terms such as "probable", "suspected", "likely", "questionable", "possible", or "still to be ruled out" are acceptable. IF IN AGREEMENT, YOU MUST DOCUMENT ABOVE DIAGNOSTIC STATEMENT IN DAILY PROGRESS NOTES AND DISCHARGE SUMMARY. This document is not part of the patient's record. Thank You, Estrada Urrutia, RN [phone]
--- NOTE | 2017-03-18 14:53 | Progress Note ---
Internal Med Progress Note Date of Service: Mar 18, 2017. Provider Documentation: SUBJECTIVE: ambulating fine in room sob much improved after thoracocentesis afebrile denies pain still has lower extremity edema OBJECTIVE: Vital Signs-as noted below Exam: General-alert and oriented. Not in distress ENT-normal hearing Neck-no neck masses Lungs-cta b/l no wheezing or crackles Heart-s1 and s2 heard, regular rate and rhythm, no murmurs Abdomen-soft bowel sounds present non tender no distension Extremities-lower extremity edema present no erythema Neuro-alert and oriented moves extremities Lab data as noted below. ASSESSMENT & PLAN: 66F presented with Gi bleed who was recently started on xarelto for DVT GI bleed? Staff noticed small amounts of blood in her stools. present with hgb 12.2 on admission INR was 2.1 on admission U/S of liver showed Right pleural effusion.Chronically contracted gallbladder with at least moderate wall thickening. Fatty liver infiltration GI consulted and no indication for inpatient EGD due to poor candidate for sedation GI planning for colonoscopy as an outpatient If bleeding continues, consider IVC filter placement no more bleeding Plavix stopped. Aspirin to be continued xarelto restarted hb stable Acute on chronic systolic CHF Recent 2D echo with EF 20-25% On Lasix 40mg IV BID cardiology on board continue same for now to change to po Lasix in am diuretics as per cardiology Right Pleural Effusion CXR showed slight increase in size of a moderate right pleural effusion Chest U/S showed large right pleural effusion with estimated volume of 1307 cc Pulmonary on board s/p thoracocentesis with 850ml out- to f/u cytology DVT Recently diagnosed in the last admission Xarelto has been held due to GI bleed? No active episode of GI bleed since admitted Plavix is discontinued Xarelto is restarted 03/17/17 DM II HBA1C was 8.3 on 12/24/16 Holding glipizide for now ISS, Monitor BS HTN Continue home meds Monitor CAD s/p Stent On aspirin, statin and BB Plavix discontinued stable COPD Stable No SOB and or cough/wheezing DVT Px scds DISPOSITION pt/ot to be determined social service for d/c planning Vital Signs: Date Time Temp Pulse Resp B/P (MAP) Pulse Ox O2 Delivery O2 Flow Rate FiO2 03/18/17 12:00 Room Air 03/18/17 10:28 37.0 73 19 121/78 (92) 98 Room Air 03/18/17 10:05 75 94 03/18/17 08:00 Room Air 03/18/17 06:56 36.6 75 17 125/80 (95) 94 Room Air 03/18/17 04:10 Room Air 03/18/17 03:16 36.6 61 16 123/85 (98) 94 Room Air 03/18/17 00:10 Room Air 03/17/17 22:46 36.7 69 18 118/81 (93) 95 Room Air 03/17/17 20:08 37.1 71 16 125/82 (96) 94 Room Air 03/17/17 20:00 Room Air 03/17/17 16:00 Room Air 03/17/17 15:49 36.7 78 21 126/85 (99) 93 Room Air Lab Results: Results Past 24 Hours Test 03/17/17 16:22 03/17/17 20:22 03/18/17 06:30 03/18/17 07:44 Range/Units Bedside Glucose 264 205 124 70-90 mg/dl White Blood Count 6.46 4.8-10.8 K/uL Red Blood Count 4.73 4.2-5.4 M/uL Hemoglobin 13.0 12.0-16.0 g/dL Hematocrit 40.2 37-47 % Mean Corpuscular Volume 85.0 80-100 fL Mean Corpuscular Hemoglobin 27.5 25-34 pg Mean Corpuscular Hemoglobin Concent 32.3 32-36 g/dl Platelet Count 242 130-400 K/uL Mean Platelet Volume 11.1 7.4-10.4 fL Neutrophils (%) (Auto) 61.1 % Lymphocytes (%) (Auto) 26.9 % Monocytes (%) (Auto) 10.1 % Eosinophils (%) (Auto) 1.4 % Basophils (%) (Auto) 0.3 % Neutrophils # (Auto) 3.95 1.4-6.5 K/uL Lymphocytes # (Auto) 1.74 1.2-3.4 K/uL Monocytes # (Auto) 0.65 0.11-0.59 K/uL Eosinophils # (Auto) 0.09 0-0.5 K/uL Basophils # (Auto) 0.02 0-0.2 K/uL RDW Standard Deviation 51.5 36.4-46.3 fL RDW Coefficient of Variation 16.6 11.5-14.5 % Immature Granulocyte % (Auto) 0.2 % Immature Granulocyte # (Auto) 0.01 0.00-0.02 K/uL Nucleated RBC Absolute Count (auto) 0.05 0-0 K/uL Nucleated Red Blood Cells % 0.8 % Sodium Level 138 136-145 mmol/L Potassium Level 4.0 3.5-5.1 mmol/L Chloride Level 99 98-107 mmol/L Carbon Dioxide Level 33 21-32 mmol/L Anion Gap 6.0 3-11 mmol/L Blood Urea Nitrogen 23 7-18 mg/dl Creatinine 1.30 0.60-1.20 mg/dl Est Creatinine Clear Calc Drug Dose 40.4 ml/min Estimated GFR () 49.5 Estimated GFR (Non- 42.7 BUN/Creatinine Ratio 17.6 10-20 Random Glucose 141 70-99 mg/dl Calcium Level 9.2 8.5-10.1 mg/dl Test 03/18/17 11:45 Range/Units Bedside Glucose 189 70-90 mg/dl
[2017-03-18 15:23] VITALS: BP 123/77; PULSE 73; TEMP 36.4; O2SAT 94
[2017-03-18 19:01] VITALS: BP 117/73; PULSE 70; TEMP 37.3; O2SAT 96
[2017-03-18] MEDS: ATORVASTATIN 40 MG TAB PO SCH (21:01)
[2017-03-19] VITALS (7 sets, daily range): BP systolic 124–134; BP diastolic 66–88; PULSE 70–76; TEMP 36.6–37; O2SAT 92–96
[2017-03-19] MEDS: CEFTRIAXONE SOD INJ 1 GM in DEXTROSE 5% ADD-VANTAGE 50ML 50 ML IV SCH (02:00)
[2017-03-19] MEDS: ASPIRIN 81 MG ECTAB PO SCH (08:33)
[2017-03-19] MEDS: ISOSORBIDE MONONITRATE 60 MG TABCR PO SCH (08:33)
[2017-03-19] MEDS: RIVAROXABAN TAB 15 MG TAB PO SCH ×2 (08:34→20:37)
[2017-03-19] MEDS: SERTRALINE HCL 50 MG TAB PO SCH (08:34)
[2017-03-19] MEDS: METOPROLOL SUCC 25MG EXT REL TAB PO SCH (08:35)
[2017-03-19] MEDS: PANTOprazole INJ 40 MG in SYRINGE 0 ML IV SCH ×2 (08:35→20:37)
[2017-03-19] MEDS: FUROSEMIDE 40 MG TAB PO SCH ×2 (08:36→18:04)
[2017-03-19] MEDS: MAGNESIUM OXIDE 400 MG TAB PO SCH (08:36)
[2017-03-19] MEDS: HYDROCORTISONE HC 2.5% CRM 30GM TUBE EXT SCH ×2 (08:37→20:37)
[2017-03-19] MEDS: TRIAMCINOLONE ACET 0.1% CR 15 GM TUBE EXT SCH ×2 (08:37→20:36)
[2017-03-19] MEDS: LOSARTAN POTASSIUM 25 MG TAB PO SCH (08:39)
[2017-03-19] MEDS: INSULIN ASPART 100 UNITS/ML 3 ML PEN SC SCH ×4 (09:00→20:40)
--- NOTE | 2017-03-19 10:17 | Progress Note ---
Medicine Progress Note Date & Time of Visit: Mar 19, 2017 at 10:17. Subjective patient seen resting in bed, comfortable states she feels improved compared to yesterday denies dyspnea, chest pain, dizziness denies abdominal pain ,nausea no other symptoms Objective Last 8 Hrs Date Time Temp Pulse Resp B/P (MAP) Pulse Ox O2 Delivery O2 Flow Rate FiO2 03/19/17 07:57 36.8 76 18 124/66 (85) 95 03/19/17 04:00 Room Air 03/19/17 03:12 36.7 72 18 128/81 (97) 92 Room Air Physical Exam: General- oriented x 3, not in distress, speaks in sentences with no effort Head- atraumatic Eyes-EOMI, anicteric Neck- supple, no JVD Lungs- clear breath sounds bilaterally, no rales/wheezes Heart- regular rhythm; no murmur, normal rate Abdomen- normal bowel sounds, soft, nontender Extremities- grade 1 lower leg edema, no erythema/warmth/tenderness Neuro- alert, oriented x 3; no gross deficits Skin- warm & dry Laboratory Results: Last 24 Hours Test 03/18/17 11:45 03/18/17 16:19 03/18/17 20:04 03/19/17 06:38 Bedside Glucose 189 mg/dl 250 mg/dl 189 mg/dl 156 mg/dl Assessment & Plan 66F presented with Gi bleed who was recently started on xarelto for DVT POSSIBLE UPPER GI BLEED IN THE SETTING OF ANTICOAGULATION WITH XARELTO Staff noticed small amounts of blood in her stools. present with hgb 12.2 on admission INR was 2.1 on admission U/S of liver showed Right pleural effusion.Chronically contracted gallbladder with at least moderate wall thickening. Fatty liver infiltration GI consulted and no indication for inpatient EGD due to poor candidate for sedation, possible outpatient colonoscopy -- Plavix discontinued Aspirin and Xarelto restarted -- no signs of recurrence Hg stable ACUTE ON CHRONIC SYSTOLIC CHF Recent 2D echo with EF 20-25% -- Cardiology consulted given Lasix 40mg IV, transitioned to 40mg PO BID -- appears compensated now monitor appreciate Cardio input RIGHT PLEURAL EFFUSION CXR showed slight increase in size of a moderate right pleural effusion Chest U/S showed large right pleural effusion with estimated volume of 1307 cc Pulmonary consulted s/p thoracocentesis with 850ml -- transudative fluid, no malignant cells seen DVT Recently diagnosed in the last admission -- Xarelto restarted DM II HBA1C was 8.3 on 12/24/16 usually on Glipizide ISS, Monitor BS HTN stable CAD s/p Stent On aspirin, statin and BB Plavix discontinued COPD Stable DVT Px on Xarelto DISPOSITION possible d/c to [facility] tomorrow when cleared by Furn[employer]: Cardio Pulmonary GI Current Inpatient Medications: Current Inpatient Medications Medications (Trade) Dose Ordered Sig/Darby Route Start Time Stop Time Status Last Admin Dose Admin Acetaminophen (Tylenol Tab) 650 mg Q4H PRN PO 03/14/17 22:15 04/13/17 22:14 Al Hydrox/Mg Hydrox/Simethicone (Maalox Max Susp) 15 ml Q4H PRN PO 03/14/17 22:15 04/13/17 22:14 Magnesium Hydroxide (Milk Of Magnesia Susp) 30 ml Q12H PRN PO 03/14/17 22:15 04/13/17 22:14 Ondansetron HCl (Zofran Inj) 4 mg Q6H PRN IV 03/14/17 22:15 04/13/17 22:14 Albuterol (Ventolin Hfa Inhaler) 2 puffs Q4H PRN INH 03/14/17 22:15 04/13/17 22:14 Atorvastatin Calcium (Lipitor Tab) 80 mg HS PO 03/15/17 21:00 04/14/17 20:59 03/18/17 21:01 80 MG Hydrocortisone (Proctozone Hc 2.5% Crm) 1 appln BID EXT 03/15/17 09:00 04/14/17 08:59 03/19/17 08:37 1 APPLN Hydroxyzine HCl (Vistaril Tab) 12.5 mg Q8H PRN PO 03/14/17 22:15 04/13/17 22:14 Isosorbide Mononitrate (Imdur Ext Rel Tab) 60 mg QAM PO 03/15/17 09:00 04/14/17 08:59 03/19/17 08:33 60 MG Losartan Potassium (coZAAR TAB) 25 mg QAM PO 03/15/17 09:00 04/14/17 08:59 03/19/17 08:39 25 MG Nitroglycerin (Nitrostat Tab) 0.4 mg PRN UT 03/14/17 22:15 04/13/17 22:14 Nystatin (Mycostatin Powder) 1 appln BID PRN EXT 03/14/17 22:15 04/13/17 22:14 Triamcinolone Acetonide (Kenalog 0.1% Cream) 1 appln BID EXT 03/15/17 09:00 04/14/17 08:59 03/19/17 08:37 1 APPLN Sertraline HCl (Zoloft Tab) 25 mg DAILY PO 03/15/17 09:00 04/14/17 08:59 03/19/17 08:34 25 MG Miscellaneous Information (Order Awaiting Action) 1 ea QS N/A 03/15/17 08:00 04/14/17 07:59 Insulin Aspart (novoLOG ASPART) SLIDING SCALE G... ACHS SC 03/15/17 07:00 04/14/17 06:59 03/18/17 21:00 2 UNITS Pantoprazole Sodium 40 mg/ Syringe 10 ml @ 5 mls/min Q12H IV 03/15/17 09:00 04/14/17 08:59 03/19/17 08:35 5 MLS/MIN Aspirin (Ecotrin Tab) 81 mg QAM PO 03/16/17 09:00 04/15/17 08:59 03/19/17 08:33 81 MG Magnesium Oxide (Mag-Ox Tab) 400 mg QAM PO 03/17/17 09:00 04/16/17 08:59 03/19/17 08:36 400 MG Rivaroxaban (Xarelto Tab) 15 mg BID PO 03/17/17 21:00 04/16/17 20:59 03/19/17 08:34 15 MG Metoprolol Succinate (Toprol Xl Tab) 75 mg QAM PO 03/19/17 09:00 04/14/17 08:59 03/19/17 08:35 75 MG Furosemide (Lasix Tab) 40 mg BID17 PO 03/19/17 09:00 04/18/17 08:59 03/19/17 08:36 40 MG
--- NOTE | 2017-03-19 10:49 | Cardiology Follow-Up ---
Subjective General Date of Service: Mar 19, 2017. Chief Complaint: Edema Pt evaluation today including: conversation w/ patient, physical exam, chart review, lab review, review of studies, review of inpatient medication list History of Present Illness Patient seen and examined. Stable mild peripheral edema; to be fitted for compression stockings today. No resting or nocturnal dyspnea. No chest pain. No palpitations. Upset about having to return to [facility] though she realizes she cannot care for herself at home. Telemetry: Predominately atrial sensed ventricular paced. Intermittent atrial pacing. Short runs of VPC's. Allergies Coded Allergies: Sulfamethoxazole (Verified Allergy, Unknown, 03/01/17) Prednisone (Verified Adverse Reaction, Unknown, "makes me weird", 03/01/17) pt Social History Smoking Status: Never Smoker Hx Tobacco Use In Past Year?: No Hx Alcohol Use - Type And Amou: Yes (OCCASIONALLY) Hx Substance Use - Type And Am: No Problem List Medical Problems: (1) Acute chest pain Status: Acute (2) Acute GI bleeding Status: Acute (3) CHF (congestive heart failure) Status: Acute (4) Congestive heart failure Status: Acute (5) Dehydration Status: Acute (6) Dry skin dermatitis Status: Acute (7) Dyspnea Status: Acute (8) Elevated troponin Status: Acute (9) Noncompliance with medications Status: Acute (10) Obesity Status: Acute (11) Peripheral edema Status: Acute (12) Peripheral edema Status: Acute (13) Pleural effusion on right Status: Acute Physical Exam Vital Signs Last Vital Signs Documentation Date Time Temp Pulse Resp B/P (MAP) Pulse Ox O2 Delivery O2 Flow Rate FiO2 03/19/17 07:57 36.8 76 18 124/66 (85) 95 03/19/17 04:00 Room Air Physical Exam Constitutional: General Apperance: overweight Level of Distress: NAD Ambulation: ambulating normally Psychiatric: Mental Status: active & alert, abnormal affect Orientation: to place, to person, not oriented to time Memory: recent memory normal, remote memory normal Head: normocephalic Neck: pertinent finding (No overt JVD) Lungs: Respiratory effort: no dyspnea Auscultation: no wheezing, no rhonchi, decreased breath sounds (at the right base. ), rales/crackles on the right Cardiovascular: Heart Auscultation: RRR, normal S1, normal S2, II/ TANVIR Peripheral Pulses: Dorsalis Pedis Pulse: normal on the left, normal on the right Abdomen: Bowel Sounds: normal Inspection & Palpation: soft Extremities: no cyanosis, no clubbing, edema (Trace to 1+ edema) Neurologic: Cranial Nerves: grossly intact Assessment and Plan Assessment and Plan Complex 66 year old female with acute on chronic decompensated systolic heart failure with associated pleural effusion status post right thoracentesis. Volume status this morning appears normovolemic to minimally hypervolemic; metabolic panel pending. IV furosemide changed to oral this morning with dosage increased from 40 mg/day to 40 mg twice a day. She should remain on ASA, Losartan, statin, and Toprol XL with beta-shira dosing increased to 75 mg/day this admission. Xarelto prescribed for the left lower extremity deep venous thrombosis observed on 03/01/2017. Clopidogrel discontinued this admission with no plans to resume. Increase activity as tolerated. Patient seen and examined. Diuretics adjusted as above. Jesús Ojeda MD Laboratory Results Last 24 Hours Test 03/18/17 11:45 03/18/17 16:19 03/18/17 20:04 03/19/17 06:38 Bedside Glucose 189 mg/dl 250 mg/dl 189 mg/dl 156 mg/dl Test 03/19/17 10:32
[2017-03-19 13:16] LABS: BUN/CREATININE RATIO 20.5 (10-20); CALCIUM 8.9 mg/dl (8.5-10.1); POTASSIUM 3.6 mmol/L (3.5-5.1)
[2017-03-19] MEDS: ATORVASTATIN 40 MG TAB PO SCH (20:37)
[2017-03-20 03:14] VITALS: BP 147/82; PULSE 71; TEMP 36.6; O2SAT 96
[2017-03-20] MEDS: INSULIN ASPART 100 UNITS/ML 3 ML PEN SC SCH ×2 (07:00→11:55)
[2017-03-20 07:59] VITALS: BP 125/84; PULSE 78; TEMP 37; O2SAT 94
[2017-03-20] MEDS: RIVAROXABAN TAB 15 MG TAB PO SCH (08:14)
[2017-03-20] MEDS: METOPROLOL SUCC 25MG EXT REL TAB PO SCH (08:14)
[2017-03-20] MEDS: MAGNESIUM OXIDE 400 MG TAB PO SCH (08:15)
[2017-03-20] MEDS: ASPIRIN 81 MG ECTAB PO SCH (08:15)
[2017-03-20] MEDS: FUROSEMIDE 40 MG TAB PO SCH (08:15)
[2017-03-20] MEDS: SERTRALINE HCL 50 MG TAB PO SCH (08:15)
[2017-03-20] MEDS: ISOSORBIDE MONONITRATE 60 MG TABCR PO SCH (08:15)
[2017-03-20] MEDS: LOSARTAN POTASSIUM 25 MG TAB PO SCH (08:15)
[2017-03-20] MEDS: HYDROCORTISONE HC 2.5% CRM 30GM TUBE EXT SCH (08:16)
[2017-03-20] MEDS: TRIAMCINOLONE ACET 0.1% CR 15 GM TUBE EXT SCH (08:16)
[2017-03-20] MEDS: PANTOprazole INJ 40 MG in SYRINGE 0 ML IV SCH (08:16)
--- NOTE | 2017-03-20 10:01 | Cardiology Follow-Up ---
Subjective General Date of Service: Mar 20, 2017. Chief Complaint: Edema Pt evaluation today including: conversation w/ patient, physical exam, chart review, lab review, review of studies, review of inpatient medication list History of Present Illness Patient seen and examined. Notes improvement in edema today (appears unchanged to the undersigned). No chest pain. No palpitations. No resting or nocturnal dyspnea. I/O's negative 1,530 mL's overall (appears inaccurate) with weight down 7.5 kg since admission. Telemetry: Atrial sensed ventricular paced. Intermittent atrial pacing. No further short runs of VPC's since titration of Toprol XL. Allergies Coded Allergies: Sulfamethoxazole (Verified Allergy, Unknown, 03/01/17) Prednisone (Verified Adverse Reaction, Unknown, "makes me weird", 03/01/17) pt Social History Smoking Status: Never Smoker Hx Tobacco Use In Past Year?: No Hx Alcohol Use - Type And Amou: Yes (OCCASIONALLY) Hx Substance Use - Type And Am: No Problem List Medical Problems: (1) Acute chest pain Status: Acute (2) Acute GI bleeding Status: Acute (3) CHF (congestive heart failure) Status: Acute (4) Congestive heart failure Status: Acute (5) Dehydration Status: Acute (6) Dry skin dermatitis Status: Acute (7) Dyspnea Status: Acute (8) Elevated troponin Status: Acute (9) Noncompliance with medications Status: Acute (10) Obesity Status: Acute (11) Peripheral edema Status: Acute (12) Peripheral edema Status: Acute (13) Pleural effusion on right Status: Acute Physical Exam Vital Signs Last Vital Signs Documentation Date Time Temp Pulse Resp B/P (MAP) Pulse Ox O2 Delivery O2 Flow Rate FiO2 03/20/17 08:00 Room Air 03/20/17 07:59 37.0 78 16 125/84 (98) 94 Physical Exam Constitutional: General Apperance: overweight Level of Distress: NAD Ambulation: ambulating normally Psychiatric: Mental Status: active & alert, abnormal affect Orientation: to place, to person, not oriented to time Memory: recent memory normal, remote memory normal Head: normocephalic Neck: pertinent finding (No overt JVD) Lungs: Respiratory effort: no dyspnea Auscultation: no wheezing, no rhonchi, decreased breath sounds (at the right base. ), rales/crackles on the right Cardiovascular: Heart Auscultation: RRR, normal S1, normal S2, II/ TANVIR Peripheral Pulses: Dorsalis Pedis Pulse: normal on the left, normal on the right Abdomen: Bowel Sounds: normal Inspection & Palpation: soft Extremities: no cyanosis, no clubbing, edema (Trace to 1+ edema) Neurologic: Cranial Nerves: grossly intact Assessment and Plan Assessment and Plan Complex 66 year old female with acute on chronic decompensated systolic heart failure with associated pleural effusion status post right thoracentesis. Volume status is normovolemic. RECOMMENDATIONS/PLAN: Continue as prescribed Furosemide increased to 40 mg twice a day this admission. Toprol XL increased to 75 mg/day this admission with observed resolution of the short runs of wide complex tachycardia. She should remain on ASA, Losartan, and statin Xarelto prescribed for the left lower extremity deep venous thrombosis observed on 03/01/2017. Clopidogrel discontinued this admission with no plans to resume. OK for discharge back to [facility]. Outpatient cardiology follow-up in 1-2 weeks; office aware, making arrangements. Patient seen and examined. Plan as above Jesús Ojeda MD Laboratory Results Last 24 Hours Test 03/19/17 11:14 03/19/17 12:05 03/19/17 16:52 03/19/17 19:18 Bedside Glucose 196 mg/dl 181 mg/dl 256 mg/dl Sodium Level 136 mmol/L Potassium Level 3.6 mmol/L Chloride Level 98 mmol/L Carbon Dioxide Level 30 mmol/L Anion Gap 8.0 mmol/L Blood Urea Nitrogen 21 mg/dl Creatinine 1.00 mg/dl Est Creatinine Clear Calc Drug Dose 52.7 ml/min Estimated GFR () 68.0 Estimated GFR (Non- 58.7 BUN/Creatinine Ratio 20.5 Random Glucose 192 mg/dl Calcium Level 8.9 mg/dl Test 03/19/17 20:37 03/20/17 06:28 Bedside Glucose 244 mg/dl 143 mg/dl
--- NOTE | 2017-03-20 11:59 | Progress Note ---
Medicine Progress Note Date & Time of Visit: Mar 20, 2017 at 11:52. Subjective patient seen resting in bed, comfortable in good spirits states she feels fine overall denies chest pain, dyspnea, palpitationd, dizziness no abdominal pain, nausea, melena/hematochezia states she is ready for discharge today Objective Last 8 Hrs Date Time Temp Pulse Resp B/P (MAP) Pulse Ox O2 Delivery O2 Flow Rate FiO2 03/20/17 08:00 Room Air 03/20/17 07:59 37.0 78 16 125/84 (98) 94 Room Air 03/20/17 04:00 Room Air Physical Exam: General- oriented x 3, not in distress, speaks in sentences with no effort Eyes- anicteric Neck- no JVD Lungs- clear breath sounds bilaterally, no rales/wheezes Heart- regular rhythm; no murmur, normal rate Abdomen- normal bowel sounds, soft, nontender Extremities- mild lower leg edema, no erythema/warmth/tenderness Neuro- alert, oriented x 3; no gross deficits Skin- warm & dry Laboratory Results: Last 24 Hours Test 03/19/17 12:05 03/19/17 16:52 03/19/17 19:18 03/19/17 20:37 Sodium Level 136 mmol/L Potassium Level 3.6 mmol/L Chloride Level 98 mmol/L Carbon Dioxide Level 30 mmol/L Anion Gap 8.0 mmol/L Blood Urea Nitrogen 21 mg/dl Creatinine 1.00 mg/dl Est Creatinine Clear Calc Drug Dose 52.7 ml/min Estimated GFR () 68.0 Estimated GFR (Non- 58.7 BUN/Creatinine Ratio 20.5 Random Glucose 192 mg/dl Calcium Level 8.9 mg/dl Bedside Glucose 181 mg/dl 256 mg/dl 244 mg/dl Test 03/20/17 06:28 Bedside Glucose 143 mg/dl Assessment & Plan 66F presented with Gi bleed who was recently started on xarelto for DVT POSSIBLE UPPER GI BLEED IN THE SETTING OF ANTICOAGULATION WITH XARELTO Staff noticed small amounts of blood in her stools. present with hgb 12.2 on admission INR was 2.1 on admission U/S of liver showed Right pleural effusion.Chronically contracted gallbladder with at least moderate wall thickening. Fatty liver infiltration GI consulted and no indication for inpatient EGD due to poor candidate for sedation, possible outpatient colonoscopy -- Plavix discontinued Aspirin and Xarelto restarted -- no signs of recurrence Hg stable -- monitor HG -- ff up with GI as outpatient possible colonoscopy as outpatient ACUTE ON CHRONIC SYSTOLIC CHF Recent 2D echo with EF 20-25% -- Cardiology consulted given Lasix 40mg IV, transitioned to 40mg PO BID -- euvolemic monitor volume status closely RIGHT PLEURAL EFFUSION CXR showed slight increase in size of a moderate right pleural effusion Chest U/S showed large right pleural effusion with estimated volume of 1307 cc Pulmonary consulted s/p thoracocentesis with 850ml -- transudative fluid, no malignant cells seen -- monitor DVT Recently diagnosed in the last admission -- Xarelto restarted DM II HBA1C was 8.3 on 12/24/16 usually on Glipizide given ISS HTN stable CAD s/p Stent On aspirin, statin and BB Plavix discontinued COPD Stable DVT Px on Xarelto DISPOSITION d/c to [facility] ff up with PCP Dr. Diamante Howard in 1 week ff up with [employer] FUENTES Weinstein in 2 weeks ff up with GI [facility]OTOGR[employer]ATEMAK[facility]ILVANA Jauregui in 2 weeks Consultants: Cardio Pulmonary GI Current Inpatient Medications: Current Inpatient Medications Medications (Trade) Dose Ordered Sig/[place]by Route Start Time Stop Time Status Last Admin Dose Admin Acetaminophen (Tylenol Tab) 650 mg Q4H PRN PO 03/14/17 22:15 04/13/17 22:14 Al Hydrox/Mg Hydrox/Simethicone (Maalox Max Susp) 15 ml Q4H PRN PO 03/14/17 22:15 04/13/17 22:14 Magnesium Hydroxide (Milk Of Magnesia Susp) 30 ml Q12H PRN PO 03/14/17 22:15 04/13/17 22:14 Ondansetron HCl (Zofran Inj) 4 mg Q6H PRN IV 03/14/17 22:15 04/13/17 22:14 Albuterol (Ventolin Hfa Inhaler) 2 puffs Q4H PRN INH 03/14/17 22:15 04/13/17 22:14 Atorvastatin Calcium (Lipitor Tab) 80 mg HS PO 03/15/17 21:00 04/14/17 20:59 03/19/17 20:37 80 MG Hydrocortisone (Proctozone Hc 2.5% Crm) 1 appln BID EXT 03/15/17 09:00 04/14/17 08:59 03/19/17 08:37 1 APPLN Hydroxyzine HCl (Vistaril Tab) 12.5 mg Q8H PRN PO 03/14/17 22:15 04/13/17 22:14 Isosorbide Mononitrate (Imdur Ext Rel Tab) 60 mg QAM PO 03/15/17 09:00 04/14/17 08:59 03/20/17 08:15 60 MG Losartan Potassium (coZAAR TAB) 25 mg QAM PO 03/15/17 09:00 04/14/17 08:59 03/20/17 08:15 25 MG Nitroglycerin (Nitrostat Tab) 0.4 mg PRN UT 03/14/17 22:15 04/13/17 22:14 Nystatin (Mycostatin Powder) 1 appln BID PRN EXT 03/14/17 22:15 04/13/17 22:14 Triamcinolone Acetonide (Kenalog 0.1% Cream) 1 appln BID EXT 03/15/17 09:00 04/14/17 08:59 03/19/17 20:36 1 APPLN Sertraline HCl (Zoloft Tab) 25 mg DAILY PO 03/15/17 09:00 04/14/17 08:59 03/20/17 08:15 25 MG Miscellaneous Information (Order Awaiting Action) 1 ea QS N/A 03/15/17 08:00 04/14/17 07:59 Insulin Aspart (novoLOG ASPART) SLIDING SCALE G... ACHS SC 03/15/17 07:00 04/14/17 06:59 03/19/17 20:40 4 UNITS Pantoprazole Sodium 40 mg/ Syringe 10 ml @ 5 mls/min Q12H IV 03/15/17 09:00 04/14/17 08:59 03/20/17 08:16 5 MLS/MIN Aspirin (Ecotrin Tab) 81 mg QAM PO 03/16/17 09:00 04/15/17 08:59 03/20/17 08:15 81 MG Magnesium Oxide (Mag-Ox Tab) 400 mg QAM PO 03/17/17 09:00 04/16/17 08:59 03/20/17 08:15 400 MG Rivaroxaban (Xarelto Tab) 15 mg BID PO 03/17/17 21:00 04/16/17 20:59 03/20/17 08:14 15 MG Metoprolol Succinate (Toprol Xl Tab) 75 mg QAM PO 03/19/17 09:00 04/14/17 08:59 03/20/17 08:14 75 MG Furosemide (Lasix Tab) 40 mg BID17 PO 03/19/17 09:00 04/18/17 08:59 03/20/17 08:15 40 MG
[2017-03-20 12:02] VITALS: BP 138/88; PULSE 81; TEMP 36.9; O2SAT 94
[2017-03-20] MEDS ORDERED: LSX40 PO (12:06)
[2017-03-20] MEDS ORDERED: ASPEC81 PO (12:06)
[2017-03-20] MEDS ORDERED: PANT1TAB48 PO (12:06)
[2017-03-20] MEDS ORDERED: MGNO400 PO (12:06)
[2017-03-20] MEDS ORDERED: TPRSR25 PO (12:06)
--- NOTE | 2017-03-20 13:20 | Discharge Instructions ---
Discharge Instructions Date of Service Mar 20, 2017. Admission Reason for Admission: Gi Bleed Discharge Discharge Diagnosis / Problem: Possible GI Bleed, CHF Exacerbation Discharge Goals Goal(s): Diagnostic testing, Therapeutic intervention Activity Recommendations Activity Level: OOB In Chair Therapies: Physical Therapy, Occupational Therapy . Additional Information Patient informed of condition: Yes Advance Directives: No (Unknown) DNR: No (Patient is FUll Code) Level of Care: Skilled Communicable Disease: No Prognosis: Stable Instructions / Follow-Up Instructions / Follow-Up PLEASE MONITOR VOLUME STATUS CLOSELY. CONTACT PHYSICIAN IMMEDIATELY IF WITH SHORTNESS OF BREATH, WEIGHT GAIN, EDEMA. MONITOR FOR SIGNS OF GI BLEED. NO NSAIDS. PLEASE REFER TO ACCOMPANYING HOSPITAL DISCHARGE SUMMARY FOR FURTHER DETAILS. FOLLOW UP WITH PRIMARY CARE PHYSICIAN IN 3-5 DAYS. FOLLOW UP WITH CUSTOMER CARE REPRESENTATIVE FUENTES SABA AND JESUS MANUEL CAZARES IN 2 WEEKS. Current Hospital Diet Patient's current hospital diet: AHA Diet (Heart Healthy), Diabetes Type 2 Diet Discharge Diet Recommended Diet: AHA Diet (Heart Healthy), Diabetes Type 2 Diet Fluid Restriction: 1500 ml (6 cups) Procedures Procedures Performed: RIGHT SIDED THORACENTESIS Pending Studies Studies pending at discharge: yes List of pending studies: REPEAT CBC IN 1 WEEK Physician Orders On Transfer Special Precautions: PLEASE MONITOR VOLUME STATUS CLOSELY. CONTACT PHYSICIAN IMMEDIATELY IF WITH SHORTNESS OF BREATH, WEIGHT GAIN, EDEMA. MONITOR FOR SIGNS OF GI BLEED. NO NSAIDS. PLEASE REFER TO ACCOMPANYING HOSPITAL DISCHARGE SUMMARY FOR FURTHER DETAILS. FOLLOW UP WITH PRIMARY CARE PHYSICIAN IN 3-5 DAYS. FOLLOW UP WITH CUSTOMER CARE REPRESENTATIVE FUENTES SABA AND JESUS MANUEL CAZARES IN 2 WEEKS. Medical Emergencies . Who to Call and When: Medical Emergencies: If at any time you feel your situation is an emergency, please call 911 immediately. . Non-Emergent Contact Non-Emergency issues call your: Primary Care Provider Call Non-Emergent contact if: you have a fever, your pain is not controlled, you have any medication questions . Past History Medical & Surgical History: (1) Bronchitis (2) Elevated serum creatinine (3) Chest wall pain (4) SOB (shortness of breath) (5) Leg swelling (6) GI bleed (7) Acute GI bleeding (8) Acute chest pain (9) Pleural effusion on right (10) Dyslipidemia (11) HTN (hypertension) (12) CAD (coronary artery disease) (13) Ischemic cardiomyopathy (14) COPD (chronic obstructive pulmonary disease) (15) Presence of combination internal cardiac defibrillator (ICD) and pacemaker (16) DM type 2 (diabetes mellitus, type 2) (17) SAH (subarachnoid hemorrhage) (18) H/O dilation and curettage (19) H/O tubal ligation (20) Hx of appendectomy (21) Hx of tonsillectomy . "Provider Documentation" section prepared by Kishore Rivers. . Core Measure Problem Core Measures: None
--- NOTE | 2017-03-20 13:25 | Discharge Summary ---
Discharge Summary Date of Service Mar 20, 2017. Discharge Summary Admission Date: Mar 14, 2017 at 22:23 Discharge Date: Mar 20, 2017 Discharge Disposition: alf facility Principal Diagnosis: POSSIBLE UPPER GI BLEED IN THE SETTING OF ANTICOAGULATION WITH XARELTO Secondary Diagnoses/Problems: ACUTE ON CHRONIC SYSTOLIC CHF; PLease refer to hospital course below for further details. Procedures: RIGHT SIDED THORACENTESIS Consultations: Cardio- PA Joesph Saba Pulmonary- Dr. Cortes KEN- SAMMIE Jauregui Pending Studies/Follow-Up: PLEASE MONITOR VOLUME STATUS CLOSELY. CONTACT PHYSICIAN IMMEDIATELY IF WITH SHORTNESS OF BREATH, WEIGHT GAIN, EDEMA. MONITOR FOR SIGNS OF GI BLEED. NO NSAIDS. PLEASE REFER TO HOSPITAL COURSE BELOW FOR FURTHER DETAILS. FOLLOW UP WITH PRIMARY CARE PHYSICIAN IN 3-5 DAYS. FOLLOW UP WITH SALES DEPARTMENT SUPERVISOR FUENTES SABA AND JESUS MANUEL JAUREGUI IN 2 WEEKS. Medication Reconciliation New Medications: Pantoprazole (Protonix) 40 Mg Tab 40 MG PO DAILY, #30 TAB 1 Refill Aspirin (Aspirin EC Low Dose) 81 Mg Ectab 81 MG PO QAM for 30 Days, #30 TABS 1 Refill Furosemide (Furosemide) 40 Mg Tab 40 MG PO BID17 for 30 Days, #60 TAB 1 Refill Magnesium Oxide (Magnesium-Oxide) 400 Mg Tab 400 MG PO QAM for 30 Days, #30 TAB 1 Refill Metoprolol Succinate (Metoprolol Succinate ER) 25 Mg Tabcr 75 MG PO QAM for 30 Days, #90 TABS 1 Refill Continued Medications: Acetaminophen Tab (Tylenol) 325 Mg Tab 325 MG PO Q4 PRN for Pain or Fever, TAB Albuterol Hfa (Ventolin Hfa) 200 Puffs/46923 Mcg Aers 2 PUFFS INH Q4H PRN for Wheezing, #1 INHALER Atorvastatin (Lipitor) 80 Mg Tab 80 MG PO HS, TAB Glipizide (Glipizide Er) 2.5 Mg Tab 2.5 MG PO DAILY TAKE 30 MINUTES BEFORE A MEAL Hydrocortisone (Rectal) (Proctozone-Hc) 2.5 % Cre 1 APPLN TOP BID, #30 Hydroxyzine Hcl (Atarax) 25 Mg Tab 12.5 MG PO Q8H PRN for Itching, TAB Isosorbide Mononitrate Ext Rel (Imdur Ext Rel) 30 Mg Tabcr 60 MG PO QAM, TAB Losartan Potassium (Losartan Potassium) 25 Mg Tab 25 MG PO QAM, #34 Nitroglycerin (Nitrostat) 0.4 Mg Tab 0.4 MG UT PRN, BTL Nystatin (Topical) (Nystatin) 100,000 Unit/Gm Pow 1 APPLN TOP BID PRN for IRRITATION, #30 Rivaroxaban (Xarelto) 15 Mg Tab 15 MG PO BID, TAB Sertraline HCl (Sertraline HCl) 25 Mg Tab 25 MG PO DAILY, #30 Triamcinolone Acet (Aristocort 0.1%) 90 Appln/30 Gm Cr 1 APPLN TOP BID, #30 Zinc Oxide (Topical) (Desitin) 40 % Oin 1 APPLN TOP BID Discontinued Medications: Clopidogrel (Plavix) 75 Mg Tab 75 MG PO QAM, TAB Furosemide (Furosemide) 40 Mg Tab 40 MG PO DAILY, #30 Metoprolol Succinate (Toprol Xl) 50 Mg Tabcr 50 MG PO QAM, TAB Admission Information HPI (per Admitting provider): 66 yr old female with PMH of HTN, COPD, DM type2, Systolic heart failure, CAD s/ p stent had multiple admissions in the recent past and last admission was found to have DVT and started on xarelto and who currently resides at [facility] was brought in because patient having small amounts of blood in stools since last two days and her inr is elevated. Patient currently resting comfortably and hemodynamically stable. Daughter is in the room and says she is POA. Patient denies nausea or vomiting. No abdominal pain. No chest pain. Has sob with minimal exertion. Has occasional dry cough. Lower extremity edema improving. No headache. No blurry vision. Dizzy at times. No fevers. No burning micturition. Appetite ok. Physical Exam (per Admitting): General Appearance: no apparent distress Head: normocephalic, atraumatic Eyes: normal inspection, PERRL ENT: normal ENT inspection, hearing grossly normal, pharynx normal Neck: supple, no adenopathy, thyroid normal, no JVD Respiratory/Chest: chest non-tender, lungs clear, normal breath sounds, + crackles (bibasilar) Cardiovascular: regular rate, rhythm, no JVD, no murmur Abdomen/GI: normal bowel sounds, non tender, soft, no organomegaly, no pulsatile mass Extremities/Musculoskelatal: normal inspection, no calf tenderness, + swelling (lower extremity swelling) Neurologic/Psych: custodian manager II-XII nml as tested, alert, normal mood/affect, oriented x 3 Skin: normal color, no rash Hospital Course 66F presented with Gi bleed who was recently started on xarelto for DVT POSSIBLE UPPER GI BLEED IN THE SETTING OF ANTICOAGULATION WITH XARELTO Staff noticed small amounts of blood in her stools. present with hgb 12.2 on admission INR was 2.1 on admission U/S of liver showed Right pleural effusion.Chronically contracted gallbladder with at least moderate wall thickening. Fatty liver infiltration --GI consulted and no indication for inpatient EGD due to poor candidate for sedation, plan for outpatient colonoscopy -- Plavix discontinued Aspirin and Xarelto restarted -- no signs of recurrence Hg stable -- monitor HG -- ff up with GI as outpatient colonoscopy as outpatient ACUTE ON CHRONIC SYSTOLIC CHF Recent 2D echo with EF 20-25% -- Cardiology consulted given Lasix 40mg IV, transitioned to 40mg PO BID -- euvolemic monitor volume status closely RIGHT PLEURAL EFFUSION CXR showed slight increase in size of a moderate right pleural effusion Chest U/S showed large right pleural effusion with estimated volume of 1307 cc Pulmonary consulted s/p thoracocentesis with 850ml -- transudative fluid, likely from CHF, no malignant cells seen -- monitor DVT Recently diagnosed in the last admission -- Xarelto restarted monitor for signs of bleeding DM II HBA1C was 8.3 on 12/24/16 usually on Glipizide given ISS HTN stable CAD s/p Stent On aspirin, statin and BB Plavix discontinued COPD Stable DISPOSITION d/c to [facility] ff up with PCP Dr. Diamante Howard in 1 week ff up with Casket Inspector FUENTES Saba in 2 weeks ff up with GI RN HOUSE SUPERVISORSILVANA Jauregui in 2 weeks Total time spent on discharge = 40 minutes This includes examination of the patient, discharge planning, medication reconciliation, and communication with other providers. Discharge Instructions Discharge Instructions Date of Service Mar 20, 2017. Admission Reason for Admission: Gi Bleed Discharge Discharge Diagnosis / Problem: Possible GI Bleed, CHF Exacerbation Discharge Goals Goal(s): Diagnostic testing, Therapeutic intervention Activity Recommendations Activity Level: OOB In Chair Therapies: Physical Therapy, Occupational Therapy . Additional Information Patient informed of condition: Yes Advance Directives: No (Unknown) DNR: No (Patient is FUll Code) Level of Care: Skilled Communicable Disease: No Prognosis: Stable Instructions / Follow-Up Instructions / Follow-Up PLEASE MONITOR VOLUME STATUS CLOSELY. CONTACT PHYSICIAN IMMEDIATELY IF WITH SHORTNESS OF BREATH, WEIGHT GAIN, EDEMA. MONITOR FOR SIGNS OF GI BLEED. NO NSAIDS. PLEASE REFER TO ACCOMPANYING HOSPITAL DISCHARGE SUMMARY FOR FURTHER DETAILS. FOLLOW UP WITH PRIMARY CARE PHYSICIAN IN 3-5 DAYS. FOLLOW UP WITH SALES DEPARTMENT SUPERVISOR FUENTES SABA AND JESUS MANUEL JAUREGUI IN 2 WEEKS. Current Hospital Diet Patient's current hospital diet: AHA Diet (Heart Healthy), Diabetes Type 2 Diet Discharge Diet Recommended Diet: AHA Diet (Heart Healthy), Diabetes Type 2 Diet Fluid Restriction: 1500 ml (6 cups) Procedures Procedures Performed: RIGHT SIDED THORACENTESIS Pending Studies Studies pending at discharge: yes List of pending studies: REPEAT CBC IN 1 WEEK Physician Orders On Transfer Special Precautions: PLEASE MONITOR VOLUME STATUS CLOSELY. CONTACT PHYSICIAN IMMEDIATELY IF WITH SHORTNESS OF BREATH, WEIGHT GAIN, EDEMA. MONITOR FOR SIGNS OF GI BLEED. NO NSAIDS. PLEASE REFER TO ACCOMPANYING HOSPITAL DISCHARGE SUMMARY FOR FURTHER DETAILS. FOLLOW UP WITH PRIMARY CARE PHYSICIAN IN 3-5 DAYS. FOLLOW UP WITH SALES DEPARTMENT SUPERVISOR FUENTES SABA AND JESUS MANUEL JAUREGUI IN 2 WEEKS. Medical Emergencies . Who to Call and When: Medical Emergencies: If at any time you feel your situation is an emergency, please call 911 immediately. . Non-Emergent Contact Non-Emergency issues call your: Primary Care Provider Call Non-Emergent contact if: you have a fever, your pain is not controlled, you have any medication questions . Past History Medical & Surgical History: (1) Bronchitis (2) Elevated serum creatinine (3) Chest wall pain (4) SOB (shortness of breath) (5) Leg swelling (6) GI bleed (7) Acute GI bleeding (8) Acute chest pain (9) Pleural effusion on right (10) Dyslipidemia (11) HTN (hypertension) (12) CAD (coronary artery disease) (13) Ischemic cardiomyopathy (14) COPD (chronic obstructive pulmonary disease) (15) Presence of combination internal cardiac defibrillator (ICD) and pacemaker (16) DM type 2 (diabetes mellitus, type 2) (17) SAH (subarachnoid hemorrhage) (18) H/O dilation and curettage (19) H/O tubal ligation (20) Hx of appendectomy (21) Hx of tonsillectomy . "Provider Documentation" section prepared by Kishore Rivers. . Core Measure Problem Core Measures: None
[2017-03-20 13:39] VITALS: BP 138/88; PULSE 81; TEMP 36.9; O2SAT 94
[2017-05-03] MEDS ORDERED: CPR250 PO (09:56)
== END 2017-03-20 15:09 | disposition home or self-care (01) | DRG 813 ==
LOC: C.EDB 19:15 → C.2T 22:23 → ENRESERV 22:30
PROVIDERS: ADMIT Internal Medicine; ATTEND Internal Medicine
PROC: 0W993ZX Drainage of Right Pleural Cavity, Percutaneous Approach, Diagnostic (ICD-10-PCS; principal; 2017-03-16)
DX: D68.32 Hemorrhagic disorder due to extrinsic circulating anticoagulants (principal); I50.23 Acute on chronic systolic (congestive) heart failure; J90 Pleural effusion, not elsewhere classified; K92.1 Melena; T45.515A Adverse effect of anticoagulants, initial encounter; I11.0 Hypertensive heart disease with heart failure; I25.10 Atherosclerotic heart disease of native coronary artery without angina pectoris; J44.9 Chronic obstructive pulmonary disease, unspecified; E11.9 Type 2 diabetes mellitus without complications; E78.5 Hyperlipidemia, unspecified; I25.6 Silent myocardial ischemia; I27.2 Other secondary pulmonary hypertension; Z95.0 Presence of cardiac pacemaker; Z88.2 Allergy status to sulfonamides; Z86.718 Personal history of other venous thrombosis and embolism; Y92.009 Unspecified place in unspecified non-institutional (private) residence as the place of occurrence of the external cause; Z95.5 Presence of coronary angioplasty implant and graft; Z91.14 Patient's other noncompliance with medication regimen

== ENCOUNTER 2017-05-01 14:07 | Inpatient (IN) | payer OTHER ==
[~2017-05-01] VITALS: Ht 154.9 cm; Wt 74.3 kg
[~2017-05-01 14:07] MED LIST changes: +ACET325T96 PO; +ASPEC81 PO; -ASPI81TA28 PO; -CLOP1TAB15 PO; +HYDR-3124 PO; +HYDRCRE28 TOP; -LSX20 PO; +LSX40 PO; -METO-217 PO; +MGNO400 PO; +NTRGSL/4 UT; -NTRSL3 UT; +NYST100033 TOP; +PANT1TAB48 PO; +RIVA1.5T PO; +SERT1TAB88 PO; +TPRSR25 PO; -TRIA0.1C2 TOP; +TRMCR130WC TOP; +VNTHFA/IN INH; -XRL15 PO; +ZINC40OI11 TOP
--- NOTE | 2017-05-01 14:46 | DIAGNOSTIC IMAGING REPORT ---
SINGLE VIEW CHEST CLINICAL HISTORY: Change in mental status. FINDINGS: An AP, portable, upright chest radiograph is compared to study dated 03/16/2017. The examination is degraded by portable technique and patient rotation. A 3-lead cardiac AICD is unchanged in position and partially obscures the left mid chest. The heart is enlarged and there is atherosclerotic calcification of the thoracic aorta. The pulmonary vasculature is noncongested. Small pleural effusions are identified. No airspace consolidation is seen typical for pneumonia. No pneumothorax is seen. The skeletal structures are osteopenic. Calcific tendinopathy is seen in the left shoulder. IMPRESSION: 1. Cardiomegaly and AICD. There is no radiographic evidence of congestive failure. 2. Small pleural effusions are identified. Electronically signed by: Carlos Grullon M.D. 05/01/2017 2:45 PM Dictated Date/Time: 05/01/2017 2:43 PM
[2017-05-01 15:08] LABS: BASO % 0.3 %; BASO ABS # 0.02 K/uL (0-0.2); COMPLETE YES; HEMATOCRIT 37.6 % (37-47); IG% 0.2 %; LYMPH % 24.9 %; LYMPH ABS # 1.43 K/uL (1.2-3.4); MEAN CELL VOLUME 79.2 fL (80-100); MEAN CORPUSCULAR HEMOGLOBIN 25.1 pg (25-34); MEAN CORPUSCULAR HGB CONC 31.6 g/dl (32-36); MONO % 8.9 %; NEUT % 64.7 %; PLATELET COUNT 232 K/uL (130-400); RED BLOOD COUNT 4.75 M/uL (4.2-5.4); WHITE BLOOD COUNT 5.75 K/uL (4.8-10.8)
--- NOTE | 2017-05-01 15:22 | DIAGNOSTIC IMAGING REPORT ---
HEAD WITHOUT CONTRAST (CT) CLINICAL HISTORY: 66 years-old Female with AMS. Acute altered mental status. TECHNIQUE: Multiple axial CT images of the head were obtained without contrast. A dose lowering technique was utilized adhering to the principles of ALARA. CT DOSE: 537.48 mGy.cm COMPARISON: CT head 12/18/2016. FINDINGS: No acute intracranial hemorrhage, midline shift, mass, large territorial ischemia or abnormal extra-axial collection. There is mild atrophy with ex vacuo ventriculomegaly. Focal area of low attenuation within the inferior left lentiform nucleus, 9 mm suggests remote lacunar infarction or perivascular space, unchanged. Background chronic microvascular ischemic changes. The calvarium is intact. The paranasal sinuses, mastoid air cells, and middle ear cavities are clear. IMPRESSION: No acute intracranial abnormality. The above report was generated using voice recognition software. It may contain grammatical, syntax or spelling errors. Electronically signed by: Alcon Gleason M.D. 05/01/2017 3:21 PM Dictated Date/Time: 05/01/2017 3:19 PM
[2017-05-01 15:25] LABS: INR 2.2 (0.9-1.1); PARTIAL THROMBOPLASTIN RATIO 1.8; PROTHROMBIN TIME (PATIENT) 23.8 SECONDS (9.0-12.0)
[2017-05-01 15:34] LABS: BUN/CREATININE RATIO 16.4 (10-20); CREATININE 1.2 mg/dl (0.60-1.20); POTASSIUM 2.8 mmol/L (3.5-5.1)
[2017-05-01] MEDS ORDERED: POTASSIUM CHLORIDE 10 MEQ / 100ML WTR IV STA ×2 (15:48→15:54)
--- NOTE | 2017-05-01 15:50 | EMERGENCY ROOM VISIT NOTE ---
History First contact with patient: 14:16 Chief Complaint: CONFUSION Stated Complaint: NOSEBLEED, WADDELL, CONFUSION Nursing Triage Summary: pt here with episodes of forgetfulness recently. pt denies any trouble with speech, gait, weakness, swallowing. pt denies any headache. History of Present Illness The patient is a 66 year old female who presents to the Emergency Room with complaints of altered mental state for the past 5 days. Associated urinary incontinence and bowel incontinence which the carer reports is new for her. When asking the patient why did she come to the ER she is unsure of what symptoms she is having and confabulates - "I have many problems" "the problem is getting worse" "they wanted me to come in". She knows her and is orientated to place. She is disorientated to time. She has a diagnosis of dementia however the carer informs me this is a big change from her baseline mental state. The carer informs me her main change is a lack of short term memory loss. She denies any diarrhea, nausea, vomiting or abdominal pain but reports she was incontinent of stool this morning. She denies any urinary symptoms other than incontinence. Review of Systems Constitutional: No fever, No chills Eyes: No worsening of vision ENT: No hearing loss, No nasal symptoms, No sore throat Respiratory: No cough, No shortness of breath Cardiovascular: + edema (unsure if worse than her usual), No chest pain Abdomen: + problem reported (incontinent of stool), No pain, No nausea, No vomiting, No diarrhea, No constipation, No GI bleeding Musculoskeletal: No joint pain, No muscle pain, No swelling, No calf pain Genitourinary - Female: + urinary incontinence, No dysuria, No urinary frequency, No urinary urgency, No urinary retention, No hematuria Neurologic: + memory loss, No weakness, No numbness/tingling, No balance problems Endocrine: No fatigue, No excessive thirst, No excessive urination Hematologic / Lymphatic: No abnormal bleeding/bruising Integumentary: No rash, No itch Past Medical/Surgical History Medical Problems: (1) Altered mental status (2) CAD (coronary artery disease) (3) COPD (chronic obstructive pulmonary disease) (4) DM type 2 (diabetes mellitus, type 2) (5) Dyslipidemia (6) GI bleed (7) HTN (hypertension) (8) Increased ammonia level (9) Ischemic cardiomyopathy (10) Leg swelling (11) Presence of combination internal cardiac defibrillator (ICD) and pacemaker (12) SAH (subarachnoid hemorrhage) (13) SOB (shortness of breath) Surgical Problems: (1) H/O dilation and curettage (2) H/O tubal ligation (3) Hx of appendectomy (4) Hx of tonsillectomy Family History FH: Alzheimers disease FATHER Social History Smoking Status: Never Smoker Alcohol Use: occasionally Drug Use: none Marital Status: single Housing Status: fdc Occupation Status: retired Current/Historical Medications Scheduled Aspirin (Aspirin EC Low Dose), 81 MG PO QAM Atorvastatin (Lipitor), 80 MG PO HS Furosemide (Furosemide), 40 MG PO BID17 Furosemide (Furosemide), 20 MG PO BID Glipizide (Glipizide Er), 2.5 MG PO DAILY Hydrocortisone (Rectal) (Proctozone-Hc), 1 APPLN TOP BID Insulin Glargine (Lantus), 10 UNITS SQ QPM Isosorbide Mononitrate Ext Rel (Imdur Ext Rel), 60 MG PO QAM Losartan Potassium (Losartan Potassium), 25 MG PO QAM Magnesium Oxide (Magnesium-Oxide), 400 MG PO QAM Metoprolol Succinate (Metoprolol Succinate ER), 75 MG PO QAM Nitroglycerin (Nitrostat), 0.4 MG UT PRN Pantoprazole (Protonix), 40 MG PO DAILY Rivaroxaban (Xarelto), 15 MG PO BID Sertraline HCl (Sertraline HCl), 25 MG PO DAILY Triamcinolone Acet (Aristocort 0.1%), 1 APPLN TOP BID Zinc Oxide (Topical) (Desitin), 1 APPLN TOP BID Scheduled PRN Acetaminophen Tab (Tylenol), 325 MG PO Q4 PRN for Pain or Fever Albuterol Hfa (Ventolin Hfa), 2 PUFFS INH Q4H PRN for Wheezing Hydroxyzine Hcl (Atarax), 12.5 MG PO Q8H PRN for Itching Physical Exam Vital Signs Date Time Temp Pulse Resp B/P (MAP) Pulse Ox O2 Delivery O2 Flow Rate FiO2 05/01/17 16:04 71 16 128/83 94 Room Air 05/01/17 14:12 36.8 77 20 134/84 95 Room Air Physical Exam General Appearance: WD/WN, no apparent distress, + obese Head: normocephalic, atraumatic Eyes: normal inspection, PERRL, EOMI ENT: normal ENT inspection (externally), hearing grossly normal, TMs normal , pharynx normal Neck: supple, no adenopathy, no JVD, no carotid bruits, trachea midline Respiratory/Chest: chest non-tender, lungs clear, normal breath sounds, no respiratory distress, no accessory muscle use Cardiovascular: regular rate, rhythm, no murmur, normal peripheral pulses Abdomen / GI: normal bowel sounds, soft, no organomegaly, + tenderness ( mild generalized tenderness without rebound or guarding) Back: no CVA tenderness Extremities: normal capillary refill, + pedal edema (2+ to knees b/l, painful on palpation) Neurologic/Psych: sand filler II-XII nml as tested (no facial droop, numbness, PERRL , EOMI without nystagmus, hearing grossly normal, ), no motor/sensory deficits, alert, normal mood/affect, + disoriented (to time) Medical Decision & Procedures ER Provider Diagnostic Interpretation: HEAD WITHOUT CONTRAST (CT) CLINICAL HISTORY: 66 years-old Female with AMS. Acute altered mental status. TECHNIQUE: Multiple axial CT images of the head were obtained without contrast. A dose lowering technique was utilized adhering to the principles of ALARA. CT DOSE: 537.48 mGy.cm COMPARISON: CT head 12/18/2016. FINDINGS: No acute intracranial hemorrhage, midline shift, mass, large territorial ischemia or abnormal extra-axial collection. There is mild atrophy with ex vacuo ventriculomegaly. Focal area of low attenuation within the inferior left lentiform nucleus, 9 mm suggests remote lacunar infarction or perivascular space, unchanged. Background chronic microvascular ischemic changes. The calvarium is intact. The paranasal sinuses, mastoid air cells, and middle ear cavities are clear. IMPRESSION: No acute intracranial abnormality. The above report was generated using voice recognition software. It may contain grammatical, syntax or spelling errors. Electronically signed by: Alcon Gleason M.D. 05/01/2017 3:21 PM Dictated Date/Time: 05/01/2017 3:19 PM SINGLE VIEW CHEST CLINICAL HISTORY: Change in mental status. FINDINGS: An AP, portable, upright chest radiograph is compared to study dated 03/16/2017. The examination is degraded by portable technique and patient rotation. A 3-lead cardiac AICD is unchanged in position and partially obscures the left mid chest. The heart is enlarged and there is atherosclerotic calcification of the thoracic aorta. The pulmonary vasculature is noncongested. Small pleural effusions are identified. No airspace consolidation is seen typical for pneumonia. No pneumothorax is seen. The skeletal structures are osteopenic. Calcific tendinopathy is seen in the left shoulder. IMPRESSION: 1. Cardiomegaly and AICD. There is no radiographic evidence of congestive failure. 2. Small pleural effusions are identified. Electronically signed by: Carlos Grullon M.D. 05/01/2017 2:45 PM Dictated Date/Time: 05/01/2017 2:43 PM BILATERAL LOWER EXTREMITY VENOUS DOPPLER CLINICAL HISTORY: Bilateral lower extremity swelling. COMPARISON STUDY: Bilateral lower extremity venous Doppler March 11, 2017. TECHNIQUE: Sonography of the deep venous system of the bilateral lower extremities was performed. Compression and augmentation were evaluated. FINDINGS: The bilateral common femoral, superficial femoral and popliteal veins were compressible. Augmentation was normal. Flow was shown within the deep calf vessels. The left popliteal vein thrombus shown on exam of March 01, 2017 is no longer visualized. IMPRESSION: No evidence of deep venous thrombus within the bilateral lower extremities. Electronically signed by: Parveen Villanueva M.D. 05/01/2017 5:09 PM Dictated Date/Time: 05/01/2017 5:08 PM ABDOMINAL ULTRASOUND, RIGHT UPPER QUADRANT HISTORY: Elevated alkaline phosphatase and bilirubin. Evaluate for acute cholecystitis. COMPARISON: CT of the abdomen and pelvis April 27, 2013 and right upper quadrant ultrasound March 14, 2017. FINDINGS: No hepatic lesions are identified by sonography. There is no biliary ductal dilatation. The common bile duct measures 5 mm in caliber. The pancreatic body is normal while the head and tail are obscured. There is mild gallbladder wall thickening. No gallstones are identified. There is no pericholecystic fluid. No right hydronephrosis is present. A few right renal cysts are noted. IMPRESSION: 1. No gallstones or biliary ductal dilatation. 2. Mild gallbladder wall thickening, a nonspecific finding. Electronically signed by: Parveen Villanueva M.D. 05/01/2017 5:08 PM Dictated Date/Time: 05/01/2017 5:06 PM Laboratory Results 05/01/17 14:56 Red Blood Count 4.75, Mean Corpuscular Volume 79.2, Mean Corpuscular Hemoglobin 25.1, Mean Corpuscular Hemoglobin Concent 31.6, Mean Platelet Volume 10.0, Neutrophils (%) (Auto) 64.7, Lymphocytes (%) (Auto) 24.9, Monocytes (%) (Auto) 8.9, Eosinophils (%) (Auto) 1.0, Basophils (%) (Auto) 0.3, Neutrophils # (Auto) 3.72, Lymphocytes # (Auto) 1.43, Monocytes # (Auto) 0.51, Eosinophils # (Auto) 0.06, Basophils # (Auto) 0.02 05/01/17 14:56 Test 05/01/17 14:56 05/01/17 15:30 05/01/17 15:57 White Blood Count 5.75 K/uL (4.8-10.8) Red Blood Count 4.75 M/uL (4.2-5.4) Hemoglobin 11.9 g/dL (12.0-16.0) Hematocrit 37.6 % (37-47) Mean Corpuscular Volume 79.2 fL (80-100) Mean Corpuscular Hemoglobin 25.1 pg (25-34) Mean Corpuscular Hemoglobin Concent 31.6 g/dl (32-36) Platelet Count 232 K/uL (130-400) Mean Platelet Volume 10.0 fL (7.4-10.4) Neutrophils (%) (Auto) 64.7 % Lymphocytes (%) (Auto) 24.9 % Monocytes (%) (Auto) 8.9 % Eosinophils (%) (Auto) 1.0 % Basophils (%) (Auto) 0.3 % Neutrophils # (Auto) 3.72 K/uL (1.4-6.5) Lymphocytes # (Auto) 1.43 K/uL (1.2-3.4) Monocytes # (Auto) 0.51 K/uL (0.11-0.59) Eosinophils # (Auto) 0.06 K/uL (0-0.5) Basophils # (Auto) 0.02 K/uL (0-0.2) RDW Standard Deviation 54.0 fL (36.4-46.3) RDW Coefficient of Variation 19.3 % (11.5-14.5) Immature Granulocyte % (Auto) 0.2 % Immature Granulocyte # (Auto) 0.01 K/uL (0.00-0.02) Prothrombin Time 23.8 SECONDS (9.0-12.0) Prothromb Time International Ratio 2.2 (0.9-1.1) Activated Partial Thromboplast Time 45.5 SECONDS (21.0-31.0) Partial Thromboplastin Ratio 1.8 Anion Gap 8.0 mmol/L (3-11) Est Creatinine Clear Calc Drug Dose 44.1 ml/min Estimated GFR () 54.5 Estimated GFR (Non- 47.1 BUN/Creatinine Ratio 16.4 (10-20) Calcium Level 9.0 mg/dl (8.5-10.1) Magnesium Level 1.7 mg/dl (1.8-2.4) Total Bilirubin 2.0 mg/dl (0.2-1) Direct Bilirubin 1.2 mg/dl (0-0.2) Aspartate Amino Transf (AST/SGOT) 31 U/L (15-37) Alanine Aminotransferase (ALT/SGPT) 22 U/L (12-78) Alkaline Phosphatase 131 U/L (45-117) Troponin I 0.038 ng/ml (0-0.045) Total Protein 7.0 gm/dl (6.4-8.2) Albumin 3.1 gm/dl (3.4-5.0) Urine Color DK YELLOW Urine Appearance CLEAR (CLEAR) Urine pH 6.0 (4.5-7.5) Urine Specific [place] 1.019 (1.000-1.030) Urine Protein 2+ (NEG) Urine Glucose (UA) NEG (NEG) Urine Ketones NEG (NEG) Urine Occult Blood 1+ (NEG) Urine Nitrite NEG (NEG) Urine Bilirubin NEG (NEG) Urine Urobilinogen POS (NEG) Urine Leukocyte Esterase SMALL (NEG) Urine WBC (Auto) 5-10 /hpf (0-5) Urine RBC (Auto) 5-10 /hpf (0-4) Urine Hyaline Casts (Auto) 10-30 /lpf (0-5) Urine Epithelial Cells (Auto) >30 /lpf (0-5) Urine Bacteria (Auto) NEG (NEG) Urine Renal Epithelial Cells 5-10 /lpf (0-5) Urine Pathogenic Casts /lpf (0) Ammonia 51.0 umol/L (11-32) Medications Administered Medications (Trade) Dose Ordered Sig/[place] Route Start Time Stop Time Status Last Admin Dose Admin Potassium Chloride (Kcl 10 Meq / Wtr) 10 meq NOW STAT IV 05/01/17 15:48 05/01/17 15:49 DC 05/01/17 17:24 10 MEQ ECG Indication: altered mental status Rate (beats per minute): 69 Rhythm: other (atrial sensed ventricular paced rhythm) Findings: no acute ischemic change, no ectopy Change: no significant change (14 March 2017) ED Course 14:20 - Complete history and physical performed 14:35 - Discussed case with Dr Patel who separately performed history and examination 15:42 - Patient was reassessed with no change in her mental state 15:58 - [facility] Giron who will evaluate patient further for admission Medical Decision Prior records/ancillary studies reviewed and summarized above. Nursing notes reviewed. Additional history obtained from patient and her carer from [facility]. The patient's history was concerning for altered mental status. Differential diagnosis: Etiologies such as metabolic, infection, hypoglycemia, electrolyte abnormalities , cardiac sources, intracerebral event, toxicologic, neurologic, as well as others were entertained. Physical examination: As above. No focal neurology found on examination ER treatment provided: IV Lock Potassium Chloride 10meq IV Diagnostics interpretation by me: ECG: atrial sensed ventricular paced rhythm The labs revealed hypokalemia, elevated INR, PTT, ALP, Bilirubin - these appear to be trending upwards chronically. Ammonia level and US liver was added. Imaging studies: CT head, CXR, Venous doppler and Liver US did not show any acute pathology Given the above diagnostic work-up and treatment, this episode appears to be consistent with altered mental state - unknown etiology at this time. Further treatment will be required. Consultation: A consultation was placed with the [facility] hospitalist (Dr Giron). The case was discussed and diagnostics were reviewed. The patient was evaluated in the ER for further treatment. Medication Reconcilliation Current Medication List: was personally reviewed by me Consults Time Called: 15:39 Consulting Physician: Dr Giron Returned Call: 15:58 Patient will be evaluated for admission Impression Primary Impression: Altered mental status Additional Impressions: Hypokalemia Elevated INR Elevated bilirubin Departure Information Dispostion Being Evaluated By Hospitalist Condition FAIR Referrals No Doctor, Assigned (PCP) Patient Instructions My [facility] Resident Tracking Resident Involvement: Resident Care Provided Care Provided: Adult ED Problem Qualifiers Primary Impression: Altered mental status Altered mental status type: unspecified Qualified Codes: R41.82 - Altered mental status, unspecified
[2017-05-01 16:01] LABS: URINE APPEARANCE CLEAR (CLEAR); URINE BILIRUBIN NEG (NEG); URINE COLOR DK YELLOW; URINE EPITHELIAL CELL AUTO >30 /lpf (0-5); URINE NITRITE NEG (NEG); URINE SPECIFIC GRAVITY 1.019 (1.000-1.030); UROBILINOGEN POS (NEG); ZZURINE CULT IF INDIC CATH NO
[2017-05-01 16:07] LABS: MANUAL MICROSCOPIC REQUIRED? NO; REVIEW REQ? YES
[2017-05-01] MEDS ORDERED: LSX20 PO (16:13)
[2017-05-01] MEDS ORDERED: INSDGI SQ (16:14)
--- NOTE | 2017-05-01 17:09 | DIAGNOSTIC IMAGING REPORT ---
ABDOMINAL ULTRASOUND, RIGHT UPPER QUADRANT HISTORY: Elevated alkaline phosphatase and bilirubin. Evaluate for acute cholecystitis. COMPARISON: CT of the abdomen and pelvis April 27, 2013 and right upper quadrant ultrasound March 14, 2017. FINDINGS: No hepatic lesions are identified by sonography. There is no biliary ductal dilatation. The common bile duct measures 5 mm in caliber. The pancreatic body is normal while the head and tail are obscured. There is mild gallbladder wall thickening. No gallstones are identified. There is no pericholecystic fluid. No right hydronephrosis is present. A few right renal cysts are noted. IMPRESSION: 1. No gallstones or biliary ductal dilatation. 2. Mild gallbladder wall thickening, a nonspecific finding. Electronically signed by: Parveen Villanueva M.D. 05/01/2017 5:08 PM Dictated Date/Time: 05/01/2017 5:06 PM
--- NOTE | 2017-05-01 17:11 | DIAGNOSTIC IMAGING REPORT ---
BILATERAL LOWER EXTREMITY VENOUS DOPPLER CLINICAL HISTORY: Bilateral lower extremity swelling. COMPARISON STUDY: Bilateral lower extremity venous Doppler March 11, 2017. TECHNIQUE: Sonography of the deep venous system of the bilateral lower extremities was performed. Compression and augmentation were evaluated. FINDINGS: The bilateral common femoral, superficial femoral and popliteal veins were compressible. Augmentation was normal. Flow was shown within the deep calf vessels. The left popliteal vein thrombus shown on exam of March 01, 2017 is no longer visualized. IMPRESSION: No evidence of deep venous thrombus within the bilateral lower extremities. Electronically signed by: Parveen Villanueva M.D. 05/01/2017 5:09 PM Dictated Date/Time: 05/01/2017 5:08 PM
[2017-05-01] MEDS ORDERED: DEXTROSE 50% 50 ML SYR IV PRN (17:15)
[2017-05-01] MEDS ORDERED: GLUCOSE 10 TABS/TUBE PO PRN (17:15)
[2017-05-01] MEDS ORDERED: GLUCOSE 40% GEL 15 GM TUBE PO PRN (17:15)
[2017-05-01] MEDS ORDERED: ONDANSETRON INJ 2 MG/ML 2 ML VIAL IV PRN (17:15)
[2017-05-01] MEDS ORDERED: GLUCAGON FOR INJ 1 MG VIAL SQ PRN (17:15)
[2017-05-01] MEDS ORDERED: PHARMACY GLYCEMIC MGMT CONSULT PRN (17:32)
--- NOTE | 2017-05-01 17:39 | EMERGENCY ROOM VISIT NOTE ---
History Report prepared by Maribell: Ying Cabrera Under the Supervision of: Dr. Syed Patel D.O. First contact with patient: 14:16 Chief Complaint: CONFUSION Stated Complaint: NOSEBLEED, WADDELL, CONFUSION Nursing Triage Summary: pt here with episodes of forgetfulness recently. pt denies any trouble with speech, gait, weakness, swallowing. pt denies any headache. History of Present Illness The patient is a 66 year old female who presents to the Emergency Room with complaints of worsening confusion for the past 5 days. 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 Staff at bedside states that the patient is typically very functional and able to carry on conversations. Lately she has been having increased nosebleeds, headaches, and more confusion than normal. Staff member states that she is unsure whether she should get dressed or not, and she gets confused as to where the bathroom is. This is atypical. The patient has not been eating or drinking today. This morning she was incontinent of stool, which is also unusual for her. Pt denies fevers, cough, chest pain, shortness of breath, nausea, vomiting, diarrhea, and pain with urination. Staff member denies any recent trauma or falls. Source of History: patient Onset: 5 days Position: other (global) Quality: other (confusion) Timing: worsening Associated Symptoms: + headache, No fevers, No cough, No chest pain, No SOB , No nausea, No vomiting, No diarrhea, No urinary symptoms Note: Pt has been having nosebleeds. Pt was incontinent of stool. Review of Systems See HPI for pertinent positives & negatives. A total of 10 systems reviewed and were otherwise negative. Past Medical & Surgical Medical Problems: (1) Altered mental status (2) CAD (coronary artery disease) (3) COPD (chronic obstructive pulmonary disease) (4) DM type 2 (diabetes mellitus, type 2) (5) Dyslipidemia (6) GI bleed (7) HTN (hypertension) (8) Increased ammonia level (9) Ischemic cardiomyopathy (10) Leg swelling (11) Presence of combination internal cardiac defibrillator (ICD) and pacemaker (12) SAH (subarachnoid hemorrhage) (13) SOB (shortness of breath) Surgical Problems: (1) H/O dilation and curettage (2) H/O tubal ligation (3) Hx of appendectomy (4) Hx of tonsillectomy Family History FH: Alzheimers disease FATHER Social History Smoking Status: Never Smoker Alcohol Use: occasionally Drug Use: none Marital Status: single Housing Status: fdc Occupation Status: retired Current/Historical Medications Scheduled Aspirin (Aspirin EC Low Dose), 81 MG PO QAM Atorvastatin (Lipitor), 80 MG PO HS Furosemide (Furosemide), 40 MG PO BID17 Furosemide (Furosemide), 20 MG PO BID Glipizide (Glipizide Er), 2.5 MG PO DAILY Hydrocortisone (Rectal) (Proctozone-Hc), 1 APPLN TOP BID Insulin Glargine (Lantus), 10 UNITS SQ QPM Isosorbide Mononitrate Ext Rel (Imdur Ext Rel), 60 MG PO QAM Losartan Potassium (Losartan Potassium), 25 MG PO QAM Magnesium Oxide (Magnesium-Oxide), 400 MG PO QAM Metoprolol Succinate (Metoprolol Succinate ER), 75 MG PO QAM Nitroglycerin (Nitrostat), 0.4 MG UT PRN Pantoprazole (Protonix), 40 MG PO DAILY Rivaroxaban (Xarelto), 15 MG PO BID Sertraline HCl (Sertraline HCl), 25 MG PO DAILY Triamcinolone Acet (Aristocort 0.1%), 1 APPLN TOP BID Zinc Oxide (Topical) (Desitin), 1 APPLN TOP BID Scheduled PRN Acetaminophen Tab (Tylenol), 325 MG PO Q4 PRN for Pain or Fever Albuterol Hfa (Ventolin Hfa), 2 PUFFS INH Q4H PRN for Wheezing Hydroxyzine Hcl (Atarax), 12.5 MG PO Q8H PRN for Itching Allergies Coded Allergies: Sulfamethoxazole (Verified Allergy, Unknown, 05/01/17) Prednisone (Verified Adverse Reaction, Unknown, "makes me weird", 05/01/17) pt Physical Exam Vital Signs Date Time Temp Pulse Resp B/P (MAP) Pulse Ox O2 Delivery O2 Flow Rate FiO2 05/01/17 16:04 71 16 128/83 94 Room Air 05/01/17 14:12 36.8 77 20 134/84 95 Room Air Physical Exam GENERAL: alert, sitting up in bed, well appearing, well nourished, no distress, non-toxic EYE EXAM: normal conjunctiva, PERRL and EOM's intact OROPHARYNX: no exudate, no erythema, lips, buccal mucosa, and tongue normal and mucous membranes are moist NECK: supple, no nuchal rigidity, no adenopathy, non-tender LUNGS: Clear to auscultation. Normal chest wall mechanics HEART: no murmurs, S1 normal and S2 normal ABDOMEN: abdomen soft, non-tender, normo-active bowel sounds, no masses, no rebound or guarding. BACK: Back is symmetrical on inspection and there is no deformity, no midline tenderness, no CVA tenderness. SKIN: no rashes and no bruising UPPER EXTREMITIES: upper extremities are grossly normal. LOWER EXTREMITIES: No pitting edema. NEURO EXAM: Alert, follows commands, she was not oriented to year but was oriented to place, trouble recalling some events, cranial nerves II-XII intact, normal speech, no weakness of arms, no weakness of legs. No drift. Finger to nose intact. Gross sensation intact. Medical Decision & Procedures ER Provider Diagnostic Interpretation: Radiology results as stated below per my review and the radiologist's interpretation: HEAD WITHOUT CONTRAST (CT) CLINICAL HISTORY: 66 years-old Female with AMS. Acute altered mental status. TECHNIQUE: Multiple axial CT images of the head were obtained without contrast. A dose lowering technique was utilized adhering to the principles of ALARA. CT DOSE: 537.48 mGy.cm COMPARISON: CT head 12/18/2016. FINDINGS: No acute intracranial hemorrhage, midline shift, mass, large territorial ischemia or abnormal extra-axial collection. There is mild atrophy with ex vacuo ventriculomegaly. Focal area of low attenuation within the inferior left lentiform nucleus, 9 mm suggests remote lacunar infarction or perivascular space, unchanged. Background chronic microvascular ischemic changes. The calvarium is intact. The paranasal sinuses, mastoid air cells, and middle ear cavities are clear. IMPRESSION: No acute intracranial abnormality. The above report was generated using voice recognition software. It may contain grammatical, syntax or spelling errors. Electronically signed by: Alcon Gleason M.D. 05/01/2017 3:21 PM Dictated Date/Time: 05/01/2017 3:19 PM SINGLE VIEW CHEST CLINICAL HISTORY: Change in mental status. FINDINGS: An AP, portable, upright chest radiograph is compared to study dated 03/16/2017. The examination is degraded by portable technique and patient rotation. A 3-lead cardiac AICD is unchanged in position and partially obscures the left mid chest. The heart is enlarged and there is atherosclerotic calcification of the thoracic aorta. The pulmonary vasculature is noncongested. Small pleural effusions are identified. No airspace consolidation is seen typical for pneumonia. No pneumothorax is seen. The skeletal structures are osteopenic. Calcific tendinopathy is seen in the left shoulder. IMPRESSION: 1. Cardiomegaly and AICD. There is no radiographic evidence of congestive failure. 2. Small pleural effusions are identified. Electronically signed by: Carlos Grullon M.D. 05/01/2017 2:45 PM Dictated Date/Time: 05/01/2017 2:43 PM Laboratory Results 05/01/17 14:56 Red Blood Count 4.75, Mean Corpuscular Volume 79.2, Mean Corpuscular Hemoglobin 25.1, Mean Corpuscular Hemoglobin Concent 31.6, Mean Platelet Volume 10.0, Neutrophils (%) (Auto) 64.7, Lymphocytes (%) (Auto) 24.9, Monocytes (%) (Auto) 8.9, Eosinophils (%) (Auto) 1.0, Basophils (%) (Auto) 0.3, Neutrophils # (Auto) 3.72, Lymphocytes # (Auto) 1.43, Monocytes # (Auto) 0.51, Eosinophils # (Auto) 0.06, Basophils # (Auto) 0.02 05/01/17 14:56 Test 05/01/17 14:56 05/01/17 15:30 05/01/17 15:57 White Blood Count 5.75 K/uL (4.8-10.8) Red Blood Count 4.75 M/uL (4.2-5.4) Hemoglobin 11.9 g/dL (12.0-16.0) Hematocrit 37.6 % (37-47) Mean Corpuscular Volume 79.2 fL (80-100) Mean Corpuscular Hemoglobin 25.1 pg (25-34) Mean Corpuscular Hemoglobin Concent 31.6 g/dl (32-36) Platelet Count 232 K/uL (130-400) Mean Platelet Volume 10.0 fL (7.4-10.4) Neutrophils (%) (Auto) 64.7 % Lymphocytes (%) (Auto) 24.9 % Monocytes (%) (Auto) 8.9 % Eosinophils (%) (Auto) 1.0 % Basophils (%) (Auto) 0.3 % Neutrophils # (Auto) 3.72 K/uL (1.4-6.5) Lymphocytes # (Auto) 1.43 K/uL (1.2-3.4) Monocytes # (Auto) 0.51 K/uL (0.11-0.59) Eosinophils # (Auto) 0.06 K/uL (0-0.5) Basophils # (Auto) 0.02 K/uL (0-0.2) RDW Standard Deviation 54.0 fL (36.4-46.3) RDW Coefficient of Variation 19.3 % (11.5-14.5) Immature Granulocyte % (Auto) 0.2 % Immature Granulocyte # (Auto) 0.01 K/uL (0.00-0.02) Prothrombin Time 23.8 SECONDS (9.0-12.0) Prothromb Time International Ratio 2.2 (0.9-1.1) Activated Partial Thromboplast Time 45.5 SECONDS (21.0-31.0) Partial Thromboplastin Ratio 1.8 Anion Gap 8.0 mmol/L (3-11) Est Creatinine Clear Calc Drug Dose 44.1 ml/min Estimated GFR () 54.5 Estimated GFR (Non- 47.1 BUN/Creatinine Ratio 16.4 (10-20) Calcium Level 9.0 mg/dl (8.5-10.1) Magnesium Level 1.7 mg/dl (1.8-2.4) Total Bilirubin 2.0 mg/dl (0.2-1) Direct Bilirubin 1.2 mg/dl (0-0.2) Aspartate Amino Transf (AST/SGOT) 31 U/L (15-37) Alanine Aminotransferase (ALT/SGPT) 22 U/L (12-78) Alkaline Phosphatase 131 U/L (45-117) Troponin I 0.038 ng/ml (0-0.045) Total Protein 7.0 gm/dl (6.4-8.2) Albumin 3.1 gm/dl (3.4-5.0) Urine Color DK YELLOW Urine Appearance CLEAR (CLEAR) Urine pH 6.0 (4.5-7.5) Urine Specific [place] 1.019 (1.000-1.030) Urine Protein 2+ (NEG) Urine Glucose (UA) NEG (NEG) Urine Ketones NEG (NEG) Urine Occult Blood 1+ (NEG) Urine Nitrite NEG (NEG) Urine Bilirubin NEG (NEG) Urine Urobilinogen POS (NEG) Urine Leukocyte Esterase SMALL (NEG) Urine WBC (Auto) 5-10 /hpf (0-5) Urine RBC (Auto) 5-10 /hpf (0-4) Urine Hyaline Casts (Auto) 10-30 /lpf (0-5) Urine Epithelial Cells (Auto) >30 /lpf (0-5) Urine Bacteria (Auto) NEG (NEG) Urine Renal Epithelial Cells 5-10 /lpf (0-5) Urine Pathogenic Casts /lpf (0) Ammonia 51.0 umol/L (11-32) Laboratory results per my review. Medications Administered Medications (Trade) Dose Ordered Sig/[place] Route Start Time Stop Time Status Last Admin Dose Admin Potassium Chloride (Kcl 10 Meq / Wtr) 10 meq NOW STAT IV 05/01/17 15:48 05/01/17 15:49 DC 05/01/17 17:24 10 MEQ ECG Indication: altered mental status Rate (beats per minute): 69 Rhythm: other (ventricular paced) Findings: Q waves (Septal), other (normal axis) ED Course ED COURSE: Vital signs were reviewed and showed hypertensive. The patients medical record was reviewed The above diagnostic studies were performed and reviewed. ED treatments and interventions as stated above. 1416: The patient was evaluated in room B4B. A complete history and physical examination was performed. 1548: Potassium Chloride 10 meq IV 1551: Upon reevaluation, the patient is doing well. I discussed my findings with the patient and she understands and agrees with the treatment plan. Based on the patients age, coexisting illnesses, exam and lab findings the decision to treat as an inpatient was made. The patient remained stable while under my care. The patient will be evaluated for further management. 1554: Potassium Chloride 10 meq IV 1558: The case was discussed with Dr. Giron. The [facility] will evaluate the patient for further evaluation. Medical Decision Differential diagnoses includes but is not limited to toxic, metabolic, infectious, traumatic, cardiac, neurologic, hematologic, psychiatric and inflammatory etiologies. Patient is a 66-year-old female brought in from an assisted living/[facility] for altered mental status which has been present since Saturday. She has had a significant decrease in her ADLs. She does not know where she is. She has been urinating and moving her bowels without making it to the bathroom. She is not able to carry a full/normal conversation. Patient is neurologically intact on exam. CBC was unremarkable. BMP remarkable for hypokalemia at 2.8 along with hypomagnesemia of 1.7. T bili and direct bili were slightly elevated. Ammonia was elevated at 51. She does take a Xa inhibitor which does not explain why her INR is elevated. Greater than 30 epithelial cells. There is this urine is likely contaminant. Chest x-ray unremarkable. CT head negative. Duplex of bilateral lower shoulder is unremarkable. Ultrasound of the liver/ gallbladder shows mild cold bladder wall thickening without pericholecystic fluid. No fevers. No tenderness on exam to suggest cholecystitis. Caregiver and patient were updated at bedside patient was admitted to internal medicine for further workup. Medication Reconcilliation Current Medication List: was personally reviewed by me Blood Pressure Screening Patient's blood pressure: Elevated blood pressure Blood pressure disposition: Elevated BP felt to be situational Consults Time Called: 1553 Consulting Physician: Dr. Giron Returned Call: [phone] The case was discussed with Dr. Giron. The [facility] will evaluate the patient for further evaluation. Impression Primary Impression: Altered mental status Additional Impressions: Hypokalemia Elevated INR Scribe Attestation The scribe's documentation has been prepared under my direction and personally reviewed by me in its entirety. I confirm that the note above accurately reflects all work, treatment, procedures, and medical decision making performed by me. Departure Information Dispostion Being Evaluated By Hospitalist Referrals No Doctor, Assigned (PCP) Patient Instructions My [facility] Problem Qualifiers Primary Impression: Altered mental status Altered mental status type: unspecified Qualified Codes: R41.82 - Altered mental status, unspecified
[2017-05-01] MEDS ORDERED: LACTULOSE SYRUP 20 GM/30 ML UDC PO STA (17:43)
[2017-05-01] MEDS ORDERED: POTASSIUM CHLORIDE 10 MEQ TABCR PO STA (17:45)
[2017-05-01] MEDS ORDERED: POTASSIUM CHLORIDE 10 MEQ TABCR ONE (18:22)
[2017-05-01] MEDS ORDERED: LACTULOSE SYRUP 20 GM/30 ML UDC ONE ×2 (18:23→18:25)
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
[2017-05-01] MEDS ORDERED: MAGNESIUM SULFATE 1GM / D5W 1 GM in PREMIXED IN D5W 100 ML IV SCH (19:00)
[2017-05-01 19:02] VITALS: BP 141/96; PULSE 74; TEMP 36.6; O2SAT 98; BMI 31.5
[2017-05-01] MEDS ORDERED: hydrOXYzine HCL 25 MG TAB PO PRN (19:30)
[2017-05-01] MEDS ORDERED: NITROGLYCERIN 0.4 MG SL PER TAB CHARGE UT PRN (19:30)
[2017-05-01] MEDS ORDERED: ALBUTEROL HFA 8 GM INHALER INH PRN (19:30)
--- NOTE | 2017-05-01 20:11 | Pharmacy Progress Note ---
Glycemic Control Intl Consult Date of Service May 01, 2017. Scope Glycemic Pharmacist consulted by Tere SANCHES on 05/01/17 for glycemic control and to write orders per [facility] inpatient glycemic control protocol Objective Weight (Kilograms): 75.700 Accuchecks BSG (last 24hrs): Test 05/01/17 14:56 Random Glucose 136 mg/dl (70-99) Laboratory Data (last 24hrs) Test 05/01/17 14:56 Anion Gap 8.0 mmol/L BUN/Creatinine Ratio 16.4 Blood Urea Nitrogen 20 mg/dl Creatinine 1.20 mg/dl Potassium Level 2.8 mmol/L Sodium Level 135 mmol/L White Blood Count 5.75 K/uL Red Blood Count 4.75 M/uL Hemoglobin 11.9 g/dL Hematocrit 37.6 % Mean Corpuscular Volume 79.2 fL Mean Corpuscular Hemoglobin 25.1 pg Mean Corpuscular Hemoglobin Concent 31.6 g/dl Platelet Count 232 K/uL Mean Platelet Volume 10.0 fL Neutrophils (%) (Auto) 64.7 % Lymphocytes (%) (Auto) 24.9 % Monocytes (%) (Auto) 8.9 % Eosinophils (%) (Auto) 1.0 % Basophils (%) (Auto) 0.3 % Neutrophils # (Auto) 3.72 K/uL Lymphocytes # (Auto) 1.43 K/uL Monocytes # (Auto) 0.51 K/uL Eosinophils # (Auto) 0.06 K/uL Basophils # (Auto) 0.02 K/uL Recent Pertinent Medications Outpatient Anti-diabetic Regimen: * Lantus 10 units SQ HS + glipizide 2.5 mg po daily * unknown - ordered for 05/02 Assessment & Plan ASSESSMENT: * 66 yr old female admitted with AMS. Outpatient glycemic control unknown. * Will hold oral agents for admission and utilize SQ basal bolus insulin regimen which is the recommended regimen for inpatient glycemic control. * Will initiate weight based insulin dosing for insulin edin patient and titrate based on BSG trends. * ADA & AACE recommend a goal blood sugar range 140-180 mg/dl for the majority of critically ill & non-critically ill patients. However, more stringent targets may be selected in individual cases. PLAN FOR INPATIENT GLYCEMIC CONTROL: * Holding outpatient oral diabetes medications * Basal insulin with LANTUS 8 units SQ HS * Correctional Insulin with NOVOLOG per scale ACHS or Q6hrs while NPO * Goal Range: Low 120 mg/dL - High 160 mg/dL * Correction Factor: 30 mg/dL/unit * Nutritional / Prandial insulin per carb ratio of 1 unit per 10 grams CHO consumed * Please note that the plan above was derived based on current level of insulin resistance and hospital stress. These recommendations are appropriate for inpatient admission only. Plan of care upon discharge will need to be reassessed to avoid potential outpatient hypo/hyperglycemia. Thank you.
[2017-05-01] MEDS: HYDROCORTISONE HC 2.5% CRM 30GM TUBE EXT SCH (21:00)
[2017-05-01] MEDS: BUTT PASTE 171 APPLN/57 GM JAR EXT SCH (21:00)
[2017-05-01] MEDS ORDERED: FUROSEMIDE 20 MG TAB PO SCH (21:00)
[2017-05-01] MEDS ORDERED: FUROSEMIDE 40 MG TAB PO SCH (21:00)
[2017-05-01] MEDS: INSULIN ASPART 100 UNITS/ML 3 ML PEN SC SCH (21:00)
[2017-05-01] MEDS ORDERED: RIVAROXABAN TAB 15 MG TAB PO SCH (21:00)
[2017-05-01] MEDS ORDERED: INSULIN GLARGINE SOLOSTAR 100 UNITS/ML 3 ML PEN SC SCH (21:00)
[2017-05-01] MEDS: TRIAMCINOLONE ACET 0.1% CR 15 GM TUBE EXT SCH (21:00)
[2017-05-01] MEDS: ATORVASTATIN 40 MG TAB PO SCH (21:28)
[2017-05-01] MEDS: FUROSEMIDE 20 MG TAB PO SCH (21:28)
[2017-05-01 23:08] VITALS: BP 129/81; PULSE 77; TEMP 36.8; O2SAT 93
[2017-05-02 04:00] VITALS: BP 126/82; PULSE 81; TEMP 36.8; O2SAT 92
[2017-05-02 07:14] LABS: HEMATOCRIT 34.2 % (37-47); MEAN CELL VOLUME 79.4 fL (80-100); MEAN CORPUSCULAR HEMOGLOBIN 26.5 pg (25-34); MEAN CORPUSCULAR HGB CONC 33.3 g/dl (32-36); PLATELET COUNT 199 K/uL (130-400); RED BLOOD COUNT 4.31 M/uL (4.2-5.4)
[2017-05-02 07:50] LABS: BUN/CREATININE RATIO 17.1 (10-20); CALCIUM 8.9 mg/dl (8.5-10.1); CREATININE 1.1 mg/dl (0.60-1.20); MAGNESIUM 1.7 mg/dl (1.8-2.4); POTASSIUM 2.8 mmol/L (3.5-5.1)
[2017-05-02] MEDS: PANTOprazole SOD 40 MG TAB PO SCH (07:51)
[2017-05-02] MEDS: ASPIRIN 81 MG ECTAB PO SCH (07:51)
[2017-05-02] MEDS: ISOSORBIDE MONONITRATE 60 MG TABCR PO SCH (07:52)
[2017-05-02] MEDS: MAGNESIUM OXIDE 400 MG TAB PO SCH (07:52)
[2017-05-02] MEDS: METOPROLOL SUCC 25MG EXT REL TAB PO SCH (07:52)
[2017-05-02] MEDS: SERTRALINE HCL 50 MG TAB PO SCH (07:53)
[2017-05-02] MEDS: BUTT PASTE 171 APPLN/57 GM JAR EXT SCH ×2 (07:53→20:53)
[2017-05-02] MEDS: HYDROCORTISONE HC 2.5% CRM 30GM TUBE EXT SCH ×3 (07:53→20:53)
[2017-05-02] MEDS: TRIAMCINOLONE ACET 0.1% CR 15 GM TUBE EXT SCH ×3 (07:53→20:52)
[2017-05-02 08:06] VITALS: BP 142/90; PULSE 75; TEMP 36.8; O2SAT 94
[2017-05-02 08:15] LABS: ESTIMATED AVERAGE GLUCOSE 226 mg/dl; HA1C FLAG Normal (Normal)
[2017-05-02] MEDS: INSULIN ASPART 100 UNITS/ML 3 ML PEN SC SCH ×4 (08:26→21:03)
[2017-05-02] MEDS ORDERED: POTASSIUM CHLORIDE 20 MEQ TABCR PO STA (08:52)
[2017-05-02] MEDS ORDERED: LOSARTAN POTASSIUM 25 MG TAB PO SCH (09:00)
[2017-05-02] MEDS ORDERED: MAGNESIUM SULFATE 1GM / D5W 1 GM in PREMIXED IN D5W 100 ML IV SCH (09:30)
[2017-05-02] MEDS: FUROSEMIDE 20 MG TAB PO SCH ×2 (09:51→16:14)
[2017-05-02] MEDS: FUROSEMIDE 40 MG TAB PO SCH ×2 (09:51→16:14)
[2017-05-02] MEDS: POTASSIUM CHLR 10 MEQ / WTR 10 MEQ in PREMIXED WATER 100 ML IV SCH ×4 (09:53→12:08)
--- NOTE | 2017-05-02 10:03 | Pharmacy Progress Note ---
Glycemic Control Progress Note Date of Service May 02, 2017. Scope Glycemic Pharmacist consulted for glycemic control to write orders per [facility] inpatient glycemic control protocol. Objective Accuchecks BSG (last 24hrs): Test 05/01/17 14:56 05/01/17 19:53 05/02/17 06:41 05/02/17 06:43 Random Glucose 136 mg/dl (70-99) 96 mg/dl (70-99) Bedside Glucose 133 mg/dl (70-90) 92 mg/dl (70-90) HbA1c: Test 05/02/17 06:41 Hemoglobin A1c 9.5 % (4.5-5.6) H Recent Pertinent Medications The patient is currently receiving: * Basal insulin: Lantus 8 units every 24 hours in the evening * Correctional Insulin: Novolog Correction per scale ACHS Goal Range: Low 120 mg/dL - High 160 mg/dL Correction Factor: 30 mg/dL/unit * Prandial insulin: Per carb ratio of 1 unit per 10 grams CHO consumed Outpatient Anti-Diabetic Meds Glipizide 2.5 mg PO daily Lantus 10 units daily Assessment & Plan ASSESSMENT: * See progress note from 05/02/17 for more background info, in short: Ms Pérez is a 66 y/o F with PMH of CAD, COPD, dementia secondary to TBI, and DVT admitted with confusion. * Pt receiving SQ basal bolus insulin regimen for hyperglycemia secondary to baseline DM (outpatient regimen on hold). * Patient is currently receiving an average of <10 units of insulin per day * 0 units of basal insulin * 0 units of prandial/correctional insulin * BSGs ranging 92 - 133 mg/dl over the past 24hrs * Changes needed to insulin regimen: * AM Fasting BSG = 92 mg/dl. This is in slightly below goal range for patient based on inpatient targets and co-morbidities. As patient did not receive basal insulin last night, will create Lantus sliding scale in case patient's blood sugars rebound upwards. * Post-prandial BSGs are in range therefore no changes needed to CF/CR. * Total daily dose = <10 units. This dosing is yielding adequate glycemic control. * Additional notes / comments: Continue to hold glipizide as an inpatient as can cause hypoglycemia. PLAN FOR INPATIENT GLYCEMIC CONTROL: * DECREASING Lantus to 0-5 units SQ HS (0 units if blood sugar less than 180 mg/ dL and 5 units if blood sugar 180 mg/dL or greater) * Continuing correction factor of 30 mg/dl/unit * Continuing carb ratio of 1 unit per 10 grams CHO consumed * TIGHTENING goal range to Low 110 mg/dL - High 140 mg/dL RECOMMENDATIONS FOR DISCHARGE: * Patient has elevated HbA1C (goal of 8-8.5% based upon co-morbidities). Recommend DISCONTINUING glipizide and increasing Lantus by 10-20% ( approximately 12 units). May require Novolog with meals. Thank you.
--- NOTE | 2017-05-02 10:57 | Clinical Documentation Query ---
Dr. FELDER KVNG : CLINICAL DOCUMENTATION QUERY Patient is a 66 year old female admitted for evaluation of an altered mental status. Stated in H&P to be "likely 2/2 slightly elevated ammonia". Lactulose was initiated. Ammonia to be rechecked. In your clinical opinion is this patient being managed for: ( ) Hepatic encephalopathy ( ) Not Agree ( x ) Other explanation of clinical findings (Please Explain) ( ) Unable to determine (Please Define) ( ) Need to Discuss The medical record reflects the following clinical findings, treatment, and risk factors. No evidence of liver compromise /mild elevation of ammonia possible not responsible for confusion See GI note Possible UTI Started on PO Cipro Clinical Indicators: As above Treatment:Lactulose was initiated. Ammonia to be rechecked. Telemetry Risk Factors: Hyperammonemia Please clarify and document your clinical opinion in the progress notes and discharge summary. Terms such as "probable", "suspected", "likely", "questionable", "possible", or "still to be ruled out" are acceptable. IF IN AGREEMENT, YOU MUST DOCUMENT ABOVE DIAGNOSTIC STATEMENT IN DAILY PROGRESS NOTES AND DISCHARGE SUMMARY. This document is not part of the patient's record. Thank You, Mono Burkett, RN [phone]
[2017-05-02 11:47] VITALS: BP 130/85; PULSE 83; TEMP 36.8; O2SAT 93
[2017-05-02] MEDS ORDERED: NURSING VERBAL MED ORDER ONE (12:00)
[2017-05-02] MEDS ORDERED: POTASSIUM CHLORIDE 20 MEQ TABCR PO ONE ×2 (12:30)
[2017-05-02 14:20] VITALS: Ht 154.9 cm; Wt 74.3 kg
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
[2017-05-02 16:12] VITALS: BP 134/91; PULSE 85; TEMP 36.5; O2SAT 92
[2017-05-02] MEDS: POTASSIUM CHLORIDE 20 MEQ TABCR PO SCH (16:14)
[2017-05-02] MEDS ORDERED: RIVAROXABAN 20 MG TAB PO SCH (16:45)
[2017-05-02 17:22] LABS: BUN/CREATININE RATIO 16.4 (10-20); CALCIUM 9.2 mg/dl (8.5-10.1); CREATININE 1.4 mg/dl (0.60-1.20); POTASSIUM 3.8 mmol/L (3.5-5.1)
--- NOTE | 2017-05-02 18:34 | Progress Note ---
Internal Med Progress Note Date of Service: May 02, 2017. Provider Documentation: SUBJECTIVE: awake, pleasantly demented complains that the " the room is too hot " offers no complain does not recall why she came to hospital very forgetful , but can be re directed easily OBJECTIVE: Vital Signs-as noted below Exam: General-elderly female, no sign of distress Eyes-sclera non icteric ENT-NAd Neck-no JVD Lungs-CTA Heart-regular S1/S2 Abdomen-soft, non tender Extremities-no edema , rash or deformity Neuro-baseline dementia, oriented to person only , no focal deficit Lab data as noted below. ASSESSMENT & PLAN: Altered mental status/UTI : -confusion -possible metabolic encephalopathy due to UTI ( UA + ve for leukocyte esterase ) -CT head without acute events started on empiric Abx with Ciprofloxacin /follow urine culture Elevated ammonia: -Ammonia slightly elevated to 51 should not cause her increased confusion appreciate input form GI -no evidence of hepatic encephalopathy -Elevated T bili of 2, AST/SLT levels normal -Previous liver u/s with fatty liver, normal ducts, contracted gallbladder Multifactorial dementia: -Per neuro visit for memory loss last month, patient dx with multifactorial 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, vascular causes and Alzheimer's -CT head showed mild-mod global cerebral loss slightly progressed since 2013 -Patient requires some prompting at baseline but does not require it constantly will need need continued out pt follow up with neurology Electrolyte imbalances: -Hypokalemic, hypomagnesemia on admission -Replaced -follow up PRP in AM PAU on CKD stage 3 : cr elevated , will hold Lasix and ARB follow PRP Chronic systolic CHF: -Recent echo (12/10) with EF: 20-25% -Followed by Js in clinic - DM II: -Last hgb a1c of 8.8 (04/11) -insulin SSI H/o DVT: -Diagnosed with LLE DVT in 03/11 -Has been on Xarelto since -No evidence of DVTs on bilat LE dopplers today HTN: -Normotensive -Continue home regimen DVT PROPHYLAXIS On Xarelto DISPOSITION Plan to return to [facility] possible tomorrow 05/03/17 Vital Signs: Date Time Temp Pulse Resp B/P (MAP) Pulse Ox O2 Delivery O2 Flow Rate FiO2 05/02/17 16:12 36.5 85 18 134/91 (105) 92 Room Air 05/02/17 16:00 Room Air 9/7/17 12:00 Room Air 05/02/17 11:47 36.8 83 16 130/85 (100) 93 Room Air 05/02/17 08:06 36.8 75 16 142/90 (107) 94 Room Air 05/02/17 08:00 Room Air 05/02/17 04:00 36.8 81 20 126/82 (97) 92 Room Air 05/02/17 04:00 Room Air 05/02/17 00:00 Room Air 05/01/17 23:08 36.8 77 19 129/81 (97) 93 Room Air 05/01/17 20:00 Room Air 05/01/17 19:02 36.6 74 20 141/96 98 Room Air Lab Results: Results Past 24 Hours Test 05/01/17 19:53 05/02/17 06:41 05/02/17 06:43 05/02/17 10:52 Range/Units Bedside Glucose 133 92 163 70-90 mg/dl White Blood Count 4.90 4.8-10.8 K/uL Red Blood Count 4.31 4.2-5.4 M/uL Hemoglobin 11.4 12.0-16.0 g/dL Hematocrit 34.2 37-47 % Mean Corpuscular Volume 79.4 80-100 fL Mean Corpuscular Hemoglobin 26.5 25-34 pg Mean Corpuscular Hemoglobin Concent 33.3 32-36 g/dl RDW Standard Deviation 54.6 36.4-46.3 fL RDW Coefficient of Variation 19.6 11.5-14.5 % Platelet Count 199 130-400 K/uL Mean Platelet Volume 10.0 7.4-10.4 fL Sodium Level 138 136-145 mmol/L Potassium Level 2.8 3.5-5.1 mmol/L Chloride Level 99 98-107 mmol/L Carbon Dioxide Level 30 21-32 mmol/L Anion Gap 9.0 3-11 mmol/L Blood Urea Nitrogen 19 7-18 mg/dl Creatinine 1.10 0.60-1.20 mg/dl Est Creatinine Clear Calc Drug Dose 46.4 ml/min Estimated GFR () 60.6 Estimated GFR (Non- 52.3 BUN/Creatinine Ratio 17.1 10-20 Random Glucose 96 70-99 mg/dl Estimated Average Glucose 226 mg/dl Hemoglobin A1c 9.5 4.5-5.6 % Calcium Level 8.9 8.5-10.1 mg/dl Magnesium Level 1.7 1.8-2.4 mg/dl Test 05/02/17 16:24 05/02/17 16:40 Range/Units Bedside Glucose 191 70-90 mg/dl Sodium Level 134 136-145 mmol/L Potassium Level 3.8 3.5-5.1 mmol/L Chloride Level 96 98-107 mmol/L Carbon Dioxide Level 26 21-32 mmol/L Anion Gap 12.0 3-11 mmol/L Blood Urea Nitrogen 23 7-18 mg/dl Creatinine 1.40 0.60-1.20 mg/dl Est Creatinine Clear Calc Drug Dose 36.4 ml/min Estimated GFR () 45.3 Estimated GFR (Non- 39.1 BUN/Creatinine Ratio 16.4 10-20 Random Glucose 185 70-99 mg/dl Calcium Level 9.2 8.5-10.1 mg/dl Microbiology Results 05/02/17 Urine Culture, Received Pending
[2017-05-02] MEDS: CIPROFLOXACIN 250 MG TAB PO SCH (19:33)
[2017-05-02 19:45] VITALS: BP 126/86; PULSE 77; TEMP 36.5; O2SAT 95
[2017-05-02] MEDS: ATORVASTATIN 40 MG TAB PO SCH (20:54)
[2017-05-02] MEDS ORDERED: INSULIN GLARGINE SOLOSTAR 100 UNITS/ML 3 ML PEN SC SCH ×2 (21:00)
[2017-05-03] VITALS: BP 105/69; PULSE 66; TEMP 36.8; O2SAT 96
[2017-05-03 07:07] LABS: HEMATOCRIT 38.5 % (37-47); MEAN CELL VOLUME 79.4 fL (80-100); MEAN CORPUSCULAR HEMOGLOBIN 24.1 pg (25-34); MEAN CORPUSCULAR HGB CONC 30.4 g/dl (32-36); MEAN PLATELET VOLUME 10.2 fL (7.4-10.4); PLATELET COUNT 196 K/uL (130-400); RED BLOOD COUNT 4.85 M/uL (4.2-5.4); WHITE BLOOD COUNT 5.25 K/uL (4.8-10.8)
[2017-05-03 07:46] LABS: BUN/CREATININE RATIO 20.6 (10-20); CALCIUM 8.9 mg/dl (8.5-10.1); CREATININE 1.3 mg/dl (0.60-1.20); MAGNESIUM 1.9 mg/dl (1.8-2.4); POTASSIUM 4.1 mmol/L (3.5-5.1)
[2017-05-03 07:47] VITALS: BP 111/72; PULSE 67; TEMP 36.5; O2SAT 95
[2017-05-03] MEDS: PANTOprazole SOD 40 MG TAB PO SCH (08:09)
[2017-05-03] MEDS: ISOSORBIDE MONONITRATE 60 MG TABCR PO SCH (08:09)
[2017-05-03] MEDS: SERTRALINE HCL 50 MG TAB PO SCH (08:10)
[2017-05-03] MEDS: CIPROFLOXACIN 250 MG TAB PO SCH (08:10)
[2017-05-03] MEDS: POTASSIUM CHLORIDE 20 MEQ TABCR PO SCH (08:11)
[2017-05-03] MEDS: METOPROLOL SUCC 25MG EXT REL TAB PO SCH (08:12)
[2017-05-03] MEDS: MAGNESIUM OXIDE 400 MG TAB PO SCH (08:12)
[2017-05-03] MEDS: ASPIRIN 81 MG ECTAB PO SCH (08:13)
[2017-05-03] MEDS: TRIAMCINOLONE ACET 0.1% CR 15 GM TUBE EXT SCH (08:13)
[2017-05-03] MEDS: BUTT PASTE 171 APPLN/57 GM JAR EXT SCH (08:14)
[2017-05-03 08:15] VITALS: BP 125/81; PULSE 68
[2017-05-03] MEDS: INSULIN ASPART 100 UNITS/ML 3 ML PEN SC SCH ×2 (08:19→13:21)
[2017-05-03] MEDS: HYDROCORTISONE HC 2.5% CRM 30GM TUBE EXT SCH (08:19)
[2017-05-03] MEDS ORDERED: CPR250 PO (09:56)
--- NOTE | 2017-05-03 10:05 | Discharge Instructions ---
Discharge Instructions Date of Service May 03, 2017. Admission Reason for Admission: Altered Mental Status, Increased Ammonia Level Discharge Discharge Diagnosis / Problem: DEMENTIA /UTI /SEVERE CARDIOMYOPATHY Discharge Goals Goal(s): Decrease discomfort, Improve disease control, Diagnostic testing Activity Recommendations Activity Limitations: resume your previous activity . Instructions / Follow-Up Instructions / Follow-Up HOSPITAL FOLLOW UP : 05/09/2017 11:10 AM Diamante Howard DO [facility] LAB WORK : BASIC METABOLIC PANEL ON Saturday05/06/17 9 ( DX : acute renal failure on CKD stage 3 ) CARDIOLOGY FOLLOW UP : 05/08/2017 8:15 AM Joesph Weinstein PA-C Cardiology, [facility] Current Hospital Diet Patient's current hospital diet: Low Sodium Diet (2gm Na), Diabetes Type 2 Diet Discharge Diet Recommended Diet: AHA Diet (Heart Healthy), Diabetes Type 2 Diet Pending Studies Studies pending at discharge: yes List of pending studies: LAB WORK : BASIC METABOLIC PANEL ON Saturday05/06/17 9 ( DX : acute renal failure on CKD stage 3 ) Laboratory Results Hemoglobin A1c Test 05/02/17 06:41 Range/Units Estimated Average Glucose 226 mg/dl Hemoglobin A1c 9.5 H 4.5-5.6 % Medical Emergencies . Who to Call and When: Medical Emergencies: If at any time you feel your situation is an emergency, please call 911 immediately. . Non-Emergent Contact Non-Emergency issues call your: Primary Care Provider . . "Provider Documentation" section prepared by Cristine Billingsley. . VTE Core Measure Inpt VTE Proph given/why not?: Other Anticoagulation (Xarelto), SCD's
[2017-05-03 13:27] VITALS: BP 125/81; PULSE 68; TEMP 36.5; O2SAT 95
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
[2017-05-03] MEDS ORDERED: INSULIN GLARGINE SOLOSTAR 100 UNITS/ML 3 ML PEN SC SCH (21:00)
== END 2017-05-03 13:50 | disposition home or self-care (01) | DRG 689 ==
LOC: C.EDB 14:08 → C.2T 17:11 → ENRESERV 17:22 → C.MED 05-02 19:48
PROVIDERS: ADMIT Internal Medicine; ATTEND Hospitalist
DX: N39.0 Urinary tract infection, site not specified (principal); G93.41 Metabolic encephalopathy; I50.22 Chronic systolic (congestive) heart failure; N17.9 Acute kidney failure, unspecified; E72.20 Disorder of urea cycle metabolism, unspecified; I13.0 Hypertensive heart and chronic kidney disease with heart failure and stage 1 through stage 4 chronic kidney disease, or unspecified chronic kidney disease; N18.3 Chronic kidney disease, stage 3 (moderate); E11.22 Type 2 diabetes mellitus with diabetic chronic kidney disease; Z66 Do not resuscitate; I25.10 Atherosclerotic heart disease of native coronary artery without angina pectoris; I25.5 Ischemic cardiomyopathy; E78.5 Hyperlipidemia, unspecified; J44.9 Chronic obstructive pulmonary disease, unspecified; F03.90 Unspecified dementia, unspecified severity, without behavioral disturbance, psychotic disturbance, mood disturbance, and anxiety; E87.6 Hypokalemia; E83.42 Hypomagnesemia; Z79.82 Long term (current) use of aspirin; Z86.718 Personal history of other venous thrombosis and embolism; Z95.5 Presence of coronary angioplasty implant and graft; Z79.84 Long term (current) use of oral hypoglycemic drugs; Z87.820 Personal history of traumatic brain injury; Z79.4 Long term (current) use of insulin; Z95.810 Presence of automatic (implantable) cardiac defibrillator; Z79.01 Long term (current) use of anticoagulants

== ENCOUNTER 2017-05-09 09:28 | Emergency (ER) | payer OTHER ==
[~2017-05-09] VITALS: Ht 157.5 cm; Wt 75.0 kg
[~2017-05-09 09:28] MED LIST changes: +CPR250 PO; +INSDGI SQ; -NYST100033 TOP
[2017-05-09 09:32] VITALS: TEMP 36.8; Ht 157.5 cm; Wt 75.0 kg
--- NOTE | 2017-05-09 10:28 | DIAGNOSTIC IMAGING REPORT ---
CHEST ONE VIEW PORTABLE CLINICAL HISTORY: Altered mental status. Weakness. COMPARISON STUDY: Chest radiograph May 01, 2017. FINDINGS: A biventricular left subclavian pacer/AICD is in place. Moderate cardiomegaly is unchanged. There is no radiographic evidence of pulmonary edema. No consolidation is identified. There is no pneumothorax or pleural effusion. Opacity at the right cardiophrenic angle likely reflects epicardial fat pad. IMPRESSION: No acute cardiopulmonary findings. Moderate cardiomegaly. Electronically signed by: Parveen Villanueva M.D. 05/09/2017 10:27 AM Dictated Date/Time: 05/09/2017 10:25 AM
[2017-05-09 10:49] LABS: URINE APPEARANCE CLEAR (CLEAR); URINE BILIRUBIN NEG (NEG); URINE COLOR YELLOW; URINE NITRITE NEG (NEG); URINE PH 7.5 (4.5-7.5); URINE SPECIFIC GRAVITY 1.015 (1.000-1.030); UROBILINOGEN NEG (NEG); ZZUR CULT IF INDIC CLEAN CATCH NO
[2017-05-09 11:01] LABS: BASO % 0.4 %; BASO ABS # 0.02 K/uL (0-0.2); EOS % 1.4 %; HEMATOCRIT 37.3 % (37-47); IG% 0.2 %; LYMPH ABS # 0.98 K/uL (1.2-3.4); MEAN CELL VOLUME 79.4 fL (80-100); MEAN CORPUSCULAR HEMOGLOBIN 25.1 pg (25-34); MEAN CORPUSCULAR HGB CONC 31.6 g/dl (32-36); PLATELET COUNT 236 K/uL (130-400); WHITE BLOOD COUNT 5.16 K/uL (4.8-10.8)
[2017-05-09 11:03] LABS: MANUAL MICROSCOPIC REQUIRED? NO; REVIEW REQ? NO; SULFASALICYLIC ACID POS (NEG)
[2017-05-09 11:11] LABS: INR 1.8 (0.9-1.1); PARTIAL THROMBOPLASTIN RATIO 1.7; PROTHROMBIN TIME (PATIENT) 20.1 SECONDS (9.0-12.0)
[2017-05-09 11:12] LABS: BUN/CREATININE RATIO 21.2 (10-20); CALCIUM 8.7 mg/dl (8.5-10.1); CREATININE 1.2 mg/dl (0.60-1.20); MAGNESIUM 1.7 mg/dl (1.8-2.4); POTASSIUM 3.5 mmol/L (3.5-5.1)
[2017-05-09 11:20] LABS: CKMB/CK RATIO 2.2 (0-3.0); THYROID STIMULATING HORMONE 0.765 uIu/ml (0.300-4.500)
[2017-05-09] MEDS ORDERED: SALI1SPR3 NAE (11:28)
[2017-05-09 11:37] LABS: ANISOCYTOSIS PRESENT; COMPLETE YES; ECHINOCYTES 1+; HYPOCHROMIA PRESENT; SCHISTOCYTES 1+; TARGET CELLS 1+
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
[2017-05-09 12:56] VITALS: BP 103/54; PULSE 75; O2SAT 96
== END 2017-05-09 12:59 | disposition home or self-care (01) ==
LOC: C.EDB 09:33 → C.EDC 12:59
DX: G47.00 Insomnia, unspecified (principal); R41.3 Other amnesia; I25.10 Atherosclerotic heart disease of native coronary artery without angina pectoris; J44.9 Chronic obstructive pulmonary disease, unspecified; E11.9 Type 2 diabetes mellitus without complications; E78.5 Hyperlipidemia, unspecified; I10 Essential (primary) hypertension; I25.5 Ischemic cardiomyopathy; Z95.0 Presence of cardiac pacemaker; Z79.82 Long term (current) use of aspirin; Z79.01 Long term (current) use of anticoagulants; Z79.899 Other long term (current) drug therapy

== ENCOUNTER → 2017-05-24 | Outpatient (CLI) | payer OTHER ==
[~2017-05-24] MED LIST changes: -CPR250 PO; +SALI1SPR3 NAE
[2017-05-24 10:20] LABS: URINE APPEARANCE CLEAR (CLEAR); URINE BILIRUBIN NEG (NEG); URINE COLOR YELLOW; URINE EPITHELIAL CELL AUTO >30 /lpf (0-5); URINE NITRITE NEG (NEG); UROBILINOGEN NEG (NEG)
[2017-05-24 10:35] LABS: MANUAL MICROSCOPIC REQUIRED? NO; REVIEW REQ? YES
[2017-05-24 11:39] LABS: URINE PATH CASTS 5-10 GRANULAR CASTS /lpf (0)
== END ==
LOC: C.LABUPHEI 09:18
PROVIDERS: ATTEND Nurse Practitioner Family
DX: R41.82 Altered mental status, unspecified (principal)